=== PATIENT | male | born 1945 | race Caucasian/White ===

== ENCOUNTER → 2021-09-15 13:31 | Outpatient (BNVA) | payer MEDICARE, BC, SELFPAY | PROVIDERS: PCP Internal Medicine; Visit Provider Psychiatry & Neurology Neurology | DX: E34.8 Other specified endocrine disorders (principal); G40.209 Localization-related (focal) (partial) symptomatic epilepsy and epileptic syndromes with complex partial seizures, not intractable, without status epilepticus; R25.1 Tremor, unspecified; G47.33 Obstructive sleep apnea (adult) (pediatric); E78.5 Hyperlipidemia, unspecified; F43.10 Post-traumatic stress disorder, unspecified; Z99.89 Dependence on other enabling machines and devices | CPT/HCPCS: 99212 ==

== ENCOUNTER → 2022-03-16 11:27 | Outpatient (BNVA) | payer MEDICARE, BC, SELFPAY | PROVIDERS: PCP Internal Medicine; Visit Provider Nurse Practitioner Family | DX: E66.9 Obesity, unspecified (principal); R25.1 Tremor, unspecified; G47.33 Obstructive sleep apnea (adult) (pediatric); G40.209 Localization-related (focal) (partial) symptomatic epilepsy and epileptic syndromes with complex partial seizures, not intractable, without status epilepticus; E34.8 Other specified endocrine disorders | CPT/HCPCS: 99212 ==

== ENCOUNTER → 2022-09-14 10:54 | Outpatient (BNVA) | payer MEDICARE, BC, SELFPAY | PROVIDERS: PCP Internal Medicine; Visit Provider Nurse Practitioner Family | DX: G40.209 Localization-related (focal) (partial) symptomatic epilepsy and epileptic syndromes with complex partial seizures, not intractable, without status epilepticus (principal); G25.1 Drug-induced tremor; G47.33 Obstructive sleep apnea (adult) (pediatric); E66.9 Obesity, unspecified; Z68.31 Body mass index [BMI] 31.0-31.9, adult; Z99.89 Dependence on other enabling machines and devices | CPT/HCPCS: 99212 ==

== ENCOUNTER 2023-03-15 10:52 | Outpatient (AMB) | payer MEDICARE, BC, SELFPAY ==
--- NOTE | 2023-03-15 10:54 | MHC.OFFVIS ---
Intake Vital Signs 03/15/23 11:01 Height 5 ft 7 in BP 148/74 H Blood Pressure Location Rt brachial Position Sitting Pulse 58 Pulse Source Pulse Oximeter Pulse Oximetry (%) 97 Oxygen Delivery Method Room Air Intake Visit Reasons: 6 mo f/u for AUGUSITN - Confirmed Intake Note: Patient presents for 6 month follow up AUGUSTIN.Patient states my tremors are getting worst,my wives OT told me about a weighted glove. Allergies No Known Allergies Allergy (Verified 03/15/23 10:59) HPI HPI Comments History of Present Illness Details 77 y/o male patient presents with his for follow up of complex partial seizures, left upper extremity tremor and obstructive sleep apnea on CPAP comes for follow-up.? No breakthrough seizures reported. Pt denies any episodes of confusion or seizure like activities. ? He takes gabapentin 100 mg qAM, 300 mg qHS and lamotrigine 150 mg BID. He is compliant with [facility]. He sleeps about 7 hours a day, but reports daytime sleepiness, he falls asleep sometimes. He takes methylphenidate 10 mg BID. He has not noticed any left hand tremors, but feels fine motor skills declined. He is having difficulty changing his 's hearing aids. Pt's memory is stable, but still forgetful. He sees his psychiatrist once a month for depression. [facility] Medical History (Updated 03/15/23 @ 11:21 by Cora Harrison CNP) Obesity Hyperlipidemia Pineal gland cyst Tremors of nervous system Obstructive sleep apnea Complex partial seizures Depression Arthritis Surgical History No pertinent past surgical history Social History Household Members: Spouse Alcohol intake: current Alcohol intake frequency: does not drink Patient Tobacco Use Status: Never used Tobacco Current occupational status: retired Review of Systems Const All systems reviewed & are unremarkable except as noted in HPI and below ENT Reports Normal hearing present Neuro Reports Normal hearing present Physical Exam Vital Signs: Last Vital Signs Pulse 58 03/15/23 11:01 BP 148/74 H 03/15/23 11:01 Pulse Ox 97 03/15/23 11:01 Oxygen Delivery Method Room Air 03/15/23 11:01 Const General: cooperative, healthy appearing, comfortable and no acute distress Nutritional Appearance: obese Orientation/consciousness: patient oriented x3 Eyes Pupils: Equal, round and reactive pupils present Neuro Other: Mild intermittent left UE rest tremors Mild decreased finger taps and fine finger movements L>R. General: patient oriented x3 Cranial nerves: Yes CN's II-XII intact bilaterally, Yes Equal, round and reactive pupils present, Yes Bilaterally intact EOM present, Yes Normal facial strength present, Yes Midline tongue present and Yes Normal hearing present Motor exam (neuro): 5/5 motor strength present throughout Psych Appearance: grossly normal Mental Status: mental status grossly normal Affect: normal affect Attitude: cooperative Assessment & Plan Assessment & Plan (1) Obesity: Code(s): E66.9 - Obesity, unspecified (2) Tremors of nervous system: Comment: Bilateral hands tremor. Code(s): R25.1 - Tremor, unspecified (3) Obstructive sleep apnea: Code(s): G47.33 - Obstructive sleep apnea (adult) (pediatric) (4) Complex partial seizures: Code(s): G40.209 - Localization-related (focal) (partial) symptomatic epilepsy and epileptic syndromes with complex partial seizures, not intractable, without status epilepticus Plan Advised patient to continue lamotrigine 150 mg b.i.d. Continue gabapentin 100 mg q AM and 300 mg q HS. Continue CPAP compliance stressed. Sleep hygiene education provided. Encouraged patient to have well balanced diet for wt management. Advised patient to increased physical and cognitive activity. Refer patient to OT for hands weakness, tremor, and decreased fine motor skills. Orders: Orders OT Evaluation and Treatment 12 Weeks R25.1 - Tremor, unspecified Coding Level of Care Code Est Pt Level 4 (21400) Diagnoses Obesity E66.9 Tremors of nervous system R25.1 Obstructive sleep apnea G47.33 Complex partial seizures G40.209
[2023-03-15 11:01] VITALS: BP 148/74; PULSE 58; O2SAT 97
== END 2023-03-15 11:26 | disposition home or self-care (01) ==
LOC: HO.HSMC 10:52
PROVIDERS: PCP Internal Medicine; Visit Provider Nurse Practitioner Family
DX: E66.9 Obesity, unspecified (principal); R25.1 Tremor, unspecified; G47.33 Obstructive sleep apnea (adult) (pediatric); G40.209 Localization-related (focal) (partial) symptomatic epilepsy and epileptic syndromes with complex partial seizures, not intractable, without status epilepticus
CPT/HCPCS: 99214

== ENCOUNTER → 2023-03-15 10:52 | Outpatient (BNVA) | payer MEDICARE, BC, SELFPAY | PROVIDERS: PCP Internal Medicine; Visit Provider Nurse Practitioner Family | DX: G40.209 Localization-related (focal) (partial) symptomatic epilepsy and epileptic syndromes with complex partial seizures, not intractable, without status epilepticus (principal); R25.1 Tremor, unspecified; G47.33 Obstructive sleep apnea (adult) (pediatric); E66.9 Obesity, unspecified | CPT/HCPCS: 99212 ==

== ENCOUNTER 2023-07-25 09:43 | Outpatient (AMB) | payer MEDICARE, BC, SELFPAY ==
--- NOTE | 2023-07-25 09:55 | MHC.OFFVIS ---
Intake Vital Signs 07/25/23 09:58 Height 5 ft 7 in Weight 202 lb BMI 31.6 BP 130/74 Blood Pressure Location Rt brachial Position Sitting Pulse 57 Pulse Source Pulse Oximeter Pulse Oximetry (%) 97 Oxygen Delivery Method Room Air Intake Visit Reasons: 4 mnts f/u appt CONF Intake Note: Patient presents for 4 month f/u. Allergies No Known Allergies Allergy (Verified 07/25/23 09:57) HPI HPI Comments History of Present Illness Details 78 y/o male patient presents with his for follow up of complex partial seizures, left upper extremity tremor and obstructive sleep apnea on CPAP comes for follow-up.? No breakthrough seizures reported. Pt denies any episodes of confusion or seizure like activities. ? He takes gabapentin 100 mg qAM, 300 mg qHS and lamotrigine 150 mg BID. He is compliant with [facility]AP and [facility]. He sleeps about 7 hours a day, but reports daytime sleepiness, he falls asleep sometimes. He takes methylphenidate 10 mg BID. He has not noticed left hand tremors decreased, but feels fine motor skills declined. OT finished. He is having difficulty changing his 's hearing aids. Pt reports his memory has declined, very forgetful. The previous brain MRI (10/06/21) showed pineal cyst. He sees his psychiatrist once a month for depression. [facility] Medical History (Updated 07/25/23 @ 10:34 by Cora Harrison CNP) Obesity Hyperlipidemia Pineal gland cyst Tremors of nervous system Obstructive sleep apnea Complex partial seizures Depression Arthritis Surgical History No pertinent past surgical history Social History Household Members: Spouse Alcohol intake: current Alcohol intake frequency: does not drink Patient Tobacco Use Status: Never used Tobacco Current occupational status: retired Review of Systems Const All systems reviewed & are unremarkable except as noted in HPI and below ENT Reports Normal hearing present Neuro Reports Normal hearing present Physical Exam Vital Signs: Last Vital Signs Pulse 57 07/25/23 09:58 BP 130/74 07/25/23 09:58 Pulse Ox 97 07/25/23 09:58 Oxygen Delivery Method Room Air 07/25/23 09:58 BMI result Body Mass Index 31.6 Const General: cooperative, healthy appearing, comfortable and no acute distress Nutritional Appearance: obese Orientation/consciousness: patient oriented x3 Eyes Pupils: Equal, round and reactive pupils present Neuro Other: Mild intermittent left UE rest tremors Mild decreased finger taps and fine finger movements L>R. General: patient oriented x3 Cranial nerves: Yes CN's II-XII intact bilaterally, Yes Equal, round and reactive pupils present, Yes Bilaterally intact EOM present, Yes Normal facial strength present, Yes Midline tongue present and Yes Normal hearing present Motor exam (neuro): 5/5 motor strength present throughout Psych Appearance: grossly normal Mental Status: mental status grossly normal Affect: normal affect Attitude: cooperative Assessment & Plan Assessment & Plan (1) Tremors of nervous system: Comment: Bilateral hands tremor. Code(s): R25.1 - Tremor, unspecified (2) Obstructive sleep apnea: Code(s): G47.33 - Obstructive sleep apnea (adult) (pediatric) (3) Complex partial seizures: Code(s): G40.209 - Localization-related (focal) (partial) symptomatic epilepsy and epileptic syndromes with complex partial seizures, not intractable, without status epilepticus Plan Advised patient to continue lamotrigine 150 mg b.i.d. Continue gabapentin 100 mg q AM and 300 mg q HS. Continue CPAP compliance stressed. Sleep hygiene education provided. Encouraged patient to have well balanced diet for wt management. Advised patient to increased physical and cognitive activity. Continue to do home OT for hands weakness, tremor, and decreased fine motor skills. Will repeat brain MRI to assess pineal cyst and worsening memory. Orders: Orders MR head/brain wo con 07/25/23 E34.8 - Other specified endocrine disorders, R25.1 - Tremor, unspecified, R26.89 - Other abnormalities of gait and mobility, R41.3 - Other amnesia Coding Level of Care Code Est Pt Level 4 (64041) Diagnoses Tremors of nervous system R25.1 Obstructive sleep apnea G47.33 Complex partial seizures G40.209
[2023-07-25 09:58] VITALS: BP 130/74; PULSE 57; O2SAT 97; BMI 31.6
== END 2023-07-25 10:31 | disposition home or self-care (01) ==
PROVIDERS: PCP Internal Medicine; Visit Provider Nurse Practitioner Family
DX: R25.1 Tremor, unspecified (principal); G47.33 Obstructive sleep apnea (adult) (pediatric); G40.209 Localization-related (focal) (partial) symptomatic epilepsy and epileptic syndromes with complex partial seizures, not intractable, without status epilepticus
CPT/HCPCS: 99214

== ENCOUNTER → 2023-07-25 09:43 | Outpatient (BNVA) | payer MEDICARE, BC, SELFPAY | PROVIDERS: PCP Internal Medicine; Visit Provider Nurse Practitioner Family | DX: R25.1 Tremor, unspecified (principal); G47.33 Obstructive sleep apnea (adult) (pediatric); G40.209 Localization-related (focal) (partial) symptomatic epilepsy and epileptic syndromes with complex partial seizures, not intractable, without status epilepticus; Z79.899 Other long term (current) drug therapy | CPT/HCPCS: 99212 ==

== ENCOUNTER 2024-04-04 09:53 | Outpatient (AMB) | payer MEDICARE, BC, SELFPAY ==
[2024-04-04 09:55] VITALS: BP 130/72; BMI 31.8
--- NOTE | 2024-04-04 09:55 | A.OFFVIS_ITS ---
Vital Signs 04/04/24 09:55 Height 5 ft 7 in Weight 203 lb BMI 31.8 BP 130/72 Blood Pressure Location Rt brachial Position Sitting Intake Visit Reasons: 6mo f/u appt Intake Note: Patient presents for 6 month follow up. Allergies No Known Allergies Allergy (Verified 04/04/24 09:58) Medication List - Last Reconciled 04/04/24 by Daya Son MD aspirin 81 mg PO DAILY cholecalciferol (vitamin D3) 50 mcg PO DAILY cyclosporine 0.05% (Restasis) drps ophthalmic (eye) escitalopram oxalate (Lexapro) 20 mg PO DAILY folic acid 1 mg PO DAILY gabapentin 100 mg PO DAILY gabapentin 300 mg PO BEDTIME hydrochlorothiazide 25 mg PO DAILY ibuprofen 600 mg PO TID lamotrigine 150 mg PO BID losartan 100 mg PO DAILY methylphenidate HCl 10 mg PO BID omega [id number] oil 120-180-500 mg (Fish Oil) caps PO simvastatin 20 mg PO BEDTIME HPI Comments Details: 78 y/o male patient presents with his for follow up of complex partial seizures, left upper extremity tremor and obstructive sleep apnea on CPAP comes for follow-up.? No breakthrough seizures reported.He recalls 1 episode of mild confusion 3 mths ago lasting 30seconds He takes gabapentin 100 mg qAM, 300 mg qHS and lamotrigine 150 mg BID. He is compliant with CPAP and [facility]. He sleeps about 7 hours a day, but reports daytime sleepiness. He takes methylphenidate 10 mg BID- AM and 1 pm- psychiatrist He has not noticed left hand tremors decreased, but feels fine motor skills declined. . He is having difficulty changing his 's hearing aids. Pt reports his memory has declined, very forgetful. Repeat brain MRI (09/10) showed pineal cyst- no change He sees his psychiatrist once a month for depression. [facility]. [facility] Medical History (Updated 04/04/24 @ 10:31 by Daya Son MD) Cognitive disorder Obesity Hyperlipidemia Pineal gland cyst Tremors of nervous system Obstructive sleep apnea Complex partial seizures Depression Arthritis Surgical History No pertinent past surgical history Social History Household Members: Spouse Alcohol intake: current Alcohol intake frequency: does not drink Patient Tobacco Use Status: Never used Tobacco Current occupational status: retired Physical Exam Vital Signs: Last Vital Signs BP 130/72 04/04/24 09:55 BMI result Body Mass Index 31.8 Assessment & Plan Assessment & Plan (1) Tremors of nervous system: Comment: Bilateral hands tremor. Code(s): R25.1 - Tremor, unspecified Category: Medical (2) Obstructive sleep apnea: Code(s): G47.33 - Obstructive sleep apnea (adult) (pediatric) Category: Medical (3) Complex partial seizures: Code(s): G40.209 - Localization-related (focal) (partial) symptomatic epilepsy and epileptic syndromes with complex partial seizures, not intractable, without status epilepticus Category: Medical (4) Cognitive disorder: Code(s): F09 - Unspecified mental disorder due to known physiological condition Category: Medical Plan I will trial him on zonisamide 25mg bid Advised patient to continue lamotrigine 150 mg b.i.d. Continue gabapentin 100 mg q AM and 300 mg q HS. Continue CPAP compliance stressed. Sleep hygiene education provided. Encouraged patient to have well balanced diet for wt management. Advised patient to increased physical and cognitive activity. Continue to do home exercise for hands weakness, tremor, and decreased fine motor skills. reviewed brain MRI to assess pineal cyst and worsening memory. Orders: Referrals Neuropsychiatry Referral F09 - Unspecified mental disorder due to known physiological condition Medications: New zonisamide 25 mg PO BID 60 caps 6RF Coding Level of Care Code Est Pt Level 4 (44473) Complex EM visit Add On G2211 Diagnoses Tremors of nervous system R25.1 Obstructive sleep apnea G47.33 Complex partial seizures G40.209 Cognitive disorder F09
== END 2024-04-04 10:41 | disposition home or self-care (01) ==
PROVIDERS: PCP Internal Medicine; Visit Provider Psychiatry & Neurology Neurology
DX: G40.209 Localization-related (focal) (partial) symptomatic epilepsy and epileptic syndromes with complex partial seizures, not intractable, without status epilepticus (principal); R41.89 Other symptoms and signs involving cognitive functions and awareness; R25.1 Tremor, unspecified; G47.33 Obstructive sleep apnea (adult) (pediatric)
CPT/HCPCS: 99214; G2211

== ENCOUNTER → 2024-04-04 09:53 | Outpatient (BNVA) | payer MEDICARE, BC, SELFPAY | PROVIDERS: PCP Internal Medicine; Visit Provider Psychiatry & Neurology Neurology | DX: G40.209 Localization-related (focal) (partial) symptomatic epilepsy and epileptic syndromes with complex partial seizures, not intractable, without status epilepticus (principal); G47.33 Obstructive sleep apnea (adult) (pediatric); R25.1 Tremor, unspecified; F09 Unspecified mental disorder due to known physiological condition | CPT/HCPCS: 99212 ==

== ENCOUNTER 2024-10-02 10:54 | Outpatient (AMB) | payer MEDICARE, BC, SELFPAY ==
--- NOTE | 2024-10-02 11:10 | MHC.OFFVIS ---
Vital Signs 10/02/24 11:12 Height 5 ft 7 in Weight 198 lb 4 oz BMI 31.0 BP 130/78 Blood Pressure Location Lt brachial Position Sitting Pulse 50 Pulse Source Pulse Oximeter Pulse Oximetry (%) 98 Oxygen Delivery Method Room Air Intake Visit Reasons: 6mo f/u appt Intake Note: Patient presents follow up AUGUSTIN. [facility]. Allergies No Known Allergies Allergy (Verified 10/02/24 11:16) HPI Comments Details: 79 y/o male patient presents with his for follow up of complex partial seizures, left upper extremity tremor and obstructive sleep apnea on CPAP comes for follow-up.? No breakthrough seizures reported. He recalls 1 episode of mild confusion and onset of seizure like activity 6 months ago lasting 30 seconds, he can't think talk or hear, puts his hands on the kitchen counter, denies losing his urine, biting his tongue. MRI 08/2023 13mm Pineal Cyst, no change. He thinks his tremors are better with Zonasamide. His memory is poor STM, forgets conversations, word finding difficulty, names, and he has to write everything down, and forgets where they are or were left. He takes gabapentin 100mg in the am, 100mg at noon and 400mg at bedtime, for sleep and Keppra 150 mg BID. He is awaiting Neuropsyche testing in November 2024, at the [facility]. He has AUGUSTIN diagnosed and treated with CPAP. He is compliant with CPAP and followed by [facility] for compliance and therapy response, Dr. Delaney. Avg use is 7 hours a night, [facility] supplies [facility]. He cleans his mask and tubing, and fills reservoir as needed. He takes methylphenidate 10 mg BID- AM and 1 pm- psychiatrist for mood irritability, anxiety. He still feels tired the next day because he stays up late, usually sleeps in his chair then moves to the bed. He has PTSD and bad dreams at least once or twice a week, he doesn't wake up, doesn't scream and or kick. He was kicking someone in his dreams and fell out of bed and he hit the night stand with his head. He has not noticed left hand tremors decreased, but feels fine motor skills declined. He is having difficulty changing his 's hearing aids. He is having balance difficulties, with dizziness, and Vertigo when bending over thinks it may be hypotension. He sees his psychiatrist twice a month for depression. [facility] COUNTS INCLUDE 234 BEDS AT THE [facility] Medical History Cognitive disorder Obesity Hyperlipidemia Pineal gland cyst Tremors of nervous system Obstructive sleep apnea Complex partial seizures Depression Arthritis Surgical History No pertinent past surgical history Social History Household Members: Spouse Alcohol intake: current Alcohol intake frequency: does not drink Patient Tobacco Use Status: Never used Tobacco Current occupational status: retired Physical Exam Vital Signs: Last Vital Signs Pulse 50 10/02/24 11:12 BP 130/78 10/02/24 11:12 Pulse Ox 98 10/02/24 11:12 Oxygen Delivery Method Room Air 10/02/24 11:12 BMI result Body Mass Index 31.0 Const General: cooperative and no acute distress Orientation/consciousness: patient oriented x3 HEENT Face and sinus: Yes other (Left side drooping) Throat: Yes other ([place] score of 4) Eyes Pupils: Equal, round and reactive pupils present Resp Effort & Inspection: normal respiratory effort and able to speak in complete sentences Neuro Other: Blunt facial expressions no head tremors, Voice Hypophonia, l side facial droop. LUE Tremors >RUE and R. hand 5th digit tremor. Gait leaning to the r. with right hand tremor, L. hand no arm swing drooped posture. General: patient oriented x3 Cranial nerves: Yes Facial sensation intact/muscles of mastication intact, Yes Equal, round and reactive pupils present, Yes Ability to bilaterally elevate shoulders present and Yes Other cranial nerve findings present (Hyperemia l. with bilateral lacrimation due to clogged tear ducts.) Gait exam (Neuro): Shuffling gait present Motor exam (neuro): 5/5 motor strength present throughout and Tremors during motor activity present (LUE > RUE and r.hand 5th digit.) Psych Thought process: Normal thought process present Results Reviewed Results Reviewed: MRI 08/2023 Pineal Cyst 13mm. Assessment & Plan Assessment & Plan (1) Tremors of nervous system: Comment: Bilateral hands tremor. 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 Code(s): F09 - Unspecified mental disorder due to known physiological condition Category: Medical (5) Balance problem: Code(s): R26.89 - Other abnormalities of gait and mobility Category: Medical (6) Gait difficulty: Code(s): R26.9 - Unspecified abnormalities of gait and mobility Category: Medical (7) History of concussion: Code(s): Z87.820 - Personal history of traumatic brain injury Category: Medical Plan Tremor Continue on Zonisamide 25mg bid, for convulsions, mood and anxiety. Advised patient to continue Lamotrigine 150 mg BID and Gabapentin for sleep 100 mg qAM and qat 1200 and 400 mg at bedtime. Continue CPAP compliance stressed, sleep hygiene education provided. Encouraged patient to have well balanced diet for weight management. Cognitive Decline emphasized to patient, he should increased physical, social and cognitive activities to include 10min of biking daily, and stationary or pedal biking. PT for Balance, vertigo and dizziness. CT-scan History of Concussions and falls. F/u in 3 months after Neuropsyche testing. Explained size and location of pineal cyst and worsening memory, 13mm. Orders: Orders CT head/brain wo IV con Today Z87.820 - Personal history of traumatic brain injury PT Evaluation and Treatment Today R26.89 - Other abnormalities of gait and mobility, R26.9 - Unspecified abnormalities of gait and mobility Patient Instructions: Sleep Hygiene provided: set a scheduled bedtime and wake time to help regulate the circadian rhythm and balance the release of pituitary hormones. Sleep in a dark room, temperatures below 68 degrees, and no devices n bed. Limit caffeinated products 6 hours prior to bed, and limit fluids 2-4 hours prior to bed. Gentle night yoga, diffusing essential oils, and playing soft music can be relaxing. CT scan for history of concussions due to falls. PT for Balance and Gait issues with vertigo and dizziness. Neuropscye Testing in November with [facility] Coding Level of Care Code Est Pt Level 4 (27334) Diagnoses Tremors of nervous system R25.1 Obstructive sleep apnea G47.33 Complex partial seizures G40.209 Cognitive disorder F09 Balance problem R26.89 Gait difficulty R26.9 History of concussion Z87.820 Time Spent (min) 30
[2024-10-02 11:12] VITALS: BP 130/78; PULSE 50; O2SAT 98; BMI 31.0
--- OUTSIDE RECORDS SUMMARY | 2024-10-02 13:16 | XMS_ITS | Continuity of Care Document ---
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 It does not include entries that were removed or entered in error. Problem Status Onset Date Problem Type Date of Resolution Comments Source Adult attention deficit disorder Active Condition [facility] Chronic post-traumatic stress disorder (SNOMED CT 579818281) Active Condition May 18, 2021 Entered By: SALIMA MARVIN Comment: Reviewed [facility] Disorder of nervous system Active Condition Sep 10, 2024 Entered By: VINNIE BLACKWELL Comment: sees neurology- Dr. Lennon. not seizures but spells almost out of body experience, she prescribed gabapentin 300 mg daily [facility] Essential hypertension Active Condition [facility] Exposure to potentially hazardous substance (SCT 907078692364406) Active Condition Sep 27 Entered By: REGINALDO MANN Comment: Entered automatically through [facility] Problem List documentation program [facility] Hyperlipidemia (SNOMED CT 25559500) Active Condition [facility] Metabolic syndrome X Active Condition [facility] Moderate recurrent major depression Active Condition May 18, 2021 Entered By: SALIMA MARVIN Comment: Reviewed [facility] Obesity Active Condition [facility] Obstructive sleep apnea of adult (SNOMED CT 5248189524234) Active Condition Jun 23, 2012 Entered By: AUBREE RODGERS Comment: [email or web address] Entered By: FABIÁN JONES Comment: using CPAP [facility] Prediabetes Active Condition [facility] Seasonal affective disorder Active Condition May 24, 2017 Entered By: TIFFANIE SANTOS Comment: update [facility] Vitreous Detachment/Degene ration (Pvd) Active Condition [facility] Cataract, Cortical Inactive Condition 07/05/2018 [facility] Dry Eyes * (ICD-9-CM 375.15) Inactive Condition 07/05/2018 [facility] Marital/family problems (ICD-9-CM V61.0) Inactive Condition 07/05/2018 [facility] Pain, neck NEC Inactive Condition 07/05/2018 Jun 27, 2007 Entered By: FABIÁN JONES Comment: prn ibuprofen [facility] Presbyopia * (ICD-9-CM 367.4) Inactive Condition 07/05/2018 [facility] Superficial basal cell carcinoma Inactive Condition 07/05/2018 [facility] Tendonitis, Achilles (ICD-9-CM 726.71) Inactive Condition 06/27/2007 [facility] Diagnosis: ICD-10-CM F43.12 Post-traumatic stress disorder, chronic Active Diagnosis [facility] Diagnosis: ICD-10-CM K03.6 Deposits [accretions] on teeth Active Diagnosis [facility] Diagnosis: ICD-10-CM G98.8 Other disorders of nervous system Active Diagnosis [facility] Diagnosis: ICD-10-CM R73.03 Prediabetes Active Diagnosis [facility] Diagnosis: ICD-10-CM Z13.6 Encounter for screening for cardiovascular disorders Active Diagnosis [facility] Diagnosis: ICD-10-CM F33.1 Major depressive disorder, recurrent, moderate Active Diagnosis [facility] Diagnosis: ICD-10-CM F90.9 Attention-deficit hyperactivity disorder, unspecified type Active Diagnosis [facility] Diagnosis: ICD-10-CM 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, stage 2 (mild) Active Diagnosis [facility] Diagnosis: ICD-10-CM H25.813 Combined forms of age-related cataract, bilateral Active Diagnosis [facility] Diagnosis: ICD-10-CM Z77.29 Contact with and exposure to other hazardous substances Active Diagnosis [facility] Diagnosis: ICD-10-CM K08.9 Disorder of teeth and supporting structures, unspecified Active Diagnosis [facility] Diagnosis: ICD-10-CM I10 Essential (primary) hypertension Active Diagnosis [facility] Diagnosis: ICD-10-CM R73.01 Impaired fasting glucose Active Diagnosis [facility] Diagnosis: ICD-10-CM Z46.0 Encounter for fit/adjst of spectacles and contact lenses Active Diagnosis [facility] Medications Combined list of outpatient medications from Department of Defense and Veterans Affairs facilities.Medications provided include 1) outpatient medications from the last 15 months, and 2) patient-reported medications. Medication Details Route Status Patient Instructions Prescription Expires Prescription Number Last Dispense Date Ordering Provider Order Date Order Qty Source CARBOXYMETH YLCELLULOSE NA 0.5% SOLN,OPH INSTILL 1 DROP INTO EACH EYE FOUR TIMES DAILY NEEDED FOR DRY EYE OPHTHA LMIC 09/05/2024 [id number] MERHAR,NO AH B 2023 45 [facility] CARBOXYMETH YLCELLULOSE NA 1% GEL,OPH APPLY 1 DROP INTO EACH EYE AT BEDTIME FOR DRY EYE OPHTHA LMIC 09/05/2024 [id number] MERHAR,NO AH B 2023 30 [facility] CYCLOSPORIN E 0.05% (PF) EMULSION,OP H,0.4ML INSTILL 1 DROP INTO EACH EYE TWICE DAILY FOR DRY EYE OPHTHA LMIC 09/05/2024 [id number] 5 MERHAR,NO AH B 2023 180 [facility] ESCITALOPRA M OXALATE 20MG TAB TAKE ONE TABLET BY MOUTH ONCE DAILY ORAL HOLD 09/12/2025 [id number] 5 Lindsey KELSEY 2024 60 [facility] ESCITALOPRA M OXALATE 20MG TAB TAKE ONE TABLET BY MOUTH ONCE DAILY FOR MOOD/DEP RESSION ORAL DISCONT INUED BY PROVIDE R 10/10/2024 [id number] 5 Bam BLACKWELL 2024 7 [facility] ESCITALOPRA M OXALATE 20MG TAB TAKE ONE TABLET BY MOUTH ONCE DAILY ORAL DISCONT INUED 06/27/2025 [id number] Lindsey KELSYE 2024 30 [facility] ESCITALOPRA M OXALATE 20MG TAB TAKE ONE AND ONE-HALF TABLETS BY MOUTH AT BEDTIME DEPRESSI ON/ ANXIETY ORAL DISCONT INUED BY PROVIDE R 05/03/2025 [id number] DAILY BENSON MD 2023 45 [facility] ESCITALOPRA M OXALATE 20MG TAB TAKE ONE AND ONE-HALF TABLETS BY MOUTH AT BEDTIME ORAL DISCONT INUED (EDIT) 03/15/2025 [id number] 4 DAILY BENSON MD 2023 45 [facility] ESCITALOPRA M OXALATE 20MG TAB TAKE ONE AND ONE-HALF TABLETS BY MOUTH AT BEDTIME ORAL DISCONT INUED (EDIT) 01/09/2025 [id number] DAILY BENSON MD 2023 45 [facility] ESCITALOPRA M OXALATE 20MG TAB TAKE ONE AND ONE-HALF TABLETS BY MOUTH AT BEDTIME FOR MOOD/DEP RESSION ORAL DISCONT INUED (EDIT) 12/02/2024 [id number] DAILY BENSON MD 2023 45 [facility] ESCITALOPRA M OXALATE 20MG TAB TAKE ONE TABLET BY MOUTH AT BEDTIME ORAL DISCONT INUED (EDIT) 07/28/2024 [id number] 4 DAILY BENSON MD 2023 90 [facility] GABAPENTIN 100MG CAP TAKE ONE CAPSULE BY MOUTH TWICE DAILY NEEDED DURING THE DAYTIME (MORNING AND AFTERNOO N) FOR ANXIETY (OFF LABEL)-C AUTION-- MAY CAUSE SEDATION . ORAL ACTIVE 06/27/2025 [id number] 5 Lindsey KELSEY 2024 60 [facility] GABAPENTIN 100MG CAP TAKE ONE CAPSULE BY MOUTH TWICE DAILY NEEDED DURING THE DAYTIME (MORNING AND AFTERNOO N) IF NEEDED FOR ANXIETY (OFF LABEL)-C AUTION-- MAY CAUSE SEDATION . ORAL DISCONT INUED BY MARISELA Avina 05/03/2025 [id number] DAILY BENSON MD 2023 60 [facility] GABAPENTIN 100MG CAP TAKE ONE CAPSULE BY MOUTH TWICE DAILY NEEDED DURING THE DAYTIME (MORNING AND AFTERNOO N) IF NEEDED FOR ANXIETY (OFF LABEL)-C AUTION-- MAY CAUSE SEDATION . ORAL DISCONT INUED (EDIT) 03/15/2025 [id number] DAILY BENSON MD 2023 60 [facility] GABAPENTIN 100MG CAP TAKE ONE CAPSULE BY MOUTH TWICE DAILY NEEDED DURING THE DAYTIME (MORNING AND AFTERNOO N) IF NEEDED FOR ANXIETY (OFF LABEL)-C AUTION-- MAY CAUSE SEDATION . ORAL DISCONT INUED (EDIT) 12/02/2024 [id number] DAILY BENSON MD 2023 60 [facility] GABAPENTIN 100MG CAP TAKE ONE CAPSULE BY MOUTH TWICE DAILY NEEDED DURING THE DAYTIME (MORNING AND AFTERNOO N) IF NEEDED FOR ANXIETY (OFF LABEL)-C AUTION-- SEDATION . ORAL DISCONT INUED (EDIT) 07/28/2024 [id number] 4 DAILY BENSON MD 2023 60 [facility] GABAPENTIN 100MG CAP TAKE ONE CAPSULE BY MOUTH TWICE DAILY NEEDED DURING THE DAYTIME (MORNING AND AFTERNOO N) IF NEEDED FOR ANXIETY (OFF LABEL)-C AUTION-- SEDATION . ORAL DISCONT INUED (EDIT) 02/18/2024 [id number] DAILY BENSON MD 2022 60 [facility] GABAPENTIN 300MG CAP TAKE 1 CAPSULE BY MOUTH AT BEDTIME ORAL ACTIVE FURCOLO,T BETI 2024 [facility] HYDROCHLORO THIAZIDE 25MG TAB TAKE ONE TABLET BY MOUTH ONCE DAILY TO PREVENT FLUID/CO NTROL BLOOD PRESSURE ORAL ACTIVE 02/22/2025 [id number] 5 FURCOLO,T BETI 2023 90 [facility] HYDROCHLORO THIAZIDE 25MG TAB TAKE ONE TABLET BY MOUTH ONCE DAILY TO PREVENT FLUID/CO NTROL BLOOD PRESSURE ORAL DISCONT INUED 02/18/2024 [id number] KASIA JONES JAWED 2022 90 [facility] IBUPROFEN 600MG TAB TAKE ONE TABLET BY MOUTH THREE TIMES A DAY TAKE WITH FOOD; FOR PAIN/INF LAMMATIO N/SWELLI NG DO NOT TAKE ANY OTHER IBUPROFE N CONTAINI NG MEDICATI ONS WHILE USING THIS MEDICATI ON. ORAL ACTIVE 05/08/2025 [id number] 5 FURCOLO,T BETI 2023 90 [facility] IBUPROFEN 600MG TAB TAKE ONE TABLET BY MOUTH THREE TIMES A DAY TAKE WITH FOOD; FOR PAIN/INF LAMMATIO N/SWELLI NG DO NOT TAKE ANY OTHER IBUPROFE N CONTAINI NG MEDICATI ONS WHILE USING THIS MEDICATI ON. ORAL DISCONT INUED 01/27/2024 [id number] KASIA JONES JAWED 2022 90 [facility] LAMOTRIGINE 150MG TAB TAKE ONE TABLET BY MOUTH TWICE DAILY MOOD ORAL ACTIVE 08/26/2025 [id number] 5 Lindsey KELSEY 2024 180 [facility] LAMOTRIGINE 150MG TAB TAKE ONE TABLET BY MOUTH TWICE DAILY MOOD ORAL DISCONT INUED BY MARISELA R 03/15/2025 [id number] 5 DAILY BENSON MD 2023 180 [facility] LAMOTRIGINE 150MG TAB TAKE ONE TABLET BY MOUTH TWICE DAILY MOOD ORAL DISCONT INUED (EDIT) 12/02/2024 [id number] DAILY BENSON MD 2023 180 [facility] LAMOTRIGINE 150MG TAB TAKE ONE TABLET BY MOUTH TWICE DAILY MOOD ORAL DISCONT INUED (EDIT) 07/28/2024 [id number] DAILY BENSON MD 2023 180 [facility] [place] POTASSIUM 100MG TAB TAKE ONE TABLET BY MOUTH ONCE DAILY FOR BLOOD PRESSURE /HEART ORAL ACTIVE 07/27/2025 [id number] 5 Bam BLACKWELL 2024 90 [facility] [place] POTASSIUM 100MG TAB TAKE ONE TABLET BY MOUTH ONCE DAILY FOR BLOOD PRESSURE /HEART ORAL DISCONT INUED 07/18/2024 [id number] [facility] AMMED JAWED 2023 90 [facility] [place] POTASSIUM 100MG TAB TAKE ONE TABLET BY MOUTH ONCE DAILY FOR BLOOD PRESSURE /HEART ORAL DISCONT INUED 04/26/2024 [id number] [facility] AMMED JAWED 2022 90 [facility] MAGNESIUM OXIDE 420MG TAB TAKE ONE TABLET BY MOUTH ONCE DAILY ORAL 12/13/2023 [id number] [facility] AMMED JAWED 2023 100 [facility] METHYLPHENI DATE HCL 10MG TAB TAKE ONE TABLET BY MOUTH EVERY MORNING AND TAKE ONE TABLET AT NOON NEEDED NEXT FILL 10/22 ORAL ACTIVE 10/11/2024 [id number] Lindsey KELSEY 2024 60 [facility] METHYLPHENI DATE HCL 10MG TAB TAKE ONE TABLET BY MOUTH ONCE DAILY AND TAKE ONE TABLET EVERY EVENING NEEDED NEXT FILL 08/25 ORAL ACTIVE 08/27/2023 [id number] DAILY BENSON MD 2023 60 [facility] METHYLPHENI DATE HCL 10MG TAB TAKE ONE TABLET BY MOUTH EVERY MORNING AND TAKE ONE TABLET AT NOON NEEDED NEXT FILL 09/24 ORAL DISCONT INUED BY PROVIDE R 09/24/2024 [id number] Lindsey KELSEY 2024 60 [facility] METHYLPHENI DATE HCL 10MG TAB TAKE ONE TABLET BY MOUTH EVERY MORNING AND TAKE ONE TABLET AT NOON NEEDED FOR ATTENTIO N/CONCEN TRATION ORAL DISCONT INUED BY PROVIDE R 07/26/2024 [id number] 5 Lindsey KELSEY [address] [facility] METHYLPHENI DATE HCL 10MG TAB TAKE ONE TABLET BY MOUTH ONCE DAILY AND TAKE ONE TABLET EVERY EVENING NEEDED NEXT FILL 07/05/24* * ORAL DISCONT INUED BY PROVIDE R 06/06/2024 [id number] DAILY BENSON MD 2023 60 [facility] METHYLPHENI DATE HCL 10MG TAB TAKE ONE TABLET BY MOUTH ONCE DAILY AND TAKE ONE TABLET EVERY EVENING NEEDED NEXT FILL 06/06 ORAL DISCONT INUED 06/01/2024 [id number] DAILY BENSON MD 2023 60 [facility] METHYLPHENI DATE HCL 10MG TAB TAKE ONE TABLET BY MOUTH ONCE DAILY AND TAKE ONE TABLET EVERY EVENING NEEDED NEXT FILL 05/09 ORAL DISCONT INUED 05/11/2024 [id number] DAILY BENSON MD 2023 60 [facility] METHYLPHENI DATE HCL 10MG TAB TAKE ONE TABLET BY MOUTH ONCE DAILY AND TAKE ONE TABLET EVERY EVENING NEEDED FOR ATTENTIO N/CONCEN TRATION ORAL DISCONT INUED (EDIT) 04/13/2024 [id number] 4 DAILY BENSON MD 2023 60 [facility] METHYLPHENI DATE HCL 10MG TAB TAKE ONE TABLET BY MOUTH ONCE DAILY AND TAKE ONE TABLET EVERY EVENING NEEDED (NEXT FILL 02/07/24) ORAL DISCONT INUED 02/08/2024 [id number] DAILY BENSON MD 2023 60 [facility] METHYLPHENI DATE HCL 10MG TAB TAKE ONE TABLET BY MOUTH ONCE DAILY AND TAKE ONE TABLET EVERY EVENING NEEDED FOR ATTENTIO N/CONCEN TRATION (NEXT FILL 10/26/23) ORAL DISCONT INUED (EDIT) 10/28/2023 [id number] DAILY BENSON MD 2023 56 [facility] METHYLPHENI DATE HCL 10MG TAB TAKE ONE TABLET BY MOUTH ONCE DAILY AND TAKE ONE TABLET EVERY EVENING NEEDED NEXT FILL 09/26 ORAL DISCONT INUED (EDIT) 09/29/2023 [id number] DAILY BENSON MD 2023 56 [facility] METHYLPHENI DATE HCL 10MG TAB TAKE ONE TABLET BY MOUTH EVERY MORNING AND TAKE ONE TABLET AT NOON NEEDED ATTENTIO N/ CONCENTR ATION NEXT FILL 08/24 ORAL 08/23/2024 [id number] 5 Lindsey KELSEY 2024 60 [facility] METHYLPHENI DATE HCL 10MG TAB TAKE ONE TABLET BY MOUTH ONCE DAILY AND TAKE ONE TABLET EVERY EVENING NEEDED NEXT FILL 03/07 ORAL 03/09/2024 [id number] DAILY BENSON MD 2023 60 [facility] METHYLPHENI DATE HCL 10MG TAB TAKE ONE TABLET BY MOUTH ONCE DAILY AND TAKE ONE TABLET EVERY EVENING NEEDED NEXT FILL 01/08 ORAL 01/01/2024 [id number] 4 DAILY BENSON MD 2023 [facility] METHYLPHENI DATE HCL 10MG TAB TAKE ONE TABLET BY MOUTH ONCE DAILY AND TAKE ONE TABLET EVERY EVENING NEEDED NEXT FILL 11/23 ORAL 11/25/2023 [id number] DAILY BENSON MD 2023 56 [facility] SIMVASTATIN 80MG TAB TAKE ONE-HALF TABLET BY MOUTH AT BEDTIME ORAL ACTIVE FURCOLO,T BETI 2024 [facility] SODIUM FLUORIDE 1.1% TOOTHPASTE BRUSH SMALL AMOUNT TO TEETH TWICE DAILY FOR TOOTH DECAY PREVENTI ON DENTAL 05/31/2024 [id number] TEDDY BRAGG 2022 51 [facility] Allergies, Adverse Reactions, Alerts Combined list of allergies from Department of Defense and Veterans Affairs facilities. It does not include entries that were removed or entered in error. Substance Category Reaction Severity Reaction type Status Date Reported Comments Source LISINOPRIL Propensity to adverse reactions to drug (finding) active [facility] Immunizations Combined list of available immunizations from the Department of Defense and Veterans Affairs facilities. Immunization Series Date Given Administered By Site Reaction Lot Number CVX Code Drug Rotating Equipment Specialist Status Comments Source RSV, BIVALENT, PROTEIN SUBUNIT RSVPREF, DILUENT RECONSTITUTED , 0.5 ML, PF 2024 CIARAN SHELTON LEFT DELTO ID [id number] 305 complet ed Completed Series, [facility] INFLUENZA, UNSPECIFIED FORMULATION 2023 88 complet ed Completed Series, HISTORICA L INFORMATI ON - FROM PATIENT'S RECALL, [facility] INFLUENZA, HIGH-DOSE, QUADRIVALENT 2022 BRUNILDA JAVIER LEFT DELTO ID [id number] A 197 complet ed Completed Series, [facility] INFLUENZA, INJECTABLE, QUADRIVALENT, PRESERVATIVE FREE 2021 150 complet ed [facility] PNEUMOCOCCAL POLYSACCHARID E PPV23 2021 33 complet ed [facility] TDAP 2021 115 complet ed [facility] COVID-19 (PFIZER), MRNA, LNP-S, PF, 30 MCG/0.3 ML DOSE 3 2020 208 complet ed [facility] INFLUENZA, UNSPECIFIED FORMULATION 2020 88 complet ed [facility] COVID-19 (PFIZER), MRNA, LNP-S, PF, 30 MCG/0.3 ML DOSE 2 2020 208 complet ed [facility] COVID-19 (PFIZER), MRNA, LNP-S, PF, 30 MCG/0.3 ML DOSE 1 2020 208 complet ed [facility] INFLUENZA, UNSPECIFIED FORMULATION 2019 88 complet ed [facility] INFLUENZA, SEASONAL, INJECTABLE 2018 141 complet ed [facility] INFLUENZA, SEASONAL, INJECTABLE 2017 141 complet ed [facility] ZOSTER RECOMBINANT 2 2017 187 complet ed [facility] ZOSTER RECOMBINANT 2017 187 complet ed [facility] INFLUENZA, SEASONAL, INJECTABLE 2016 141 complet ed [facility] FLU,3 YRS (HISTORICAL) 2015 88 complet ed had at outside pcp [facility] FLU,3 YRS (HISTORICAL) 2014 88 complet ed Site: Right Deltoid [facility] PNEUMOCOCCAL CONJUGATE PCV 13 2014 133 complet ed [facility] FLU,3 YRS (HISTORICAL) 2013 88 complet ed Site: Left Deltoid [facility] FLU,3 YRS (HISTORICAL) 2012 88 complet ed [facility] ZOSTER LIVE 2011 121 complet ed [facility] DTAP, UNSPECIFIED FORMULATION 2011 107 complet ed Site: Right Deltoid [facility] PNEUMOCOCCAL, UNSPECIFIED FORMULATION 2011 109 complet ed Site: Left Deltoid [facility] FLU,3 YRS (HISTORICAL) 2011 88 complet ed [facility] FLU,3 YRS (HISTORICAL) 2010 88 complet ed [facility] FLU,3 YRS (HISTORICAL) 2010 88 complet ed [facility] FLU,3 YRS (HISTORICAL) 2009 88 complet ed [facility] FLU,3 YRS (HISTORICAL) 2009 88 complet ed Site: Left Deltoid [facility] NOVEL INFLUENZA-H1N 1-09, ALL FORMULATIONS 2009 128 complet ed [employer] [facility] FLU,3 YRS (HISTORICAL) 2006 88 complet ed [facility] Results Combined list of recent chemistry, hematology and other laboratory results from Department of Defense and Veterans Affairs, ranging from 15 months to all on record, depending upon the facility. Order Name Results Value Reference Range Date Interpretation Specimen Comments Source DRUGS OF ABUSE AMPHETAMINE S [PRESENCE] IN URINE NONE-D ETECTE D - 1000 09/07 Specimen Type: URINE Comment: Urine with Cr <5 is diluted or substituted . Cr between 5 and 20 is very dilute. Urine with SG of 1.001 or less is diluted or substituted . SG of 1.003 or less is very dilute. Urine with a pH <3 or >11 has been adulterated and is unsuitable for testing by our current method. Urine with pH between 3 and 4 OR 10 and 11 may have been adulterated . FENTANYL CONFIRMATIO N NOT SENT BY LAB. Ordering Provider: SHYAM BENSON MD Report Released Date/Time: May 02, 2024 08:57 AM Reporting Lab: [facility] [address] [place] [address] Performing Lab: [facility] [address] [facility] [place] DRUGS OF ABUSE BENZODIAZEP JENIFFER [PRESENCE] IN URINE BY SCREEN METHOD NONE-D ETECTE D - 200 09/07 Specimen Type: URINE Comment: Urine with Cr <5 is diluted or substituted . Cr between 5 and 20 is very dilute. Urine with SG of 1.001 or less is diluted or substituted . SG of 1.003 or less is very dilute. Urine with a pH <3 or >11 has been adulterated and is unsuitable for testing by our current method. Urine with pH between 3 and 4 OR 10 and 11 may have been adulterated . FENTANYL CONFIRMATIO N NOT SENT BY LAB. Ordering Provider: SHYAM BENSON MD Report Released Date/Time: May 02, 2024 08:57 AM Reporting Lab: [address] [address] Performing Lab: [facility] [address] [facility] DRUGS OF ABUSE COCAINE [PRESENCE] IN URINE BY SCREEN METHOD NONE-D ETECTE D - 300 09/07 Specimen Type: URINE Comment: Urine with Cr <5 is diluted or substituted . Cr between 5 and 20 is very dilute. Urine with SG of 1.001 or less is diluted or substituted . SG of 1.003 or less is very dilute. Urine with a pH <3 or >11 has been adulterated and is unsuitable for testing by our current method. Urine with pH between 3 and 4 OR 10 and 11 may have been adulterated . FENTANYL CONFIRMATIO N NOT SENT BY LAB. Ordering Provider: SHYAM BENSON MD Report Released Date/Time: May 02, 2024 08:57 AM Reporting Lab: [facility] [address] Performing Lab: [address] [address] [facility] [place] DRUGS OF ABUSE OPIATES [PRESENCE] IN URINE BY SCREEN METHOD NONE-D ETECTE D - 300 09/07 Specimen Type: URINE Comment: Urine with Cr <5 is diluted or substituted . Cr between 5 and 20 is very dilute. Urine with SG of 1.001 or less is diluted or substituted . SG of 1.003 or less is very dilute. Urine with a pH <3 or >11 has been adulterated and is unsuitable for testing by our current method. Urine with pH between 3 and 4 OR 10 and 11 may have been adulterated . FENTANYL CONFIRMATIO N NOT SENT BY LAB. Ordering Provider: SHYAM BENSON MD Report Released Date/Time: May 02, 2024 08:57 AM Reporting [facility] [address] [address] Performing Lab: [facility] [address] [facility] DRUGS OF ABUSE CANNABINOID S [PRESENCE] IN URINE BY SCREEN METHOD NONE-D ETECTE D - 50 09/07 Specimen Type: URINE Comment: Urine with Cr <5 is diluted or substituted . Cr between 5 and 20 is very dilute. Urine with SG of 1.001 or less is diluted or substituted . SG of 1.003 or less is very dilute. Urine with a pH <3 or >11 has been adulterated and is unsuitable for testing by our current method. Urine with pH between 3 and 4 OR 10 and 11 may have been adulterated . FENTANYL CONFIRMATIO N NOT SENT BY LAB. Ordering Provider: SHYAM BENSON MD Report Released Date/Time: May 02, 2024 08:57 AM Reporting [facility] [address] [address] Performing Lab: [facility] [address] [facility] DRUGS OF ABUSE BARBITURATE S [PRESENCE] IN URINE BY SCREEN METHOD NONE-D ETECTE D - 200 09/07 Specimen Type: URINE Comment: Urine with Cr <5 is diluted or substituted . Cr between 5 and 20 is very dilute. Urine with SG of 1.001 or less is diluted or substituted . SG of 1.003 or less is very dilute. Urine with a pH <3 or >11 has been adulterated and is unsuitable for testing by our current method. Urine with pH between 3 and 4 OR 10 and 11 may have been adulterated . FENTANYL CONFIRMATIO N NOT SENT BY LAB. Ordering Provider: SHYAM BENSON MD Report Released Date/Time: May 02, 2024 08:57 AM Reporting Lab: [address] [address] Performing Lab: [address] [address] [facility] [place] DRUGS OF ABUSE OXYCODONE [PRESENCE] IN URINE BY SCREEN METHOD NONE-D ETECTE D - 100 09/07 Specimen Type: URINE Comment: Urine with Cr <5 is diluted or substituted . Cr between 5 and 20 is very dilute. Urine with SG of 1.001 or less is diluted or substituted . SG of 1.003 or less is very dilute. Urine with a pH <3 or >11 has been adulterated and is unsuitable for testing by our current method. Urine with pH between 3 and 4 OR 10 and 11 may have been adulterated . FENTANYL CONFIRMATIO N NOT SENT BY LAB. Ordering Provider: SHYAM BENSON MD Report Released Date/Time: May 02, 2024 08:57 AM Reporting Lab: [address] [address] Performing Lab: [address] [address] [facility] [place] [facility] OF ABUSE BUPRENORPHI NE [PRESENCE] IN URINE NONE-D ETECTE D 09/07 Specimen Type: URINE Comment: Urine with Cr <5 is diluted or substituted . Cr between 5 and 20 is very dilute. Urine with SG of 1.001 or less is diluted or substituted . SG of 1.003 or less is very dilute. Urine with a pH <3 or >11 has been adulterated and is unsuitable for testing by our current method. Urine with pH between 3 and 4 OR 10 and 11 may have been adulterated . FENTANYL CONFIRMATIO N NOT SENT BY LAB. Ordering Provider: SHYAM BENSON MD Report Released Date/Time: May 02, 2024 08:57 AM Reporting Lab: [address] [address] Performing Lab: [address] [address] [facility] [place] [facility]SE ETHANOL [MASS/VOLUM E] IN URINE NONE-D ETECTE Dmg/dL - 10 09/07 Specimen Type: URINE Comment: Urine with Cr <5 is diluted or substituted . Cr between 5 and 20 is very dilute. Urine with SG of 1.001 or less is diluted or substituted . SG of 1.003 or less is very dilute. Urine with a pH <3 or >11 has been adulterated and is unsuitable for testing by our current method. Urine with pH between 3 and 4 OR 10 and 11 may have been adulterated . FENTANYL CONFIRMATIO N NOT SENT BY LAB. Ordering Provider: SHYAM BENSON MD Report Released Date/Time: May 02, 2024 08:57 AM Reporting Lab: [address] [address] Performing Lab: [address] [address] [facility] [place] [facility]SE FENTANYL [PRESENCE] IN URINE BY SCREEN METHOD NONE-D ETECTE Dng/mL 09/07 Specimen Type: URINE Comment: Urine with Cr <5 is diluted or substituted . Cr between 5 and 20 is very dilute. Urine with SG of 1.001 or less is diluted or substituted . SG of 1.003 or less is very dilute. Urine with a pH <3 or >11 has been adulterated and is unsuitable for testing by our current method. Urine with pH between 3 and 4 OR 10 and 11 may have been adulterated . FENTANYL CONFIRMATIO N NOT SENT BY LAB. Ordering Provider: SHYAM BENSON MD Report Released Date/Time: May 02, 2024 08:57 AM Reporting Lab: [address] [address] Performing Lab: [address] [address] [facility] [place] [facility]SE PH OF URINE 5.8 [pH] 4 - 10 09/07 Specimen Type: URINE Comment: Urine with Cr <5 is diluted or substituted . Cr between 5 and 20 is very dilute. Urine with SG of 1.001 or less is diluted or substituted . SG of 1.003 or less is very dilute. Urine with a pH <3 or >11 has been adulterated and is unsuitable for testing by our current method. Urine with pH between 3 and 4 OR 10 and 11 may have been adulterated . FENTANYL CONFIRMATIO N NOT SENT BY LAB. Ordering Provider: SHYAM BENSON MD Report Released Date/Time: May 02, 2024 08:57 AM Reporting Lab: [address] [address] Performing Lab: [address] [address] [facility] [place] [facility] CREATININE [MASS/VOLUM E] IN URINE 181.74 mg/dL 09/07 Specimen Type: URINE Comment: Urine with Cr <5 is diluted or substituted . Cr between 5 and 20 is very dilute. Urine with SG of 1.001 or less is diluted or substituted . SG of 1.003 or less is very dilute. Urine with a pH <3 or >11 has been adulterated and is unsuitable for testing by our current method. Urine with pH between 3 and 4 OR 10 and 11 may have been adulterated . FENTANYL CONFIRMATIO N NOT SENT BY LAB. Ordering Provider: SHYAM BENSON MD Report Released Date/Time: May 02, 2024 08:57 AM Reporting Lab: [address] [address] Performing Lab: [address] [address] [facility] [place] [facility]SE SPECIFIC GRAVITY OF URINE 1.022 1.003 - 1.020 09/07 H Specimen Type: URINE Comment: Urine with Cr <5 is diluted or substituted . Cr between 5 and 20 is very dilute. Urine with SG of 1.001 or less is diluted or substituted . SG of 1.003 or less is very dilute. Urine with a pH <3 or >11 has been adulterated and is unsuitable for testing by our current method. Urine with pH between 3 and 4 OR 10 and 11 may have been adulterated . FENTANYL CONFIRMATIO N NOT SENT BY LAB. Ordering Provider: SHYAM BENSON MD Report Released Date/Time: May 02, 2024 08:57 AM Reporting Lab: [facility] [address] Performing Lab: [facility] [address] [address] [facility] LIPID PANEL FASTING CHOLESTEROL [MASS/VOLUM E] IN SERUM OR PLASMA 144 mg/dL 09/07 Specimen Type: SERUM No comment entered. Ordering Provider: KRISHNA BLACKWELL Report Released Date/Time: Mar 12, 2024 11:07 AM Reporting Lab: [facility] [address] Performing Lab: [facility] [address] [facility]ITALUSE [facility] LIPID PANEL FASTING TRIGLYCERID E [MASS/VOLUM E] IN SERUM OR PLASMA 140 mg/dL 0 - 150 09/07 Specimen Type: SERUM No comment entered. Ordering Provider: KRISHNA BLACKWELL Report Released Date/Time: Mar 12, 2024 11:07 AM Reporting Lab: [facility] [address] Performing Lab: [facility] [address] [facility] LIPID PANEL FASTING CHOLESTEROL IN LDL [MASS/VOLUM E] IN SERUM OR PLASMA BY CALCULATION 76 mg/dL 0 - 129 09/07 Specimen Type: SERUM No comment entered. Ordering Provider: KRISHNA BLACKWELL Report Released Date/Time: Mar 12, 2024 11:07 AM Reporting Lab: [facility] [place] [facility] [address] [facility] [address] Performing Lab: [place] [facility] [place] [facility] [address] [facility] [address] [facility]RL W[facility]N [facility] LIPID PANEL FASTING CHOLESTEROL .TOTAL/CHOL ESTEROL IN HDL [MASS RATIO] IN SERUM OR PLASMA 3.6 09/07 Specimen Type: SERUM No comment entered. Ordering Provider: KRISHNA BLACKWELL Report Released Date/Time: Mar 12, 2024 11:07 AM Reporting Lab: [facility] [place] [facility] [address] [facility] [address] Performing Lab: [place] [facility] [facility]ITAL[facility]ETS [facility] [address] [facility] [address] [facility]ITALRL TRN [facility] LIPID PANEL FASTING CHOLESTEROL IN HDL [MASS/VOLUM E] IN SERUM OR PLASMA 40 mg/dL 40 - 60 09/07 Specimen Type: SERUM No comment entered. Ordering Provider: KRISHNA BLACKWELL Report Released Date/Time: Mar 12, 2024 11:07 AM Reporting Lab: [facility]ITALRL [facility]N [facility]ITAL[facility]ETS [facility] [address] [facility] [address] Performing Lab: [place] [facility] [facility]ITAL[facility]ETS [facility] [address] [facility] [address] [facility]ITALRL TRN [facility]ITALUSE [facility] BASIC METABOLIC PANEL (fasting) UREA NITROGEN [MASS/VOLUM E] IN SERUM OR PLASMA 24 mg/dL 7 - 25 09/07 Specimen Type: SERUM No comment entered. Ordering Provider: KRISHNA BLACKWELL Report Released Date/Time: Mar 12, 2024 11:07 AM Reporting Lab: [facility] [place] [facility] [address] [facility] [address] Performing Lab: [place] [facility] [facility]ITAL[facility]ETS [facility] [address] [facility] [address] [facility] BASIC METABOLIC PANEL (fasting) GLUCOSE [MASS/VOLUM E] IN SERUM OR PLASMA 105 mg/dL 65 - 100 09/07 H Specimen Type: SERUM No comment entered. Ordering Provider: FURCOLO,TIN A Report Released Date/Time: Mar 12, 2024 11:07 AM Reporting Lab: [facility] [place] [facility] [address] [facility] [address] Performing Lab: [facility] [place] [facility] [address] [facility] [address] [facility] [place] [facility] BASIC METABOLIC PANEL (fasting) SODIUM [MOLES/VOLU ME] IN SERUM OR PLASMA 138 mmol/L 135 - 145 09/07 Specimen Type: SERUM No comment entered. Ordering Provider: KRISHNA BLACKWELL Report Released Date/Time: Mar 12, 2024 11:07 AM Reporting Lab: [facility] [place] [facility] [address] [facility] [address] Performing Lab: [place] [place] [facility] [address] [facility] [address] [place] [facility] [place] [facility] BASIC METABOLIC PANEL (fasting) POTASSIUM [MOLES/VOLU ME] IN SERUM OR PLASMA 3.9 mmol/L 3.5 - 5.0 09/07 Specimen Type: SERUM No comment entered. Ordering Provider: KRISHNA BLACKWELL Report Released Date/Time: Mar 12, 2024 11:07 AM Reporting Lab: [facility] [place] [facility] [address] [facility] [address] Performing Lab: [facility] [place] [facility] [address] [facility] [address] [place] [facility] [place] [facility] BASIC METABOLIC PANEL (fasting) CHLORIDE [MOLES/VOLU ME] IN SERUM OR PLASMA 103 mmol/L 100 - 110 09/07 Specimen Type: SERUM No comment entered. Ordering Provider: KRISHNA BLACKWELL Report Released Date/Time: Mar 12, 2024 11:07 AM Reporting Lab: [facility] [place] [facility] [address] [facility] [address] Performing Lab: [facility] [place] [facility] [address] [facility] [address] [place] [facility] [place] [facility] BASIC METABOLIC PANEL (fasting) CARBON DIOXIDE, TOTAL [MOLES/VOLU ME] IN SERUM OR PLASMA 29 meq/L 20 - 30 09/07 Specimen Type: SERUM No comment entered. Ordering Provider: KRISHNA BLACKWELL Report Released Date/Time: Mar 12, 2024 11:07 AM Reporting Lab: [facility] [place] [address] [address] Performing Lab: [facility]ITALRL TRN [facility] [address] [facility]ITALRL W[facility]N [facility]ITALUSE [facility] BASIC METABOLIC PANEL (fasting) CALCIUM [MASS/VOLUM E] IN SERUM OR PLASMA 9.3 mg/dL 8.5 - 10.2 09/07 Specimen Type: SERUM No comment entered. Ordering Provider: KRISHNA BLACKWELL Report Released Date/Time: Mar 12, 2024 11:07 AM Reporting Lab: [facility] [address] Performing Lab: [facility]RL TRN [facility] [address] [facility]ITALRL TRN [facility]ITAL[facility] BASIC METABOLIC PANEL (fasting) CREATININE [MASS/VOLUM E] IN SERUM OR PLASMA 1.10 mg/dL 0.50 - 1.40 09/07 Specimen Type: SERUM No comment entered. Ordering Provider: KRISHNA BLACKWELL Report Released Date/Time: Mar 12, 2024 11:07 AM Reporting Lab: [facility]RL [facility] [address] Performing Lab: [place] [facility] [facility] [address] [facility]RL [facility]N [facility]ITALUSE [facility] BASIC METABOLIC PANEL (fasting) GLOMERULAR FILTRATION RATE/1.73 SQ M.PREDICTED [VOLUME RATE/AREA] IN SERUM, PLASMA OR BLOOD BY CREATININE- BASED FORMULA (CKD-EPI 2020) 68 mL/min 60 09/07 Specimen Type: SERUM No comment entered. Ordering Provider: KRISHNA BLACKWELL Report Released Date/Time: Mar 12, 2024 11:07 AM Reporting Lab: [facility]RL [facility]N [facility] [address] Performing Lab: [place] [place] [address] [facility] [place] [facility] MICROALBU MIN CREATININ E RATIO PANEL MICROALBUMI N/CREATININ E [MASS RATIO] IN URINE 25.6 mg/g 0 - 29.9 04/25 Specimen Type: URINE No comment entered. Ordering Provider: JEFF CRYSTAL Report Released Date/Time: Aug 30, 2023 11:45 AM Reporting Lab: [facility] [place] [address] [address] Performing Lab: [facility] [place] [address] [address] [facility] [place] [facility] MICROALBU MIN CREATININ E RATIO PANEL MICROALBUMI N [MASS/VOLUM E] IN URINE 3.8 mg/dL 04/25 Specimen Type: URINE No comment entered. Ordering Provider: JEFF CRYSTAL Report Released Date/Time: Aug 30, 2023 11:45 AM Reporting Lab: [facility] [place] [address] [address] Performing Lab: [facility] [place] [address] [address] [facility] [place] [place] [facility] MICROALBU MIN CREATININ E RATIO PANEL CREATININE [MASS/VOLUM E] IN URINE 148.64 mg/dL 04/25 Specimen Type: URINE No comment entered. Ordering Provider: JEFF CRYSTAL Report Released Date/Time: Aug 30, 2023 11:45 AM Reporting Lab: [facility] [place] [place] [address] [address] Performing Lab: [facility] [place] [address] [address] [facility] [place] [place] [facility] BASIC METABOLIC PANEL (non-fast ing) UREA NITROGEN [MASS/VOLUM E] IN SERUM OR PLASMA 22 mg/dL 7 - 25 04/25 Specimen Type: SERUM No comment entered. Ordering Provider: JEFF CRYSTAL Report Released Date/Time: Aug 30, 2023 11:45 AM Reporting Lab: [facility] [address] [facility] [address] Performing Lab: [facility]PITALRTROY [facility]ERN [facility]ITALUSE[facility] [address] [facility] [address] [facility] BASIC METABOLIC PANEL (non-fast ing) GLUCOSE [MASS/VOLUM E] IN SERUM OR PLASMA 100 mg/dL 65 - 100 04/25 Specimen Type: SERUM No comment entered. Ordering Provider: JEFF CRYSTAL Report Released Date/Time: Aug 30, 2023 11:45 AM Reporting Lab: [facility]PITALRTR[facility]ERN [facility] [address] [facility] [address] Performing Lab: [facility] [address] [address] [facility] [place] BASIC METABOLIC PANEL (non-fast ing) SODIUM [MOLES/VOLU ME] IN SERUM OR PLASMA 138 mmol/L 135 - 145 04/25 Specimen Type: SERUM No comment entered. Ordering Provider: JEFF CRYSTAL Report Released Date/Time: Aug 30, 2023 11:45 AM Reporting Lab: [address] [address] Performing Lab: [facility] [address] [address] [facility] [place] BASIC METABOLIC PANEL (non-fast ing) POTASSIUM [MOLES/VOLU ME] IN SERUM OR PLASMA 4.0 mmol/L 3.5 - 5.0 04/25 Specimen Type: SERUM No comment entered. Ordering Provider: JEFF CRYSTAL Report Released Date/Time: Aug 30, 2023 11:45 AM Reporting Lab: [facility]ITALRTR[facility] [address] [facility] [address] Performing Lab: [facility] [address] [address] [facility] BASIC METABOLIC PANEL (non-fast ing) CHLORIDE [MOLES/VOLU ME] IN SERUM OR PLASMA 102 mmol/L 100 - 110 04/25 Specimen Type: SERUM No comment entered. Ordering Provider: JEFF CRYSTAL Report Released Date/Time: Aug 30, 2023 11:45 AM Reporting Lab: [facility] [facility] [address] Performing Lab: [place] [facility] [facility] [address] [facility]ITALRL [facility]N [facility] BASIC METABOLIC PANEL (non-fast ing) CARBON DIOXIDE, TOTAL [MOLES/VOLU ME] IN SERUM OR PLASMA 25 meq/L 20 - 30 04/25 Specimen Type: SERUM No comment entered. Ordering Provider: JEFF CRYSTAL Report Released Date/Time: Aug 30, 2023 11:45 AM Reporting Lab: [facility]ITALRL [facility]N [facility] [address] Performing Lab: [facility]OSPITALRL TRN [address] [address] [facility]ITALRTR[facility]ERN [facility] BASIC METABOLIC PANEL (non-fast ing) CREATININE [MASS/VOLUM E] IN SERUM OR PLASMA 1.11 mg/dL 0.50 - 1.40 04/25 Specimen Type: SERUM No comment entered. Ordering Provider: JEFF CRYSTAL Report Released Date/Time: Aug 30, 2023 11:45 AM Reporting Lab: [facility]ITALRL [facility]N [facility] [address] Performing Lab: [place] [facility] [facility] [address] [facility]PITALRL TRN [facility]OSPITALUSE [facility] BASIC METABOLIC PANEL (non-fast ing) GLOMERULAR FILTRATION RATE/1.73 SQ M.PREDICTED [VOLUME RATE/AREA] IN SERUM, PLASMA OR BLOOD BY CREATININE- BASED FORMULA (CKD-EPI 2020) 68 mL/min 60 04/25 Specimen Type: SERUM No comment entered. Ordering Provider: JEFF CRYSTAL Report Released Date/Time: Aug 30, 2023 11:45 AM Reporting Lab: [facility]PITALRL W[facility]N [facility]ITALUSE[address] [address] Performing Lab: [place] [facility] [place] [facility] [address] [facility] [address] [facility] [place] [facility] FERRITIN FERRITIN [MASS/VOLUM E] IN SERUM OR PLASMA 190 ng/mL 20 - 300 04/25 Specimen Type: SERUM No comment entered. Ordering Provider: JEFF CRYSTAL Report Released Date/Time: Aug 30, 2023 11:45 AM Reporting Lab: [facility] [place] [facility] [address] [facility] [address] Performing Lab: [facility] [place] [facility] [address] [facility] [address] [facility] [place] [facility] CBC LEUKOCYTES [#/VOLUME] IN BLOOD BY AUTOMATED COUNT 5.25 10*3/u L 4.50 - 11.00 04/25 Specimen Type: BLOOD No comment entered. Ordering Provider: JEFF CRYSTAL Report Released Date/Time: Aug 30, 2023 11:45 AM Reporting Lab: [facility] [place] [facility] [address] [facility] [address] Performing Lab: [facility] [place] [facility] [address] [facility] [address] [facility] [place] [facility] CBC ERYTHROCYTE S [#/VOLUME] IN BLOOD BY AUTOMATED COUNT 4.48 10*6/u L 4.23 - 5.66 04/25 Specimen Type: BLOOD No comment entered. Ordering Provider: JEFF CRYSTAL Report Released Date/Time: Aug 30, 2023 11:45 AM Reporting Lab: [facility] [place] [facility] [address] [facility] [address] Performing Lab: [facility] [place] [facility] [address] [facility] [address] [facility] [place] [facility] CBC HEMOGLOBIN [MASS/VOLUM E] IN BLOOD 14.4 g/dL 12.8 - 17 04/25 Specimen Type: BLOOD No comment entered. Ordering Provider: JEFF CRYSTAL Report Released Date/Time: Aug 30, 2023 11:45 AM Reporting Lab: [facility] [place] [facility] [address] [facility] [address] Performing Lab: [facility] [place] [facility] [address] [facility] [address] [facility] [place] [facility] CBC HEMATOCRIT [VOLUME FRACTION] OF BLOOD BY AUTOMATED COUNT 41.5 39.2 - 50.4 04/25 Specimen Type: BLOOD No comment entered. Ordering Provider: JEFF CRYSTAL Report Released Date/Time: Aug 30, 2023 11:45 AM Reporting Lab: [facility] [place] [facility] [address] [facility] [address] Performing Lab: [facility] [place] [place] [address] [address] [facility] [place] [facility] CBC MCV [ENTITIC VOLUME] BY AUTOMATED COUNT 92.6 fL 82 - 99 04/25 Specimen Type: BLOOD No comment entered. Ordering Provider: JEFF CRYSTAL Report Released Date/Time: Aug 30, 2023 11:45 AM Reporting Lab: [facility] [place] [facility] [address] [facility] [address] Performing Lab: [facility] [place] [place] [address] [address] [facility] [place] [facility] CBC MCHC [MASS/VOLUM E] BY AUTOMATED COUNT 34.7 g/dL 30.8 - 35.1 04/25 Specimen Type: BLOOD No comment entered. Ordering Provider: JEFF CRYSTAL Report Released Date/Time: Aug 30, 2023 11:45 AM Reporting Lab: [facility] [place] [facility] [address] [facility] [address] Performing Lab: [facility] [place] [address] [address] [facility] [place] [facility] CBC PLATELETS [#/VOLUME] IN BLOOD BY AUTOMATED COUNT 184 10*3/u L 140 - 360 04/25 Specimen Type: BLOOD No comment entered. Ordering Provider: JEFF CRYSTAL Report Released Date/Time: Aug 30, 2023 11:45 AM Reporting Lab: [facility] [place] [place] [address] [place] [address] Performing Lab: [facility] [place] [facility] [address] [facility] [address] [facility] [place] [facility] CBC ERYTHROCYTE DISTRIBUTIO N WIDTH [RATIO] BY AUTOMATED COUNT 12.1 12.0 - 16.0 04/25 Specimen Type: BLOOD No comment entered. Ordering Provider: JEFF CRYSTAL Report Released Date/Time: Aug 30, 2023 11:45 AM Reporting Lab: [facility] [place] [facility] [address] [facility] [address] Performing Lab: [facility] [place] [facility] [address] [facility] [address] [facility] [place] [facility] CBC MCH [ENTITIC MASS] BY AUTOMATED COUNT 32.1 pg 26.2 - 32.6 04/25 Specimen Type: BLOOD No comment entered. Ordering Provider: JEFF CRYSTAL Report Released Date/Time: Aug 30, 2023 11:45 AM Reporting Lab: [facility] [place] [facility] [address] [facility] [address] Performing Lab: [facility] [place] [facility] [address] [facility] [address] [facility] [place] [facility] IRON & TIBC PANEL IRON BINDING CAPACITY [MASS/VOLUM E] IN SERUM OR PLASMA 306 ug/dL 204 - 475 04/25 Specimen Type: SERUM No comment entered. Ordering Provider: JEFF CRYSTAL Report Released Date/Time: Aug 30, 2023 11:45 AM Reporting Lab: [facility] [place] [place] [facility] [address] [facility] [address] Performing Lab: [facility] [place] [facility] [address] [facility] [address] [facility] [place] [facility] IRON & TIBC PANEL IRON [MASS/VOLUM E] IN SERUM OR PLASMA 72 ug/dL 40 - 160 04/25 Specimen Type: SERUM No comment entered. Ordering Provider: JEFF CRYSTAL Report Released Date/Time: Aug 30, 2023 11:45 AM Reporting Lab: [facility] [place] [facility] [address] [facility] [address] Performing Lab: [place] [facility] [place] [facility] [address] [facility] [address] [facility] [place] [facility] IRON & TIBC PANEL IRON/IRON BINDING CAPACITY.TO RONALD [MASS RATIO] IN SERUM OR PLASMA 23.5 20.0 - 50.0 04/25 Specimen Type: SERUM No comment entered. Ordering Provider: JEFF CRYSTAL Report Released Date/Time: Aug 30, 2023 11:45 AM Reporting Lab: [facility] [place] [facility] [address] [facility] [address] Performing Lab: [place] [facility] [place] [facility] [address] [facility] [address] [facility] IRON & TIBC PANEL TRANSFERRIN [MASS/VOLUM E] IN SERUM OR PLASMA 232 mg/dL 200 - 360 04/25 Specimen Type: SERUM No comment entered. Ordering Provider: JEFF CRYSTAL Report Released Date/Time: Aug 30, 2023 11:45 AM Reporting Lab: [facility] [place] [address] [address] Performing Lab: [facility] [address] [address] [facility] [place] [facility] [facility] LIP[facility] PANEL, NON FASTING CHOLESTEROL [MASS/VOLUM E] IN SERUM OR PLASMA 139 mg/dL 04/25 Specimen Type: SERUM No comment entered. Ordering Provider: JEFF CRYSTAL Report Released Date/Time: Aug 30, 2023 11:45 AM Reporting Lab: [facility] [place] [facility] [address] [facility] [address] Performing Lab: [facility] [place] [address] [address] [facility] [place] [facility] LIPID PANEL, NON FASTING TRIGLYCERID E [MASS/VOLUM E] IN SERUM OR PLASMA 99 mg/dL 0 - 150 04/25 Specimen Type: SERUM No comment entered. Ordering Provider: JEFF CRYSTAL Report Released Date/Time: Aug 30, 2023 11:45 AM Reporting Lab: [facility] [place] [facility] [address] [facility] [address] Performing Lab: [facility] [place] [facility] [address] [facility] [address] [place] [facility] [place] [facility] LIPID PANEL, NON FASTING CHOLESTEROL IN LDL [MASS/VOLUM E] IN SERUM OR PLASMA BY CALCULATION 78 mg/dL 0 - 129 04/25 Specimen Type: SERUM No comment entered. Ordering Provider: JEFF CRYSTAL Report Released Date/Time: Aug 30, 2023 11:45 AM Reporting Lab: [facility] [place] [facility] [address] [facility] [address] Performing Lab: [facility] [place] [facility] [address] [facility] [address] [facility] [place] [facility] LIPID PANEL, NON FASTING CHOLESTEROL .TOTAL/CHOL ESTEROL IN HDL [MASS RATIO] IN SERUM OR PLASMA 3.4 04/25 Specimen Type: SERUM No comment entered. Ordering Provider: JEFF CRYSTAL Report Released Date/Time: Aug 30, 2023 11:45 AM Reporting Lab: [facility] [place] [facility] [address] [facility] [address] Performing Lab: [facility] [place] [facility] [address] [facility] [address] [facility] [place] [facility] LIPID PANEL, NON FASTING CHOLESTEROL IN HDL [MASS/VOLUM E] IN SERUM OR PLASMA 41 mg/dL 40 - 60 04/25 Specimen Type: SERUM No comment entered. Ordering Provider: JEFF CRYSTAL Report Released Date/Time: Aug 30, 2023 11:45 AM Reporting Lab: [facility] [place] [facility] [address] [facility] [address] Performing Lab: [facility] [place] [facility] [address] [facility] [address] [facility] [place] [facility] DRUGS OF ABUSE AMPHETAMINE S [PRESENCE] IN URINE NONE-D ETECTE D - 1000 04/11 Specimen Type: URINE Comment: Urine with Cr <5 is diluted or substituted . Cr between 5 and 20 is very dilute. Urine with SG of 1.001 or less is diluted or substituted . SG of 1.003 or less is very dilute. Urine with a pH <3 or >11 has been adulterated and is unsuitable for testing by our current method. Urine with pH between 3 and 4 OR 10 and 11 may have been adulterated . Ordering Provider: SHYAM BENSON MD Report Released Date/Time: Apr 11, 2024 09:50 AM Reporting Lab: [facility] [place] [address] [address] Performing Lab: [facility] [address] [facility] [place] DRUGS OF ABUSE BENZODIAZEP JENIFFER [PRESENCE] IN URINE BY SCREEN METHOD NONE-D ETECTE D - 200 04/11 Specimen Type: URINE Comment: Urine with Cr <5 is diluted or substituted . Cr between 5 and 20 is very dilute. Urine with SG of 1.001 or less is diluted or substituted . SG of 1.003 or less is very dilute. Urine with a pH <3 or >11 has been adulterated and is unsuitable for testing by our current method. Urine with pH between 3 and 4 OR 10 and 11 may have been adulterated . Ordering Provider: SHYAM BENSON MD Report Released Date/Time: Apr 11, 2024 09:50 AM Reporting Lab: [facility]ITALUSETS [address] [address] Performing Lab: [facility]ITALUSE[address] [address] [facility] [place] DRUGS OF ABUSE COCAINE [PRESENCE] IN URINE BY SCREEN METHOD NONE-D ETECTE D - 300 04/11 Specimen Type: URINE Comment: Urine with Cr <5 is diluted or substituted . Cr between 5 and 20 is very dilute. Urine with SG of 1.001 or less is diluted or substituted . SG of 1.003 or less is very dilute. Urine with a pH <3 or >11 has been adulterated and is unsuitable for testing by our current method. Urine with pH between 3 and 4 OR 10 and 11 may have been adulterated . Ordering Provider: SHYAM BENSON MD Report Released Date/Time: Apr 11, 2024 09:50 AM Reporting Lab: [facility] [place] [facility] [address] [facility] [address] Performing Lab: [facility] [place] [facility] [address] [facility] [address] [place] [facility] [facility] DRUGS OF ABUSE OPIATES [PRESENCE] IN URINE BY SCREEN METHOD NONE-D ETECTE D - 300 04/11 Specimen Type: URINE Comment: Urine with Cr <5 is diluted or substituted . Cr between 5 and 20 is very dilute. Urine with SG of 1.001 or less is diluted or substituted . SG of 1.003 or less is very dilute. Urine with a pH <3 or >11 has been adulterated and is unsuitable for testing by our current method. Urine with pH between 3 and 4 OR 10 and 11 may have been adulterated . Ordering Provider: SHYAM BENSON MD Report Released Date/Time: Apr 11, 2024 09:50 AM Reporting Lab: [facility] [place] [facility] [address] [facility] [address] Performing Lab: [facility] [place] [facility] [address] [facility] [address] [facility] [place] [facility] DRUGS OF ABUSE CANNABINOID S [PRESENCE] IN URINE BY SCREEN METHOD NONE-D ETECTE D - 50 04/11 Specimen Type: URINE Comment: Urine with Cr <5 is diluted or substituted . Cr between 5 and 20 is very dilute. Urine with SG of 1.001 or less is diluted or substituted . SG of 1.003 or less is very dilute. Urine with a pH <3 or >11 has been adulterated and is unsuitable for testing by our current method. Urine with pH between 3 and 4 OR 10 and 11 may have been adulterated . Ordering Provider: SHYAM BENSON MD Report Released Date/Time: Apr 11, 2024 09:50 AM Reporting Lab: [facility] [place] [facility] [address] [facility] [address] Performing Lab: [place] [facility] [place] [address] [facility] [place] DRUGS OF ABUSE BARBITURATE S [PRESENCE] IN URINE BY SCREEN METHOD NONE-D ETECTE D - 200 04/11 Specimen Type: URINE Comment: Urine with Cr <5 is diluted or substituted . Cr between 5 and 20 is very dilute. Urine with SG of 1.001 or less is diluted or substituted . SG of 1.003 or less is very dilute. Urine with a pH <3 or >11 has been adulterated and is unsuitable for testing by our current method. Urine with pH between 3 and 4 OR 10 and 11 may have been adulterated . Ordering Provider: SHYAM BENSON MD Report Released Date/Time: Apr 11, 2024 09:50 AM Reporting Lab: [address] [address] Performing Lab: [address] [address] [facility] [place] DRUGS OF ABUSE OXYCODONE [PRESENCE] IN URINE BY SCREEN METHOD NONE-D ETECTE D - 100 04/11 Specimen Type: URINE Comment: Urine with Cr <5 is diluted or substituted . Cr between 5 and 20 is very dilute. Urine with SG of 1.001 or less is diluted or substituted . SG of 1.003 or less is very dilute. Urine with a pH <3 or >11 has been adulterated and is unsuitable for testing by our current method. Urine with pH between 3 and 4 OR 10 and 11 may have been adulterated . Ordering Provider: SHYAM BENSON MD Report Released Date/Time: Apr 11, 2024 09:50 AM Reporting Lab: [facility]ITAL[facility] [address] Performing Lab: [address] [address] [facility] [place] DRUGS OF ABUSE BUPRENORPHI NE [PRESENCE] IN URINE NONE-D ETECTE D 04/11 Specimen Type: URINE Comment: Urine with Cr <5 is diluted or substituted . Cr between 5 and 20 is very dilute. Urine with SG of 1.001 or less is diluted or substituted . SG of 1.003 or less is very dilute. Urine with a pH <3 or >11 has been adulterated and is unsuitable for testing by our current method. Urine with pH between 3 and 4 OR 10 and 11 may have been adulterated . Ordering Provider: SHYAM BENSON MD Report Released Date/Time: Apr 11, 2024 09:50 AM Reporting Lab: [address] [address] Performing Lab: [address] [address] [facility] [place] DRUGS OF ABUSE ETHANOL [MASS/VOLUM E] IN URINE NONE-D ETECTE Dmg/dL - 10 04/11 Specimen Type: URINE Comment: Urine with Cr <5 is diluted or substituted . Cr between 5 and 20 is very dilute. Urine with SG of 1.001 or less is diluted or substituted . SG of 1.003 or less is very dilute. Urine with a pH <3 or >11 has been adulterated and is unsuitable for testing by our current method. Urine with pH between 3 and 4 OR 10 and 11 may have been adulterated . Ordering Provider: SHYAM BENSON MD Report Released Date/Time: Apr 11, 2024 09:50 AM Reporting Lab: [address] [address] Performing Lab: [address] [address] [facility] [place] DRUGS OF ABUSE FENTANYL [PRESENCE] IN URINE BY SCREEN METHOD NONE-D ETECTE Dng/mL 04/11 Specimen Type: URINE Comment: Urine with Cr <5 is diluted or substituted . Cr between 5 and 20 is very dilute. Urine with SG of 1.001 or less is diluted or substituted . SG of 1.003 or less is very dilute. Urine with a pH <3 or >11 has been adulterated and is unsuitable for testing by our current method. Urine with pH between 3 and 4 OR 10 and 11 may have been adulterated . Ordering Provider: SHYAM BENSON MD Report Released Date/Time: Apr 11, 2024 09:50 AM Reporting Lab: [facility] [place] [facility] [address] [facility] [address] Performing Lab: [facility]ITALRNORTHE[facility]ENTERTRN [place] [facility] [address] [facility] [address] [facility] TRN [facility] DRUGS OF ABUSE PH OF URINE 5.4 [pH] 4 - 10 04/11 Specimen Type: URINE Comment: Urine with Cr <5 is diluted or substituted . Cr between 5 and 20 is very dilute. Urine with SG of 1.001 or less is diluted or substituted . SG of 1.003 or less is very dilute. Urine with a pH <3 or >11 has been adulterated and is unsuitable for testing by our current method. Urine with pH between 3 and 4 OR 10 and 11 may have been adulterated . Ordering Provider: SHYAM BENSON MD Report Released Date/Time: Apr 11, 2024 09:50 AM Reporting Lab: [facility] [place] [address] [address] Performing Lab: [facility] [place] [address] [address] [facility]USE [facility] DRUGS OF ABUSE CREATININE [MASS/VOLUM E] IN URINE 311.73 mg/dL 04/11 Specimen Type: URINE Comment: Urine with Cr <5 is diluted or substituted . Cr between 5 and 20 is very dilute. Urine with SG of 1.001 or less is diluted or substituted . SG of 1.003 or less is very dilute. Urine with a pH <3 or >11 has been adulterated and is unsuitable for testing by our current method. Urine with pH between 3 and 4 OR 10 and 11 may have been adulterated . Ordering Provider: SHYAM BENSON MD Report Released Date/Time: Apr 11, 2024 09:50 AM Reporting Lab: [facility] [place] [facility] [address] [facility] [address] Performing Lab: [facility]ITALRNORTHE[facility] CENTERTRN [place] [address] [facility]ITALRTR[facility]ERN [facility] DRUGS OF ABUSE SPECIFIC GRAVITY OF URINE 1.023 1.003 - 1.020 04/11 H Specimen Type: URINE Comment: Urine with Cr <5 is diluted or substituted . Cr between 5 and 20 is very dilute. Urine with SG of 1.001 or less is diluted or substituted . SG of 1.003 or less is very dilute. Urine with a pH <3 or >11 has been adulterated and is unsuitable for testing by our current method. Urine with pH between 3 and 4 OR 10 and 11 may have been adulterated . Ordering Provider: SHYAM BENSON MD Report Released Date/Time: Apr 11, 2024 09:50 AM Reporting Lab: [facility] [place] [facility] [address] [facility] [address] Performing Lab: [facility] [facility] [address] [facility] [address] [facility] [place] [facility] Vital Signs Combined list of inpatient and outpatient Vital Signs from Department of Defense and Veterans Affairs, ranging from 12 months to all on record, depending upon the facility. Vital Sign Value Date Comments Source SYSTOLIC BLOOD PRESSURE 136 09/11/19 25 10:35:18 [facility] [place] [facility] DIASTOLIC BLOOD PRESSURE 77 025 10:35:18 [facility] [place] [facility] PULSE OXIMETRY 98 09/10/2024 10:35:18 [facility] [place] [facility] WEIGHT 198 09/10/2024 10:35:18 [facility] [place] [facility] BMI 31 kg/m2 09/10/2024 10:35:18 [facility] [place] [facility] PAIN 2 09/10/2024 10:35:18 [facility] [place] [facility] TEMPERATURE 97.6 09/10/2024 10:35:18 [facility] [place] [facility] PULSE 50 09/10/2024 10:35:18 [facility] [place] [facility] RESPIRATION 16 09/10/2024 10:35:18 [facility] [place] [facility] SYSTOLIC BLOOD PRESSURE 147 05/01/20 24 10:45:33 [facility] [place] [facility] DIASTOLIC BLOOD PRESSURE 77 024 10:45:33 [facility] [place] [facility] PULSE OXIMETRY 99 05/01/2024 10:45:33 [facility] [place] [facility] WEIGHT 199 05/01/2024 10:45:33 [facility] [place] [facility] BMI 31 kg/m2 05/01/2024 10:45:33 [facility] [place] [facility] PAIN 4 05/01/2024 10:45:33 [facility] [place] [facility] TEMPERATURE 97.4 05/01/2024 10:45:33 [facility] [place] [facility] PULSE 59 05/01/2024 10:45:33 [facility] [place] [facility] RESPIRATION 18 05/01/2024 10:45:33 [facility] [place] [facility] SYSTOLIC BLOOD PRESSURE 136 03/12/20 24 10:30:27 [facility] [place] [facility] DIASTOLIC BLOOD PRESSURE 76 024 10:30:27 [facility] [place] [facility] PULSE OXIMETRY 98 03/12/2024 10:30:27 [facility] [place] [facility] WEIGHT 201 03/12/2024 10:30:27 [facility] [place] [facility] BMI 32 kg/m2 03/12/2024 10:30:27 [facility] [place] [facility] PAIN 0 03/12/2024 10:30:27 [facility] [place] [facility] TEMPERATURE 98.5 03/12/2024 10:30:27 [facility] [place] [facility] PULSE 58 03/12/2024 10:30:27 [facility] [place] [facility] RESPIRATION 16 03/12/2024 10:30:27 [facility] [place] [facility] Encounters Combined list of: 1) Encounters from Department of Veterans Affairs facilities going backup to the last 18 months, not all VA inpatient encounters are included; 2) Encounters from the Department of Defense facilities going backup to 280 months. 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, unspeci fied type Petey BENSON MD 04/05 [facility] En[facility] [id number] 04/26 [facility] [place] [place] [facility] OFFICE O/P [place] 60-74 MIN [id number] Diagnos is: ICD-10- CM 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 , stage 2 (mild) Paulie CRYSTAL 04/27 [facility] Outpatient Encounter [id number] 05/06 [facility] [place] REPAIR & ADJUST SPECTACLES [id number] Diagnos is: ICD-10- CM Z46.0 Encount er for fit/adj st of spectac les and contact lenses EVITA CUEVA 05/25 [facility] [place] OFFICE O/P EST LOW 20-29 MIN [id number] 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, unspeci fied type Petey BENSON MD 05/26 [facility] [place] REPAIR & ADJUST SPECTACLES [id number] Diagnos is: ICD-10- CM Z46.0 Encount er for fit/adj st of spectac les and contact lenses RUTHY HENRIQUEZ KYRIE 05/30 [facility] En[facility] [id number] 05/31 [facility] En[facility] [id number] 06/07 [facility] OFF[facility] O/P EST LOW 20 MIN [id number] 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, unspeci fied type Petey BENSON MD 06/30 [facility] En[facility] [id number] 07/18 [facility] En[facility] [id number] 07/22 [facility] En[facility] [id number] 07/27 [facility] OFF[facility] O/P EST SF 10 MIN [id number] 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, unspeci fied type Petey BENSON MD 07/28 [facility] OFF[facility] O/P EST SF 10 MIN [id number] Diagnos is: ICD-10- CM R73.01 Impaire d fasting glucose Adrián GARZA 08/04 [facility] CASE MGMT-ORAL HEALTH LIT [id number] Diagnos is: ICD-10- CM K03.6 Deposit s [accret ions] on teeth Rod BILLY 08/25 [facility] OFFICE O/P EST SF 10 MIN [id number] 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, unspeci fied type Petey BENSON MD 08/29 [facility] OFFICE O/P EST MOD 30 MIN [id number] Diagnos is: ICD-10- CM I10 Essenti al (primar y) hyperte nsion Paulie CRYSTAL 08/29 [facility] Outpatient Encounter [id number] 08/30 [facility] [place] Outpatient Encounter [id number] 09/04 [facility] [place] OFFICE O/P EST MOD 30 MIN [id number] Diagnos is: ICD-10- CM F43.12 Post-tr aumatic stress disorde r, chronic AHGINNY,KASIAA MMED JAWED 09/13 [facility] Outpatient Encounter [id number] 09/14 [facility] OFFICE O/P EST LOW 20 MIN [id number] 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, unspeci fied type Petey BENSON MD 09/27 [facility] En[facility] [id number] 10/24 [facility] OFFICE O/P EST SF 10 MIN [id number] 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, unspeci fied type Petey BENSON MD 10/25 [facility] Outpatient Encounter [id number] 11/15 [facility] BRIEF ASSESSMENT [id number] Diagnos is: ICD-10- CM K08.9 Disorde r of teeth and support ing structu res, unspeci fied TEDDY BRAGG 11/16 [facility] OFFICE O/P EST LOW 20 MIN [id number] 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, unspeci fied type Petey BENSON MD 12/01 [facility] [place] OFF/OP EST MAY X REQ PHY/QHP [id number] Diagnos is: ICD-10- CM R73.03 Prediab LAYA Hernandez 12/05 [facility] En[facility] [id number] 12/12 [facility] OCCLUSAL GUARD SOFT [id number] Diagnos is: ICD-10- CM K08.9 Disorde r of teeth and support ing structu res, unspeci fied TEDDY BRAGG 12/13 [facility] OFF[facility] O/P EST LOW 20 MIN [id number] 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, unspeci fied type Petey BENSON MD 01/08 [facility] En[facility] [id number] 01/25 [facility] OFFICE O/P EST MOD 30 MIN [id number] 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, unspeci fied type Petey BENSON MD 02/07 [facility] En[facility] [id number] 02/18 [facility] En[facility] [id number] 1.02/20 [facility] [id number] 1.02/26 [facility] [id number] 1.02/26 [facility] CASE MGMT-ORAL HEALTH LIT [id number] Diagnos is: ICD-10- CM K03.6 Deposit s [accret ions] on teeth Rod BILLY 02/27 [facility] Outpatient Encounter [id number] 02/27 [facility] OFFICE O/P EST MOD 30 MIN [id number] Diagnos is: ICD-10- CM Z77.29 Contact with and exposur e to other hazardo us substan lina FURCOLO,TI NA 03/12 [facility] OFFICE O/P EST LOW 20 MIN [id number] 1. 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, unspeci fied type Petey BENSON MD 03/14 [facility] COMPRE OPH EXAM EST PT 1/> [id number] Diagnos is: ICD-10- CM H25.813 Combine d forms of age-rel ated catarac t, bilater al MERHAR,HEATHER H B 03/26 [facility] OFF/OP EST MAY X REQ PHY/QHP [id number] Diagnos is: ICD-10- CM R73.03 Prediab etLAYA Galaviz 04/10 [facility] Outpatient Encounter [id number] 04/10 [facility] OFF[facility] O/P EST LOW 20 MIN [id number] 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, unspeci fied type Petey BENSON MD 05/02 [facility] Outpatient Encounter [id number] 1.05/05 [facility] Outpatient Encounter [id number] 1.05/23 [facility] PSYCH DIAGNOSTIC EVALUATION [id number] Diagnos is: ICD-10- CM F43.12 Post-tr aumatic stress disorde r, JUANY Lange 06/05 [facility] OFF[facility] O/P EST MOD 30 MIN [id number] Diagnos is: ICD-10- CM F43.12 Post-tr aumatic stress disorde r, chronic JUANY KELSEY 06/26 [facility] [place] [place] OFF/OP EST MAY X REQ PHY/QHP [id number] Diagnos is: ICD-10- CM 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, recurre nt, moderat e GREGORIA,RAUL LLE L 07/11 [facility] [place] [place] [facility] ELECTROCAR DIOGRAM REPORT [id number] Diagnos is: ICD-10- CM Z13.6 Encount er for screeni ng for cardiov ascular disorde rs RIGOBERTO BRUNSON 07/11 [place] [facility] OFF/OP EST MAY X REQ PHY/QHP [id number] Diagnos is: ICD-10- CM R73.03 Prediab LAYA Hernandez 07/19 [facility] [place] OFF[facility] O/P EST LOW 20 MIN [id number] Diagnos is: ICD-10- CM F43.12 Post-tr aumatic stress disorde r, chronic JUANY KELSEY CQBUCKYYN 07/24 [facility] Out[facility] Encounter [id number] 07/25 [facility] Encounter [id number] 08/25 [facility] Encounter [id number] 08/31 [facility] [place] OFF[facility] O/P EST MOD 30 MIN [id number] Diagnos is: ICD-10- CM 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 FURCOLO,TI NA 09/10 [facility] OFF[facility] O/P EST MOD 30 MIN [id number] Diagnos is: ICD-10- CM F43.12 Post-tr aumatic stress disorde r, chronic LAURE,JA CQUELYN 09/11 [facility] [place] [facility] Outpatient Encounter [id number] 09/14 [facility] [place] [facility] [place] CASE MGMT-ORAL HEALTH LIT [id number] Diagnos is: ICD-10- CM K03.6 Deposit s [accret ions] on teeth BELYSHEV,N ADEZHDA 09/17 [place] [facility] [place] [facility] PSYTX W PT 45 MINUTES [id number] Diagnos is: ICD-10- CM F43.12 Post-tr aumatic stress disorde r, chronic JAIMEE MOYA ON A 09/28 [place] [facility] [place] [facility] Social History Combined list of available smoking, tobacco, and other social history from [facility] of Defense and [facility] facilities. Social History Type Response Date Comment Sourc e Tobacco smoking status NHIS [facility]-TO[facility]ACCO NEVER USED 05/02/2024 [facility] History of tobacco use [facility]-TOBACCO NEVER USED 05/26/2023 [facility] History of tobacco use VA-TOBACCO NEVER USED 2022 [facility] History of tobacco use VA-TOBACCO NEVER USED 05/18/2021 [facility] History of tobacco use [facility]-TOBACCO NEVER USED 06/02/2020 [facility] History of tobacco use [facility]TOB[facility] NEVER USED 05/01/2019 [facility] History of tobacco use [place] 01[facility]02/2018 [facility] History of tobacco use LIFETIME NON-TOBACCO USER [facility]05[facility] History of tobacco use LIFETIME NON-TOBACCO USER 06/24/2016 [facility] History of tobacco use LIFETIME NON-TOBACCO USER 07/10/2015 [facility] History of tobacco use LIFETIME NON-SMOKER 06/03/2005 [facility] RN [facility] History of tobacco use LIFETIME NON-TOBACCO USER 11/14/2001 [facility] Plan of Care List of future care activities from [facility] facilities. Additional future care activities may be listed in the Assessment and Plan section. Date/Time Care Activity Care Activity Detail Facili ty 10/09/2024 AMBULATORY - PSYCHIATRY AMBULATORY - PSYC HIATRY [facility] Advance Directives List of completed, amended, or rescinded Advance Directives on record at [facility] facilities. An actual copy of the Directive is not included. Date Advance Directive Provider Source 05/10/2018 ADVANCE DIRECTIVE LEONARD TORRES [facility] 03/24/2018 ADVANCE DIRECTIVE DAO ESTEBAN [facility]
--- OUTSIDE RECORDS SUMMARY | 2024-10-02 13:16 | XMS_ITS | Encounter Summary ---
Author Name [facility] [facility] [place] Address [address] [place] [address] Care Team Providers Care Community Health Program Coordinator Name Role Phone VINNIE BLACKWELL Primary Care Provider Luiz frederick Insurance Providers: All historical and current Section Date Range: From patient's date of to the date document was created. This section includes the names of all active insurance providers for the patient. Insurance Provider Type of Coverage Plan Name Start of Policy Coverage End of Policy Coverage Group Number Member ID Insurance Provider's Telephone Number Policy Correa's Name Patient's Relationship to Policy Correa PANCHOSANAM [employer] FEDERAL PREFERRED PROVIDER ORGANIZAT ION (PPO) [place]AND [place] SELF + ONE Sep 19, 2015 [id number] [phone] ANUJ RAMIREZ PATIENT ANTHEM BCBS CT FEDERAL PREFERRED PROVIDER ORGANIZAT ION (PPO) STAND [place] FAMIL Y Dec 24, 2009 [id number] [phone] ANUJ RAMIREZ PATIENT BCBS [place] FEP PREFERRED PROVIDER ORGANIZAT ION (PPO) STAND [place] SELF PLUS 1 Sep 19, 2015 [id number] ANUJ RAMIREZ PATIENT [place] PREFERRED PROVIDER ORGANIZAT ION (PPO) [place]AND [place] SELF+ ONE Sep 19, 2015 106 [id number] [phone] ANUJ RAMIREZ PATIENT [place] PREFERRED PROVIDER ORGANIZAT ION (PPO) STAND GE[place] FAMIL Y Dec 24, 2009 [id number] ANUJ RAMIREZ PATIENT [place] DENTAL DENTAL INSURANCE STAND [place] Sep 19, 2015 DENTAL [id number] ANUJ RAMIREZ PATIENT [place] FEP BCBS PRESCRIPT ION [place] FEPRX PLAN Sep 24, 2010 [id number] [phone] ANUJ RAMIREZ PATIENT [place] FEPRX PLAN PRESCRIPT ION BCBS FEP Jun 20, 2001 [id number] [phone] ANUJ RAMIREZ PATIENT [place] FEPRX PLAN PRESCRIPT ION [place] FEPRX Jun 20, 2001 [id number] ANUJ RAMIREZ PATIENT [place]-F EP BCBS PRESCRIPT ION FEP [place]K Jun 20, 2010 [id number] [phone] ANUJ RAMIREZ PATIENT MEDICARE (WNR) MEDICARE () PART A Jul 21, 2011 PART A [id number] ANUJ RAMIREZ PATIENT MEDICARE (WN) MEDICARE () PART B Jul 21, 2011 PART B [id number] ANUJ RAMIREZ PATIENT MEDICARE (WN) MEDICARE () PART A Apr 20, 2011 PART A [id number] ANUJ RAMIREZ JR PATIENT MEDICARE (WN) MEDICARE () PART B Apr 20, 2011 PART B [id number] ANUJ RAMIREZ JR PATIENT MEDICARE (WN) MEDICARE () PART A Apr 20, 2011 PART A [id number] [phone] ANUJ RAMIREZ PATIENT MEDICARE (WN) MEDICARE () PART B Apr 20, 2011 PART B [id number] [phone] ANUJ RAMIREZ PATIENT MEDICARE (WNR) MEDICARE () PART A Apr 20, 2011 PART A [id number] [phone] ANUJ RAMIREZ PATIENT MEDICARE (WNR) MEDICARE (M) PART B Apr 20, 2011 PART B [id number] ANUJ RAMIREZ PATIENT Selected Encounter This section includes the information on record at [place] for the Encounter. Date/Time Encounter Type Encounter Description Reason Provider Source Sep 28, 2024 11:00 AM PSYTX W PT 45 MINUTES [facility] - IND ICD-10-CM F43.12 Post-traumatic stress disorder, chronic ANABELLA MOYA Yared Encounter Template Text not used by [place] Assessments - Encounter Diagnoses This section includes the primary and secondary diagnoses documented for the Encounter. Date/Time Primary/Secondary Diagnosis Diagnosis Name Provider Source Sep 28, 2024 12:42 PM PRIMARY Post-traumatic stress disorder, chronic [facility] Plan of Treatment: Future Appointments (+ 6 months) and Future Tests (+/- 45 days) The Plan of Treatment section includes future care activities for the patient from all [place] treatmentfacilities. This section includes future appointments and future orders which are active, pending or scheduled. Future Appointments This section includes appointments that were scheduled to occur 6 months from the date of the Encounter, up to a maximum of 20 appointments. The data comes from all [place] treatment facilities. Appointment Date/Time Appointment Type Appointme nt Facility Name Oct 09, 2024 11:00 AM AMBULATORY [place]IATRY [place] [facility] [place] [facility] October 25, 2024 01:00 PM AMBULATORY - MEDICINE [facility] [place] [facility] November 13, 2024 10:00 AM AMBULATORY - PS[place]CHIATRY [place] [facility] [place] [facility] Nov 28, 2024 11:00 AM AMBULATORY - MEDICINE [facility] [place] [facility] Dec 10, 2024 08:30 AM AMBULATORY - PS[place]CHIATRY [place] [facility] [place] [place] [facility] Mar 21, 2025 10:45 AM AMBULATORY - NONE [facility] [place] [facility] Active, Pending, and Scheduled Orders This section includes a listing of several types of active, pending, and scheduled orders, including clinic medications orders, diagnostic test orders, procedure orders and consult orders; where the start date of the order is 45 days before the date of the Encounter or 45 days after the date of theEncounter. The data comes from all [place] treatment facilities. Test Date/Time Test Type Test Details Facility Name Sep 11, 2024 10:22 AM Consult Order NEUROPSYCH OL TESTING/[facility] OUTPT Cons Professor Of Apologetics's Choice [facility] Lab Results: +/- 30 days of the encounter This section includes the Chemistry and Hematology Lab Results on record with [place] for the patient. Radiology Reports and Pathology Reports are provided separately, in subsequent sections. Lab Results This section contains the Chemistry/Hematology Results that were resulted 30 days before or 30 daysafter the date of the Encounter. Date/Time Source Result Type Result - Unit Interpretation Reference Range Specimen Type Comment Sep 07, 2024 03:07 PM [facility] DRUGS OF ABUSE URINE Specimen Type: URINE Comment: Urine with Cr <5 is diluted or substituted. Cr between 5 and 20 is very dilute. Urine with SG of 1.001 or less is diluted or substituted. SG of 1.003 or less is very dilute. Urine with a pH <3 or >11 has been adulterated and is unsuitable for testing by our current method. Urine with pH between 3 and 4 OR 10 and 11 may have been adulterated. FENTANYL CONFIRMATION NOT SENT BY LAB. Ordering Provider: DAILY BENSON MD Report Released Date/Time: May 02, 2024 08:57 AM Reporting Lab: [facility] [address] [facility] [address] Performing Lab: [address] [address] AMPHETAMINES SCREEN NONE-DETECTED None-D etected, Cutoff = 1000 ng/mL BENZODIAZEPINES SCREEN NONE-DETECTED Non e-Detected, Cutoff = 200 ng/mL COCAINE SCREEN NONE-DETECTED None-Detect ed,Cutoff = 300 ng/mL OPIATES SCREEN NONE-DETECTED None-Detect ed, Cutoff = 300 ng/mL CANNABINOIDS SCREEN NONE-DETECTED None-D etected,Cutoff = 50 ng/mL BARBITURATES SCREEN NONE-DETECTED None-D etected,Cutoff = 200 ng/mL OXYCODONE SCREEN NONE-DETECTED None-Dete cted, Cutoff = 100 ng/mL BUPRENORPHINE (URINE) NONE-DETECTED None Detected, Cutoff = 10.0 ng/mL ALCOHOL, ETHYL URINE NONE-DETECTED mg/dL NONE-DETECTED, cutoff = 10 mg/dL FENTANYL SCREEN NONE-DETECTED ng/mL Nega tive: Cutoff = 1.00 ng/mL PH, SAGAR 5.8 [pH] 4-10 CREATININE, ASGAR 181.74 mg/dL >20 SP.GRAVITY, SAGAR 1.022 H 1.003-1.020 Sep 07, 2024 03:07 PM [facility] LIPID PANEL FASTING SERUM Specimen Type: SERU M No comment entered. Ordering Provider: VINNIE BLACKWELL Report Released Date/Time: Mar 12, 2024 11:07 AM Reporting Lab: [address] [address] Performing Lab: [address] [address] CHOLESTEROL 144 mg/dL TRIGLYCERIDE 140 mg/dL 0-150 LDL calculated 76 mg/dL 0-129 CHOL/HDL 3.6 HDL CHOLESTEROL 40 mg/dL 40-60 Sep 07, 2024 03:07 PM [facility] BASIC METABOLIC PANEL (fasting) SERUM Specime n Type: SERUM No comment entered. Ordering Provider: VINNIE BLACKWELL Report Released Date/Time: Mar 12, 2024 11:07 AM Reporting Lab: [facility] [address] [facility] [facility] [address] Performing Lab: [address] [address] UREA NITROGEN 24 mg/dL 7-25 GLUCOSE 105 mg/dL H 65-100 SODIUM 138 mmol/L 135-145 POTASSIUM 3.9 mmol/L 3.5-5.0 CHLORIDE 103 mmol/L 100-110 CO2 29 meq/L 20-30 CALCIUM 9.3 mg/dL 8.5-10.2 CREATININE, Serum 1.10 mg/dL 0.50-1.40 eGFR(CKD-EPI 2020) 68 mL/min >60 Social History: Smoking Status (Most current) and Tobacco Use (All prior to encounter date) This section includes the most current, and the historical, smoking and tobacco- related health factors from the [place] facility where the Encounter took place. Current Smoking Status This section includes the most current smoking, or tobacco-related health factor, from the [place] facility where the Encounter took place. Date/Time Current Smoking Status Comment Holland pagan May 02, 2024 08:30 AM VA-TOBACCO NEVER USED [place] [facility] [place] [facility] Tobacco Use History This section includes a history of the smoking, or tobacco-related health factors, that were collected on or before the date of the Encounter. The data comes from the [place] facility where the Encounter took place. Date/Time Smoking Status/Tobacco Use Comment F acility May 26, 2023 08:30 AM [facility]-TOBACCO NEVER USED [facility] [place] [facility] 2022 09:30 AM VA-TOBACCO NEVER USED [facility] [place] [facility] May 18, 2021 10:30 AM VA-TOBACCO NEVER USED [facility] [place] [facility] Jun 02, 2020 11:00 AM VA-TOBACCO NEVER USED [facility] [place] [facility] May 01, 2019 10:56 AM VA-TOBACCO NEVER USED [facility] [place] [facility] Jan 02, 2018 11:55 AM [place]-TOBACCO NEVER USED [place] [facility] [place] [facility] Jul 05, 2017 10:01 AM LIFETIME NON-TOBACCO USER [facility] [place] [facility] Jun 24, 2016 11:53 AM LIFETIME NON-TOBACCO USER [facility] [place] [facility] Jul 10, 2015 10:23 AM LIFETIME NON-TOBACCO USER [place] [facility] [place] [facility] Jun 03, 2005 10:00 AM LIFETIME NON-SMOKER [place] [facility] Advance Directives: All historical and current Section Date Range: From patient's date of to the date document was created. This section includes ALL of a patient's completed or amended [place] Advance and Rescinded Directives. The entries below indicate that a directive exists for the patient, but an actual copy is not included with this document. The data comes from all [place] facilities. Date Advance Directives Provider Source May 10, 2018 ADVANCE DIRECTIVE LEONARD TORRES [facility] [facility] Mar 24, 2018 ADVANCE DIRECTIVE DAO ESTEBAN [place] [facility] Encounter Notes: All associated encounter notes This section contains the clinical notes associated to the Encounter. Date/Time Encounter Note(s) Provider Source Sep 28, 2024 12:01 PM PSYCHOLOGY CONSULT : LOCAL TITLE: CONSULT REPORT/MENTAL HEALTH/PSYCHOLOGY STANDARD TITLE: PSYCHOLOGY CONSULT DATE OF NOTE: SEP 28, 2024@12:01 ENTRY DATE: SEP 28, 2024@12:01:38 AUTHOR: ANABELLA MOYA COSIGNER: URGENCY: STATUS: COMPLETED Date of session: Sep Duration of session: 50 Diagnosis: PTSD Presenting Problem ( report):ory Consult meeting with Mr. Law, who expresses interest in integrating his life history, history. He turns out to be very much a history buff in general, and outlines lopez incidents from his time in [facility] [place] and their influence on his life since. 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 Course of Session: It took him a while to see the impact of the PTSD, but once he did he's sought care to mitigate symptoms. He's made use of individual, couples and group counseling, the last in anger management. He was part of a group (I believe informally) of about 20 Veterans who took an interest in local and history, and notes sadly that over time 6 of them were lost to suicide. Specific mental health/clinical interventions: Reflective listening. Mental Status/Clinical Impression: 1. Appearance (grooming, attire, apparent age) within normal limits: delusions): Pleasant, thoughtful individual 2. Thought content was organized and goal directed: Yes 3. Speech was coherent and unimpaired: Yes 4. Affect was appropriate and unremarkable: Euthymic - says emotional state has an ebb and flow with periods of higher symptoms. 5. Demeanor was calm, with no signs of agitation or restlessness: Yes 6. Problems with sleep or appetite reported: Not assessed 7. Psychosis (hallucinations or Delusions: No Date of next planned contact: 2 weeks /henok/ ANABELLA MOYA, PhD Clinical Psychologist Signed: 09/28/2024 12:42 ANABELLA MOYA [place] [facility]
--- OUTSIDE RECORDS SUMMARY | 2024-10-02 13:16 | XMS_ITS | Encounter Summary ---
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 Name Role Phone VINNIE BLACKWELL Primary Care [...] Correa's Name Patient's Relationship to Policy Correa LADAN BCBS CT FEDERAL PREFERRED PROVIDER ORGANIZAT ION (PPO) [place]AND [place] SELF + ONE Sep 19, 2015 [id number] [phone] DAVID Frederick EDWIN PATIENT ANTHEM BCBS CT FEDERAL PREFERRED PROVIDER ORGANIZAT ION (PPO) STAND [place] FAMIL Y Dec 24, 2009 105 [id number] [phone] DAVID Frederick EDWIN PATIENT BCBS [place] FEP PREFERRED PROVIDER ORGANIZAT ION (PPO) STAND [place] SELF PLUS 1 Sep 19, 2015 [id number] ANUJ RAMIREZ PATIENT [place] PREFERRED PROVIDER ORGANIZAT ION (PPO) STAND [place] SELF+ ONE Sep 19, 2015 106 [id number] DAVID Frederick EDWIN PATIENT [place] F[place] PREFERRED PROVIDER ORGANIZAT ION (PPO) STAND GE[place] FAMIL Y Dec 24, 2009 105 [id number] ANUJ RAMIREZ PATIENT [place] FEP DENTAL DENTAL INSURANCE STAND [place] Sep 19, 2015 DENTAL [id number] ANUJ RAMIREZ PATIENT [place] FEP BCBS PRESCRIPT ION CAREM ARK FEPRX PLAN Sep 24, 2010 [id number] [phone] ANUJ RAMIREZ PATIENT [place] FEPRX PLAN PRESCRIPT ION BCBS FEP Jun 20, 2001 [id number] ANUJ RAMIREZ PATIENT [place] FEPRX PLAN PRESCRIPT ION CAREM ARK FEPRX Jun 20, 2001 [id number] [phone] ANUJ RAMIREZ PATIENT [place]-F EP BCBS PRESCRIPT ION FEP CAREM ARK Jun 20, 2010 [id number] ANUJ RAMIREZ PATIENT MEDICARE (WNR) MEDICARE () PART A Jul 21, 2011 PART A [id number] ANUJ RAMIREZ PATIENT MEDICARE (WN) MEDICARE () PART B Jul 21, 2011 PART B [id number] ANUJ RAMIREZ PATIENT MEDICARE (WNR) MEDICARE () PART A Apr 20, 2011 PART A [id number] ANUJ RAMIREZ PATIENT MEDICARE (WNR) MEDICARE () PART B Apr 20, 2011 PART B [id number] ANUJ RAMIREZ PATIENT MEDICARE (WNR) MEDICARE () PART A Apr 20, 2011 PART A [id number] [phone] ANUJ RAMIREZ JR PATIENT MEDICARE (WNR) MEDICARE () PART B Apr 20, 2011 PART B [id number] [phone] DAVID Frederick JR, EDWIN PATIENT MEDICARE (WNR) MEDICARE () PART A Apr 20, 2011 PART A [id number] [phone] ANUJ RAMIREZ PATIENT MEDICARE (WNR) MEDICARE (M) PART B Apr 20, 2011 PART B [id number] ANUJ RAMIREZ PATIENT Selected Encounter This section includes the information on record at [place] for the Encounter. Date/Time Encounter Type Encounter Description Reason Provider Source Jul 24, 2024 10:00 AM OFFICE O/P EST LOW 20 MIN [facility] - IND ICD-10-CM F43.12 Post-traumatic stress disorder, chronic LAURE,HARRIETT JAMES IHYared Encounter Template Text not used by [place] Assessments - Encounter Diagnoses This section includes the primary and secondary diagnoses documented for the Encounter. Date/Time Primary/Secondary Diagnosis Diagnosis Name Provider Source Jul 24, 2024 10:30 AM PRIMARY Post-traumatic stress disorder, chronic JANNA KELSEY [facility] Jul 24, 2024 10:30 AM SECONDARY Attention-deficit hyperactivity disorder, unspecified type JANNA KELSEY [facility] Jul 24, 2024 10:30 AM SECONDARY Major depressive disorder, recurrent, moderate JANNA KELSEY [facility] Plan of Treatment: Future Appointments (+ 6 months) and Future Tests (+/- 45 days) The Plan of Treatment section includes future care activities for the patient from all [place] treatmentfacilities. This section includes future appointments and future orders which are active, pending or scheduled. Future Appointments This section includes appointments that were scheduled to occur 6 months from the date of the Encounter, up to a maximum of 20 appointments. The data comes from all [place] treatment facilities. Appointment Date/Time Appointment Type Appointme nt Facility Name Sep 10, 2024 10:30 AM [place]IC[place] [facility] [place] Sep 11, 2024 09:30 AM AMBULATORY [place]ATRY [facility] Sep 17, 2024 09:45 AM AMBULATORY - NONE [facility] Sep 28, 2024 11:00 AM AM[place]UL[place]ORY [place] [facility] Oct 09, 2024 11:00 AM AM[place]UL[place] [facility] October 25, 2024 01:00 PM [facility] [place] [facility] [place] November 13, 2024 10:00 AM [facility]UL[facility] Nov 28, 2024 11:00 AM [facility] [place] Dec 10, 2024 08:30 AM [facility]UL[facility] [place] Social History: Smoking Status (Most current) and Tobacco Use (All prior to encounter date) This section includes the most current, and the historical, smoking and tobacco- related health factors from the [place] facility where the Encounter took place. Current Smoking Status This section includes the most current smoking, or tobacco-related health factor, from the [place] facility where the Encounter took place. Date/Time Current Smoking Status Comment [place] ity May 02, 2024 08:30 AM VA-TOBACCO NEVER USED [facility] Tobacco Use History This section includes a history of the smoking, or tobacco-related health factors, that were collected on or before the date of the Encounter. The data comes from the [place] facility where the Encounter took place. Date/Time Smoking Status/Tobacco Use Comment F acility May 26, 2023 08:30 AM VA-TOBACCO NEVER USED [facility] [place] 2022 09:30 AM VA-TOBACCO NEVER USED [facility] [place] May 18, 2021 10:30 AM VA-TOBACCO NEVER USED [facility] Jun 02, 2020 11:00 AM VA-TOBACCO NEVER USED [facility] May 01, 2019 10:56 AM VA-TOBACCO NEVER USED [facility] Jan 02, 2018 11:55 AM VA-TOBACCO NEVER USED [facility] Jul 05, 2017 10:01 AM LIFETIME NON-TOBACCO USER [facility] Jun 24, 2016 11:53 AM LIFETIME NON-TOBACCO USER [facility] Jul 10, 2015 10:23 AM LIFETIME NON-TOBACCO USER [facility] Jun 03, 2005 10:00 AM LIFETIME NON-SMOKER [facility] Advance Directives: All historical and current Section Date Range: From patient's date of to the date document was created. This section includes ALL of a patient's completed or amended [place] Advance and Rescinded Directives. The entries below indicate that a directive exists for the patient, but an actual copy is not included with this document. The data comes from all [place] facilities. Date Advance Directives Provider Source May 10, 2018 ADVANCE DIRECTIVE LEONARD TORRES [facility] Mar 24, 2018 ADVANCE DIRECTIVE ESTEBANDAO Patsy [facility] Encounter Notes: All associated encounter notes This section contains the clinical notes associated to the Encounter. Date/Time Encounter Note(s) Provider Source Jul 24, 2024 10:33 AM ACCOUNTING OF DISCLOSURES NOTE: LOCAL TITLE: STATE PRESCRIPTION DRUG MONITORING PROGRAM STANDARD TITLE: ACCOUNTING OF DISCLOSURES NOTE DATE OF NOTE: JUL 24, 2024@10:33:17 ENTRY DATE: JUL 24, 2024@10:33:17 AUTHOR: YOLANDE KELSEY EXP COSIGNER: URGENCY: STATUS: COMPLETED This PDMP query was submitted by Yolande Kelsey. The clinical justification for this PDMP query is to review controlled substances prescribed outside of the [place], and any additional information that may become available, as an important component of standard clinical care, and in accordance with [facility] policy. Patient information was shared with the PDMP [employer] [place]. No prescription(s) for controlled substances outside the [place] were found in the last 90 days. /henok/ YOLANDE KELSEY MD PSYCHIATRIST Signed: 07/24/2024 10:33 [facility]DE [facility]ELSEY [facility] Jul 24, 2024 10:11 AM PSYCHIATRY NOTE: LOCAL TITLE: PSYCHIATRY NOTE STANDARD TITLE: PSYCHIATRY NOTE DATE OF NOTE: JUL 24, 2024@10:11 ENTRY DATE: JUL 24, 2024@10:11:47 AUTHOR: YOLANDE KELSEY EXP COSIGNER: URGENCY: STATUS: COMPLETED ANUJ AYERS JR, a 79 year old WHITE MALE was seen for scheduled follow-up at [facility]. MENTAL HEALTH NOTE: [place] was seen for 25 min in the [facility] for routine follow up. Two forms of identification was used. 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 SUBJECTIVE: Anuj says this time of year there isn't much to do. He has been filling his days with attending his [employer] sports activities. He has two basketball games to go to later today. Anuj talks about his eyes and having increased irritation in them lately. He thinks the flourescent lights here in the waiting room might have caused the irritation today. Anuj hasn't noticed any difference with the 20 mg of lexapro from the 30 mg that he had been taking before. Anuj says that he and his have lost friends recently. Anuj says that the family of these friends haven't had a service and this has been different for him. He would prefer to have a chance to have closure. SUBSTANCE ABUSE: Caffeine: Tobacco: Cocaine: denies Opioid: denies Alcohol: denies Cannabis: denies SUICIDE RISK SCREEN 1. Are you having thoughts today about killing yourself? No 2. Do you have a plan to kill yourself? No Describe plan: 3. Do you have the means to carry out the plan? No 4. Risk level: Low (no suicide specific actions are needed) Previous medication trials: Ritalin, Lexapro, Gabapentin, Lamictal, Prozac, Celexa, Prozac, Ambien, Seroquel Current meds: Active and Recently Outpatient Medications (excluding Supplies): Active Outpatient Medications Status 1) CARBOXYMETHYLCELLULOSE NA 0.5% OPH SOLN INSTILL 1 DROP INTO ACTIVE EACH EYE FOUR TIMES DAILY NEEDED Indication: FOR DRY EYE 2) CARBOXYMETHYLCELLULOSE NA 1% OPH GEL APPLY 1 DROP INTO EACH ACTIVE EYE AT BEDTIME Indication: FOR DRY EYE 3) CYCLOSPORINE 0.05% (PF) OPH EMUL 0.4ML INSTILL 1 DROP INTO ACTIVE EACH EYE TWICE DAILY Indication: FOR DRY EYE 4) ESCITALOPRAM OXALATE 20MG TAB TAKE ONE TABLET BY MOUTH ONCE ACTIVE DAILY Indication: FOR MAJOR DEPRESSIVE DISORDER 5) GABAPENTIN 100MG CAP TAKE ONE CAPSULE BY MOUTH TWICE DAILY ACTIVE NEEDED DURING THE DAYTIME (MORNING AND AFTERNOON) FOR ANXIETY (OFF LABEL)-CAUTION--MAY CAUSE SEDATION. Indication: OFF LABEL ANXIETY 6) HYDROCHLOROTHIAZIDE 25MG TAB TAKE ONE TABLET BY MOUTH ONCE ACTIVE (S) DAILY TO PREVENT FLUID/CONTROL BLOOD PRESSURE 7) IBUPROFEN 600MG TAB TAKE ONE TABLET BY MOUTH THREE TIMES A ACTIVE DAY TAKE WITH FOOD; FOR PAIN/INFLAMMATION/SWELLING DO NOT TAKE ANY OTHER IBUPROFEN CONTAINING MEDICATIONS WHILE USING THIS MEDICATION. 8) LAMOTRIGINE 150MG TAB TAKE ONE TABLET BY MOUTH TWICE DAILY ACTIVE Indication: MOOD 9) METHYLPHENIDATE HCL 10MG TAB TAKE ONE TABLET BY MOUTH EVERY ACTIVE MORNING AND TAKE ONE TABLET AT NOON NEEDED FOR ATTENTION/CONCENTRATION Indication: ATTENTION/ CONCENTRATION Inactive Outpatient Medications Status 1) LOSARTAN 100MG TAB TAKE ONE TABLET BY MOUTH ONCE DAILY FOR BLOOD PRESSURE/HEART 10 Total Medications MEDICATION ADHERENCE: takes medications most days MEDICATION SIDE EFFECTS: none OBJECTIVE:recent labs:LAB RESULTS LAST 1440 HRS - NONE FOUND Weight: 199 lb [90.26 kg] (05/01/2024 10:45) BMI: 31.2 MENTAL STATUS EXAM: Orientation and Consciousness: Alert and fully oriented. Appearance and Behavior: Older white male with short ruiz hair dressed in blue jeans, blue baseball cap wearing eyeglasses. Eye Contact: Good. Speech: Normal rate and volume. Mood/Affect: alright. Affect: euthymic. Thought Production/Content: Logical, sequential & relevant to discussion. Perceptual Disturbances: None. Attention, concentration and memory based on answers to session questions: Good. Insight/Judgment: Both good. SI/HI: Neither elicited. Ability to Provide informed consent: Yes. ASSESSMENT:79 year old WHITE MALE, presents today for mental health follow up. TREATMENT PLAN/ DISCUSSION/ RATIONALE: 1.::: Medication management: Anuj continues on lexapro 20 mg daily, Gabapentin 100 mg BID prn anxiety, Lamictal 150 mg BID and Methylphenidate 10 mg BID (with the second dose in the early afternoon). Anuj hasn't noticed any major difference with the lower dose of of lexapro and would prefer to remain at the 20 mg dose for now. Anuj denies any side effects from his current medications. No changes to them today. Encouraged Anuj to try and get out to socialize more which he finds good for his mood. 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 Recent EKG looked fine (was bradycardic with a HR of 50, but otherwise the [employer] who read the EKG noted no significant change from the previous EKG). Last utox done last fall. Will plan to repeat this fall. Anuj seems in fair spirits today. Next Visit: in 1.5 months. Patient is aware of how to access [facility] open access clinic in [facility] during weekdays for immediate mental health needs if I am not available. Patient has capacity to make his own medication decisions at present time. I asked the patient to come for sooner appointment if the patient does not like the effect of psychiatric medication or if has side effects with psychiatric medication. The patient's primary care physician follows blood pressure, weights, lipids, glucose The pt understands not to combine psychiatric meds with alcohol or street drugs. Because the pt reports significant benefit from psychiatric medication, it is reasonable to continue to prescribe the psychiatric medication, even if there is risk of relapse to substance abuse -- the benefits of psychiatric medications outweigh the risks, even in the setting of substance abuse (and by helping to calm psychiatric symptoms, the medications may help decrease the risk/severity of substance abuse relapses) ::: MASS PAT was checked -- and there were no duplications, nor evidence of external acquisition of narcotics nor any contraindications with ongoing prescription of narcotics through this [place] facility. ::: Psychotropic meds were reconciled; and no discrepancies were noted. Discussed R/B/SE/A and necessity for lab monitoring; as well as off-label use, drug-drug interactions, potential for suicidal thinking with some psychotropics. Patient provided with updated medication list and reminded of importance of ensuring that changes including OTCs/herbals get added. Patient voiced understanding and agreement with current treatment plan. ::: Reviewed most recent labs, No studies ordered at this visit. ::: Had a supportive discussion with pt and cont to provide psychoeducation and brief supportive therapy including again providing psychoeducation on sleep hygiene, diet, exercise and med compliance. Pt agrees to present to ER or call 911 for psychiatric emergencies, including SI/HI. ::: SAFETY PLAN: Pt was educated about emergency services available at this facility e.g., ER) and in the community (including Crisis Line, 911, [place] National Suicide Prevention Lifeline: 1-072-781-TALK). Patient is instructed to contact me should symptoms worsen or side effects develop. Pt agreed to use these resources if warranted. ::: Pt was educated about risks of interactions between drugs/alcohol and psychotropic medications and voiced understanding. Pt was also warned not to drive or operate heavy machinery until the effects of psychotropic medications is known. CRISIS PLAN: The patient denied suicidal and violent ideation, but the [facility] Crisis Line information and number were given to patient. The patient also understands to call 911 or to go to ER in the event of an emergency. -- Medication Reconciliation: Outpatient: Has the patient been taking medications as documented in the EMLR? YES: The patient has been taking medications as documented in the EMLR. Essential Medication List for Review used to complete this medication reconciliation. INCLUDED IN THIS LIST: Alphabetical list of active outpatient prescriptions dispensed from this [place] (local) and dispensed from another [place] or Do[place] facility (remote) as well as inpatient orders (local, pending and active), local clinic medications, locally documented non-VA medications, and local prescriptions that have or been discontinued in the past 90 days. - All changes in medications, including all non-VA/Herbal/OTC medications were entered into CPRS. - If there were any medications the patient should no longer take, they were discontinued. - The patient/caregiver was instructed to update this list, discard old lists, and take this list to the next appointment, whether with a VA or non-VA provider. /henok/ YOLANDE KELSEY MD PSYCHIATRIST Signed: 07/24/2024 10:32 YOLANDE KELSEY [place] [facility]
--- OUTSIDE RECORDS SUMMARY | 2024-10-02 13:17 | XMS_ITS ---
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 Name Role Phone VINNIE BLACKWELL Primary Care [...] SELF + ONE Sep 19, [phone] [id number] [phone] ANUJ RAMIREZ PATIENT ANTHEM BCBS CT FEDERAL PREFERRED PROVIDER ORGANIZAT ION (PPO) STAND [place] FAMIL Y Dec 24, 2009 105 [id number] [phone] DAVID Frederick EDWIN PATIENT BCBS [place] FEP PREFERRED PROVIDER ORGANIZAT ION (PPO) STAND [place] SELF PLUS 1 Sep 19, 2015 [id number] ANUJ RAMIREZ PATIENT [place] PREFERRED PROVIDER ORGANIZAT ION (PPO) [place]AND [place] SELF+ ONE Sep 19, 2015 106 [id number] DAVID Frederick EDWIN PATIENT [place] F[place] PREFERRED PROVIDER ORGANIZAT ION (PPO) STAND GE[place] FAMIL Y Dec 24, 2009 105 [id number] ANUJ RAMIREZ PATIENT [place] F[place] DENTAL DENTAL INSURANCE STAND GE[place] Sep 19, 2015 DENTAL [id number] [phone] ANUJ RAMIREZ PATIENT [place] FEP BCBS PRESCRIPT ION CAREM ARK FEPRX PLAN Sep 24, 2010 [id number] ANUJ RAMIREZ PATIENT [place] FEPRX PLAN PRESCRIPT ION BCBS FEP Jun 20, 2001 [id number] ANUJ RAMIREZ PATIENT [place] FEPRX PLAN PRESCRIPT ION CAREM ARK FEPRX Jun 20, 2001 [id number] [phone] ANUJ RAMIREZ PATIENT CAREMARK-F EP BCBS PRESCRIPT ION FEP CAREM ARK Jun 20, 2010 [id number] ANUJ RAMIREZ PATIENT MEDICARE (WNR) MEDICARE () PART A Jul 21, 2011 PART A [id number] [phone] ANUJ RAMIREZ PATIENT MEDICARE (WNR) MEDICARE () PART B Jul 21, 2011 PART B [id number] [phone] ANUJ RAMIREZ PATIENT MEDICARE (WNR) MEDICARE () PART A Apr 20, 2011 PART A [id number] ANUJ RAMIREZ JR PATIENT MEDICARE (WNR) MEDICARE () PART B Apr 20, 2011 PART B [id number] [phone] ANUJ RAMIREZ JR PATIENT MEDICARE (WNR) MEDICARE () PART A Apr 20, 2011 PART A [id number] [phone] ANUJ RAMIREZ PATIENT MEDICARE (WNR) MEDICARE () PART B Apr 20, 2011 PART B [id number] [phone] ANUJ RAMIREZ PATIENT MEDICARE (WNR) MEDICARE () PART A Apr 20, 2011 PART A [id number] ANUJ RAMIREZ PATIENT MEDICARE (WNR) MEDICARE (M) PART B Apr 20, 2011 PART B [id number] ANUJ RAMIREZ PATIENT Selected Encounter This section includes the information on record at [place] for the Encounter. Date/Time Encounter Type Encounter Description Reason Provider Source October 26, 2023 11:30 AM OFFICE O/P EST SF [facility] - IND ICD-10-CM F90.9 Attention-deficit hyperactivity disorder, unspecified type TRENA TURNER MD [facility] Encounter Template Text not used by [place] Assessments - Encounter Diagnoses This section includes the primary and secondary diagnoses documented for the Encounter. Date/Time Primary/Secondary Diagnosis Diagnosis Name Provider Source October 26, 2023 11:43 AM PRIMARY Attention-deficit hyperactivity disorder, unspecified type TRENA TURNER MD [place] [facility] [place] [facility] October 26, 2023 11:43 AM SECONDARY Depression, unspecified TRENA TURNER MD [place] [facility] [place] [facility] October 26, 2023 11:43 AM SECONDARY Post-traumatic stress disorder, chronic TRENA TURNER MD [facility] [place] [facility] Plan of Treatment: Future Appointments (+ 6 months) and Future Tests (+/- 45 days) The Plan of Treatment section includes future care activities for the patient from all [place] treatmentfacilities. This section includes future appointments and future orders which are active, pending or scheduled. Future Appointments This section includes appointments that were scheduled to occur 6 months from the date of the Encounter, up to a maximum of 20 appointments. The data comes from all [place] treatment facilities. Appointment Date/Time Appointment Type Appointme nt Facility Name November 17, 2023 01:45 PM AMBULATORY - NONE [place] [facility] [place] [facility] Dec 02, 2023 11:00 AM AMBULATORY - [place]CHIATRY [place] [facility] [place] [facility] Dec 06, 2023 10:00 AM AMBULATORY - MEDICINE [place] [facility] [place] [facility] Dec 14, 2023 11:30 AM AMBULATORY - NONE [place] [facility] [place] [facility] Jan 09, 2024 10:00 AM AMBULATORY [place]RY [place] [facility] [place] [facility] Feb 08, 2024 11:00 AM [facility] Feb 28, 2024 11:00 AM AMBULATORY - NONE [place] [facility] [place] [facility] Mar 12, 2024 10:30 AM [facility] [place] [facility] Mar 14, 2024 11:00 AM [facility] Mar 26, 2024 10:00 AM AMBULATORY - MEDICINE [facility] Apr 10, 2024 10:00 AM [facility] [place] [facility] [place] [facility] Apr 11, 2024 09:30 AM [facility] Lab Results: +/- 30 days of the encounter This section includes the Chemistry and Hematology Lab Results on record with [place] for the patient. Radiology Reports and Pathology Reports are provided separately, in subsequent sections. Lab Results This section contains the Chemistry/Hematology Results that were resulted 30 days before or 30 daysafter the date of the Encounter. Date/Time Source Result Type Result - Unit Interpretation Reference Range Specimen Type Comment October 26, 2023 11:23 AM [facility] DRUGS OF ABUSE URINE Specimen Type: [...] NOT SENT BY LAB. Ordering Provider: DAILY TURNER MD Report Released Date/Time: Sep 28, 2023 11:50 AM Reporting Lab: [address] [address] Performing Lab: [address] [address] AMPHETAMINES SCREEN NONE-DETECTED None-D etected, Cutoff = [...] tive: Cutoff = 1.00 ng/mL PH, SAGAR 6.5 [pH] 4-10 CREATININE, SAGAR 142.21 mg/dL >20 SP.GRAVITY, SAGAR 1.022 H 1.003-1.020 Social History: Smoking Status (Most current) and Tobacco Use (All prior to encounter date) This section includes the most current, and the historical, smoking and tobacco- related health factors from the [place] facility where the Encounter took place. Current Smoking Status This section includes the most current smoking, or tobacco-related health factor, from the [place] facility where the Encounter took place. Date/Time Current Smoking Status Comment Facil ity May 26, 2023 08:30 AM VA-TOBACCO NEVER USED [place] [facility] [place] [facility] Tobacco Use History This section includes a history of the smoking, or tobacco-related health factors, that were collected on or before the date of the Encounter. The data comes from the [place] facility where the Encounter took place. Date/Time Smoking Status/Tobacco Use Comment F acility 2022 09:30 AM VA-TOBACCO NEVER USED [facility] [place] [facility] May 18, 2021 10:30 AM VA-TOBACCO NEVER USED [facility] [place] [facility] Jun 02, 2020 11:00 AM VA-TOBACCO NEVER USED [facility] [place] [facility] May 01, 2019 10:56 AM VA-TOBACCO NEVER USED [facility] [place] [facility] Jan 02, 2018 11:55 AM VA-TOBACCO NEVER USED [facility] [place] [facility] Jul 05, 2017 10:01 AM LIFETIME NON-TOBACCO USER [facility] [place] [facility] Jun 24, 2016 11:53 AM LIFETIME NON-TOBACCO USER [facility] Jul 10, 2015 10:23 AM LIFETIME [facility]ACCO [facility] Jun 03, 2005 10:00 AM [facility]IF[facility]MOK[facility] Advance Directives: All historical and current Section Date Range: From patient's date of to the date document was created. This section includes ALL of a patient's completed or amended [place] Advance and Rescinded Directives. The entries below indicate that a directive exists for the patient, but an actual copy is not included with this document. The data comes from all [place] facilities. Date Advance Directives Provider Source May 10, 2018 ADVANCE DIRECTIVE LEONARD TORRES [facility] Mar 24, 2018 ADVANCE DIRECTIVE [facility] Encounter Notes: All associated encounter notes This section contains the clinical notes associated to the Encounter. Date/Time Encounter Note(s) Provider Source October 26, 2023 01:28 PM LETTERS: LOCAL TITLE: MENTAL HEALTH DIAGNOSTIC RESULTS LETTER STANDARD TITLE: LETTERS DATE OF NOTE: OCTOBER 26, 2023@13:28 ENTRY DATE: OCTOBER 26, 2023@13:28:43 AUTHOR: DAILY TURNER EXP COSIGNER: URGENCY: STATUS: COMPLETED ANUJ AYERS [address] [place] [id number] OCTOBER 26, 2023 Dear Mr. ANUJ AYERS, Here are the Lab Results I have received from the last Urine Drug screen done on 10/26/23 so you can have a copy of them for your records: LAB CHEMISTRY & HEMATOLOGY Collection DT Specimen Test Name Result Units Ref Range 10/26/2023 11:23 URINE !! AMPHET NONE-DETECTED Ref: None-Detected, Cutoff = 1000 ng/mL !! OXYCODONE SCREEN NONE-DETECTED Ref: None-Detected, Cutoff = 100 ng/mL !! ETOH UR NONE-DETECTED mg/dL Ref: NONE-DETECTED, cutoff = 10 mg/dL !! FENTANYL SCREEN NONE-DETECTED ng/mL Ref: Negative: Cutoff = 1.00 ng/mL !! PH, SAGAR 6.5 pH 4 - 10 !! CREATININE, SAGAR 142.21 mg/dL Ref: >=20 !! SP.GRAVITY, SAGAR 1.022 H g/mL 1.003 - 1.020 !! BenzoSc NONE-DETECTED Ref: None-Detected, Cutoff = 200 ng/mL !! COCAINE SCREEN NONE-DETECTED Ref: None-Detected,Cutoff = 300 ng/mL !! OPIATES SCREEN NONE-DETECTED Ref: None-Detected, Cutoff = 300 ng/mL !! CanaSc NONE-DETECTED Ref: None-Detected,Cutoff = 50 ng/mL !! BarbSc NONE-DETECTED Ref: None-Detected,Cutoff = 200 ng/mL !! BupreUr NONE-DETECTED Ref: None Detected, Cutoff = 10.0 ng/mL --- Sincerely, Daily Turner Jr., MD [facility] DAILY TURNER MD [facility] October 26, 2023 11:28 AM ACCOUNTING OF DISCLOSURES NOTE: LOCAL TITLE: STATE PRESCRIPTION DRUG MONITORING PROGRAM STANDARD TITLE: ACCOUNTING OF DISCLOSURES NOTE DATE OF NOTE: OCTOBER 26, 2023@11:28:50 ENTRY DATE: OCTOBER 26, 2023@11:28:50 AUTHOR: DAILY TURNER EXP COSIGNER: URGENCY: STATUS: COMPLETED This PDMP query was submitted by Daily Turner MD, MD. The clinical justification for this PDMP query is to review controlled substances prescribed outside of the [place], and any additional information that may become available, as an important component of standard clinical care, and in accordance with [facility] policy. Patient information was shared with the PDMP [place]. Prescription(s) filled outside the [place] in the last 90 days are noted. However, they do not raise significant safety concerns and do not influence the treatment plan at this time. Gabapentin /es/ DAILY TURNER JR, MD STAFF PSYCHIATRIST Signed: 10/26/2023 11:43 DAILY TURNER MD [facility] October 26, 2023 07:58 AM PSYCHIATRY NOTE: LOCAL TITLE: PSYCHIATRY/FOLLOW-UP NOTE STANDARD TITLE: PSYCHIATRY NOTE DATE OF NOTE: OCTOBER 26, 2023@07:58 ENTRY DATE: OCTOBER 26, 2023@07:58:30 AUTHOR: DAILY TURNER EXP COSIGNER: URGENCY: STATUS: COMPLETED Medications were reconciled with and he was offered a copy of his Medication List and he declines Active Outpatient Medications: 1) CARBOXYMETHYLCELLULOSE NA 0.5% OPH SOLN INSTILL 1 DROP INTO EACH EYE FOUR TIMES DAILY NEEDED FOR DRY EYE 2) CARBOXYMETHYLCELLULOSE NA 1% OPH GEL APPLY 1 DROP INTO EACH EYE AT BEDTIME FOR DRY EYE 3) CLOTRIMAZOLE 1% TOP SOLN APPLY DIRECTED TOPICALLY ONCE DAILY FOR FUNGAL INFECTION 4) CYCLOSPORINE 0.05% (PF) OPH EMUL 0.4ML INSTILL 1 DROP INTO EACH EYE TWICE DAILY FOR DRY EYE 5) ESCITALOPRAM OXALATE 20MG TAB TAKE ONE TABLET BY MOUTH AT BEDTIME FOR MOOD/DEPRESSION- DO NOT DRIVE IF SEDATED- NO ALCOHOL WITH THIS MEDICATION 6) GABAPENTIN 100MG CAP TAKE ONE CAPSULE BY MOUTH TWICE DAILY NEEDED DURING THE DAYTIME (MORNING AND AFTERNOON) IF NEEDED FOR ANXIETY (OFF LABEL)-CAUTION--SEDATION 7) HYDROCHLOROTHIAZIDE 25MG TAB TAKE ONE TABLET BY MOUTH EVERY DAY TO PREVENT FLUID/CONTROL BLOOD PRESSURE 8) IBUPROFEN 600MG TAB TAKE ONE TABLET BY MOUTH THREE TIMES A DAY TAKE WITH FOOD; FOR PAIN/INFLAMMATION/SWELLING DO NOT TAKE ANY OTHER IBUPROFEN CONTAINING MEDICATIONS WHILE USING THIS MEDICATION 9) LAMOTRIGINE 150MG TAB TAKE ONE TABLET BY MOUTH TWICE DAILY 10) [place] POTASSIUM 100MG TAB TAKE ONE TABLET BY MOUTH EVERY DAY FOR BLOOD PRESSURE/HEART 11) MAGNESIUM OXIDE 420MG TAB TAKE ONE TABLET BY MOUTH ONCE DAILY 12) METHYLPHENIDATE HCL 10MG TAB TAKE ONE TABLET BY MOUTH ONCE DAILY AND TAKE ONE TABLET EVERY EVENING NEEDED TO IMPROVE ALERTNESS/MOOD - TAKE IN MORNING 13) SODIUM FLUORIDE 1.1% TOOTHPASTE BRUSH SMALL AMOUNT TO TEETH AT BEDTIME FOR TWO MINUTES, IN PLACE OF YOUR REGULAR TOOTHPASTE. AFTER USE, SPIT OUT. FOR PREVENTION OF DENTAL CARIES 1) Non-VA GABAPENTIN 300MG CAP 300MG BY MOUTH ONCE DAILY 2) Non-VA SIMVASTATIN 80MG TAB 40MG BY MOUTH ONCE DAILY ANUJ AYERS JR is a [place], 78 yo, male who [facility] 16 minutes for medication management. Two identifiers were used. CC: I'm doing good. I doing what you told me and it's doing good . No alcohol or substance use, no . No complaints and no adverse side effects from current medications were reported. is doing good, yes she is. Dagoberto takes gabapentin 300mg from outside neurologist for seizures and 100mg bid from this [facility]. No seizures reported since last visit, no . Mood and PTSD symptoms are stable at this time, ok . Dagoberto got a MRI for the cyst on his frontal lobe, I went to my outside primary and he said it was normal . Sleep is, good and he is using his C-PAP machine. Appetite is, good, I'm trying to eat less and better and I lost 5-6lbs. over the past 3 weeks. Dagoberto is on methylphenidate for attention and concentration and is, good, sometimes I have a little...doing something and thinking about something else but not a whole lot on current dose. Dagoberto sometimes forgets to take the afternoon dose. Mood is, mostly good, sometimes a little irritability. Dagoberto no longer has an outside therapist and is still waiting to get a therapist here. Discussed continuation of present medications as above and dagoberto requests continuation of gabapentin 100mg bid prn for anxiety off label. Patient education given including not taking anyone else's medications or giving his medications to anyone else and to secure and protect his medication from theft and children. Dagboerto is agreeable. MSE: AUNJ AYERS JR is an obese, 78 yo, male who is casually dressed wearing jeans, a shirt, a light jacket, a cap and glasses. He has good personal hygiene. He is alert, oriented, mildly anxious and cooperative with good contact during interview. Speech is goal directed with normal kinetics and soft tone. Mood is mildly anxious and affect is full and appropriate to thought content. Memory appears to be intact. No suicidal or homicidal ideations, no. No hallucinations or delusions were elicited. Good general fund of knowledge. Insight and judgement is good. Assessment: ADD. Depression. PTSD Plan: Continue present medications as above. Encouraged dagoberto to take medications as prescribed. RTC monthly for medication management. [place] has the number for the [employer] Crisis Line including the 988. Random UDS. /henok/ DAILY TURNER JR, MD STAFF PSYCHIATRIST Signed: 10/26/2023 11:43 DAILY TURNER MD [place] [facility]
--- OUTSIDE RECORDS SUMMARY | 2024-10-02 13:17 | XMS_ITS ---
Author Name [facility] [facility] [place] Address [address] [place] [id number] Care Team Providers Care Burner Tender Name Role Phone VINNIE BLACKWELL Primary Care [...] SELF + ONE Sep 19, [phone] [id number] [phone] DAVID Frederick EDWIN PATIENT ANTHEM BCBS CT FEDERAL PREFERRED PROVIDER ORGANIZAT ION (PPO) [place]AND [place] FAMIL Y Dec 24, 2009 105 [id number] [phone] DAVID Frederick EDWIN PATIENT BCBS [place] FEP PREFERRED PROVIDER ORGANIZAT ION (PPO) [place] SELF PLUS 1 Sep 19, 2015 [id number] ANUJ RAMIREZ PATIENT [place] PREFERRED PROVIDER ORGANIZAT ION (PPO) [place] SELF+ ONE Sep 19, 2015 106 [id number] DAVID Frederick EDWIN PATIENT [place] PREFERRED PROVIDER ORGANIZAT ION (PPO) [place]AND [place] FAMIL Y Dec 24, 2009 105 [id number] [phone] ANUJ RAMIREZ PATIENT [place] FEP DENTAL DENTAL INSURANCE [place] Sep 19, 2015 DENTAL [id number] ANUJ RAMIREZ PATIENT [place] FEP BCBS PRESCRIPT ION CAREM ARK FEPRX PLAN Sep 24, 2010 [id number] ANUJ RAMIREZ PATIENT [place] FEPRX PLAN PRESCRIPT ION BCBS FEP Jun 20, 2001 [id number] [phone] ANUJ RAMIREZ PATIENT [place] FEPRX PLAN PRESCRIPT ION CAREM ARK FEPRX Jun 20, 2001 [id number] [phone] ANUJ RAMIREZ PATIENT [place]-F EP BCBS PRESCRIPT ION FEP CAREM ARK Jun 20, 2010 [id number] [phone] ANUJ RAMIREZ PATIENT MEDICARE (WNR) MEDICARE () PART A Jul 21, 2011 PART A [id number] ANUJ RAMIREZ PATIENT MEDICARE (WNR) MEDICARE () PART B Jul 21, 2011 PART B [id number] [phone] ANUJ RAMIREZ PATIENT MEDICARE (WNR) MEDICARE () PART A Apr 20, 2011 PART A [id number] [phone] ANUJ RAMIREZ JR PATIENT MEDICARE (WNR) MEDICARE () PART B Apr 20, 2011 PART B [id number] ANUJ RAMIREZ JR PATIENT MEDICARE (WNR) MEDICARE () PART A Apr 20, 2011 PART A [id number] [phone] ANUJ RAMIREZ PATIENT MEDICARE (WNR) MEDICARE () PART B Apr 20, 2011 PART B [id number] [phone] ANUJ RAMIREZ PATIENT MEDICARE (WNR) MEDICARE () PART A Apr 20, 2011 PART A [id number] ANUJ RAMIREZ PATIENT MEDICARE (WNR) MEDICARE (M) PART B Apr 20, 2011 PART B [id number] ANUJ RAMIREZ PATIENT Selected Encounter This section includes the information on record at [place] for the Encounter. Date/Time Encounter Type Encounter Description Reason Provider Source Jan 09, 2024 10:00 AM OFFICE O/P EST LOW 20 [facility] - IND ICD-10-CM F90.9 Attention-deficit hyperactivity disorder, unspecified type TRENA TURNER MD [facility] Encounter Template Text not used by [place] Assessments - Encounter Diagnoses This section includes the primary and secondary diagnoses documented for the Encounter. Date/Time Primary/Secondary Diagnosis Diagnosis Name Provider Source Jan 09, 2024 10:19 AM PRIMARY Attention-deficit hyperactivity disorder, unspecified type TRENA TURNER MD [place] [facility] [place] [facility] Jan 09, 2024 10:19 AM SECONDARY Depression, unspecified TRENA TURNER MD [place] [facility] [place] [facility] Jan 09, 2024 10:19 AM SECONDARY Post-traumatic stress disorder, chronic TRENA TURNER MD [facility] [place] [facility] Plan of Treatment: Future Appointments (+ 6 months) and Future Tests (+/- 45 days) The Plan of Treatment section includes future care activities for the patient from all [place] treatmentfacilities. This section includes future appointments and future orders which are active, pending or scheduled. Future Appointments This section includes appointments that were scheduled to occur 6 months from the date of the Encounter, up to a maximum of 20 appointments. The data comes from all [place] treatment facilities. Appointment Date/Time Appointment Type Appointme nt Facility Name Feb 08, 2024 11:00 AM AMBULATORY - [place]ATRY [place] [facility] [place] [facility] Feb 28, 2024 11:00 AM AMBULATORY - NONE [place] [facility] [place] [facility] Mar 12, 2024 10:30 AM AMBULATORY [place]ICINE [place] [facility] [place] [facility] Mar 14, 2024 11:00 AM AMBULATORY [place]ATRY [place] [facility] [place] [facility] Mar 26, 2024 10:00 AM AM[place]ULATORY [place]ICINE [place] [facility] [place] [facility] Apr 10, 2024 10:00 AM [facility]UL[facility] Apr 11, 2024 09:30 AM [facility] May 01, 2024 10:30 AM AMBULATORY - MEDICINE [facility] May 02, 2024 08:30 AM [facility] Jun 05, 2024 10:30 AM [facility] Jun 26, 2024 03:30 PM [facility] Jul 11, 2024 11:00 AM [facility] Lab Results: +/- 30 days of the encounter This section includes the Chemistry and Hematology Lab Results on record with [place] for the patient. Radiology Reports and Pathology Reports are provided separately, in subsequent sections. Lab Results This section contains the Chemistry/Hematology Results that were resulted 30 days before or 30 daysafter the date of the Encounter. Date/Time Source Result Type Result - Unit Interpretation Reference Range Specimen Type Comment Jan 11, 2024 12:22 PM [facility] DRUGS OF ABUSE URINE Specimen Type: [...] Provider: DAILY TURNER MD Report Released Date/Time: November 02, 2023 01:33 PM Reporting Lab: [address] [address] Performing Lab: [address] [address] AMPHETAMINES SCREEN NONE-DETECTED None-D etected, Cutoff = [...] tive: Cutoff = 1.00 ng/mL PH, SAGAR 5.4 [pH] 4-10 CREATININE, SAGAR 281.57 mg/dL >20 SP.GRAVITY, SAGAR 1.026 H 1.003-1.020 Social History: Smoking Status (Most current) and Tobacco Use (All prior to encounter date) This section includes the most current, and the historical, smoking and tobacco- related health factors from the [place] facility where the Encounter took place. Current Smoking Status This section includes the most current smoking, or tobacco-related health factor, from the [place] facility where the Encounter took place. Date/Time Current Smoking Status Comment Facil ity May 26, 2023 08:30 AM VA-TOBACCO NEVER USED [place] [facility] [place] [facility] Tobacco Use History This section includes a history of the smoking, or tobacco-related health factors, that were collected on or before the date of the Encounter. The data comes from the [place] facility where the Encounter took place. Date/Time Smoking Status/Tobacco Use Comment F acility 2022 09:30 AM VA-TOBACCO NEVER USED [facility] [place] [facility] May 18, 2021 10:30 AM VA-TOBACCO NEVER USED [facility] [place] [facility] Jun 02, 2020 11:00 AM VA-TOBACCO NEVER USED [facility] [place] [facility] May 01, 2019 10:56 AM VA-TOBACCO NEVER USED [facility] [place] [facility] Jan 02, 2018 11:55 AM VA-TOBACCO NEVER USED [facility] [place] [facility] Jul 05, 2017 10:01 AM LIFETIME NON-TOBACCO USER [facility] [place] [facility] Jun 24, 2016 11:53 AM LIFETIME [facility]BACCO [facility] Jul 10, 2015 10:23 AM LIFETIME NON-TOBACCO [facility]ER [facility] Jun 03, 2005 10:00 AM LIFETIME NON-SMOKER [facility] Advance Directives: All historical and current Section Date Range: From patient's date of to the date document was created. This section includes ALL of a patient's completed or amended [place] Advance and Rescinded Directives. The entries below indicate that a directive exists for the patient, but an actual copy is not included with this document. The data comes from all [place] facilities. Date Advance Directives Provider Source May 10, 2018 ADVANCE DIRECTIVE LEONARD TORRES [facility] Mar 24, 2018 ADVANCE DIRECTIVE DAO ESTEBAN [facility] Encounter Notes: All associated encounter notes This section contains the clinical notes associated to the Encounter. Date/Time Encounter Note(s) Provider Source Jan 11, 2024 02:49 PM LETTERS: LOCAL TITLE: MENTAL HEALTH DIAGNOSTIC RESULTS LETTER STANDARD TITLE: LETTERS DATE OF NOTE: JAN 11, 2024@14:49 ENTRY DATE: JAN 11, 2024@14:49:19 AUTHOR: DAILY TURNER EXP COSIGNER: URGENCY: STATUS: COMPLETED ANUJ AYERS [address] [place] [id number] JAN 11, 2024 Dear Mr. ANUJ AYERS, Here are the Lab Results I have received from the last Urine Drug screen done on 01/09/24 so you can have a copy of them for your records: LAB CHEMISTRY & HEMATOLOGY Collection DT Specimen Test Name Result Units Ref Range 01/11/2024 12:22 URINE !! AMPHET NONE-DETECTED Ref: None-Detected, Cutoff = 1000 ng/mL !! OXYCODONE SCREEN NONE-DETECTED Ref: None-Detected, Cutoff = 100 ng/mL !! ETOH UR NONE-DETECTED mg/dL Ref: NONE-DETECTED, cutoff = 10 mg/dL !! FENTANYL SCREEN NONE-DETECTED ng/mL Ref: Negative: Cutoff = 1.00 ng/mL !! PH, SAGAR 5.4 pH 4 - 10 !! CREATININE, SAGAR 281.57 mg/dL Ref: >=20 !! SP.GRAVITY, SAGAR 1.026 H g/mL 1.003 - 1.020 !! BenzoSc [...] ng/mL --- Sincerely, Daily Turner Jr., MD [facility] DAILY TURNER MD [facility] Jan 09, 2024 10:18 AM ACCOUNTING OF DISCLOSURES NOTE: LOCAL TITLE: STATE PRESCRIPTION DRUG MONITORING PROGRAM STANDARD TITLE: ACCOUNTING OF DISCLOSURES NOTE DATE OF NOTE: JAN 09, 2024@10:18:36 ENTRY DATE: JAN 09, 2024@10:18:36 AUTHOR: DAILY TURNER EXP COSIGNER: URGENCY: STATUS: COMPLETED This PDMP query was submitted by Daily Turner MD, MD. The clinical justification for this PDMP query is to review controlled substances prescribed outside of the [place], and any additional information that may become available, as an important component of standard clinical care, and in accordance with [facility] policy. Patient information was shared with the PDMP [employer] [place]. No prescription(s) for controlled substances outside the [facility] were found in the last 90 days. /henok/ DAILY TURNER JR, MD STAFF PSYCHIATRIST Signed: 01/09/2024 10:19 DAILY TURNER MD [facility] Jan 09, 2024 09:52 AM PSYCHIATRY NOTE: LOCAL TITLE: PSYCHIATRY/FOLLOW-UP NOTE STANDARD TITLE: PSYCHIATRY NOTE DATE OF NOTE: JAN 09, 2024@09:52 ENTRY DATE: JAN 09, 2024@09:52:08 AUTHOR: DAILY TURNER EXP COSIGNER: URGENCY: STATUS: COMPLETED Medications were reconciled with and he was offered a copy of his Medication List and he accepts Active Outpatient Medications: 1) CARBOXYMETHYLCELLULOSE NA 0.5% OPH SOLN INSTILL 1 DROP INTO EACH EYE FOUR TIMES DAILY NEEDED FOR DRY EYE 2) CARBOXYMETHYLCELLULOSE NA 1% OPH GEL APPLY 1 DROP INTO EACH EYE AT BEDTIME FOR DRY EYE 3) CYCLOSPORINE 0.05% (PF) OPH EMUL 0.4ML INSTILL 1 DROP INTO EACH EYE TWICE DAILY FOR DRY EYE 4) ESCITALOPRAM OXALATE 20MG TAB TAKE ONE AND ONE-HALF TABLET BY MOUTH AT BEDTIME FOR MOOD/DEPRESSION- DO NOT DRIVE IF SEDATED- NO ALCOHOL WITH THIS MEDICATION 5) GABAPENTIN 100MG CAP TAKE ONE CAPSULE BY MOUTH TWICE DAILY NEEDED DURING THE DAYTIME (MORNING AND AFTERNOON) IF NEEDED FOR ANXIETY (OFF LABEL)-CAUTION--SEDATION 6) HYDROCHLOROTHIAZIDE 25MG TAB TAKE ONE TABLET BY MOUTH EVERY DAY TO PREVENT FLUID/CONTROL BLOOD PRESSURE 7) IBUPROFEN 600MG TAB TAKE ONE TABLET BY MOUTH THREE TIMES A DAY TAKE WITH FOOD; FOR PAIN/INFLAMMATION/SWELLING DO NOT TAKE ANY OTHER IBUPROFEN CONTAINING MEDICATIONS WHILE USING THIS MEDICATION 8) LAMOTRIGINE 150MG TAB TAKE ONE TABLET BY MOUTH TWICE DAILY 9) [place] POTASSIUM 100MG TAB TAKE ONE TABLET BY MOUTH EVERY DAY FOR BLOOD PRESSURE/HEART 10) METHYLPHENIDATE HCL 10MG TAB TAKE ONE TABLET BY MOUTH ONCE DAILY AND TAKE ONE TABLET EVERY EVENING NEEDED TO IMPROVE ALERTNESS/MOOD - TAKE IN MORNING 11) SODIUM FLUORIDE 1.1% TOOTHPASTE BRUSH SMALL AMOUNT TO TEETH AT BEDTIME FOR TWO MINUTES, IN PLACE OF YOUR REGULAR TOOTHPASTE. AFTER USE, SPIT OUT. FOR PREVENTION OF DENTAL CARIES 1) Non-VA GABAPENTIN 300MG CAP 300MG BY MOUTH ONCE DAILY 2) Non-VA SIMVASTATIN 80MG TAB 40MG BY MOUTH ONCE DAILY ANUJ AYERS JR is a [place], 78 yo, male who [facility] 20 minutes for medication management. Two identifiers were used. CC: I'm doing ok. No alcohol or substance use, no . No other complaints and no adverse side effects from current medications were reported. is, doing well, she is doing well. Sister came up and they all went to [facility] for a week and vet also had other half brothers and sisters and their family were there also. Vet takes gabapentin 300mg from outside neurologist for seizures and [facility]mg bid from this [facility]. No seizures reported since last visit, no . Mood is brighter and PTSD symptoms are stable at this time. Sleep is, good, a few dreams here and there and my appetite has been good, cutting down a bit. and he is using his C-PAP machine. Dagoberto is on methylphenidate for attention and concentration and is, pretty good on current dose. Dagoberto sometimes forgets to take the afternoon dose. Mood is, mostly good, sometimes a little irritability. Dagoberto no longer has an outside therapist and is still waiting to get a therapist here. Discussed continuation of present medications as above with trial of an increase in escitalopram to 30mg and deet requests continuation of gabapentin 100mg bid prn for anxiety off label. Patient education given including not taking anyone else's medications or giving his medications to anyone else and to secure and protect his medication from theft and children. Dagoberto is agreeable. MSE: ANUJ AYERS JR is an obese, 78 yo, male who is casually dressed wearing cargo shorts, a t-shirt, a B cap, and glasses. He has good personal hygiene. He is alert, oriented, mildly anxious and cooperative with good contact during interview. Speech is goal directed with normal kinetics and soft tone. Mood and affect is mildly depressed and anxious. Memory appears to be intact. No suicidal or homicidal ideations, no. No hallucinations or delusions were elicited. Good general fund of knowledge. Insight and judgement is good. Assessment: ADD. Depression. PTSD Plan: Continue present medications as above. Encouraged dagoberto to take medications as prescribed. RTC monthly for medication management. Nevin has the number for the [facility] including the 988. Random UDS. /henok/ DAILY TURNER JR, MD STAFF PSYCHIATRIST Signed: 01/09/2024 10:19 DAILY TURNER MD [place] [facility]
--- OUTSIDE RECORDS SUMMARY | 2024-10-02 13:17 | XMS_ITS | Encounter Summary ---
Author Name [facility] [place] [facility] [place] Address [address] [place] [address] Care Team Providers Care Strategic Partnership Specialist Name Role Phone VINNIE BLACKWELL Primary Care [...] Correa's Name Patient's Relationship to Policy Correa ANTHEM BCBS CT FEDERAL PREFERRED PROVIDER ORGANIZAT ION (PPO) [place] SELF + ONE Sep 19, 2015 [id number] [phone] ANUJ RAMIREZ PATIENT ANTHEM BCBS CT FEDERAL PREFERRED PROVIDER ORGANIZAT ION (PPO) [place]AND [place] FAMIL Y Dec 24, 2009 105 [id number] [phone] ANUJ RAMIREZ PATIENT BCBS [place] FEP PREFERRED PROVIDER ORGANIZAT ION (PPO) [place]AND [place] SELF PLUS 1 Sep 19, 2015 [id number] ANUJ RAMIREZ PATIENT [place] PREFERRED PROVIDER ORGANIZAT ION (PPO) [place]AND [place] SELF+ ONE Sep 19, 2015 106 [id number] [phone] DAVID YaredANUJ PATIENT [place] F[place] PREFERRED PROVIDER ORGANIZAT ION (PPO) [place]AND [place] FAMIL Y Dec 24, 2009 105 [id number] [phone] ANUJ RAMIREZ PATIENT [place] F[place] DENTAL DENTAL INSURANCE [place]AND [place] Sep 19, 2015 [id number] ANUJ RAMIREZ PATIENT [place] FEP BCBS PRESCRIPT ION CAREM ARK FEPRX PLAN Sep 24, 2010 [id number] [phone] ANUJ RAMIREZ PATIENT [place] FEPRX PLAN PRESCRIPT ION BCBS FEP Jun 20, 2001 [id number] [phone] ANUJ RAMIREZ PATIENT [place] FEPRX PLAN PRESCRIPT ION CAREM ARK FEPRX Jun 20, 2001 [id number] ANUJ RAMIREZ PATIENT [place]-F EP BCBS PRESCRIPT ION FEP CAREM ARK Jun 20, 2010 [id number] [phone] ANUJ RAMIREZ PATIENT MEDICARE (WN) MEDICARE () PART A Jul 21, 2011 PART A [id number] ANUJ RAMIREZ PATIENT MEDICARE (WN) MEDICARE () PART B Jul 21, 2011 PART B [id number] ANUJ RAMIREZ PATIENT MEDICARE (WN) MEDICARE () PART A Apr 20, 2011 PART A [id number] [phone] ANUJ RAMIREZ JR PATIENT MEDICARE (WN) MEDICARE () PART B Apr 20, 2011 PART B [id number] [phone] ANUJ RAMIREZ JR PATIENT MEDICARE (WN) MEDICARE () PART A Apr 20, 2011 PART A [id number] [phone] ANUJ RAMIREZ PATIENT MEDICARE (WN) MEDICARE () PART B Apr 20, 2011 PART B [id number] ANUJ RAMIREZ PATIENT MEDICARE (WN) MEDICARE () PART B Apr 20, 2011 PART B [id number] [phone] ANUJ RAMIREZ PATIENT MEDICARE (WNR) MEDICARE (M) PART A Apr 20, 2011 PART A [id number] ANUJ RAMIREZ PATIENT Selected Encounter This section includes the information on record at [place] for the Encounter. Date/Time Encounter Type Encounter Description Reason Pro vider Source May 05, 2024 11:53 AM Outpatient Encounter ADMIN PAT ACTIVTIES (MASNONCT) IHE Encounter Template Text not used by [place] Plan of Treatment: Future Appointments (+ 6 months) and Future Tests (+/- 45 days) The Plan of Treatment section includes future care activities for the patient from [facility] [place] [facility] This section includes future appointments and future orders which are active, pending or scheduled. Future Appointments This section includes appointments that were scheduled to occur 6 months from the date of the Encounter, up to a maximum of 20 appointments. The data comes from all [place] treatment facilities. Appointment Date/Time Appointment Type Appointme nt Facility Name Jun 05, 2024 10:30 AM [place] [facility] Jun 26, 2024 03:30 PM [facility] [place] [facility] Jul 11, 2024 11:00 AM [place] [place] [facility] Jul 19, 2024 11:00 AM [place] [facility] Jul 24, 2024 10:00 AM [facility] [place] [facility] Sep 10, 2024 10:30 AM [place] [facility] Sep 11, 2024 09:30 AM [facility] [place] Sep 17, 2024 09:45 AM AMBULATORY [facility] NONE [facility] [place] Sep 28, 2024 11:00 AM [facility] Oct 09, 2024 11:00 AM [facility] [place] [facility] October 25, 2024 01:00 PM [place] [facility] Lab Results: +/- 30 days of the encounter This section includes the Chemistry and Hematology Lab Results on record with [place] for the patient. Radiology Reports and Pathology Reports are provided separately, in subsequent sections. Lab Results This section contains the Chemistry/Hematology Results that were resulted 30 days before or 30 daysafter the date of the Encounter. Date/Time Source Result Type Result - Unit Interpretation Reference Range Specimen Type Comment Apr 25, 2024 11:35 AM [facility] MICROALBUMIN CREATININE RATIO PANEL URINE Spe cimen Type: URINE No comment entered. Ordering Provider: GUI CRYSTAL Report Released Date/Time: Aug 30, 2023 11:45 AM Reporting Lab: [address] [address] Performing Lab: [address] [address] MICROALBUMIN/CREATININE RATIO 25.6 mg/g 0-29.9 MICROALBUMIN,QUANTITATIVE 3.8 mg/dL RR U NAVAIL CREATININE URINE 148.64 mg/dL Apr 25, 2024 11:35 AM [facility] BASIC METABOLIC PANEL (non-fasting) SERUM Spe cimen Type: SERUM No comment entered. Ordering Provider: MAGGIE CRYSTAL Report Released Date/Time: Aug 30, 2023 11:45 AM Reporting Lab: [address] [address] Performing Lab: [address] [address] UREA NITROGEN 22 mg/dL 7-25 GLUCOSE 100 mg/dL 65-100 SODIUM 138 mmol/L 135-145 POTASSIUM 4.0 mmol/L 3.5-5.0 CHLORIDE 102 mmol/L 100-110 CO2 25 meq/L 20-30 CREATININE, Serum 1.11 mg/dL 0.50-1.40 eGFR(CKD-EPI 2020) 68 mL/min >60 Apr 25, 2024 11:35 AM [facility] CBC BLOOD Specimen Type: BLOOD No comment entered. Ordering Provider: MAGGIE CRYSTAL Report Released Date/Time: Aug 30, 2023 11:45 AM Reporting Lab: [address] [address] Performing Lab: [facility] [address] [address] WBC 5.25 10*3/uL 4.50-11.00 RBC 4.48 10*6/uL 4.23-5.66 HGB 14.4 g/dL 12.8-17 HCT 41.5 39.2-50.4 MCV 92.6 fL 82-99 MCHC 34.7 g/dL 30.8-35.1 PLT 184 10*3/uL 140-360 RDW-CV 12.1 12.0-16.0 MCH 32.1 pg 26.2-32.6 Apr 25, 2024 11:35 AM [facility] FERRITIN SERUM Specimen Type: SERUM No comment entered. Ordering Provider: MAGGIE CRYSTAL Report Released Date/Time: Aug 30, 2023 11:45 AM Reporting Lab: [facility] [address] [address] Performing Lab: [facility] [address] [address] FERRITIN 190 ng/mL 20-300 Apr 25, 2024 11:35 AM [facility] IRON & TIBC PANEL SERUM Specimen Type: SERUM No comment entered. Ordering Provider: MAGGIE CRYSTAL Report Released Date/Time: Aug 30, 2023 11:45 AM Reporting Lab: [facility] [address] [address] Performing Lab: [facility] [address] TIBC 306 ug/dL 204-475 IRON 72 ug/dL 40-160 Transferrin Saturation 23.5 20.0-50.0 Transferrin (TRF) 232 mg/dL 200-360 Apr 25, 2024 11:35 AM [facility] LIPID PANEL, NON FASTING SERUM Specimen Type: SERUM No comment entered. Ordering Provider: MAGGIE CRYSTAL Report Released Date/Time: Aug 30, 2023 11:45 AM Reporting Lab: [facility] [address] Performing Lab: [address] [address] CHOLESTEROL 139 mg/dL TRIGLYCERIDE 99 mg/dL 0-150 LDL calculated 78 mg/dL 0-129 CHOL/HDL 3.4 HDL CHOLESTEROL 41 mg/dL 40-60 Apr 11, 2024 09:59 AM [facility] DRUGS OF ABUSE URINE Specimen Type: [...] 10 and 11 may have been adulterated. Ordering Provider: DAILY BENSON MD Report Released Date/Time: Apr 11, 2024 09:50 AM Reporting Lab: [address] [address] Performing Lab: [address] [address] AMPHETAMINES SCREEN NONE-DETECTED None-D etected, Cutoff = [...] PH, SAGAR 5.4 [pH] 4-10 CREATININE, SAGAR 311.73 mg/dL >20 SP.GRAVITY, SAGAR 1.023 H 1.003-1.020 Social History: Smoking Status (Most current) and Tobacco Use (All prior to encounter date) This section includes the most current, and the historical, smoking and tobacco- related health factors from the [place] facility where the Encounter took place. Current Smoking Status This section includes the most current smoking, or tobacco-related health factor, from the [place] facility where the Encounter took place. Date/Time Current Smoking Status Comment Holland pagan May 02, 2024 08:30 AM VA-TOBACCO NEVER USED [place] [facility] Tobacco Use History This section includes a history of the smoking, or tobacco-related health factors, that were collected on or before the date of the Encounter. The data comes from the [place] facility where the Encounter took place. Date/Time Smoking Status/Tobacco Use Comment Willie acgraham May 26, 2023 08:30 AM VA-TOBACCO NEVER USED [facility] 2022 09:30 AM VA-TOBACCO NEVER USED [facility] May 18, 2021 10:30 AM VA-TOBACCO NEVER USED [facility] Jun 02, 2020 11:00 AM VA-TOBACCO NEVER USED [facility] May 01, 2019 10:56 AM VA-TOBACCO NEVER USED [facility] [place] Jan 02, 2018 11:55 AM VA-TOBACCO NEVER USED [facility] [place] Jul 05, 2017 10:01 AM LIFETIME NON-TOBACCO USER [facility] Jun 24, 2016 11:53 AM LIFETIME NON-TOBACCO USER [facility] Jul 10, 2015 10:23 AM LIFETIME NON-TOBACCO USER [facility] Jun 03, 2005 10:00 AM LIFETIME NON-SMOKER [facility] Advance Directives: All historical and current Section Date Range: From patient's date of to the date document was created. This section includes ALL of a patient's completed or amended [place] Advance and Rescinded Directives. The entries below indicate that a directive exists for the patient, but an actual copy is not included with this document. The data comes from all [place] facilities. Date Advance Directives Provider Source May 10, 2018 ADVANCE DIRECTIVE LEONARD TORRES [facility] Mar 24, 2018 ADVANCE DIRECTIVE DAO ESTEBAN [facility] Encounter Notes: All associated encounter notes This section contains the clinical notes associated to the Encounter. Date/Time Encounter Note(s) Provider Source May 05, 2024 11:53 AM PHARMACY NOTE: LOCAL TITLE: PHARMACY CUSTOMER CARE MEDICATION RENEWAL STANDARD TITLE: PHARMACY NOTE DATE OF NOTE: MAY 05, 2024@11:53 ENTRY DATE: MAY 05, 2024@11:53:15 AUTHOR: MISHEL NGUYEN I EXP COSIGNER: URGENCY: STATUS: COMPLETED Date: Apr Division: [place] Pt referred by Pharmacy Call Center for medication renewal: Non-controlled/maintenanc e medication Medications requested: [id number] IBUPROFEN 600MG TAB Defer to primary care provider To be mailed . Please review and renew if appropriate. *This note was generated by [facility] Customer [facility]. If you have any questions or need assistance, do not contact this author. Please refer all questions to your local, on-site pharmacy departments. /henok/ Mishel Nguyen CPhT [employer], [place]arm[facility] Customer [facility] Signed: 05/05/2024 11:53 Receipt Acknowledged By: 05/07/2024 08:09 /henok/ VINNIE BLACKWELL D.O. PHYSICIAN 05/06/2024 18:05 /henok/ BAILEE MOHR RN REGISTERED NURSE MISHEL NGUYEN I [facility]
--- OUTSIDE RECORDS SUMMARY | 2024-10-02 13:17 | XMS_ITS | Encounter Summary ---
Author Name [facility] [facility] [place] [facility] [place] [facility] [place] Address [address] [place] [address] Care Team Providers Care Psychological Operations Name Role Phone VINNIE BLACKWELL Primary Care [...] SELF + ONE Sep 19, [phone] [id number] [phone] ANUJ RAMIREZ PATIENT ANTHEM BCBS CT FEDERAL PREFERRED PROVIDER ORGANIZAT ION (PPO) STAND [place] FAMIL Y Dec 24, 2009 [id number] [phone] ANUJ RAMIREZ PATIENT BCBS [place] FEP PREFERRED PROVIDER ORGANIZAT ION (PPO) STAND [place] SELF PLUS 1 Sep 19, 2015 [id number] ANUJ RAMIREZ PATIENT [place] PREFERRED PROVIDER ORGANIZAT ION (PPO) STAND [place] SELF+ ONE Sep 19, 2015 106 [id number] ANUJ RAMIREZ PATIENT [place] PREFERRED PROVIDER ORGANIZAT ION (PPO) STAND [place] FAMIL Y Dec 24, 2009 105 [id number] ANUJ RAMIREZ PATIENT [place] FEP DENTAL DENTAL INSURANCE STAND [place] Sep 19, 2015 DENTAL [id number] ANUJ RAMIREZ PATIENT [place] FEP BCBS PRESCRIPT ION CAREM ARK FEPRX PLAN Sep 24, 2010 [id number] ANUJ RAMIREZ PATIENT [place] FEPRX PLAN PRESCRIPT ION BCBS FEP Jun 20, 2001 [id number] ANUJ RAMIREZ PATIENT [place] FEPRX PLAN PRESCRIPT ION CAREM ARK FEPRX Jun 20, 2001 [id number] [phone] ANUJ RAMIREZ PATIENT [place]-F EP BCBS PRESCRIPT ION FEP CAREM ARK Jun 20, 2010 [id number] ANUJ RAMIREZ PATIENT MEDICARE (WNR) MEDICARE () PART A Jul 21, 2011 PART A [id number] [phone] ANUJ RAMIREZ PATIENT MEDICARE (WN) MEDICARE () PART B Jul 21, 2011 PART B [id number] ANUJ RAMIREZ PATIENT MEDICARE (WN) MEDICARE () PART A Apr 20, 2011 PART A [id number] [phone] ANUJ RAMIREZ JR PATIENT MEDICARE (WN) MEDICARE () PART B Apr 20, 2011 PART B [id number] ANUJ RAMIREZ JR PATIENT MEDICARE (WN) MEDICARE () PART A Apr 20, 2011 PART A [id number] [phone] ANUJ RAMIREZ PATIENT MEDICARE (WN) MEDICARE () PART B Apr 20, 2011 PART B [id number] [phone] ANUJ RAMIREZ PATIENT MEDICARE (WN) MEDICARE () PART A Apr 20, 2011 PART A [id number] ANUJ RAMIREZ PATIENT MEDICARE (WNR) MEDICARE (M) PART B Apr 20, 2011 PART B [id number] ANUJ RAMIREZ PATIENT Selected Encounter This section includes the information on record at [place] for the Encounter. Date/Time Encounter Type Encounter Description Reason Provider Source Jun 05, 2024 10:30 AM PSYCH DIAGNOSTIC EVALUATION [facility] - IND ICD-10-CM F43.12 Post-traumati c stress disorder, chronic LAURE,HARRIETT SHRESTHA Encounter Template Text not used by [place] Assessments - Encounter Diagnoses This section includes the primary and secondary diagnoses documented for the Encounter. Date/Time Primary/Secondary Diagnosis Diagnosis Name Provider Source Jun 05, 2024 02:43 PM PRIMARY Post-traumatic stress disorder, chronic JANNA KELSEY [place] [facility] [place] [facility] Jun 05, 2024 02:43 PM SECONDARY Attention-deficit hyperactivity disorder, unspecified type JANNA KELSEY [place] [facility] [place] [facility] Jun 05, 2024 02:43 PM SECONDARY Major depressive disorder, recurrent, moderate JANNA KELSEY [place] [facility] [place] [facility] Plan of Treatment: Future Appointments (+ 6 months) and Future Tests (+/- 45 days) The Plan of Treatment section includes future care activities for the patient from [facility] [place] [facility] This section includes future appointments and future orders which are active, pending or scheduled. Future Appointments This section includes appointments that were scheduled to occur 6 months from the date of the Encounter, up to a maximum of 20 appointments. The data comes from all [place] treatment facilities. Appointment Date/Time Appointment Type Appointme nt Facility Name Jun 26, 2024 03:30 PM AMBULATORY - PSYCHIATRY [place] [facility] [place] [facility] Jul 11, 2024 11:00 AM AMBULATORY - MEDICINE [place] [facility] [place] [facility] Jul 19, 2024 11:00 AM AMBULATORY - MEDICINE [place] [facility] [place] [facility] Jul 24, 2024 10:00 AM AMBULATORY - PSYCHIATRY [place] [facility] [place] [facility] Sep 10, 2024 10:30 AM AMBULATORY - MEDICINE [place] [facility] [place] [facility] Sep 11, 2024 09:30 AM AMBULATORY - PSYCHIATRY [facility] [place] [facility] Sep 17, 2024 09:45 AM AMBULATORY - NONE [facility] [place] [facility] Sep 28, 2024 11:00 AM AMBULATORY - PSYCHIATRY [facility] [place] [facility] Oct 09, 2024 11:00 AM AMBULATORY - PSYCHIATRY [facility] [place] [facility] October 25, 2024 01:00 PM AMBULATORY - MEDICINE [facility] [place] [facility] November 13, 2024 10:00 AM AMBULATORY - PSYCHIATRY [facility] [place] [facility] Nov 28, 2024 11:00 AM AMBULATORY - MEDICINE [place] [facility] [place] [facility] Social History: Smoking Status (Most current) and Tobacco Use (All prior to encounter date) This section includes the most current, and the historical, smoking and tobacco- related health factors from the [place] facility where the Encounter took place. Current Smoking Status This section includes the most current smoking, or tobacco-related health factor, from the [place] facility where the Encounter took place. Date/Time Current Smoking Status Comment [place] it[place] May 02, 2024 08:30 AM VA-TOBACCO NEVER USED [facility] [place] [facility] Tobacco Use History This section includes a history of the smoking, or tobacco-related health factors, that were collected on or before the date of the Encounter. The data comes from the [place] facility where the Encounter took place. Date/Time Smoking Status/Tobacco Use Comment F acility May 26, 2023 08:30 AM VA-TOBACCO NEVER USED [facility] [place] [facility] 2022 09:30 AM VA-TOBACCO NEVER USED [facility] [place] [facility] May 18, 2021 10:30 AM VA-TOBACCO NEVER USED [facility] [place] [facility] Jun 02, 2020 11:00 AM VA-TOBACCO NEVER USED [facility] [place] [facility] May 01, 2019 10:56 AM VA-TOBACCO NEVER USED [facility] [place] [facility] Jan 02, 2018 11:55 AM VA-TOBACCO NEVER USED [facility] [place] [facility] Jul 05, 2017 10:01 AM LIFETIME NON-TOBACCO USER [facility] [place] [facility] Jun 24, 2016 11:53 AM [facility] Jul 10, 2015 10:23 AM LIF[facility] Jun 03, 2005 10:00 AM [facility] Advance Directives: All historical and current Section Date Range: From patient's date of to the date document was created. This section includes ALL of a patient's completed or amended [place] Advance and Rescinded Directives. The entries below indicate that a directive exists for the patient, but an actual copy is not included with this document. The data comes from all [place] facilities. Date Advance Directives Provider Source May 10, 2018 ADVANCE DIRECTIVE LEONARD TORRES [place] [facility] Mar 24, 2018 ADVANCE DIRECTIVE [facility] Encounter Notes: All associated encounter notes This section contains the clinical notes associated to the Encounter. Date/Time Encounter Note(s) Provider Source Jun 05, 2024 02:38 PM MENTAL HEALTH TREATMENT PLAN NOTE: LOCAL TITLE: MH TREATMENT PLAN STANDARD TITLE: MENTAL HEALTH TREATMENT PLAN NOTE DATE OF NOTE: JUN 05, 2024@14:38:43 ENTRY DATE: JUN 05, 2024@14:38:56 AUTHOR: YOLANDE KELSEY EXP COSIGNER: URGENCY: STATUS: COMPLETED MH TREATMENT PLAN - May, @ 02:38PM Visit Date: May, @ 10:30 - GERI/MARISOL/ATTILA/LAURE MHTC not assigned PRESENTING PROBLEM: Depression, Anxiety and Attention Deficit Disorder Stable on current regimen. TREATMENT PLAN: Problem: Depression, Anxiety and ADD Status: ACTIVE Goal: I would like my mood, anxiety and attention to be continue to be stable. Status: ACTIVE Objective: I would like to look at reducing polypharmacy with my mental health medications. Status: ACTIVE Projected Target: 06/05/2025 Intervention: RTC every 1-3 months. Status: ACTIVE Discipline: Mental Health Clinic Time Frame: Four times per year for 1 year Providers: YOLANDE KELSEY: PSYCHIATRIST DISCIPLINE: Mental Health Clinic Entered Treatment: 06/05/2024 @ 02:38PM Review Date: 06/05/2025 Anticipated Discharge: None INTERDISCIPLINARY TEAM: YOLANDE KELSEY: PSYCHIATRIST COMMUNICATION: Relevant treatment options, including evidence-based interventions, were considered and discussed with the . NO A copy of the treatment plan was given to the . NO Risks, benefits, and potential complications were discussed with the [place]. MARISOL /henok/ YOLANDE KELSEY MD PSYCHIATRIST Signed: 06/05/2024 14:38 YOLANDE KELSEY [place] [facility] [place] [facility] Jun 05, 2024 09:29 AM PSYCHIATRY CONSULT: [facility] TITLE: CONSULT REPORT/MENTAL HEALTH/PSYCHIATRY STANDARD TITLE: PSYCHIATRY CONSULT DATE OF NOTE: JUN 05, 2024@09:29 ENTRY DATE: JUN 05, 2024@09:29:20 AUTHOR: YOLANDE KELSEY EXP COSIGNER: URGENCY: STATUS: COMPLETED MENTAL HEALTH NOTE: [place] was seen for 50 min in the [facility] for initial appointment as a transfer of care [facility] Two forms of identification was used. CC: I'm here to continue my mental health medication. HPI: Anuj says that he is doing alright. He finds his anxiety and depression levels are dependent on things going on in his life. But overall they are stable. He says the lexapro was increased a few months ago to 30 mg to help with increased anxiety he was having. He hasn't really felt a whole lot of difference with the higher dose of lexapro. Anuj thinks from time to time about whether he still even needs the mental health medications he is prescribed. He says that he has been on them for so many years he doesn't even know what they treat anymore. Anuj would like to try and reduce some of his mental health medications. He says his life now is good. SUBSTANCE ABUSE: Caffeine: Tobacco: Cocaine: denies Opioid: denies Alcohol: denies Cannabis: denies Past Psych History: - Prior Diagnosis: PTSD - Current Psychiatrist: Here to establish care after recent jail of previous Psychiatrist Dr. Turner. - Current Therapist: Not currently in therapy, but would like referral. - Gambling Counsellor: n/a - Prior Hospitalizations: denies any - Prior Medications: Ritalin, Lexapro, Gabapentin, Lamictal, Prozac, Celexa, Prozac, Ambien, Seroquel - Prior Suicide Attempts: History of suicidal ideation by gun (10-15 years ago). He denies any suicidal ideation since then (he was having an argument with his at that time of his last suicidal ideation). He did not act on this thoughts at that time. -Guns and Weapons at home: Family Psychiatric History: - Psych: - Substance Use: - Suicide: Social History: - Currently Lives: [place] with . - Marriage/Children: . Has children. 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 - Finances: Stable. - Legal: denies - : 3. MEDICAL HISTORY: Prediabetes, Obstructive Sleep Apnea, Essential Hypertension, Hyperlipidemia, Vitreous Detachment ALLERGIES: Lisinopril Active and Recently Outpatient Medications (excluding Supplies): [...] 20MG TAB TAKE ONE AND ONE-HALF TABLETS ACTIVE BY MOUTH AT BEDTIME Indication: DEPRESSION/ ANXIETY 5) GABAPENTIN 100MG CAP TAKE ONE CAPSULE BY MOUTH TWICE DAILY ACTIVE NEEDED DURING THE DAYTIME (MORNING AND AFTERNOON) IF NEEDED FOR ANXIETY (OFF LABEL)-CAUTION--MAY CAUSE SEDATION. Indication: [...] ONE TABLET BY MOUTH TWICE DAILY ACTIVE (S) Indication: MOOD 9) LOSARTAN 100MG TAB TAKE ONE TABLET BY MOUTH ONCE DAILY FOR ACTIVE BLOOD PRESSURE/HEART 10) METHYLPHENIDATE HCL 10MG TAB TAKE ONE TABLET BY MOUTH ONCE ACTIVE DAILY AND TAKE ONE TABLET EVERY EVENING NEEDED NEXT FILL 07/05/24 Indication: ATTENTION/ CONCENTRATION Inactive Outpatient Medications Status 1) SODIUM FLUORIDE 1.1% TOOTHPASTE BRUSH SMALL AMOUNT TO TEETH TWICE DAILY Indication: FOR TOOTH DECAY PREVENTION Active Non-VA Medications Status 1) Non-VA GABAPENTIN 300MG CAP 300MG BY MOUTH ONCE DAILY ACTIVE Indication: FOR NERVE PAIN 2) Non-VA SIMVASTATIN 80MG TAB 40MG BY MOUTH ONCE DAILY ACTIVE Indication: FOR HIGH CHOLESTEROL 13 Total Medications MEDICATION ADHERENCE: takes medications most days MEDICATION SIDE EFFECTS: none OBJECTIVE:recent labs:WBC: 5.25 RBC: 4.48 HGB: 14.4 HCT: 41.5 MCV: 92.6 MCHC: 34.7 RDW: 12.1 PLT: 184 MCH: 32.1 FERRITIN (WR): 190 GLUCOSE: 100 UREA NITROGEN: 22 SODIUM: 138 POTASSIUM: 4.0 CHLORIDE: 102 CO2: 25 CHOLESTEROL: 139 TRIGLYCERIDE: 99 LDL CHOL: 78 CHOL/HDL RATIO: 3.4 TIBC (WROX): 306 IRON (WROX): 72 HDL: 41 CREATININE-EGFR: 1.11 TRANSFERRIN SATURATION: 23.5 Transferrin: 232 eGFR CKD-EPI 2020: 68 MICROALB/CR RATIO: 25.6 MICROALBUMIN URINE: 3.8 CREATININE URINE: 148.64 AMPHETAMINES (CL): NONE-DETECTED UR BENZODIAZEPINE: NONE-DETECTED UR COCAINE: NONE-DETECTED UR OPIATES: NONE-DETECTED UR THC: NONE-DETECTED UR BARBITURATE: NONE-DETECTED OXYCODONE EIA: NONE-DETECTED BUPRENORPHINE STICK: NONE-DETECTED ALCOHOL URINE: NONE-DETECTED FENTANYL SCREEN UR: NONE-DETECTED SAGAR PH: 5.4 CREAT SAGAR VALITITY: 311.73 SG SAGAR VALIDITY: 1.023 H Weight: 199 lb [90.26 kg] (05/01/2024 10:45) BMI: 31.2 MENTAL STATUS EXAM: Orientation and Consciousness: Alert and fully oriented. Appearance and Behavior: Older white male with short hair and thicker eyebrows wearing [place] baseball cap and jeans and hiking boots dressed in black jacket and buffalo checkered shirt. Eye Contact: Good. Speech: Normal rate and volume. Mood/Affect: ok. Affect: euthymic. Thought Production/Content: Logical, sequential & relevant to discussion. Perceptual Disturbances: None. Attention, concentration and memory based on answers to session questions: Good. Insight/Judgment: Both good. SI/HI: Neither elicited. Ability to Provide informed consent: Yes. ASSESSMENT:79 year old WHITE MALE, presents today for initial evaluation as a transfer of care from previous Psychiatrist Dr. Turner who recently retired from the [employer]. TREATMENT PLAN/ DISCUSSION/ RATIONALE: DIAGNOSIS: PTSD, Attention Deficit Disorder by History, Major Depressive Disorder Recurrent, Mild to Moderate, History of self-reported Dissociative Episodes. 1.::: Medication management: Reviewed medications with Anuj today. He continues to take his mental health medications. He isn't sure how necessary his medications are anymore. He has been on these medications for the last twenty years. It looks like the lexapro and lamictal were started in 2003 and he has been on them since. Anuj reports stable mood. I will spend more time reviewing his records of treatment with both Drs. Aleman and Johnny a little more. It seems that Dr. Turner increased Anuj's lexapro from 20 mg to 30 mg in October of this year for increased depressive symptoms Anuj was experiencing. Anuj denies any side effects from his current medications including rashes. I support reducing polypharmacy. No changes made to Anuj's medication today. I will need more time to review his history before making a recommendation about which medication to try to reduce first. Last utox was in March 2024. Anuj was supposedly started on gabapentin by Neurology, but has continued on it from Psychiatry for anxiety management. Will also look to see when he last had his EKG checked as we often will check this periodically when someone takes stimulant medication. Last CBC was done last month. Next Visit: in June. Patient is aware of how to access [facility] open access clinic in [facility] during weekdays for immediate mental health needs if I am not available. Patient has capacity to make his own medication decisions at present time. I asked the patient to come for sooner appointment if the patient does not like the effect of psychiatric medication or if has side effects with psychiatric medication. ::: MASS PAT was checked -- and there were no duplications, nor evidence of external acquisition of narcotics nor any contraindications with ongoing prescription of narcotics through this [facility]. ::: Psychotropic meds were reconciled; and [...] in the community (including Crisis Line, 911, [place] National Suicide Prevention Lifeline: 2-822-391-TALK). Patient is instructed to contact me should [...] denied suicidal and violent ideation, but the [facility] Crisis Line information and number were given to patient. The patient also understands to call 911 or to go to ER in the event of an emergency. Suicide Screen: C-SSRS Screening [place]-Suicide Severity Rating Scale (C-SSRS Screener) 1. Over the past month, have you wished you were or wished you could go to sleep and not wake up? No 2. Over the past month, have you had any actual thoughts of killing yourself? No 3. Over the past month, have you been thinking about how you might do this? Response not required due to responses to other questions. 4. Over the past month, have you had these thoughts and had some intention of acting on them? Response not required due to responses to other questions. 5. Over the past month, have you started to work out or worked out the details of how to kill yourself? Response not required due to responses to other questions. 6. If yes, at any time in the past month did you intend to carry out this plan? Response not required due to responses to other questions. 7. In your lifetime, have you ever done anything, started to do anything, or prepared to do anything to end your life (for example, collected pills, obtained a gun, gave away valuables, went to the roof but didn't jump)? Yes 8. If YES, was this within the past 3 months? No Medication Reconciliation: Outpatient: Has the patient been taking medications as documented in the EMLR? YES: The patient has been taking medications as documented in the EMLR. Essential Medication List for Review used to complete this medication reconciliation. INCLUDED IN THIS LIST: Alphabetical list of active outpatient prescriptions dispensed from this [place] (local) and dispensed from another [place] or [facility] facility (remote) as well as inpatient orders [...] provider. /henok/ YOLANDE KELSEY MD PSYCHIATRIST Signed: 06/05/2024 14:43 YOLANDE KELSEY [place] [facility]
--- OUTSIDE RECORDS SUMMARY | 2024-10-02 13:17 | XMS_ITS | Encounter Summary ---
Author Name [facility] [place] [facility] [place] [facility] [facility] [place] Address [address] [place] [address] Care Team Providers Care Mathematical Physicist Name Role Phone VINNIE BLACKWELL Primary Care [...] SELF + ONE Sep 19, [phone] [id number] [phone] ANUJ RAMIREZ PATIENT ANTHEM BCBS CT FEDERAL PREFERRED PROVIDER ORGANIZAT ION (PPO) [place]AND [place] FAMIL Y Dec 24, 2009 105 [id number] [phone] DAVID Frederick EDWIN PATIENT BCBS [place] FEP PREFERRED PROVIDER ORGANIZAT ION (PPO) [place]AND [place] SELF PLUS 1 Sep 19, 2015 106 [id number] ANUJ RAMIREZ PATIENT [place] PREFERRED PROVIDER ORGANIZAT ION (PPO) [place]AND [place] SELF+ ONE Sep 19, 2015 106 [id number] [phone] DAVID Frederick EDWIN PATIENT [place] F[place] PREFERRED PROVIDER ORGANIZAT ION (PPO) STAND [place] FAMIL Y Dec 24, 2009 105 [id number] ANUJ RAMIREZ PATIENT [place] F[place] DENTAL DENTAL INSURANCE [place]AND [place] Sep 19, 2015 DENTAL [id number] [phone] ANUJ RAMIREZ PATIENT [place] FEP BCBS PRESCRIPT ION CAREM ARK FEPRX PLAN Sep 24, 2010 [id number] ANUJ RAMIREZ PATIENT [place] FEPRX PLAN PRESCRIPT ION BCBS FEP Jun 20, 2001 [id number] [phone] ANUJ RAMIREZ PATIENT [place] FEPRX PLAN PRESCRIPT ION CAREM ARK FEPRX Jun 20, 2001 [id number] [phone] ANUJ RMAIREZ PATIENT [place]-F EP BCBS PRESCRIPT ION FEP CAREM ARK Jun 20, 2010 [id number] [phone] ANUJ RAMIREZ PATIENT MEDICARE (WNR) MEDICARE () PART A Jul 21, 2011 PART A [id number] ANUJ RAMIREZ PATIENT MEDICARE (WNR) MEDICARE () PART B Jul 21, 2011 PART B [id number] ANUJ RAMIREZ PATIENT MEDICARE (WNR) MEDICARE () PART A Apr 20, 2011 PART A [id number] ANUJ RAMIREZ JR PATIENT MEDICARE (WNR) MEDICARE () PART B Apr 20, 2011 PART B [id number] [phone] ANUJ RAMIREZ JR PATIENT MEDICARE (WNR) MEDICARE () PART A Apr 20, 2011 PART A [id number] ANUJ RAMIREZ PATIENT MEDICARE (WNR) MEDICARE () PART B Apr 20, 2011 PART B [id number] [phone] ANUJ RAMIREZ PATIENT MEDICARE (WNR) MEDICARE () PART A Apr 20, 2011 PART A [id number] ANUJ RAMIREZ PATIENT MEDICARE (WNR) MEDICARE (M) PART B Apr 20, 2011 PART B [id number] ANUJ RAMIREZ PATIENT Selected Encounter This section includes the information on record at [place] for the Encounter. Date/Time Encounter Type Encounter Description Reason Provider Source Sep 11, 2024 09:30 AM OFFICE O/P EST MOD 30 MIN [facility] - IND ICD-10-CM F43.12 Post-traumatic stress disorder, chronic HARRIETT KELSEY IHYared Encounter Template Text not used by [place] Assessments - Encounter Diagnoses This section includes the primary and secondary diagnoses documented for the Encounter. Date/Time Primary/Secondary Diagnosis Diagnosis Name Provider Source Sep 11, 2024 10:13 AM PRIMARY Post-traumatic stress disorder, chronic JANNA KELSEY [facility] Sep 11, 2024 10:13 AM SECONDARY Attention-deficit hyperactivity disorder, unspecified type JANNA KELSEY [facility] Sep 11, 2024 10:13 AM SECONDARY Major depressive disorder, recurrent, moderate JANNA KELSEY [facility] Sep 11, 2024 10:13 AM SECONDARY Unspecified mood [affective] disorder JANNA KELSEY [facility] Plan of Treatment: Future Appointments (+ 6 months) and Future Tests (+/- 45 days) The Plan of Treatment section includes future care activities for the patient from all [place] treatmentfacilities. This section includes future appointments and future orders which are active, pending or scheduled. Future Appointments This section includes appointments that were scheduled to occur 6 months from the date of the Encounter, up to a maximum of 20 appointments. The data comes from all [place] treatment facilities. Appointment Date/Time Appointment Type Appointme nt Facility Name Sep 17, 2024 09:45 AM AMBULATORY - NONE [facility] Sep 28, 2024 11:00 AM AMBULATORY - PSYCHIATRY [facility] Oct 09, 2024 11:00 AM AMBULATORY - PS[facility]CHIATRY [facility] October 25, 2024 01:00 PM AMBULATORY - MEDICINE [facility] November 13, 2024 10:00 AM AMBULATORY - PSYCHIATRY [facility] Nov 28, 2024 11:00 AM AMBULATORY - MEDICINE [facility] Dec 10, 2024 08:30 AM AMBULATORY - PSYCHIATRY [facility] Active, Pending, and Scheduled Orders This section includes a listing of several types of active, pending, and scheduled orders, including clinic medications orders, diagnostic test orders, procedure orders and consult orders; where the start date of the order is 45 days before the date of the Encounter or 45 days after the date of theEncounter. The data comes from all [place] treatment facilities. Test Date/Time Test Type Test Details Facility Name Sep 11, 2024 10:22 AM Consult Order NEUROPSYCH OL TESTING/[facility] OUTPT [facility] [employer] [facility] Lab Results: +/- 30 days of the encounter This section includes the Chemistry and Hematology Lab Results on record with [place] for the patient. Radiology Reports and Pathology Reports are provided separately, in subsequent sections. Lab Results This section contains the Chemistry/Hematology Results that were resulted 30 days before or 30 daysafter the date of the Encounter. Date/Time Source Result Type Result - Unit Interpretation Reference Range Specimen Type Comment Sep 07, 2024 03:07 PM [facility] DRUGS OF ABUSE URINE Specimen Type: URINE [...] May 02, 2024 08:57 AM Reporting Lab: [address] [address] Performing Lab: [address] [address] AMPHETAMINES SCREEN NONE-DETECTED None-D etected, Cutoff = [...] ng/mL PH, SAGAR 5.8 [pH] 4-10 CREATININE, SAGAR 181.74 mg/dL >20 SP.GRAVITY, SAGAR 1.022 H 1.003-1.020 Sep 07, 2024 03:07 PM [facility] LIPID PANEL FASTING SERUM Specimen Type: SERU M No comment entered. Ordering Provider: VINNIE BLACKWELL Report Released Date/Time: Mar 12, 2024 11:07 AM Reporting Lab: [address] [address] Performing Lab: [address] [address] CHOLESTEROL 144 mg/dL TRIGLYCERIDE 140 mg/dL 0-150 LDL calculated 76 mg/dL 0-129 CHOL/HDL 3.6 HDL CHOLESTEROL 40 mg/dL 40-60 Sep 07, 2024 03:07 PM [facility] BASIC METABOLIC PANEL (fasting) SERUM Specime n Type: SERUM No comment entered. Ordering Provider: VINNIE BLACKWELL Report Released Date/Time: Mar 12, 2024 11:07 AM Reporting Lab: [facility] [address] [facility] [address] Performing Lab: [address] [address] UREA NITROGEN 24 mg/dL 7-25 GLUCOSE 105 [...] and tobacco- related health factors from the [place] facility where the Encounter took place. Current Smoking Status This section includes the most current smoking, or tobacco-related health factor, from the [place] facility where the Encounter took place. Date/Time Current Smoking Status Comment [place] it[place] May 02, 2024 08:30 AM VA-TOBACCO NEVER USED [facility] Tobacco Use History This section includes a history of the smoking, or tobacco-related health factors, that were collected on or before the date of the Encounter. The data comes from the [place] facility where the Encounter took place. Date/Time Smoking Status/Tobacco Use Comment F acility May 26, 2023 08:30 AM VA-TOBACCO NEVER USED [facility] 2022 09:30 AM VA-TOBACCO NEVER USED [facility] May 18, 2021 10:30 AM VA-TOBACCO NEVER USED [facility] Jun 02, 2020 11:00 AM VA-TOBACCO NEVER USED [facility] May 01, 2019 10:56 AM VA-TOBACCO NEVER USED [facility] Jan 02, 2018 11:55 AM VA-TOBACCO NEVER USED [facility] Jul 05, 2017 10:01 AM LIFETIME NON-TOBACCO USER [facility] Jun 24, 2016 11:53 AM LIFETIME NON-TOBACCO USER [facility] Jul 10, 2015 10:23 AM LIFETIME NON-TOBACCO USER [facility] Jun 03, 2005 10:00 AM LIFETIME NON-SMOKER [facility] Advance Directives: All historical and current Section Date Range: From patient's date of to the date document was created. This section includes ALL of a patient's completed or amended [place] Advance and Rescinded Directives. The entries below indicate that a directive exists for the patient, but an actual copy is not included with this document. The data comes from all [place] facilities. Date Advance Directives Provider Source May 10, 2018 ADVANCE DIRECTIVE LEONARD TORRES [facility] Mar 24, 2018 ADVANCE DIRECTIVE DAO ESTEBAN [facility] Encounter Notes: All associated encounter notes This section contains the clinical notes associated to the Encounter. Date/Time Encounter Note(s) Provider Source Sep 11, 2024 10:24 AM ACCOUNTING OF DISCLOSURES NOTE: LOCAL TITLE: STATE PRESCRIPTION DRUG MONITORING PROGRAM STANDARD TITLE: ACCOUNTING OF DISCLOSURES NOTE DATE OF NOTE: SEP 11, 2024@10:24:48 ENTRY DATE: SEP 11, 2024@10:24:48 AUTHOR: YOLANDE KELSEY EXP COSIGNER: URGENCY: STATUS: COMPLETED This PDMP query was submitted by Yolande Kelsey. The clinical justification for this PDMP query is to review controlled substances prescribed outside of the [place], and any additional information that may become available, as an important component of standard clinical care, and in accordance with [facility] policy. Patient information was shared with the PDMP [place]. No prescription(s) for controlled substances outside the [facility] were found in the last 90 days. /henok/ YOLANDE KELSEY MD PSYCHIATRIST Signed: 09/11/2024 10:24 [facility]ELSEY [facility] Sep 11, 2024 09:50 AM PSYCHIATRY NOTE: LOCAL TITLE: PSYCHIATRY NOTE STANDARD TITLE: PSYCHIATRY NOTE DATE OF NOTE: SEP 11, 2024@09:50 ENTRY DATE: SEP 11, 2024@09:50:11 AUTHOR: YOLANDE KELSEY EXP COSIGNER: URGENCY: STATUS: COMPLETED PSYCHIATRY NOTE Has ADDENDA ANUJ AYERS JR, a 79 year old WHITE MALE was seen for scheduled mental health [place] [facility] MENTAL HEALTH NOTE: Manderson was seen for 30 min in the [facility] for routine mental health follow up. Two forms of identification was used. 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 SUBJECTIVE: Anuj says that he doesn't have as much alone time as he would like. He is always busy with appointments or other activities. He enjoys his alone time. Anuj says that he and his have plans to clean out their garage. He says his garage is just as big as his home. He has been working on going through things in the garage over winter. He came across things that he has good memories with and has a hard time parting with them. He is organizing the items into three piles: keep, sell and throw away/give away. He is hoping to make some progress with this. He will have a family tag sale. Anuj has been looking at getting a light box in order to view the slides he has from his life (family photos and time from [place]). He could put them on the TV which would be nice. Anuj reports his anxiety was heightened recently around an incident that happened to him. He had an issue last week where he was a victim of an online scam. He was on the computer and something came up on the computer directing him to call a 1800 number. He did and was told that he had been hacked. He eventually went down to the bank to get the $[phone] they said he would need to get this fixed. Anuj says that his intervened before he gave them the money. He and his had to close their bank accounts and get new accounts. They are not to use their computer for online banking for awhile because their computer was accessed by the hackers. Anuj keeps getting these scam calls. SUBSTANCE ABUSE: Caffeine: Tobacco: Cocaine: denies Opioid: [...] (excluding Supplies): Active Outpatient Medications Status 1) ESCITALOPRAM OXALATE 20MG TAB TAKE ONE TABLET BY MOUTH ONCE ACTIVE DAILY FOR MOOD/DEPRESSION Indication: FOR MAJOR DEPRESSIVE DISORDER 2) GABAPENTIN 100MG CAP TAKE ONE CAPSULE BY MOUTH TWICE DAILY ACTIVE NEEDED DURING THE DAYTIME (MORNING AND AFTERNOON) FOR ANXIETY (OFF LABEL)-CAUTION--MAY CAUSE SEDATION. Indication: OFF LABEL ANXIETY 3) HYDROCHLOROTHIAZIDE 25MG TAB TAKE ONE TABLET BY MOUTH ONCE ACTIVE DAILY TO PREVENT FLUID/CONTROL BLOOD PRESSURE 4) IBUPROFEN 600MG TAB TAKE ONE TABLET BY MOUTH THREE TIMES A ACTIVE DAY TAKE WITH FOOD; FOR PAIN/INFLAMMATION/SWELLING DO NOT TAKE ANY OTHER IBUPROFEN CONTAINING MEDICATIONS WHILE USING THIS MEDICATION. 5) LAMOTRIGINE 150MG TAB TAKE ONE TABLET BY MOUTH TWICE DAILY ACTIVE Indication: MOOD 6) LOSARTAN 100MG TAB TAKE ONE TABLET BY MOUTH ONCE DAILY FOR ACTIVE BLOOD PRESSURE/HEART 7) METHYLPHENIDATE HCL 10MG TAB TAKE ONE TABLET BY MOUTH EVERY ACTIVE MORNING AND TAKE ONE TABLET AT NOON NEEDED NEXT FILL 09/24 Indication: ATTENTION/ CONCENTRATION Inactive Outpatient Medications Status 1) CARBOXYMETHYLCELLULOSE NA 0.5% OPH SOLN INSTILL 1 DROP INTO EACH EYE FOUR TIMES DAILY NEEDED Indication: FOR DRY EYE 2) CARBOXYMETHYLCELLULOSE NA 1% OPH GEL APPLY 1 DROP INTO EACH EYE AT BEDTIME Indication: FOR DRY EYE 3) CYCLOSPORINE 0.05% (PF) OPH EMUL 0.4ML INSTILL 1 DROP INTO EACH EYE TWICE DAILY Indication: FOR DRY EYE 4) METHYLPHENIDATE HCL 10MG TAB TAKE ONE TABLET BY MOUTH EVERY MORNING AND TAKE ONE TABLET AT NOON NEEDED NEXT FILL 08/24 Indication: ATTENTION/ CONCENTRATION Active Non-VA Medications Status 1) Non-VA GABAPENTIN 300MG CAP 300MG BY MOUTH AT BEDTIME ACTIVE 2) Non-VA SIMVASTATIN 80MG TAB 40MG BY MOUTH AT BEDTIME ACTIVE 13 Total Medications MEDICATION ADHERENCE: takes medications most days MEDICATION SIDE EFFECTS: none OBJECTIVE:recent labs:AMPHETAMINES (CL): NONE-DETECTED UR BENZODIAZEPINE: NONE-DETECTED UR COCAINE: NONE-DETECTED UR OPIATES: NONE-DETECTED UR THC: NONE-DETECTED UR BARBITURATE: NONE-DETECTED OXYCODONE EIA: NONE-DETECTED BUPRENORPHINE STICK: NONE-DETECTED ALCOHOL URINE: NONE-DETECTED FENTANYL SCREEN UR: NONE-DETECTED SAGAR PH: 5.8 CREAT SAGAR VALITITY: 181.74 SG SAGAR VALIDITY: 1.022 H GLUCOSE: 105 H UREA NITROGEN: 24 SODIUM: 138 POTASSIUM: 3.9 CHLORIDE: 103 CO2: 29 CALCIUM: 9.3 CHOLESTEROL: 144 TRIGLYCERIDE: 140 LDL CHOL: 76 CHOL/HDL RATIO: 3.6 HDL: 40 CREATININE-EGFR: 1.10 eGFR CKD-EPI 2020: 68 Weight: 198 lb [89.81 kg] (09/10/2024 10:35) BMI: 31.1 MENTAL STATUS EXAM: Orientation and Consciousness: Alert and fully oriented. Appearance and Behavior: Older white male with short ruiz hair wearing baseball cap and eyeglasses dressed in blue jeans and black athletic shoes and layers of two shirts and black jacket. Eye Contact: Good. Speech: Normal rate and [...] mood. He knows a tracie from his buddhist that he could go out with to socialize with. Recent EKG looked fine (was bradycardic with a HR of 50, but otherwise the Senior Pharmacy Technician who read the EKG noted no significant change from the previous EKG). Last utox done last fall. Will plan to repeat this fall. Anuj seems in fair spirits today. Next Visit: in 2 months. Patient is aware of how to access [facility] open access MH clinic in [facility] during weekdays for immediate mental health [...] with ongoing prescription of narcotics through this [place] facility. ::: Psychotropic meds were reconciled; and [...] in the community (including Crisis Line, 911, [place] National Suicide Prevention Lifeline: 2-329-496-TALK). Patient is instructed to contact me should [...] of active outpatient prescriptions dispensed from this [place] (local) and dispensed from another [facility] or [facility] facility (remote) as well as [...] whether with a VA or non-VA provider. Depression Monitoring (PHQ-9): Patient declined PHQ-9 monitoring /henok/ YOLANDE KELSEY MD PSYCHIATRIST Signed: 09/11/2024 10:16 09/11/2024 ADDENDUM STATUS: COMPLETED Ordered Neuropsych testing for Anuj today as he says his community Neurologist had wanted him to have this testing done to assess his memory. He is aware this is a lengthy exam. /henok/ YOLANDE KELSEY MD PSYCHIATRIST Signed: 09/11/2024 10:22 YOLANDE KELSEY [place] [facility]
--- OUTSIDE RECORDS SUMMARY | 2024-10-02 13:17 | XMS_ITS | Encounter Summary ---
Author Name [facility] [place] [facility] [place] [facility] [place] Address [address] [place] [address] Care Team Providers Care Trimmer Buffing Wheel Name Role Phone VINNIE BLACKWELL Primary Care [...] SELF + ONE Sep 19, 2015 106 [id number] [phone] ANUJ RAMIREZ PATIENT ANTHEM BCBS CT FEDERAL PREFERRED PROVIDER ORGANIZAT ION (PPO) STAND [place] FAMIL Y Dec 24, 2009 105 [id number] [phone] ANUJ RAMIREZ PATIENT BCBS [place] FEP PREFERRED PROVIDER ORGANIZAT ION (PPO) STAND [place] SELF PLUS 1 Sep 19, 2015 106 [id number] ANUJ RAMIREZ PATIENT [place] PREFERRED PROVIDER ORGANIZAT ION (PPO) STAND [place] SELF+ ONE Sep 19, 2015 106 [id number] [phone] DAVID YaredANUJ PATIENT [place] PREFERRED PROVIDER ORGANIZAT ION (PPO) STAND [place] FAMIL Y Dec 24, 2009 105 [id number] [phone] ANUJ RAMIREZ PATIENT [place] F[place] DENTAL DENTAL INSURANCE [place]AND [place] Sep 19, 2015 DENTAL [id number] ANUJ RAMIREZ PATIENT [place] FEP BCBS PRESCRIPT ION CAREM ARK FEPRX PLAN Sep 24, 2010 [id number] ANUJ RAMIREZ PATIENT [place] FEPRX PLAN PRESCRIPT ION BCBS FEP Jun 20, 2001 [id number] [phone] ANUJ RAMIREZ PATIENT [place] FEPRX PLAN PRESCRIPT ION CAREM ARK FEPRX Jun 20, 2001 [id number] [phone] ANUJ RAMIREZ PATIENT CAREMARK-F EP BCBS PRESCRIPT ION FEP CAREM ARK Jun 20, 2010 [id number] ANUJ RAMIREZ PATIENT MEDICARE (WNR) MEDICARE () PART A Jul 21, 2011 PART A [id number] ANUJ RAMIREZ PATIENT MEDICARE (WN) MEDICARE () PART B Jul 21, 2011 PART B [id number] ANUJ RAMIREZ PATIENT MEDICARE (WN) MEDICARE () PART A Apr 20, 2011 PART A [id number] ANUJ RAMIREZ JR PATIENT MEDICARE (WN) MEDICARE () PART B Apr 20, 2011 PART B [id number] ANUJ RAMIREZ JR PATIENT MEDICARE (WN) MEDICARE () PART A Apr 20, 2011 PART A [id number] ANUJ RAMIREZ PATIENT MEDICARE (WN) MEDICARE () PART B Apr 20, 2011 PART B [id number] [phone] ANUJ RAMIREZ PATIENT MEDICARE (WN) MEDICARE () PART A Apr 20, 2011 PART A [id number] ANUJ RAMIREZ PATIENT MEDICARE (WNR) MEDICARE (M) PART B Apr 20, 2011 PART B [id number] ANUJ RAMIREZ PATIENT Selected Encounter This section includes the information on record at [place] for the Encounter. Date/Time Encounter Type Encounter Description Reason Pro vider Source Jul 25, 2024 02:14 PM Outpatient Encounter ADMIN PAT ACTIVTIES (MASNONCT) IHE Encounter Template Text not used by [place] Plan of Treatment: Future Appointments (+ 6 months) and Future Tests (+/- 45 days) The Plan of Treatment section includes future care activities for the [facility] This section includes future appointments and future orders which are active, pending or scheduled. Future Appointments This section includes appointments that were scheduled to occur 6 months from the date of the Encounter, up to a maximum of 20 appointments. The data comes from all [place] treatment facilities. Appointment Date/Time Appointment Type Appointme nt Facility Name Sep 10, 2024 10:30 AM AMBULATORY - MEDICINE [place] [facility] [place] [facility] Sep 11, 2024 09:30 AM AMBULATORY - PSYCHIATRY [place] [facility] [place] [facility] Sep 17, 2024 09:45 AM AMBULATORY - NONE [place] [facility] [place] [facility] Sep 28, 2024 11:00 AM AMBULATORY - PSYCHIATRY [place] [facility] [place] [facility] Oct 09, 2024 11:00 AM AMBULATORY - PSYCHIATRY [place] [facility] [place] [facility] October 25, 2024 01:00 PM AMBULATORY - MEDICINE [place] [facility] [place] [facility] November 13, 2024 10:00 AM AMBULATORY - PSYCHIATRY [place] [facility] [place] [facility] Nov 28, 2024 11:00 AM AMBULATORY - MEDICINE [place] [facility] [place] [facility] Dec 10, 2024 08:30 AM AMBULATORY - PSYCHIATRY [place] [facility] [place] [facility] Social History: Smoking Status (Most current) and Tobacco Use (All prior to encounter date) This section includes the most current, and the historical, smoking and tobacco- related health factors from the [place] facility where the Encounter took place. Current Smoking Status This section includes the most current smoking, or tobacco-related health factor, from the [place] facility where the Encounter took place. Date/Time Current Smoking Status Comment Holland ity May 02, 2024 08:30 AM VA-TOBACCO NEVER USED [place] [facility] [place] [facility] Tobacco Use History This section includes a history of the smoking, or tobacco-related health factors, that were collected on or before the date of the Encounter. The data comes from the [place] facility where the Encounter took place. Date/Time Smoking Status/Tobacco Use Comment F acility May 26, 2023 08:30 AM VA-TOBACCO NEVER USED [facility] [place] [facility] 2022 09:30 AM VA-TOBACCO NEVER USED [facility] [place] [facility] May 18, 2021 10:30 AM VA-TOBACCO NEVER USED [facility] [place] [facility] Jun 02, 2020 11:00 AM VA-TOBACCO NEVER USED [facility] [place] [facility] May 01, 2019 10:56 AM VA-TOBACCO NEVER USED [facility] [place] [facility] Jan 02, 2018 11:55 AM VA-TOBACCO NEVER USED [place] [facility] [place] [facility] Jul 05, 2017 10:01 AM LIFETIME NON-TOBACCO USER [facility] [place] [facility] Jun 24, 2016 11:53 AM LIFETIME NON-TOBACCO USER [facility] [place] [facility] Jul 10, 2015 10:23 AM LIFETIME NON-TOBACCO USER [place] [facility] [place] [facility] Jun 03, 2005 10:00 AM LIFETIME NON-SMOKER [place] [facility] [place] [facility] Advance Directives: All historical and current Section Date Range: From patient's date of to the date document was created. This section includes ALL of a patient's completed or amended [place] Advance and Rescinded Directives. The entries below indicate that a directive exists for the patient, but an actual copy is not included with this document. The data comes from all [place] facilities. Date Advance Directives Provider Source May 10, 2018 ADVANCE DIRECTIVE LEONARD TORRES [place] [facility] [place] [facility] Mar 24, 2018 ADVANCE DIRECTIVE DAO ESTEBAN [place] [facility] [place] [facility] Encounter Notes: All associated encounter notes This section contains the clinical notes associated to the Encounter. Date/Time Encounter Note(s) Provider Source Jul 25, 2024 02:14 PM PHARMACY NOTE: LOCAL TITLE: V1 PHARMACY CUSTOMER CARE MEDICATION RENEWAL STANDARD TITLE: PHARMACY NOTE DATE OF NOTE: JUL 25, 2024@14:14 ENTRY DATE: JUL 25, 2024@14:14:12 AUTHOR: DARREN CUEVA EXP COSIGNER: URGENCY: STATUS: COMPLETED Date: Jul Division: [facility] referred by Pharmacy Call Center for medication renewal: Non-controlled/maintenan ce medication Medications requested: [id number] LOSARTAN 100MG TAB Defer to primary care provider To be mailed . Please review and renew if appropriate. *This note was generated by [facility] Pharmacy Customer Care. If you have any questions or need assistance, do not contact this author. Please refer all questions to your local, on-site pharmacy departments. /henok/ DARREN CUEVA [facility] [place]/Pharmacy Customer Care Signed: 07/25/2024 14:14 Receipt Acknowledged By: 07/26/2024 08:08 /henok/ VINNIE BLACKWELL D.O. PHYSICIAN 07/25/2024 14:21 /henok/ STEPHANIA KINNEY, MSN, RN, CNL PRIMARY CARE TEAM NURSE DARREN CUEVA [facility]
--- OUTSIDE RECORDS SUMMARY | 2024-10-02 13:17 | XMS_ITS ---
Author Name [facility] [place] [facility] [place] [facility] [place] Address [address] [place] [id number] Care Team Providers Care Managing Manager Name Role Phone VINNIE BLACKWELL Primary Care [...] SELF + ONE Sep 19, 2015 106 [id number] [phone] DAVID Frederick EDWIN PATIENT ANTHEM BCBS CT FEDERAL PREFERRED PROVIDER ORGANIZAT ION (PPO) STAND [place] FAMIL Y Dec 24, 2009 105 [id number] [phone] DAVID Frederick EDWIN PATIENT BCBS [place] F[place] PREFERRED PROVIDER ORGANIZAT ION (PPO) [place]AND [place] SELF PLUS 1 Sep 19, 2015 106 [id number] ANUJ RAMIREZ PATIENT [place] PREFERRED PROVIDER ORGANIZAT ION (PPO) STAND [place] SELF+ ONE Sep 19, 2015 106 [id number] DAVID Frederick EDWIN PATIENT [place] PREFERRED PROVIDER ORGANIZAT ION (PPO) STAND GEOV[place] FAMIL Y Dec 24, 2009 105 [id number] [phone] ANUJ RAMIREZ PATIENT [place] DENTAL DENTAL INSURANCE [place] Sep 19, 2015 DENTAL [id number] ANUJ RAMIREZ PATIENT [place] FEP BCBS PRESCRIPT ION CAREM ARK FEPRX PLAN Sep 24, 2010 [id number] ANUJ RAMIREZ PATIENT [place] FEPRX PLAN PRESCRIPT ION BCBS FEP Jun 20, 2001 [id number] [phone] ANUJ RAMIREZ PATIENT [place] FEPRX PLAN PRESCRIPT ION CAREM ARK FEPRX Jun 20, 2001 [id number] ANUJ ARMIREZ PATIENT [place]-F EP BCBS PRESCRIPT ION FEP CAREM ARK Jun 20, 2010 [id number] ANUJ RAMIREZ PATIENT MEDICARE (WNR) MEDICARE () PART A Jul 21, 2011 PART A [id number] ANUJ RAMIREZ PATIENT MEDICARE (WNR) MEDICARE () PART B Jul 21, 2011 PART B [id number] ANUJ RAMIREZ PATIENT MEDICARE (WNR) MEDICARE () PART A Apr 20, 2011 PART A [id number] ANUJ RAMIREZ JR PATIENT MEDICARE (WNR) MEDICARE () PART B Apr 20, 2011 PART B [id number] ANUJ RAMIREZ JR PATIENT MEDICARE (WNR) MEDICARE () PART A Apr 20, 2011 PART A [id number] ANUJ RAMIREZ PATIENT MEDICARE (WNR) MEDICARE () PART B Apr 20, 2011 PART B [id number] ANUJ RAMIREZ PATIENT MEDICARE (WNR) MEDICARE () PART A Apr 20, 2011 PART A [id number] ANUJ RAMIREZ PATIENT MEDICARE (WNR) MEDICARE (M) PART B Apr 20, 2011 PART B [id number] ANUJ RAMIREZ PATIENT Selected Encounter This section includes the information on record at [place] for the Encounter. Date/Time Encounter Type Encounter Description Reason Provider Source May 02, 2024 08:30 AM OFFICE O/P EST LOW 20 [facility] - IND ICD-10-CM F90.9 Attention-deficit hyperactivity disorder, unspecified type TRENA TURNER MD [facility] Encounter Template Text not used by [place] Assessments - Encounter Diagnoses This section includes the primary and secondary diagnoses documented for the Encounter. Date/Time Primary/Secondary Diagnosis Diagnosis Name Provider Source May 21, 2024 07:31 AM PRIMARY Attention-deficit hyperactivity disorder, unspecified type RTENA TURNER MD [place] [facility] [place] [facility] May 21, 2024 07:31 AM SECONDARY Major depressive disorder, recurrent, moderate TRENA TURNER MD [place] [facility] [place] [facility] May 21, 2024 07:31 AM SECONDARY Post-traumatic stress disorder, chronic TRENA TURNER MD [facility] [place] [facility] Plan of Treatment: Future Appointments (+ 6 months) and Future Tests (+/- 45 days) The Plan of Treatment section includes future care activities for the patient from all [place] treatmentfacilities. This section includes future appointments and future orders which are active, pending or scheduled. Future Appointments This section includes appointments that were scheduled to occur 6 months from the date of the Encounter, up to a maximum of 20 appointments. The data comes from all [place] treatment facilities. Appointment Date/Time Appointment Type Appointme nt Facility Name Jun 05, 2024 10:30 AM AMBULATORY - PSYCHIATRY [place] [facility] [place] [facility] Jun 26, 2024 03:30 PM AMBULATORY - PSYCHIATRY [place] [facility] [place] [facility] Jul 11, 2024 11:00 AM AMBULATORY - MEDICINE [place] [facility] [place] [facility] Jul 19, 2024 11:00 AM AMBULATORY - MEDICINE [place] [facility] [place] [facility] Jul 24, 2024 10:00 AM AMBULATORY - PSYCHIATRY [place] [facility] [place] [facility] Sep 10, 2024 10:30 AM AMBULATORY - MEDICINE [facility] [place] [facility] Sep 11, 2024 09:30 AM AMBULATORY - PSYCHIATRY [facility] [place] [facility] Sep 17, 2024 09:45 AM AMBULATORY - NONE [facility] [place] [facility] Sep 28, 2024 11:00 AM AMBULATORY - PSYCHIATRY [facility] [place] [facility] Oct 09, 2024 11:00 AM AMBULATORY - PSYCHIATRY [facility] [place] [facility] October 25, 2024 01:00 PM AMBULATORY - MEDICINE [place] C [facility] [place] [facility] Lab Results: +/- 30 days of the encounter This section includes the Chemistry and Hematology Lab Results on record with VA for the patient. Radiology Reports and Pathology Reports are provided separately, in subsequent sections. Lab Results This section contains the Chemistry/Hematology Results that were resulted 30 days before or 30 daysafter the date of the Encounter. Date/Time Source Result Type Result - Unit Interpretation Reference Range Specimen Type Comment Apr 25, 2024 11:35 AM [place] [facility] [place] [facility] MICROALBUMIN CREATININE RATIO PANEL URINE Spe cimen Type: URINE No comment entered. Ordering Provider: GUI CRYSTAL Report Released Date/Time: Aug 30, 2023 11:45 AM Reporting Lab: [place] [facility] [place] [facility] [address] [facility] [address] Performing Lab: [place] [facility] [place] [facility] [address] [facility] [address] MICROALBUMIN/CREATININE RATIO 25.6 mg/g 0-29.9 MICROALBUMIN,QUANTITATIVE 3.8 mg/dL RR U NAVAIL CREATININE URINE 148.64 mg/dL Apr 25, 2024 11:35 AM [place] [facility] [place] [facility] FERRITIN SERUM Specimen Type: SERUM No comment entered. Ordering Provider: MAGGIE CRYSTAL Report Released Date/Time: Aug 30, 2023 11:45 AM Reporting Lab: [place] [facility] [place] [facility] [address] [facility] [address] Performing Lab: [place] [facility] [place] [facility] [address] [facility] [address] FERRITIN 190 ng/mL 20-300 Apr 25, 2024 11:35 AM [facility] BASIC METABOLIC PANEL (non-fasting) SERUM Spe cimen Type: SERUM No comment entered. Ordering Provider: MAGGIE CRYSTAL Report Released Date/Time: Aug 30, 2023 11:45 AM Reporting Lab: [address] [address] Performing Lab: [address] [address] UREA NITROGEN 22 mg/dL 7-25 GLUCOSE 100 mg/dL 65-100 SODIUM 138 mmol/L 135-145 POTASSIUM 4.0 mmol/L 3.5-5.0 CHLORIDE 102 mmol/L 100-110 CO2 25 meq/L 20-30 CREATININE, Serum 1.11 mg/dL 0.50-1.40 eGFR(CKD-EPI 2020) 68 mL/min >60 Apr 25, 2024 11:35 AM [facility] CBC BLOOD Specimen Type: BLOOD No comment entered. Ordering Provider: MAGGIE CRYSTAL Report Released Date/Time: Aug 30, 2023 11:45 AM Reporting Lab: [address] [address] Performing Lab: [address] [address] WBC 5.25 10*3/uL 4.50-11.00 RBC 4.48 10*6/uL 4.23-5.66 HGB 14.4 g/dL 12.8-17 HCT 41.5 39.2-50.4 MCV 92.6 fL 82-99 MCHC 34.7 g/dL 30.8-35.1 PLT 184 10*3/uL 140-360 RDW-CV 12.1 12.0-16.0 MCH 32.1 pg 26.2-32.6 Apr 25, 2024 11:35 AM [facility] IRON & TIBC PANEL SERUM Specimen Type: SERUM No comment entered. Ordering Provider: MAGGIE CRYSTAL Report Released Date/Time: Aug 30, 2023 11:45 AM Reporting Lab: [address] [place] [address] Performing Lab: [address] [address] TIBC 306 ug/dL 204-475 IRON 72 ug/dL 40-160 Transferrin Saturation 23.5 20.0-50.0 Transferrin (TRF) 232 mg/dL 200-360 Apr 25, 2024 11:35 AM [facility] LIPID PANEL, NON FASTING SERUM Specimen Type: SERUM No comment entered. Ordering Provider: MAGGIE CRYSTAL Report Released Date/Time: Aug 30, 2023 11:45 AM Reporting Lab: [address] [address] Performing Lab: [address] [address] CHOLESTEROL 139 mg/dL TRIGLYCERIDE 99 mg/dL 0-150 LDL calculated 78 mg/dL 0-129 CHOL/HDL 3.4 HDL CHOLESTEROL 41 mg/dL 40-60 Apr 11, 2024 09:59 AM [facility] DRUGS OF ABUSE URINE Specimen Type: [...] may have been adulterated. Ordering Provider: DAILY TURNER MD Report Released Date/Time: Apr 11, 2024 09:50 AM Reporting Lab: [address] [address] Performing Lab: [address] [address] AMPHETAMINES SCREEN NONE-DETECTED None-D etected, Cutoff = [...] and tobacco- related health factors from the [place] facility where the Encounter took place. Current Smoking Status This section includes the most current smoking, or tobacco-related health factor, from the [place] facility where the Encounter took place. Date/Time Current Smoking Status Comment Holland pagan May 02, 2024 08:30 AM VA-TOBACCO NEVER USED [place] [facility] [place] [facility] Tobacco Use History This section includes a history of the smoking, or tobacco-related health factors, that were collected on or before the date of the Encounter. The data comes from the [place] facility where the Encounter took place. Date/Time Smoking Status/Tobacco Use Comment F acgraham May 26, 2023 08:30 AM VA-TOBACCO NEVER USED VA [facility] [place] [facility] 2022 09:30 AM VA-TOBACCO NEVER USED [place] [facility] [place] [facility] May 18, 2021 10:30 AM VA-TOBACCO NEVER USED [place] [facility] [place] [facility] Jun 02, 2020 11:00 AM VA-TOBACCO NEVER USED [place] [facility] [place] [facility] May 01, 2019 10:56 AM VA-TOBACCO NEVER USED [place] [facility] [place] [facility] Jan 02, 2018 11:55 AM VA-TOBACCO NEVER USED [place] [facility] [place] [facility] Jul 05, 2017 10:01 AM LIFETIME NON-TOBACCO USER [place] [facility] [place] [facility] Jun 24, 2016 11:53 AM LIFETIME NON-TOBACCO USER [place] [facility] Jul 10, 2015 10:23 AM LIFETIME NON-TOBACCO USER [facility] Jun 03, 2005 10:00 AM LIFETIME NON-SMOKER [facility] Advance Directives: All historical and current Section Date Range: From patient's date of to the date document was created. This section includes ALL of a patient's completed or amended [place] Advance and Rescinded Directives. The entries below indicate that a directive exists for the patient, but an actual copy is not included with this document. The data comes from all [place] facilities. Date Advance Directives Provider Source May 10, 2018 ADVANCE DIRECTIVE LEONARD TORRES [place] [facility] Mar 24, 2018 ADVANCE DIRECTIVE DAO ESTEBAN [facility] Encounter Notes: All associated encounter notes This section contains the clinical notes associated to the Encounter. Date/Time Encounter Note(s) Provider Source May 02, 2024 08:57 AM ACCOUNTING OF DISCLOSURES NOTE: LOCAL TITLE: STATE PRESCRIPTION DRUG MONITORING PROGRAM STANDARD TITLE: ACCOUNTING OF DISCLOSURES NOTE DATE OF NOTE: MAY 02, 2024@08:57:59 ENTRY DATE: MAY 02, 2024@08:57:59 AUTHOR: DAILY TURNER EXP COSIGNER: URGENCY: STATUS: COMPLETED This PDMP query was submitted by Daily Turner MD, MD. The clinical justification for this PDMP query is to review controlled substances prescribed outside of the [facility], and any additional information that may become available, as an important component of standard clinical care, and in accordance with [facility] policy. Patient information was shared with the PDMP [employer]. No prescription(s) for controlled substances outside the [facility] were found in the last 90 days. /henok/ DAILY TURNER JR, MD STAFF PSYCHIATRIST Signed: 05/02/2024 08:58 DAILY TURNER MD [facility] May 02, 2024 08:02 AM PSYCHIATRY NOTE: LOCAL TITLE: PSYCHIATRY/FOLLOW-UP NOTE STANDARD TITLE: PSYCHIATRY NOTE DATE OF NOTE: MAY 02, 2024@08:02 ENTRY DATE: MAY 02, 2024@08:02:11 AUTHOR: DAILY TURNER EXP COSIGNER: URGENCY: STATUS: [...] DAY TO PREVENT FLUID/CONTROL BLOOD PRESSURE 7) LAMOTRIGINE 150MG TAB TAKE ONE TABLET BY MOUTH TWICE DAILY 8) LOSARTAN POTASSIUM 100MG TAB TAKE ONE TABLET BY MOUTH EVERY DAY FOR BLOOD PRESSURE/HEART 9) METHYLPHENIDATE HCL 10MG TAB TAKE ONE TABLET BY MOUTH ONCE DAILY AND TAKE ONE TABLET EVERY EVENING NEEDED TO IMPROVE ALERTNESS/MOOD - TAKE IN MORNING 10) SODIUM FLUORIDE 1.1% TOOTHPASTE BRUSH SMALL AMOUNT [...] [facility] 21 minutes for medication management. Two identifiers were used. CC: I'm doing ok, it (medications) doesn't stop me from getting angry at times . Hector saw Dr. Lorenzo with Sleep Medicine @ [facility] and her office is in [place] and he was started on Zonisamide to stop the shaking in his hands and he thinks it's working. Hector sees a neurologist at this [place]. No alcohol or substance use, no . No complaints and no adverse side effects from current medications were reported, no. is, she's doing ok but her feet have been hurting and was recommended to get new shoes and gets an infusion every two weeks. Hector takes gabapentin 300mg from outside neurologist for seizures and 100mg bid from this [facility] and would like to continue with this. No seizures reported since last visit, no . Mood is, pretty good, I'm kind of anxious this week I have my upholstery sewer line backed up and is getting sidings and gutters cleaned . PTSD symptoms are, ok, I guess. Sleep and appetite has been, good. Hector is on methylphenidate for attention and concentration and is, about the same, kind of so-so on current dose. Kacit no longer forgets to take the afternoon dose. Kcait no longer has an outside therapist and is still waiting to get a therapist here. Discussed continuation of present medications as above. Patient education given including not taking anyone else's medications or giving his medications to anyone else and to secure and protect his medication from theft and children. Kacit is agreeable. MSE: ANUJ AYERS JR is an obese, 78 yo, male who is casually dressed wearing jeans, a t-shirt, a shirt, a cap, glasses and a jacket. He has good personal hygiene. He is [...] Plan: Continue present medications as above. Encouraged vet to take medications as prescribed. RTC monthly for medication management. Nevin has the number for the [employer] Crisis Line including the 988. Random UDS. Vet informed that I will be retiring at the end of April. Tobacco Use Screening: The patient has never used tobacco. Alcohol Use Screen (AUDIT-C): Alcohol Screen: SCREEN FOR ALCOHOL (AUDIT-C) An alcohol screening test (AUDIT-C) was negative (score=1). 1. How often did you have a drink containing alcohol in the past year? Consider a drink to be a 12 ounce can or bottle of regular beer, 8 ounces of malt liquor, a 5 ounce glass of table wine, or a 1.5 ounce shot of liquor (like scotch, gin, or vodka). Monthly or less 2. How many drinks containing alcohol did you have on a typical day when you were drinking in the past year? One or two drinks 3. How often did you have six or more drinks on one occasion in the past year? Never Sexual Orientation: The patient thinks of their sexual orientation as: Straight or Heterosexual /es/ DAILY TURNER JR, MD STAFF PSYCHIATRIST Signed: 05/02/2024 08:59 DAILY TURNER MD [place] [facility]
--- OUTSIDE RECORDS SUMMARY | 2024-10-02 13:17 | XMS_ITS | Encounter Summary ---
Author Name [facility] [place] [facility] [place] [address] [place] [id number] Care Team Providers Care Alterations Expert Name Role Phone VINNIE BLACKWELL Primary Care [...] SELF + ONE Sep 19, [phone] [id number] [phone] DAVID Frederick EDWIN PATIENT ANTHEM BCBS CT FEDERAL PREFERRED PROVIDER ORGANIZAT ION (PPO) STAND [place] FAMIL Y Dec 24, 2009 105 [id number] [phone] DAVID Frederick EDWIN PATIENT BCBS [place] FEP PREFERRED PROVIDER ORGANIZAT ION (PPO) [place]AND [place] SELF PLUS 1 Sep 19, 2015 [id number] ANUJ RAMIREZ PATIENT [place] PREFERRED PROVIDER ORGANIZAT ION (PPO) [place]AND [place] SELF+ ONE Sep 19, 2015 106 [id number] [phone] DAVID Frederick EDWIN PATIENT [place] PREFERRED PROVIDER ORGANIZAT ION (PPO) STAND [place] FAMIL Y Dec 24, 2009 105 [id number] ANUJ RAMIREZ PATIENT [place] DENTAL DENTAL INSURANCE STAND [place] Sep 19, 2015 DENTAL [id number] ANUJ RAMIREZ PATIENT [place] FEP BCBS PRESCRIPT ION CAREM ARK FEPRX PLAN Sep 24, 2010 [id number] ANUJ RAMIREZ PATIENT [place] FEPRX PLAN PRESCRIPT ION BCBS FEP Jun 20, 2001 [id number] [phone] ANUJ RAMIREZ PATIENT [place] FEPRX PLAN PRESCRIPT ION CAREM ARK FEPRX Jun 20, 2001 [id number] [phone] ANUJ RAMIREZ PATIENT [place]-F EP BCBS PRESCRIPT ION FEP CAREM ARK Jun 20, 2010 [id number] [phone] ANUJ RAMIREZ PATIENT MEDICARE (WNR) MEDICARE () PART A Jul 21, 2011 PART A [id number] [phone] ANUJ RAMIREZ PATIENT MEDICARE (WNR) MEDICARE () PART B Jul 21, 2011 PART B [id number] ANUJ RAMIREZ PATIENT MEDICARE (WNR) MEDICARE () PART A Apr 20, 2011 PART A [id number] [phone] ANUJ RAMIREZ JR PATIENT MEDICARE (WNR) MEDICARE () PART B Apr 20, 2011 PART B [id number] [phone] ANUJ RAMIREZ JR PATIENT MEDICARE (WNR) MEDICARE () PART A Apr 20, 2011 PART A [id number] [phone] ANUJ RAMIREZ PATIENT MEDICARE (WNR) MEDICARE () PART B Apr 20, 2011 PART B [id number] ANUJ RAMIREZ PATIENT MEDICARE (WNR) MEDICARE () PART A Apr 20, 2011 PART A [id number] ANUJ RAMIREZ PATIENT MEDICARE (WNR) MEDICARE (M) PART B Apr 20, 2011 PART B [id number] ANUJ RAMIREZ PATIENT Selected Encounter This section includes the information on record at [place] for the Encounter. Date/Time Encounter Type Encounter Description Reason Provider Source Apr 11, 2024 09:30 AM OFFICE O/P EST LOW 20 [facility] - IND ICD-10-CM F90.9 Attention-deficit hyperactivity disorder, unspecified type TRENA TURNER MD [facility] Encounter Template Text not used by [place] Assessments - Encounter Diagnoses This section includes the primary and secondary diagnoses documented for the Encounter. Date/Time Primary/Secondary Diagnosis Diagnosis Name Provider Source Apr 26, 2024 11:49 AM PRIMARY Attention-deficit hyperactivity disorder, unspecified type TRENA TURNER MD [place] [facility] [place] [facility] Apr 26, 2024 11:49 AM SECONDARY Major depressive disorder, recurrent, moderate TRENA TURNER MD [place] [facility] [place] [facility] Apr 26, 2024 11:49 AM SECONDARY Post-traumatic stress disorder, chronic TRENA TURNER MD [facility] [place] [facility] Plan of Treatment: Future Appointments (+ 6 months) and Future Tests (+/- 45 days) The Plan of Treatment section includes future care activities for the patient from all [place] treatmentfacilities. This section includes future appointments and future orders which are active, pending or scheduled. Future Appointments This section includes appointments that were scheduled to occur 6 months from the date of the Encounter, up to a maximum of 20 appointments. The data comes from all [place] treatment facilities. Appointment Date/Time Appointment Type Appointme nt Facility Name May 01, 2024 10:30 AM [place] [facility] [place] [facility] May 02, 2024 08:30 AM AM[place] [facility] [place] [facility] Jun 05, 2024 10:30 AM [place] [facility] [place] [facility] Jun 26, 2024 03:30 PM [place] [facility] [place] [facility] Jul 11, 2024 11:00 AM [place] [facility] [place] [facility] Jul 19, 2024 11:00 AM [facility] [place] [facility] [place] [facility] Jul 24, 2024 10:00 AM [facility] [place] Sep 10, 2024 10:30 AM [facility] Sep 11, 2024 09:30 AM [facility]RY [facility] Sep 17, 2024 09:45 AM AMBULATORY - NONE [facility] [place] [facility] Sep 28, 2024 11:00 AM AMBUL[facility]ORY - PS[facility]IATRY [facility] [place] [facility] Oct 09, 2024 11:00 AM AMBUL[facility]ORY - [facility]ATRY [facility] [place] [facility] Lab Results: +/- 30 days [...] Type Comment Apr 25, 2024 11:35 AM [facility] MICROALBUMIN CREATININE RATIO PANEL URINE Spe cimen Type: URINE No comment entered. Ordering Provider: GUI CRYSTAL Report Released Date/Time: Aug 30, 2023 11:45 AM Reporting Lab: [place] [facility] [place] [facility] [address] [facility] [address] Performing Lab: [place] [facility] [place] [facility] [address] [facility] [address] MICROALBUMIN/CREATININE RATIO 25.6 mg/g 0-29.9 MICROALBUMIN,QUANTITATIVE 3.8 mg/dL RR U NAVAIL CREATININE URINE 148.64 mg/dL Apr 25, 2024 11:35 AM [place] [facility] [place] [facility] BASIC METABOLIC PANEL (non-fasting) SERUM Spe cimen Type: SERUM No comment entered. Ordering Provider: MAGGIE CRYSTAL Report Released Date/Time: Aug 30, 2023 11:45 AM Reporting Lab: [place] [facility] [place] [facility] [address] [facility] [address] Performing Lab: [facility] [address] [facility] [address] UREA NITROGEN 22 mg/dL 7-25 GLUCOSE 100 mg/dL 65-100 SODIUM 138 mmol/L 135-145 POTASSIUM 4.0 mmol/L 3.5-5.0 CHLORIDE 102 mmol/L 100-110 CO2 25 meq/L 20-30 CREATININE, Serum 1.11 mg/dL 0.50-1.40 eGFR(CKD-EPI 2020) 68 mL/min >60 Apr 25, 2024 11:35 AM [facility] CBC BLOOD Specimen Type: BLOOD No comment entered. Ordering Provider: MAGGIE CRYSTAL Report Released Date/Time: Aug 30, 2023 11:45 AM Reporting Lab: [address] [address] Performing Lab: [address] [address] WBC 5.25 10*3/uL 4.50-11.00 RBC 4.48 10*6/uL 4.23-5.66 HGB 14.4 g/dL 12.8-17 HCT 41.5 39.2-50.4 MCV 92.6 fL 82-99 MCHC 34.7 g/dL 30.8-35.1 PLT 184 10*3/uL 140-360 RDW-CV 12.1 12.0-16.0 MCH 32.1 pg 26.2-32.6 Apr 25, 2024 11:35 AM [facility] FERRITIN SERUM Specimen Type: SERUM No comment entered. Ordering Provider: MAGGIE CRYSTAL Report Released Date/Time: Aug 30, 2023 11:45 AM Reporting Lab: [address] [address] Performing Lab: [address] [address] FERRITIN 190 ng/mL 20-300 Apr 25, 2024 11:35 AM [facility] IRON & TIBC PANEL SERUM Specimen Type: SERUM No comment entered. Ordering Provider: MAGGIE CRYSTAL Report Released Date/Time: Aug 30, 2023 11:45 AM Reporting Lab: [address] [address] Performing Lab: [address] [address] TIBC 306 ug/dL 204-475 IRON 72 ug/dL 40-160 Transferrin Saturation 23.5 20.0-50.0 Transferrin (TRF) 232 mg/dL 200-360 Apr 25, 2024 11:35 AM [facility] LIPID PANEL, NON FASTING SERUM Specimen Type: SERUM No comment entered. Ordering Provider: MAGGIE CRYSTAL Report Released Date/Time: Aug 30, 2023 11:45 AM Reporting Lab: [address] [address] Performing Lab: [address] [address] CHOLESTEROL 139 mg/dL TRIGLYCERIDE 99 mg/dL 0-150 LDL calculated 78 mg/dL 0-129 CHOL/HDL 3.4 HDL CHOLESTEROL 41 mg/dL 40-60 Apr 11, 2024 09:59 AM [facility] DRUGS OF ABUSE URINE Specimen Type: URINE [...] Apr 11, 2024 09:50 AM Reporting Lab: [address] [address] Performing Lab: [address] [address] AMPHETAMINES SCREEN NONE-DETECTED None-D etected, Cutoff = [...] mg/dL >20 SP.GRAVITY, SAGAR 1.023 H 1.003-1.020 Mar 14, 2024 11:32 AM [facility] DRUGS OF ABUSE URINE Specimen Type: URINE [...] Provider: DAILY TURNER MD Report Released Date/Time: Mar 14, 2024 11:20 AM Reporting Lab: [address] [address] Performing Lab: [address] [address] AMPHETAMINES SCREEN NONE-DETECTED None-D etected, Cutoff = [...] tive: Cutoff = 1.00 ng/mL PH, SAGAR 5.5 [pH] 4-10 CREATININE, SAGAR 276.55 mg/dL >20 SP.GRAVITY, SAGAR 1.026 H 1.003-1.020 Social History: Smoking Status (Most current) and Tobacco Use (All prior to encounter date) This section includes the most current, and the historical, smoking and tobacco- related health factors from the [place] facility where the Encounter took place. Current Smoking Status This section includes the most current smoking, or tobacco-related health factor, from the [place] facility where the Encounter took place. Date/Time Current Smoking Status Comment Facil ity May 26, 2023 08:30 AM VA-TOBACCO NEVER USED [place] [facility] [place] [facility] Tobacco Use History This section includes a history of the smoking, or tobacco-related health factors, that were collected on or before the date of the Encounter. The data comes from the [place] facility where the Encounter took place. Date/Time Smoking Status/Tobacco Use Comment F acility 2022 09:30 AM VA-TOBACCO NEVER USED [facility] [place] [facility] May 18, 2021 10:30 AM VA-TOBACCO NEVER USED [facility] [place] [facility] Jun 02, 2020 11:00 AM VA-TOBACCO NEVER USED [facility] [place] [facility] May 01, 2019 10:56 AM VA-TOBACCO NEVER USED [facility] [place] [facility] Jan 02, 2018 11:55 AM VA-TOBACCO NEVER USED [facility] [place] [facility] Jul 05, 2017 10:01 AM LIFETIME NON-TOBACCO USER [facility] [place] [facility] Jun 24, 2016 11:53 AM LIFETIME NON-TOBACCO USER [facility] [place] [facility] Jul 10, 2015 10:23 AM LIFETIME NON-TOBACCO USER [facility] [place] [facility] Jun 03, 2005 10:00 AM LIFETIME NON-SMOKER [facility] [place] [facility] Advance Directives: All historical and current Section Date Range: From patient's date of to the date document was created. This section includes ALL of a patient's completed or amended [place] Advance and Rescinded Directives. The entries below indicate that a directive exists for the patient, but an actual copy is not included with this document. The data comes from all [place] facilities. Date Advance Directives Provider Source May 10, 2018 ADVANCE DIRECTIVE LEONARD TORRES [facility] Mar 24, 2018 ADVANCE DIRECTIVE DAO ESTEBAN [facility] Encounter Notes: All associated encounter notes This section contains the clinical notes associated to the Encounter. Date/Time Encounter Note(s) Provider Source Apr 11, 2024 01:02 PM LETTERS: LOCAL TITLE: MENTAL HEALTH DIAGNOSTIC RESULTS LETTER STANDARD TITLE: LETTERS DATE OF NOTE: APR 11, 2024@13:02 ENTRY DATE: APR 11, 2024@13:03:16 AUTHOR: DAILY TURNER EXP COSIGNER: URGENCY: STATUS: COMPLETED ANUJ AYERS [address] [place] [id number] APR 11, 2024 Dear Sherri AYERS, Here are the Lab Results I have received from the last Urine Drug screen done on 04/11/24 so you can have a copy of them for your records: LAB CHEMISTRY & HEMATOLOGY Collection DT Specimen Test Name Result Units Ref Range 04/11/2024 09:59 URINE !! AMPHET NONE-DETECTED Ref: None- Detected, Cutoff = 1000 ng/mL !! OXYCODONE SCREEN NONE-DETECTED Ref: None- Detected, Cutoff = 100 ng/mL !! ETOH UR NONE-DETECTED mg/dL Ref: NONE- DETECTED, cutoff = 10 mg/dL !! FENTANYL SCREEN NONE-DETECTED ng/mL Ref: Negative: Cutoff = 1.00 ng/mL !! PH, SAGAR 5.4 pH 4 - 10 !! CREATININE, SAGAR 311.73 mg/dL Ref: >=20 !! SP.GRAVITY, SAGAR 1.023 H g/mL 1.003 - 1.020 !! BenzoSc NONE-DETECTED Ref: None- Detected, Cutoff = 200 ng/mL !! COCAINE SCREEN NONE-DETECTED Ref: None- Detected,Cutoff = 300 ng/mL !! OPIATES SCREEN NONE-DETECTED Ref: None- Detected, Cutoff = 300 ng/mL !! CanaSc NONE-DETECTED Ref: None- Detected,Cutoff = 50 ng/mL !! BarbSc NONE-DETECTED Ref: None- Detected,Cutoff = 200 ng/mL !! BupreUr NONE-DETECTED Ref: None Detected, Cutoff = 10.0 ng/mL --- Sincerely, Daily Turner Jr., MD [facility] DAILY TURNER MD [facility] Apr 11, 2024 09:51 AM ACCOUNTING OF DISCLOSURES NOTE: LOCAL TITLE: STATE PRESCRIPTION DRUG MONITORING PROGRAM STANDARD TITLE: ACCOUNTING OF DISCLOSURES NOTE DATE OF NOTE: APR 11, 2024@09:51:30 ENTRY DATE: APR 11, 2024@09:51:30 AUTHOR: DAILY TURNER EXP COSIGNER: URGENCY: STATUS: COMPLETED This PDMP query was submitted by Daily Turner MD, MD. The clinical justification for this PDMP query is to review controlled substances prescribed outside of the [place], and any additional information that may become available, as an important component of standard clinical care, and in accordance with [facility] policy. Patient information was shared with the PDMP [place]. Prescription(s) filled outside the [place] in the last 90 days are noted. However, they do not raise significant safety concerns and do not influence the treatment plan at this time. Gabapentin 300 Mg Capsule /es/ DAILY TURNER JR, MD STAFF PSYCHIATRIST Signed: 04/11/2024 09:54 DAILY TURNER MD [facility] Apr 10, 2024 11:51 AM PSYCHIATRY NOTE: LOCAL TITLE: PSYCHIATRY/FOLLOW-UP NOTE STANDARD TITLE: PSYCHIATRY NOTE DATE OF NOTE: APR 10, 2024@11:51 ENTRY DATE: APR 10, 2024@11:51:08 AUTHOR: DAILY TURNER EXP COSIGNER: URGENCY: STATUS: [...] Two identifiers were used. CC: I'm doing good a lot of things going on and Dr. Merritt with Sleep Medicine @ [facility] started on Zonisamide to stop the shaking in my hands and I think it's working. Hector sees a neurologist at this [place]. No alcohol or substance use, no . No complaints and no adverse side effects from current medications were reported, no. is, she's doing good, in a lot of pain still she's going to be on an infusion. Hector takes gabapentin 300mg from outside neurologist for seizures and [facility]mg [facility] and would like to continue with this. No seizures reported since last visit, no . Mood is, it's been good, better than it was last time and PTSD symptoms are, better. Sleep is, been good and appetite's been good. Hector is on methylphenidate for attention and concentration is, ok on current dose. Hector no longer forgets to take the afternoon dose. Hector no longer has an outside therapist and is still waiting to get a therapist here. Discussed continuation of present medications as above. Patient education given including not taking anyone else's medications or giving his medications to anyone else and to secure and protect his medication from theft and children. Hector is agreeable. MSE: ANUJ AYERS JR is an obese, 78 yo, male who is casually dressed wearing jeans, a t-shirt, a cap, and glasses. He has good personal [...] Plan: Continue present medications as above. Encouraged deet to take medications as prescribed. RTC monthly for medication management. Merritt has the number for the [facility] including the 988. [employer] UDS. Vet informed that I will be retiring. /henok/ DAILY TURNER JR, MD STAFF PSYCHIATRIST Signed: 04/11/2024 09:54 DAILY TURNER MD [place] [facility]
--- OUTSIDE RECORDS SUMMARY | 2024-10-02 13:18 | XMS_ITS ---
Author Name [facility] [place] [facility] [place] Address [address] [place] [address] Care Team Providers Care It Lead Name Role Phone VINNIE BLACKWELL Primary Care [...] SELF + ONE Sep 19, 2015 106 [id number] [phone] DAVID FrederickANUJ PATIENT ANTHEM BCBS CT FEDERAL PREFERRED PROVIDER ORGANIZAT ION (PPO) [place] FAMIL Y Dec 24, 2009 105 [id number] [phone] DAVID FrederickANUJ PATIENT BCBS [place] FEP PREFERRED PROVIDER ORGANIZAT ION (PPO) [place] SELF PLUS 1 Sep 19, 2015 106 [id number] EDLIIAFRANCE FrederickANUJ PATIENT [place] PREFERRED PROVIDER ORGANIZAT ION (PPO) [place] SELF+ ONE Sep 19, 2015 106 [id number] [phone] DAVID YaredANUJ PATIENT [place] PREFERRED PROVIDER ORGANIZAT ION (PPO) [place] FAMIL Y Dec 24, 2009 105 [id number] [phone] ANUJ RAMIREZ PATIENT [place] DENTAL DENTAL INSURANCE [place] Sep 19, 2015 DENTAL [id number] ANUJ RAMIREZ PATIENT CAR[place] FEP BCBS PRESCRIPT ION CAREM ARK FEPRX PLAN Sep 24, 2010 [id number] ANUJ RAMIREZ PATIENT [place] FEPRX PLAN PRESCRIPT ION BCBS FEP Jun 20, 2001 [id number] ANUJ RAMIREZ PATIENT [place] FEPRX PLAN PRESCRIPT ION CAREM ARK FEPRX Jun 20, 2001 [id number] ANUJ RAMIREZ PATIENT CAREMARK-F EP BCBS PRESCRIPT ION FEP CAREM ARK Jun 20, 2010 [id number] [phone] ANUJ RAMIREZ PATIENT MEDICARE (WNR) MEDICARE () PART A Jul 21, 2011 PART A [id number] ANUJ RAMIREZ PATIENT MEDICARE (WN) MEDICARE () PART B Jul 21, 2011 PART B [id number] ANUJ RAMIREZ PATIENT MEDICARE (WN) MEDICARE () PART A Apr 20, 2011 PART A [id number] ANUJ RAMIREZ JR PATIENT MEDICARE (WN) MEDICARE () PART B Apr 20, 2011 PART B [id number] ANUJ RAMIREZ JR PATIENT MEDICARE (WN) MEDICARE () PART A Apr 20, 2011 PART A [id number] [phone] ANUJ RAMIREZ PATIENT MEDICARE (WN) MEDICARE () PART B Apr 20, 2011 PART B [id number] ANUJ RAMIREZ PATIENT MEDICARE (WN) MEDICARE () PART A Apr 20, 2011 PART A [id number] ANUJ RAMIREZ PATIENT MEDICARE (WNR) MEDICARE (M) PART B Apr 20, 2011 PART B [id number] ANUJ RAMIREZ PATIENT Selected Encounter This section includes the information on record at [place] for the Encounter. Date/Time Encounter Type Encounter Description Reason Provider Source Mar 26, 2024 10:00 AM COMPRE OPH EXAM EST PT 1/> OPTOMETRY ICD-10-CM H25.813 Combined forms of age-related cataract, bilateral MERHAR,KAYLIN B IHE Encounter Template Text not used by [place] Assessments - Encounter Diagnoses This section includes the primary and secondary diagnoses documented for the Encounter. Date/Time Primary/Secondary Diagnosis Diagnosis Name Provider Source Apr 07, 2024 06:09 AM PRIMARY Combined forms of age-related cataract, bilateral MERHAR,KAYLIN B [place] [facility] [place] [facility] Apr 07, 2024 06:09 AM SECONDARY Dry eye syndrome of bilateral lacrimal glands MERHAR,KAYLIN B [place] [facility] [place] [facility] Apr 07, 2024 06:09 AM SECONDARY Hypermetropia, bilateral MERHAR,KAYLIN B [place] [facility] [place] [facility] Plan of Treatment: Future Appointments (+ [...] Date/Time Appointment Type Appointme nt Facility Name Apr 10, 2024 10:00 AM AMBULATORY - MEDICINE [place] [facility] [place] [facility] Apr 11, 2024 09:30 AM AMBULATORY - PS[place]CHIATRY [place] [facility] [place] [facility] May 01, 2024 10:30 AM AMBULATORY [place]ICINE [place] [facility] [place] [facility] May 02, 2024 08:30 AM AMBULATORY - PS[place]IATRY [place] [facility] [place] [facility] Jun 05, 2024 10:30 AM AMBULATORY - PS[place]IATRY [place] [facility] [place] [facility] Jun 26, 2024 03:30 PM AMBUL[facility]ORY [facility] [place] [facility] Jul 11, 2024 11:00 AM AM[facility] [place] [facility] Jul 19, 2024 11:00 AM [facility] [place] [facility] Jul 24, 2024 10:00 AM AMBULATORY - [facility]IATRY [facility] [place] [facility] Sep 10, 2024 10:30 AM AM[facility]UL[facility]ICINE [facility] [place] [facility] Sep 11, 2024 09:30 AM AMBUL[facility]ORY - [facility]ATRY [facility] [place] [facility] Sep 17, 2024 09:45 AM AMBULATORY - NONE [facility] [place] [facility] Lab Results: +/- 30 days of the [...] Type Comment Apr 25, 2024 11:35 AM [facility] [place] [facility] MICROALBUMIN CREATININE RATIO PANEL URINE Spe cimen Type: URINE No comment entered. Ordering Provider: GUI CRYSTAL Report Released Date/Time: Aug 30, 2023 11:45 AM Reporting Lab: [place] [facility] [place] [facility] [address] [facility] [address] Performing Lab: [place] [facility] [place] [facility] [address] [facility] [address] MICROALBUMIN/CREATININE RATIO 25.6 mg/g 0-29.9 MICROALBUMIN,QUANTITATIVE 3.8 mg/dL RR U NAVAIL CREATININE URINE 148.64 mg/dL Apr 25, 2024 11:35 AM [facility] [place] [facility] FERRITIN SERUM Specimen Type: SERUM No comment entered. Ordering Provider: MAGGIE CRYSTAL Report Released Date/Time: Aug 30, 2023 11:45 AM Reporting Lab: [place] [facility] [place] [facility] [address] [facility] [address] Performing Lab: [place] [facility] [place] [facility] [address] [facility] [address] FERRITIN 190 ng/mL 20-300 Apr 25, 2024 11:35 AM [facility] BASIC METABOLIC PANEL (non-fasting) SERUM Spe cimen Type: SERUM No comment entered. Ordering Provider: MAGGIE CRYSTAL Report Released Date/Time: Aug 30, 2023 11:45 AM Reporting Lab: [address] [address] Performing Lab: [address] [address] UREA NITROGEN 22 mg/dL 7-25 GLUCOSE 100 mg/dL 65-100 SODIUM 138 mmol/L 135-145 POTASSIUM 4.0 mmol/L 3.5-5.0 CHLORIDE 102 mmol/L 100-110 CO2 25 meq/L 20-30 CREATININE, Serum 1.11 mg/dL 0.50-1.40 eGFR(CKD-EPI 2020) 68 mL/min >60 Apr 25, 2024 11:35 AM [facility] CBC BLOOD Specimen Type: BLOOD No comment entered. Ordering Provider: MAGGIE CRYSTAL Report Released Date/Time: Aug 30, 2023 11:45 AM Reporting Lab: [address] [address] Performing Lab: [place] [phone] WBC 5.25 10*3/uL 4.50-11.00 RBC 4.48 10*6/uL 4.23-5.66 HGB 14.4 g/dL 12.8-17 HCT 41.5 39.2-50.4 MCV 92.6 fL 82-99 MCHC 34.7 g/dL 30.8-35.1 PLT 184 10*3/uL 140-360 RDW-CV 12.1 12.0-16.0 MCH 32.1 pg 26.2-32.6 Apr 25, 2024 11:35 AM [facility] IRON & TIBC PANEL SERUM Specimen Type: SERUM No comment entered. Ordering Provider: MAGGIE CRYSTAL Report Released Date/Time: Aug 30, 2023 11:45 AM Reporting Lab: [facility] [address] [facility] [address] Performing Lab: [address] [address] TIBC 306 ug/dL 204-475 IRON 72 ug/dL 40-160 Transferrin Saturation 23.5 20.0-50.0 Transferrin (TRF) 232 mg/dL 200-360 Apr 25, 2024 11:35 AM [facility] LIPID PANEL, NON FASTING SERUM Specimen Type: SERUM No comment entered. Ordering Provider: MAGGIE CRYSTAL Report Released Date/Time: Aug 30, 2023 11:45 AM Reporting Lab: [address] [address] Performing Lab: [address] [address] CHOLESTEROL 139 mg/dL TRIGLYCERIDE 99 mg/dL 0-150 LDL calculated 78 mg/dL 0-129 CHOL/HDL 3.4 HDL CHOLESTEROL 41 mg/dL 40-60 Apr 11, 2024 09:59 AM [facility] DRUGS OF ABUSE URINE Specimen Type: [...] 11, 2024 09:50 AM Reporting Lab: [address] [address] Performing Lab: [address] [address] AMPHETAMINES SCREEN NONE-DETECTED None-D etected, Cutoff = [...] H 1.003-1.020 Mar 14, 2024 11:32 AM [facility] DRUGS OF ABUSE URINE Specimen Type: [...] Provider: DAILY BENSON MD Report Released Date/Time: Mar 14, 2024 11:20 AM Reporting Lab: [address] [address] Performing Lab: [address] [address] AMPHETAMINES SCREEN NONE-DETECTED None-D etected, Cutoff = [...] mg/dL >20 SP.GRAVITY, SAGAR 1.026 H 1.003-1.020 Mar 12, 2024 11:34 AM [facility] HEPATITIS A ANTIBODY (IgM) SERUM Specimen Typ e: SERUM Comment: A Reactive result ( Positive prior to 04/02/13) indicates recent infection with Hepatitis A virus. Hepatitis A IgM antibodies may persist for 3-6 months after acute Hepatitis A infection. Ordering Provider: VINNIE BLACKWELL Report Released Date/Time: Feb 21, 2024 02:52 PM Reporting Lab: [address] [address] Performing Lab: [address] [address] HEPATITIS A ANTIBODY (IgM) Non Reactive Non Reactive Mar 12, 2024 11:34 AM [facility] LIPID PANEL, NON FASTING SERUM Specimen Type: SERUM No comment entered. Ordering Provider: VINNIE BLACKWELL Report Released Date/Time: Feb 21, 2024 02:50 PM Reporting Lab: [address] [address] Performing Lab: [address] [address] CHOLESTEROL 161 mg/dL TRIGLYCERIDE 161 mg/dL H 0-150 LDL calculated 87 mg/dL 0-129 CHOL/HDL 3.8 HDL CHOLESTEROL 42 mg/dL 40-60 Mar 12, 2024 11:34 AM [facility] BASIC METABOLIC PANEL (non-fasting) SERUM Spe cimen Type: SERUM No comment entered. Ordering Provider: VINNIE BLACKWELL Report Released Date/Time: Feb 21, 2024 02:50 PM Reporting Lab: [address] [address] Performing Lab: [facility] [place] [facility] [address] [facility] [address] UREA NITROGEN 19 mg/dL 7-25 GLUCOSE 98 mg/dL 65-100 SODIUM 138 mmol/L 135-145 POTASSIUM 4.0 mmol/L 3.5-5.0 CHLORIDE 101 mmol/L 100-110 CO2 29 meq/L 20-30 CREATININE, Serum 1.01 mg/dL 0.50-1.40 eGFR(CKD-EPI 2020) 76 mL/min >60 Social History: Smoking Status (Most [...] 26, 2023 08:30 AM VA-TOBACCO NEVER USED [place] [facility] [place] [facility] Tobacco Use History This section includes a history of the smoking, or tobacco-related health factors, that were collected on or before the date of the Encounter. The data comes from the [place] facility where the Encounter took place. Date/Time Smoking Status/Tobacco Use Comment F acility 2022 09:30 AM VA-TOBACCO NEVER USED [facility] [place] [facility] May 18, 2021 10:30 AM VA-TOBACCO NEVER USED [facility] [place] [facility] Jun 02, 2020 11:00 AM VA-TOBACCO NEVER USED [facility] [place] [facility] May 01, 2019 10:56 AM VA-TOBACCO NEVER USED [facility] [place] [facility] Jan 02, 2018 11:55 AM VA-TOBACCO NEVER USED [facility] [place] [facility] Jul 05, 2017 10:01 AM LIFETIME NON-TOBACCO USER [facility] [place] [facility] Jun 24, 2016 11:53 AM LIFETIME NON-TOBACCO USER [facility] [place] [facility] Jul 10, 2015 10:23 AM LIFETIME NON-TOBACCO USER [facility] [place] [facility] Jun 03, 2005 10:00 AM LIFETIME NON-SMOKER [facility] [place] [facility] Advance Directives: All historical and current Section [...] May 10, 2018 ADVANCE DIRECTIVE LEONARD TORRES [facility] Mar 24, 2018 ADVANCE DIRECTIVE DAO ESTEBAN [facility] Encounter Notes: All associated encounter notes This section contains the clinical notes associated to the Encounter. Date/Time Encounter Note(s) Provider Source Mar 26, 2024 10:13 AM OPTOMETRY NOTE: LOCAL TITLE: OPTOMETRY NOTE STANDARD TITLE: OPTOMETRY NOTE DATE OF NOTE: MAR 26, 2024@10:13 ENTRY DATE: MAR 26, 2024@10:13:24 AUTHOR: KAYLIN HOYOS EXP COSIGNER: URGENCY: STATUS: COMPLETED 78 WHITE MALE NOT OR Last eye exam: Reason for Visit/CC: patient here for a comprehensive eye exam. No complaints, uses Restasis, artificial tears and gel drops for dry eyes which is working well OHx: cataracts OU dry eye OU, h/o trichiasis OU refractive error (-) Pain: (-) GREGG: (-) Diplopia: (-) Flashes: (-) Floaters: (-) Amaurosis Fugax/Tia's: (-) Eye Injury: (-) Eye Surgery: (-) TBI (-) FOHx: MHx: Code Description Z77.29 Exposure to potentially hazardous substance ([facility] [id number]) F90.9 Adult attention deficit disorder ([facility] [id number]) F32.A Recurrent depression ([facility] [id number]) R73.01 Prediabetes ([facility] [id number]) I10. Essential hypertension ([facility] [id number]) E66.8 Obesity ([facility] [id number]) F39. 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 ([facility] [id number]) F43.12 Chronic post-traumatic stress disorder ([facility] [id number]) Other: SYSTEMIC MEDICATIONS/OCULAR MEDICATIONS: Active and Recently Outpatient Medications (excluding Supplies): Active Outpatient Medications Status 1) CARBOXYMETHYLCELLULOSE NA 0.5% OPH SOLN INSTILL 1 ACTIVE DROP INTO EACH EYE FOUR TIMES DAILY NEEDED FOR DRY EYE 2) CARBOXYMETHYLCELLULOSE NA 1% OPH GEL APPLY 1 DROP ACTIVE INTO EACH EYE AT BEDTIME FOR DRY EYE 3) CYCLOSPORINE 0.05% (PF) OPH EMUL 0.4ML INSTILL 1 DROP ACTIVE INTO EACH EYE TWICE DAILY FOR DRY EYE 4) ESCITALOPRAM OXALATE 20MG TAB TAKE ONE AND ONE-HALF ACTIVE TABLETS BY MOUTH AT BEDTIME 5) GABAPENTIN 100MG CAP TAKE ONE CAPSULE BY MOUTH TWICE ACTIVE DAILY NEEDED DURING THE DAYTIME (MORNING AND AFTERNOON) IF NEEDED FOR ANXIETY (OFF LABEL)-CAUTION--MAY CAUSE SEDATION. 6) HYDROCHLOROTHIAZIDE 25MG TAB TAKE ONE TABLET BY MOUTH ACTIVE ONCE DAILY TO PREVENT FLUID/CONTROL BLOOD PRESSURE 7) LAMOTRIGINE 150MG TAB TAKE ONE TABLET BY MOUTH TWICE ACTIVE (S) DAILY MOOD 8) LOSARTAN 100MG TAB TAKE ONE TABLET BY MOUTH ONCE ACTIVE DAILY FOR BLOOD PRESSURE/HEART 9) METHYLPHENIDATE HCL 10MG TAB TAKE ONE TABLET BY MOUTH ACTIVE ONCE DAILY AND TAKE ONE TABLET EVERY EVENING NEEDED FOR ATTENTION/CONCENTRATION 10) SODIUM FLUORIDE 1.1% TOOTHPASTE BRUSH SMALL AMOUNT TO ACTIVE TEETH TWICE DAILY FOR TOOTH DECAY PREVENTION Inactive Outpatient Medications Status 1) METHYLPHENIDATE HCL 10MG TAB TAKE ONE TABLET BY MOUTH ONCE DAILY AND TAKE ONE TABLET EVERY EVENING NEEDED NEXT FILL 03/07 Active Non-VA Medications Status 1) Non-VA GABAPENTIN 300MG CAP 300MG BY MOUTH ONCE DAILY ACTIVE 2) Non-VA SIMVASTATIN 80MG TAB 40MG BY MOUTH ONCE DAILY ACTIVE 13 Total Medications ALLERGIES: LISINOPRIL LAST BP: 136/76 (03/12/2024 10:30) PERTINENT LABS: HEMOGLOBIN A1C; BLOOD Darcie. Date: 03/01/23 14:06 09/02/22 10:26 Test Name Result Units Range HEMOGLOBIN A1C 5.6 5.6 % 4.0 - 5.6 +++++++++++++++++++++++++++++++ +++++++++++++++++++++++++++++++ +++++++++++++++++ Patient history, visual acuity, entrance testing, refraction and tonometry all performed now by proof technician and reviewed by attending provider. Dilation drops instilled by proof technician after angle assessment and dilation warning given with verbal consent obtained. +++++++++++++++++++++++++++++++ +++++++++++++++++++++++++++++++ +++++++++++++++++ Final Rx: no change OD: +2.75 -1.50 x110 OS: +2.25 -1.25 x080 Add: +2.75 SLE: Lids/Lashes: dermatochalasis OU, mild MGD OU Conjunctiva: conjunctivochalasis OU Corneas: clear OU Iris: flat and clear OU Anterior Chamber: deep and quiet OU Angles: open OU Lens: 1-2+ NS OU, 2+ ACC OU moderate vacuoles DFE: Vitreous: Syneresis OU C/D (Size and Rim Description) OD 0.30 pink & healthy OS 0.30 pink & healthy Macula OD flat and clear OS flat and clear A/V: normal caliber OU Posterior Pole: clear OU Periphery: Flat and intact (-)holes, tears, detachments 360 OU Assessment/Plan: 1. Combined cataracts OU, not visually significant. Monitor 2. dry eye OU - continue Restasis BID OU, artificial tears prn and gel drops prn 3. hyperopia OU, regular astigmatism OU, presbyopia OU - happy with current glasses RTC 1 year or earlier PRN patient offered and declined printed medication list Medication Reconciliation: Outpatient: Has the patient been taking medications as documented in the EMLR? YES: The patient has been taking medications as documented in the EMLR. Essential Medication List for Review used to complete this medication reconciliation. INCLUDED IN THIS LIST: Alphabetical list of active outpatient prescriptions dispensed from this [facility] (local) and dispensed from another [place] or [facility] facility (remote) as well as [...] whether with a VA or non-VA provider. JLV Link Data on this list may not be complete. Please check JLV. Allergies/ADRs (Tool #5) FACILITY ALLERGY/ADR -------- No Remote Allergy/ADR Data available for this patient [facility] Med Recon [facility] (Tool #1) INCLUDED IN THIS LIST: Alphabetical list of active outpatient prescriptions dispensed from this [facility] (local) and dispensed from another [place] or [facility] facility (remote) as well as inpatient orders (local pending and active), local clinic medications, locally documented non-VA medications, and local prescriptions that have or been discontinued in the past 90 days. Non-VA Meds Last Documented On: Apr 05, 2023 NOTE The display of VA prescriptions dispensed from another [place] or [facility] facility (remote) is limited to active outpatient prescription entries matched to National Drug File at the originating site and may not include some items such as investigational drugs, compounds, etc. NOT INCLUDED IN THIS LIST: Medications self-entered by the patient into personal health records (i.e. [employer]) are NOT included in this list. Non-VA medications documented outside this [place], remote inpatient orders (regardless of status) and remote clinic medications are NOT included in this list. The patient and provider must always discuss medications the patient is taking, regardless of where the medication was dispensed or obtained. OUTPT CARBOXYMETHYLCELLULOSE NA 0.5% OPH SOLN (Status = Active) INSTILL 1 DROP INTO EACH EYE FOUR TIMES DAILY NEEDED FOR DRY EYE Rx# [id number] Last Released: 03/03/24 Qty/Days Supply: Rx Expiration Date: 09/05/24 Refills Remainin Indication: FOR DRY EYE OUTPT CARBOXYMETHYLCELLULOSE NA 1% OPH GEL (Status = Active) APPLY 1 DROP INTO EACH EYE AT BEDTIME FOR DRY EYE Rx# [id number] Last Released: 03/03/24 Qty/Days Supply: Rx Expiration Date: 09/05/24 Refills Remainin Indication: FOR DRY EYE OUTPT CYCLOSPORINE 0.05% (PF) OPH EMUL 0.4ML (Status = Active) INSTILL 1 DROP INTO EACH EYE TWICE DAILY FOR DRY EYE Rx# [id number] Last Released: 03/03/24 Qty/Days Supply: Rx Expiration Date: 09/05/24 Refills Remainin Indication: FOR DRY EYE OUTPT ESCITALOPRAM OXALATE 20MG TAB (Status = Discontinued) TAKE ONE AND ONE-HALF TABLETS BY MOUTH AT BEDTIME FOR MOOD/DEPRESSION Rx# [id number] Last Released: 12/12/23 Qty/Days Supply: 45 Rx Expiration Date: 12/02/24 Refills Remainin Indication: DEPRESSION/ ANXIETY OUTPT ESCITALOPRAM OXALATE 20MG TAB (Status = Discontinued) TAKE ONE AND ONE-HALF TABLETS BY MOUTH AT BEDTIME Rx# [id number] Last Released: 02/09/24 Qty/Days Supply: 45 Rx Expiration Date: 01/09/25 Refills Remainin Indication: DEPRESSION/ ANXIETY OUTPT ESCITALOPRAM OXALATE 20MG TAB (Status = Active) TAKE ONE AND ONE-HALF TABLETS BY MOUTH AT BEDTIME Rx# [id number] Last Released: 03/15/24 Qty/Days Supply: 45 Rx Expiration Date: 03/15/25 Refills Remainin Indication: DEPRESSION/ ANXIETY OUTPT GABAPENTIN 100MG CAP (Status = Discontinued) TAKE ONE CAPSULE BY MOUTH TWICE DAILY NEEDED DURING THE DAYTIME (MORNING AND AFTERNOON) IF NEEDED FOR ANXIETY (OFF LABEL)-CAUTION--MAY CAUSE SEDATION. Rx# [id number] Last Released: 02/09/24 Qty/Days Supply: 6030 Rx Expiration Date: 12/02/24 Refills Remainin Indication: OFF LABEL ANXIETY OUTPT GABAPENTIN 100MG CAP (Status = Active) TAKE ONE CAPSULE BY MOUTH TWICE DAILY NEEDED DURING THE DAYTIME (MORNING AND AFTERNOON) IF NEEDED FOR ANXIETY (OFF LABEL)-CAUTION--MAY CAUSE SEDATION. Rx# [id number] Last Released: 03/15/24 Qty/Days Supply: 6030 Rx Expiration Date: 03/15/25 Refills Remainin Indication: OFF LABEL ANXIETY Non-VA GABAPENTIN 300MG CAP TAKE 1 CAPSULE BY MOUTH ONCE DAILY Indication: FOR NERVE PAIN OUTPT HYDROCHLOROTHIAZIDE 25MG TAB (Status = Discontinued) TAKE ONE TABLET BY MOUTH ONCE DAILY TO PREVENT FLUID/CONTROL BLOOD PRESSURE Rx# [id number] Last Released: 11/10/23 Qty/Days Supply: 90/90 Rx Expiration Date: 02/18/24 Refills Remainin OUTPT HYDROCHLOROTHIAZIDE 25MG TAB (Status = Active) TAKE ONE TABLET BY MOUTH ONCE DAILY TO PREVENT FLUID/CONTROL BLOOD PRESSURE Rx# [id number] Last Released: 02/24/24 Qty/Days Supply: Rx Expiration Date: 02/22/25 Refills Remainin OUTPT IBUPROFEN 600MG TAB (Status = ) TAKE ONE TABLET BY MOUTH THREE TIMES A DAY TAKE WITH FOOD; FOR PAIN/INFLAMMATION/SWELLING DO NOT TAKE ANY OTHER IBUPROFEN CONTAINING MEDICATIONS WHILE USING THIS MEDICATION. Rx# [id number] Last Released: 12/15/23 Qty/Days Supply: Rx Expiration Date: 01/27/24 Refills Remainin OUTPT LAMOTRIGINE 150MG TAB (Status = Discontinued) TAKE ONE TABLET BY MOUTH TWICE DAILY MOOD Rx# [id number] Last Released: 02/14/24 Qty/Days Supply: Rx Expiration Date: 12/02/24 Refills Remainin Indication: MOOD OUTPT LAMOTRIGINE 150MG TAB (Status = Active/Suspended) TAKE ONE TABLET BY MOUTH TWICE DAILY MOOD Rx# [id number] Last Released: Qty/Days Supply: Rx Expiration Date: 03/15/25 Refills Remainin Indication: MOOD OUTPT LOSARTAN 100MG TAB (Status = Active) TAKE ONE TABLET BY MOUTH ONCE DAILY FOR BLOOD PRESSURE/HEART Rx# [id number] Last Released: 01/25/24 Qty/Days Supply: Rx Expiration Date: 07/18/24 Refills Remainin OUTPT METHYLPHENIDATE HCL 10MG TAB (Status = ) TAKE ONE TABLET BY MOUTH ONCE DAILY AND TAKE ONE TABLET EVERY EVENING NEEDED NEXT FILL 01/08 Rx# [id number] Last Released: 12/05/23 Qty/Days Supply: 60 Rx Expiration Date: 01/01/24 Refills Remainin Indication: ATTENTION/ CONCENTRATION OUTPT METHYLPHENIDATE HCL 10MG TAB (Status = Discontinued) TAKE ONE TABLET BY MOUTH ONCE DAILY AND TAKE ONE TABLET EVERY EVENING NEEDED (NEXT FILL 02/07/24) Rx# [id number] Last Released: 01/10/24 Qty/Days Supply: 6030 Rx Expiration Date: 02/08/24 Refills Remainin Indication: ATTENTION/ CONCENTRATION OUTPT METHYLPHENIDATE HCL 10MG TAB (Status = ) TAKE ONE TABLET BY MOUTH ONCE DAILY AND TAKE ONE TABLET EVERY EVENING NEEDED NEXT FILL 03/07 Rx# [id number] Last Released: 02/08/24 Qty/Days Supply: Rx Expiration Date: 03/09/24 Refills Remainin Indication: ATTENTION/ CONCENTRATION OUTPT METHYLPHENIDATE HCL 10MG TAB (Status = Active) TAKE ONE TABLET BY MOUTH ONCE DAILY AND TAKE ONE TABLET EVERY EVENING NEEDED FOR ATTENTION/CONCENTRATION Rx# [id number] Last Released: 03/14/24 Qty/Days Supply: 60 Rx Expiration Date: 04/13/24 Refills Remainin Indication: ATTENTION/ CONCENTRATION Non-VA SIMVASTATIN 80MG TAB TAKE ONE-HALF TABLET BY MOUTH ONCE DAILY Indication: FOR HIGH CHOLESTEROL OUTPT SODIUM FLUORIDE 1.1% TOOTHPASTE (Status = Active) BRUSH SMALL AMOUNT TO TEETH TWICE DAILY FOR TOOTH DECAY PREVENTION Rx# [id number] Last Released: 10/27/23 Qty/Days Supply: Rx Expiration Date: 05/31/24 Refills Remainin Indication: FOR TOOTH DECAY PREVENTION SUPPLIES /henok/ KAYLIN HOYOS [employer] Signed: 03/27/2024 14:42 KAYLIN HOYOS [facility] [place] [facility] Mar 26, 2024 09:29 AM OPTOMETRY NOTE: LOCAL TITLE: OPTOMETRY NOTE STANDARD TITLE: OPTOMETRY NOTE DATE OF NOTE: MAR 26, 2024@09:29 ENTRY DATE: MAR 26, 2024@09:29:03 AUTHOR: DANIKA CUEVA [facility] EXP COSIGNER: URGENCY: STATUS: COMPLETED Active problems - Computerized Problem List is the source for the followin. Exposure to potentially hazardous substance ([facility] [id number]) 2. Adult attention deficit disorder 3. Recurrent depression 4. Prediabetes 5. Essential hypertension 6. Obesity 7. Seasonal affective disorder 8. Metabolic syndrome X 9. Obstructive sleep apnea of adult (SNOMED CT 9168234808657) 10. Vitreous Detachment/Degeneration (Pvd) 11. Hyperlipidemia (SNOMED CT 51035711) 12. Moderate recurrent major depression 13. Chronic post-traumatic stress disorder (SNOMED CT 269605495) Active Outpatient Medications (including Supplies): Active Outpatient Medications Status 1) CARBOXYMETHYLCELLULOSE NA 0.5% OPH SOLN INSTILL 1 ACTIVE DROP INTO EACH EYE FOUR TIMES DAILY NEEDED FOR DRY EYE 2) CARBOXYMETHYLCELLULOSE NA 1% OPH GEL APPLY 1 DROP ACTIVE INTO EACH EYE AT BEDTIME FOR DRY EYE 3) CYCLOSPORINE 0.05% (PF) OPH EMUL 0.4ML INSTILL 1 DROP ACTIVE INTO EACH EYE TWICE DAILY FOR DRY EYE 4) ESCITALOPRAM OXALATE 20MG TAB TAKE ONE AND ONE-HALF ACTIVE TABLETS BY MOUTH AT BEDTIME 5) GABAPENTIN 100MG CAP TAKE ONE CAPSULE BY MOUTH TWICE ACTIVE DAILY NEEDED DURING THE DAYTIME (MORNING AND AFTERNOON) IF NEEDED FOR ANXIETY (OFF LABEL)-CAUTION--MAY CAUSE SEDATION. 6) HYDROCHLOROTHIAZIDE 25MG TAB TAKE ONE TABLET BY MOUTH ACTIVE ONCE DAILY TO PREVENT FLUID/CONTROL BLOOD PRESSURE 7) LAMOTRIGINE 150MG TAB TAKE ONE TABLET BY MOUTH TWICE ACTIVE (S) DAILY MOOD 8) LOSARTAN 100MG TAB TAKE ONE TABLET BY MOUTH ONCE ACTIVE DAILY FOR BLOOD PRESSURE/HEART 9) METHYLPHENIDATE HCL 10MG TAB TAKE ONE TABLET BY MOUTH ACTIVE ONCE DAILY AND TAKE ONE TABLET EVERY EVENING NEEDED FOR ATTENTION/CONCENTRATION 10) SODIUM FLUORIDE 1.1% TOOTHPASTE BRUSH SMALL AMOUNT TO ACTIVE TEETH TWICE DAILY FOR TOOTH DECAY PREVENTION Active Non-VA Medications Status 1) Non-VA GABAPENTIN 300MG CAP 300MG BY MOUTH ONCE DAILY ACTIVE 2) Non-VA SIMVASTATIN 80MG TAB 40MG BY MOUTH ONCE DAILY ACTIVE 12 Total Medications Allergies: LISINOPRIL All medications including those prescribed by outside VA's, community providers, and all OTC meds were reviewed and reconciled with patient to the best of their abilities. 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 No other ocular complaints today. Using Restasis, ATs, and lubricating gel for dry eyes which says works well. No refills needed today. HISTORY AND REVIEW OF SYSTEMS: OHx: 1. 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 Dry eye syndrome OU 4. Mixed catracts OU (-) Pain: (-) GREGG: (-) Diplopia: (-) Flashes: (-) Floaters: (-) Amaurosis Fugax/Tia's: (-) Eye Injury: (-) Eye Surgery: (-) TBI FOHx: (-) Glaucoma/ARMD/Blindness Social Hx: (-) Smoker/Length of Time/PPD: DIABEIC: No NEW ALLERGIES TO REPORT: No EYE MEDICATION(S): ATs BID, Restasis BID, Lubricating gel QHS CURRENT RX WITH BCVA: OD: +2.75 -1.50 x110 20/20 OS: +2.25 -1.25 x080 20/20 Add: +2.75 DVA: ( )SC ( )CC (x)Phoropter ( )CL OD: 20/20 OS: 20/20-2 NVA OU: 20/20 MANIFEST REFRACTION(MRx): OD: No change OS: No change ADD: +2.75 20/20 OU CVF: Appear FTFC OU EOMS: Appear Full OU PUPILS: Appear ERRL(-)APD INTRAOCULAR PRESSURE (IOP) METHOD: Goldmann Time: 10:07AM OD: 15 OS: 15 ANTERIOR CHAMBER (AC): Penlight or slit lamp (if available) exam appears unremarkable. Pupils are dilated. Dilation and driving precautions reviewed with patient and patient expresses understanding. Medication: 1% Tropicamide, 2.5% Phenylephrine OU Time: 10:10AM Visual Imaging Performed Today: Additional Comments: /henok/ Danika Cueva Optometry Health Nurse Administrator Signed: 03/26/2024 10:11 DANIKA CUEVA [facility]
--- OUTSIDE RECORDS SUMMARY | 2024-10-02 13:18 | XMS_ITS | Encounter Summary ---
Author Name [facility] Address [address] [place] [address] Care Team Providers Care Children Teacher Name Role Phone VINNIE BLACKWELL Primary Care [...] SELF + ONE Sep 19, [phone] [id number] [phone] ANUJ RAMIREZ PATIENT ANTHEM BCBS CT FEDERAL PREFERRED PROVIDER ORGANIZAT ION (PPO) STAND [place] FAMIL Y Dec 24, 2009 [id number] [phone] ANUJ RAMIREZ PATIENT BCBS [place] FEP PREFERRED PROVIDER ORGANIZAT ION (PPO) STAND [place] SELF PLUS 1 Sep 19, 2015 106 [id number] ANUJ RAMIREZ PATIENT [place] PREFERRED PROVIDER ORGANIZAT ION (PPO) STAND [place] SELF+ ONE Sep 19, 2015 106 [id number] [phone] DAVID YaredANUJ PATIENT [place] F[place] PREFERRED PROVIDER ORGANIZAT ION (PPO) STAND [place] FAMIL Y Dec 24, 2009 105 [id number] ANUJ RAMIREZ PATIENT [place] F[place] DENTAL DENTAL INSURANCE STAND [place] Sep 19, 2015 DENTAL [id number] [phone] ANUJ RAMIREZ PATIENT [place] FEP BCBS PRESCRIPT ION CAREM ARK FEPRX PLAN Sep 24, 2010 [id number] ANUJ RAMIREZ PATIENT [place] FEPRX PLAN PRESCRIPT ION BCBS FEP Jun 20, 2001 [id number] ANUJ RAMIREZ PATIENT [place] FEPRX PLAN PRESCRIPT ION CAR[place] ARK FEPRX Jun 20, 2001 [id number] ANUJ RAMIREZ PATIENT [place]-F EP BCBS PRESCRIPT ION FEP CAREM ARK Jun 20, 2010 [id number] [phone] ANUJ RAMIREZ PATIENT MEDICARE (WNR) MEDICARE () PART A Jul 21, 2011 PART A [id number] ANUJ RAMIREZ PATIENT MEDICARE (WN) MEDICARE () PART B Jul 21, 2011 PART B [id number] [phone] ANUJ RAMIREZ PATIENT MEDICARE (WN) MEDICARE () PART A Apr 20, 2011 PART A [id number] ANUJ RAMIREZ PATIENT MEDICARE (WN) MEDICARE () PART B Apr 20, 2011 PART B [id number] ANUJ RAMIREZ PATIENT MEDICARE (WN) MEDICARE () PART A Apr 20, 2011 PART A [id number] ANUJ RAMIREZ JR PATIENT MEDICARE (WN) MEDICARE () PART B Apr 20, 2011 PART B [id number] ANUJ RAMIREZ JR PATIENT MEDICARE (WN) MEDICARE () PART A Apr 20, 2011 PART A [id number] ANUJ RAMIREZ PATIENT MEDICARE (WNR) MEDICARE (M) PART B Apr 20, 2011 PART B [id number] ANUJ RAMIREZ PATIENT Selected Encounter This section includes the information on record at PA for the Encounter. Date/Time Encounter Type Encounter Description Reason Pro vider Source Feb 21, 2024 10:08 PM Outpatient Encounter ADMIN PAT ACTIVTIES (MASNONCT) IHE Encounter Template Text not used by PA Plan of Treatment: Future Appointments (+ 6 months) and Future Tests (+/- 45 days) The Plan of Treatment section includes future care activities for the patient from all [place] treatmentfacilities. This section includes future appointments and future orders which are active, pending or scheduled. Future Appointments This section includes appointments that were scheduled to occur 6 months from the date of the Encounter, up to a maximum of 20 appointments. The data comes from all [place] treatment facilities. Appointment Date/Time Appointment Type Appointme nt Facility Name Feb 28, 2024 11:00 AM AMBULATORY - NONE [facility] [place] [facility] Mar 12, 2024 10:30 AM AMBULATORY - MEDICINE [facility] [place] [facility] Mar 14, 2024 11:00 AM AMBULATORY - PSYCHIATRY [facility] [place] [facility] Mar 26, 2024 10:00 AM AMBULATORY - MEDICINE [facility] [place] [facility] Apr 10, 2024 10:00 AM AMBULATORY - MEDICINE [facility] [place] [facility] Apr 11, 2024 09:30 AM AMBULATORY - PSYCHIATRY [facility] [place] [facility] May 01, 2024 10:30 AM AMBULATORY - MEDICINE [facility] [place] [facility] May 02, 2024 08:30 AM AMBULATORY - PSYCHIATRY [facility] [place] [facility] Jun 05, 2024 10:30 AM AMBULATORY - PSYCHIATRY [facility] [place] [facility] Jun 26, 2024 03:30 PM AMBULATORY - PSYCHIATRY [facility] [place] [facility] Jul 11, 2024 11:00 AM AMBULATORY - MEDICINE [facility] [place] [facility] Jul 19, 2024 11:00 AM AMBULATORY - MEDICINE [facility] [place] [facility] Jul 24, 2024 10:00 AM AMBULATORY - PSYCHIATRY [facility] Lab Results: +/- 30 days of the encounter This section includes the Chemistry and Hematology Lab Results on record with PA for the patient. Radiology Reports and Pathology Reports are provided separately, in subsequent sections. Lab Results This section contains the Chemistry/Hematology Results that were resulted 30 days before or 30 daysafter the date of the Encounter. Date/Time Source Result Type Result - Unit Interpretation Reference Range Specimen Type Comment Mar 14, 2024 11:32 AM [facility] DRUGS OF ABUSE URINE Specimen Type: URINE [...] Mar 14, 2024 11:20 AM Reporting Lab: [address] [address] Performing Lab: [address] [address] AMPHETAMINES SCREEN NONE-DETECTED None-D etected, Cutoff = [...] H 1.003-1.020 Mar 12, 2024 11:34 AM [facility] HEPATITIS A ANTIBODY (IgM) SERUM Specimen Typ e: SERUM Comment: A Reactive result ( Positive prior to 04/02/13) indicates recent infection with Hepatitis A virus. Hepatitis A IgM antibodies may persist for 3-6 months after acute Hepatitis A infection. Ordering Provider: VINNIE BLACKWELL Report Released Date/Time: Feb 21, 2024 02:52 PM Reporting Lab: [address] [address] Performing Lab: [address] [address] HEPATITIS A ANTIBODY (IgM) Non Reactive Non Reactive Mar 12, 2024 11:34 AM [facility] LIPID PANEL, NON FASTING SERUM Specimen Type: SERUM No comment entered. Ordering Provider: VINNIE BLACKWELL Report Released Date/Time: Feb 21, 2024 02:50 PM Reporting Lab: [address] [address] Performing Lab: [address] [address] CHOLESTEROL 161 mg/dL TRIGLYCERIDE 161 mg/dL H 0-150 LDL calculated 87 mg/dL 0-129 CHOL/HDL 3.8 HDL CHOLESTEROL 42 mg/dL 40-60 Mar 12, 2024 11:34 AM [facility] BASIC METABOLIC PANEL (non-fasting) SERUM Spe cimen Type: SERUM No comment entered. Ordering Provider: VINNIE BLACKWELL Report Released Date/Time: Feb 21, 2024 02:50 PM Reporting Lab: [address] [address] Performing Lab: [address] [address] UREA NITROGEN 19 mg/dL 7-25 GLUCOSE 98 [...] 26, 2023 08:30 AM VA-TOBACCO NEVER USED [facility] [place] [facility] Tobacco Use History This section includes a history of the smoking, or tobacco-related health factors, that were collected on or before the date of the Encounter. The data comes from the [place] facility where the Encounter took place. Date/Time Smoking Status/Tobacco Use Comment F acility 2022 09:30 AM VA-TOBACCO NEVER USED [facility] [place] [facility] May 18, 2021 10:30 AM VA-TOBACCO NEVER USED [facility] [place] [facility] Jun 02, 2020 11:00 AM VA-TOBACCO NEVER USED [facility] [place] [facility] May 01, 2019 10:56 AM VA-TOBACCO NEVER USED [facility] [place] [facility] Jan 02, 2018 11:55 AM VA-TOBACCO NEVER USED [facility] [place] [facility] Jul 05, 2017 10:01 AM LIFETIME NON-TOBACCO USER [facility] [place] [facility] Jun 24, 2016 11:53 AM LIFETIME NON-TOBACCO USER [facility] [place] [facility] Jul 10, 2015 10:23 AM LIFETIME NON-TOBACCO USER [facility] [place] [facility] Jun 03, 2005 10:00 AM LIFETIME NON-SMOKER [facility] [place] [facility] Advance Directives: All historical and current Section [...] Provider Source May 10, 2018 ADVANCE DIRECTIVE MELISSALEONARD [facility] Mar 24, 2018 ADVANCE DIRECTIVE DAO ESTEBAN [facility] Encounter Notes: All associated encounter notes This section contains the clinical notes associated to the Encounter. Date/Time Encounter Note(s) Provider Source Feb 21, 2024 10:08 PM PHARMACY NOTE: LOCAL TITLE: PHARMACY CUSTOMER CARE MEDICATION RENEWAL STANDARD TITLE: PHARMACY NOTE DATE OF NOTE: FEB 21, 2024@22:08 ENTRY DATE: FEB 21, 2024@22:08:58 AUTHOR: BRODIE ALBA EXP COSIGNER: URGENCY: STATUS: COMPLETED Date: Feb Division: [facility] referred by Pharmacy Call Center for medication renewal: Non-controlled/maintenance medication Medications requested: [id number] HYDROCHLOROTHIAZIDE 25MG TAB Defer to specialty clinic To be mailed . Please review and renew if appropriate. *This note was generated by [facility] Pharmacy Customer Care. If you have any questions or need assistance, do not contact this author. Please refer all questions to your local, on-site pharmacy departments. /henok/ BRODIE ALBA CPhT Energy Trading Analyst, [place]/Pharmacy Customer Care Signed: 02/21/2024 22:09 Receipt Acknowledged By: 02/22/2024 08:08 /henok/ VINNIE BLACKWELL D.O. PHYSICIAN 02/22/2024 08:01 /henok/ BAILEE MOHR, [employer] REGISTERED NURSE BRODIE ALBA [facility]
--- OUTSIDE RECORDS SUMMARY | 2024-10-02 13:18 | XMS_ITS ---
Author Name [facility] [facility] [place] [facility] [place] Address [address] [place] [id number] Care Team Providers Care Repair Service Dispatcher Name Role Phone VINNIE SANTOS Primary Care Provider Luiz frederick Insurance Providers: [...] SELF + ONE Sep 19, [phone] [id number] [phone] ANUJ RAMIREZ PATIENT ANTHEM BCBS CT FEDERAL PREFERRED PROVIDER ORGANIZAT ION (PPO) [place] FAMIL Y Dec 24, 2009 [id number] [phone] DAVID Frederick EDWIN PATIENT BCBS [place] F[place] PREFERRED PROVIDER ORGANIZAT ION (PPO) [place] SELF PLUS 1 Sep 19, 2015 [id number] ANUJ RAMIREZ PATIENT [place] PREFERRED PROVIDER ORGANIZAT ION (PPO) [place] SELF+ ONE Sep 19, 2015 106 [id number] DAVID Frederick EDWIN PATIENT [place] PREFERRED PROVIDER ORGANIZAT ION (PPO) [place] FAMIL Y Dec 24, 2009 105 [id number] [phone] ANUJ RAMIREZ PATIENT [place] F[place] DENTAL DENTAL INSURANCE [place] Sep 19, 2015 DENTAL [id number] ANUJ RAMIREZ PATIENT [place] FEP BCBS PRESCRIPT ION CAREM [place]K FEPRX PLAN Sep 24, 2010 [id number] [phone] ANUJ RAMIREZ PATIENT [place] FEPRX PLAN PRESCRIPT ION BCBS FEP Jun 20, 2001 [id number] [phone] ANUJ RAMIREZ PATIENT [place] FEPRX PLAN PRESCRIPT ION CAR[place] FEPRX Jun 20, 2001 [id number] [phone] ANUJ RAMIREZ PATIENT [place]-F EP BCBS PRESCRIPT ION FEP CAREM ARK Jun 20, 2010 [id number] [phone] ANUJ RAMIREZ PATIENT MEDICARE (WNR) MEDICARE () PART A Jul 21, 2011 PART A [id number] [phone] ANUJ RAMIREZ PATIENT MEDICARE (WNR) MEDICARE () PART B Jul 21, 2011 PART B [id number] ANUJ RAMIREZ PATIENT MEDICARE (WNR) MEDICARE () PART A Apr 20, 2011 PART A [id number] ANUJ RAMIREZ JR PATIENT MEDICARE (WNR) MEDICARE () PART B Apr 20, 2011 PART B [id number] ANUJ RAMIREZ JR PATIENT MEDICARE (WNR) MEDICARE () PART A Apr 20, 2011 PART A [id number] [phone] ANUJ RAMIREZ PATIENT MEDICARE (WNR) MEDICARE () PART B Apr 20, 2011 PART B [id number] ANUJ RAMIREZ PATIENT MEDICARE (WNR) MEDICARE () PART A Apr 20, 2011 PART A [id number] ANUJ RAMIREZ PATIENT MEDICARE (WNR) MEDICARE (M) PART B Apr 20, 2011 PART B [id number] ANUJ RAMIREZ PATIENT Selected Encounter This section includes the information on record at [place] for the Encounter. Date/Time Encounter Type Encounter Description Reason Provider Source Sep 10, 2024 10:30 AM OFFICE O/P EST MOD 30 MIN PRIMARY CARE/MEDICINE ICD-10-CM G98.8 Other disorders of nervous system FURCOLO,VINNIE IHE Encounter Template Text not used by [place] Assessments - Encounter Diagnoses This section includes the primary and secondary diagnoses documented for the Encounter. Date/Time Primary/Secondary Diagnosis Diagnosis Name Provider Source Sep 27, 2024 08:25 AM PRIMARY Other disorders of nervous system FURCOLO,VINNIE [facility] [place] [facility] Sep 27, 2024 08:25 AM SECONDARY Attention-deficit hyperactivity disorder, unspecified type FURCOLO,VINNIE [facility] [place] [facility] Sep 27, 2024 08:25 AM SECONDARY Contact with and exposure to other hazardous substances FURCOLO,VINNIE [facility] [place] [facility] Sep 27, 2024 08:25 AM SECONDARY Encounter for immunization NIKITA,CIARAN [facility] [place] [facility] Sep 27, 2024 08:25 AM SECONDARY Essential (primary) hypertension FURCOLO,VINNIE [facility] [place] [facility] Sep 27, 2024 08:25 AM SECONDARY Impaired fasting glucose FURCOLO,VINNIE [facility] [place] [facility] Sep 27, 2024 08:25 AM SECONDARY Major depressive disorder, recurrent, moderate FURCOLO,VINNIE [facility] [place] [facility] Sep 27, 2024 08:25 AM SECONDARY Mixed hyperlipidemia FURCOLO,VINNIE [facility] [place] [facility] Sep 27, 2024 08:25 AM SECONDARY Other sleep apnea FURCOLO,VINNIE [facility] [place] [facility] Sep 27, 2024 08:25 AM SECONDARY Post-traumatic stress disorder, chronic FURCOLO,VINNIE [facility] [place] [facility] Sep 27, 2024 08:25 AM SECONDARY Unspecified mood [affective] disorder FURCOLO[facility]INNIE [facility] Plan of Treatment: Future Appointments (+ 6 months) and Future Tests (+/- 45 days) The Plan of Treatment section includes future care activities for the patient from all [place] [facility]. This section includes future appointments and future orders which are active, pending or scheduled. Future Appointments This section includes appointments that were scheduled to occur 6 months from the date of the Encounter, up to a maximum of 20 appointments. The data comes from all [facility]. Appointment Date/Time Appointment Type Appointme nt Facility Name Sep 11, 2024 09:30 AM [facility] Sep 17, 2024 09:45 AM [facility] - NONE [facility] Sep 28, 2024 11:00 AM [facility] Oct 09, 2024 11:00 AM [facility] October 25, 2024 01:00 PM AMBULATORY - MEDICINE [facility] November 13, 2024 10:00 AM [facility] Nov 28, 2024 11:00 AM AMBULAT[facility] Dec 10, 2024 08:30 AM [facility] Active, Pending, and Scheduled Orders This section includes a listing of several types of active, pending, and scheduled orders, including clinic medications orders, diagnostic test orders, procedure orders and consult orders; where the start date of the order is 45 days before the date of the Encounter or 45 days after the date of theEncounter. The data comes from all [facility]. Test Date/Time Test Type Test Details Facility Name Sep 11, 2024 10:22 AM Consult Order NEUROPSYCH OL TESTING/[facility] OUTPT Cons Regional Guide's Choice [facility] Lab Results: +/- 30 days of the encounter This section includes the Chemistry and Hematology Lab Results on record with [place] for the patient. Radiology Reports and Pathology Reports are provided separately, in subsequent sections. Lab Results This section contains the Chemistry/Hematology Results that were resulted 30 days before or 30 daysafter the date of the Encounter. Date/Time Source Result Type Result - Unit Interpretation Reference Range Specimen Type Comment Sep 07, 2024 03:07 PM [facility] DRUGS OF ABUSE URINE Specimen Type: [...] May 02, 2024 08:57 AM Reporting Lab: [address] [address] Performing Lab: [address] [address] AMPHETAMINES SCREEN NONE-DETECTED None-D etected, Cutoff = [...] H 1.003-1.020 Sep 07, 2024 03:07 PM [facility] LIPID PANEL FASTING SERUM Specimen Type: SERU M No comment entered. Ordering Provider: VINNIE SANTOS Report Released Date/Time: Mar 12, 2024 11:07 AM Reporting Lab: [facility] [address] [facility] [address] Performing Lab: [facility] [address] [facility] [address] CHOLESTEROL 144 mg/dL TRIGLYCERIDE 140 mg/dL 0-150 LDL calculated 76 mg/dL 0-129 CHOL/HDL 3.6 HDL CHOLESTEROL 40 mg/dL 40-60 Sep 07, 2024 03:07 PM [facility] BASIC METABOLIC PANEL (fasting) SERUM Specime n Type: SERUM No comment entered. Ordering Provider: VINNIE SANTOS Report Released Date/Time: Mar 12, 2024 11:07 AM Reporting Lab: [facility] [address] [facility] [address] Performing Lab: [address] [address] UREA NITROGEN 24 mg/dL 7-25 GLUCOSE 105 mg/dL H 65-100 SODIUM 138 mmol/L 135-145 POTASSIUM 3.9 mmol/L 3.5-5.0 CHLORIDE 103 mmol/L 100-110 CO2 29 meq/L 20-30 CALCIUM 9.3 mg/dL 8.5-10.2 CREATININE, Serum 1.10 mg/dL 0.50-1.40 eGFR(CKD-EPI 2020) 68 mL/min >60 Vital Signs: All taken on the encounter date This section contains inpatient and outpatient Vital Signs collected on the date of the Encounter. Date/Time Temperature Pulse Blood Pressure Respiratory Rate SP02 Pain Height Weight Body Mass Index Source Sep 10, 2024 10:35 AM 97.6 50 136/77 16 98 2 198 31 [facility] Immunizations: All administered on the encounter date This section contains immunizations associated to the Encounter. Immunization Series Date Issued Administered By Site Reaction Lot Number CVX Code Drug Wrapping Machine Tender Comment(s) Source RSV, BIVALENT, PROTEIN SUBUNIT RSVPREF, DILUENT RECONSTITUTED , 0.5 ML, PF Sep 10, 2024 CIARAN ISRAEL LEFT DELTO ID [id number] [employer] Completed Series, ADMINISTERE D AT [place], [facility] Social History: Smoking Status (Most current) and Tobacco Use (All prior to encounter date) This section includes the most current, and the historical, smoking and tobacco- related health factors from the [place] facility where the Encounter took place. Current Smoking Status This section includes the most current smoking, or tobacco-related health factor, from the [place] facility where the Encounter took place. Date/Time Current Smoking Status Comment Holland ity May 02, 2024 08:30 AM VA-TOBACCO NEVER USED [place] [facility] Tobacco Use History This section includes a history of the smoking, or tobacco-related health factors, that were collected on or before the date of the Encounter. The data comes from the [place] facility where the Encounter took place. Date/Time Smoking Status/Tobacco Use Comment Willie acility May 26, 2023 08:30 AM VA-TOBACCO NEVER USED [facility] [place] [facility] 2022 09:30 AM VA-TOBACCO NEVER USED [facility] [place] [facility] May 18, 2021 10:30 AM VA-TOBACCO NEVER USED [facility] [place] [facility] Jun 02, 2020 11:00 AM VA-TOBACCO NEVER USED [facility] [place] [facility] May 01, 2019 10:56 AM VA-TOBACCO NEVER USED [facility] [place] [facility] Jan 02, 2018 11:55 AM VA-TOBACCO NEVER USED [facility] [place] [facility] Jul 05, 2017 10:01 AM LIFETIME NON-TOBACCO USER [facility] [place] [facility] Jun 24, 2016 11:53 AM LIFETIME NON-TOBACCO USER [facility] [place] [facility] Jul 10, 2015 10:23 AM LIFETIME NON-TOBACCO USER [facility] [place] [facility] Jun 03, 2005 10:00 AM LIFETIME NON-SMOKER [facility] [place] [facility] Advance Directives: All historical and current Section Date Range: From patient's date of to the date document was created. This section includes ALL of a patient's completed or amended [place] Advance and Rescinded Directives. The entries below indicate that a directive exists for the patient, but an actual copy is not included with this document. The data comes from all [place] facilities. Date Advance Directives Provider Source May 10, 2018 ADVANCE DIRECTIVE MELISSALEONARD [place] [facility] Mar 24, 2018 ADVANCE DIRECTIVE DAO ESTEBAN [place] [facility] Encounter Notes: All associated encounter notes This section contains the clinical notes associated to the Encounter. Date/Time Encounter Note(s) Provider Source Sep 10, 2024 10:44 AM PHYSICIAN NOTE: LOCAL TITLE: MD NOTE STANDARD TITLE: PHYSICIAN NOTE DATE OF NOTE: SEP 10, 2024@10:44 ENTRY DATE: SEP 10, 2024@10:44:24 AUTHOR: VINNIE SANTOS COSIGNER: URGENCY: STATUS: COMPLETED ANDRIAANUJ JR is a 79 year old WHITE MALE who is being seen today in primary care for routine follow up. CARE TEAM Community Primary Care Provider: [facility] Specialists: psych- Dr. Chin nephrology- [facility] Specialists: neurology - Dr. 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 Exposure to potentially hazardous substance ([facility] [id number]) Entered automatically through [employer] Problem List documentation program 2. Adult attention deficit disorder 3. Prediabetes 4. Essential hypertension 5. Obesity 6. Seasonal affective disorder update 7. Metabolic syndrome X 8. Obstructive sleep apnea of adult (SNOMED CT 7370209831368) Reviewed using CPAP 9. Vitreous Detachment/Degeneration (Pvd) 10. Hyperlipidemia (SNOMED CT 06922084) 11. Moderate recurrent major depression Reviewed 12. 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 Alcohol Use: monthly beer- occasional Tobacco Use: never Exercise: sedentary, prev played co-ed softball ALLERGIES LISINOPRIL MEDICATIONS Active and Recently Outpatient Medications (excluding Supplies): Active Outpatient Medications Status 1) ESCITALOPRAM OXALATE 20MG TAB TAKE ONE TABLET BY MOUTH ONCE ACTIVE DAILY Indication: FOR MAJOR DEPRESSIVE DISORDER 2) GABAPENTIN [...] ONE TABLET AT NOON NEEDED NEXT FILL / Indication: ATTENTION/ CONCENTRATION Pending Outpatient Medications Status 1) ESCITALOPRAM OXALATE 20MG TAB TAKE ONE TABLET BY MOUTH ONCE PENDING DAILY FOR MOOD/DEPRESSION Indication: FOR MAJOR DEPRESSIVE DISORDER Inactive Outpatient Medications Status 1) CARBOXYMETHYLCELLULOSE NA [...] TAB 40MG BY MOUTH AT BEDTIME ACTIVE 14 Total Medications REVIEW OF SYMPTOMS POSITIVE FOR: NEGATIVE FOR: CONSTITUTION: no weight loss/gain, fatigue, fevers, night sweats HEENT: no vision problems, hearing loss,swallowing difficulties, sinus pain CV: no chest pain, palpitations, dyspnea on exertion, orthopnea RESP: no cough, shortness of breath, wheezing GI: no abdominal pain, N/V/D, constipation, blood in stool, normal appetite : no urinary frequency, nocturia, hematuria MUSC: no joint pain, joint swelling, muscle aches NEURO: no headaches, dizziness, memory loss, tremor, weakness PSYCH: no depression, anxiety, suicidal or homicidal thoughts SKIN: no rash, new skin lesions PHYSICAL EXAM Vitals: - - - - - - - B/P: 136/77 (09/10/2024 10:35) pulse: 50 (09/10/2024 10:35) resp: 16 (09/10/2024 10:35) temp: 97.6 F [36.4 C] (09/10/2024 10:35) Ht: 67 in [170.2 cm] (09/14/2023 10:33) Wgt: 198 lb [89.81 kg] (09/10/2024 10:35) BMI: BMI: 31.1 Exam: - - - - - - - General: A&O x 3, no acute distress, normal affect and mood CV: RRR S1S2, no murmur Resp: LCTA bilat, no wheezing, rales or rhonchi Neuro: grossly intact, no visible tremor, normal memory and speech Extremities: no edema RECENT LABS 09/07/2024 15:07 SERUM CALCIUM 9.3 mg/dL 8.5 - 10.2 CREATININE, Serum 1.10 mg/dL 0.50 - 1.40 eGFR(CKD-EPI 2020 68 mL/min Ref: >=60 SODIUM 138 mmol/L 135 - 145 POTASSIUM 3.9 mmol/L 3.5 - 5.0 CHLORIDE 103 mmol/L 100 - 110 CO2 29 mEq/L 20 - 30 UREA NITROGEN 24 mg/dL 7 - 25 GLUCOSE 105 H mg/dL 65 - 100 CHOLESTEROL 144 mg/dL <7 - 199 TRIGLYCERIDE 140 mg/dL 0 - 150 LDL calculated 76 mg/dL 0 - 129 CHOL/HDL 3.6 HDL CHOLESTEROL 40 mg/dL 40 - 60 ASSESSMENT AND PLAN Active problems - Computerized Problem List is the source for the followin. Disorder of nervous system sees neurology- Dr. Lennon. not seizures but spells almost out of body experience, she prescribed gabapentin 300 mg daily 2. Exposure to potentially hazardous substance ([facility] [id number]) Entered automatically through [employer] Problem List documentation program 3. Adult attention deficit disorder 4. Prediabetes 5. Essential hypertension- good BP control 6. Obesity 7. Seasonal affective disorder update 8. Metabolic syndrome X 9. Obstructive sleep apnea of adult (SNOMED CT [id number]) Reviewed using CPAP 10. Vitreous Detachment/Degeneration (Pvd) 11. Hyperlipidemia (SNOMED CT 25196063) 12. Moderate recurrent major depression - sees 13. Chronic post-traumatic stress disorder (SNOMED CT [id number])- sees Dr. Chin- on lexapro, lamictal and gabapentin HEALTH MAINTENANCE Colonoscopy -last colonoscopy was done September 2022 [facility] recommended to repeat in 5 years will be due in 2027 Abdominal Aortic Aneurysm Screening - n/a nonsmoker Prostate screening - Tetanus: due every 10 years Pneumonia Vacccine: Flu Vaccine: due yearly Covid Vaccine: due yearly FOLLOW UP f/u in 12 mo VISIT TYPE: a MODERATE complexity visit where 30 minutes was spent in direct patient care, review of records and documentation. /henok/ VINNIE SANTOS D.O. PHYSICIAN Signed: 09/10/2024 11:04 VINNIE SANTOS [facility] Sep 10, 2024 10:33 AM PREVENTIVE MEDICINE NURSING NOTE: LOCAL TITLE: CLINICAL REMINDERS/NURSING STANDARD TITLE: PREVENTIVE MEDICINE NURSING NOTE DATE OF NOTE: SEP 10, 2024@10:33 ENTRY DATE: SEP 10, 2024@10:33:26 AUTHOR: CIARAN ISRAEL EXP COSIGNER: URGENCY: STATUS: COMPLETED Falls & Incontinence Screen: Falls Screen: 4. No falls within the past year. Incontinence Screen No incontinence. Advance Directive Screen MH AD: Patient has an Advance Directive on file at this [facility]. No updates are needed at this time. The patient received education about Advance Directives and written notification of his/her rights. RSV Immunization: Respiratory Syncytial Virus (RSV) Vaccine: RSV vaccine administered today. Administered: RSV, BIVALENT, PROTEIN SUBUNIT RSVPREF, DILUENT RECONSTITUTED, 0.5 ML, PF Date Administered: Sep 10, 2024 10:30 Series: Complete Wrapping Machine Tender: [employer] Lot: [id number] Exp Date: May 19, 2025 NDC: [id number] Admin Route/Site: INTRAMUSCULAR/LEFT DELTOID Dosage: 0.5mL Vaccine Information Statement(s): RSV (RESPIRATORY SYNCYTIAL VIRUS) VACCINE VIS Jul 20, 2024 ([place]PALESE) Order By: Vinnie Santos Administered By: Ciaran Israel Vaccine Information Sheet (VIS) was given to the patient/caregiver, education regarding adverse reactions was discussed, as well as barriers to learning, if any, were acknowledged. /henok/ CIARAN ISRAEL LPN License Practical Nurse Signed: 09/10/2024 10:42 CIARAN ISRAEL [place] [facility]
--- OUTSIDE RECORDS SUMMARY | 2024-10-02 13:18 | XMS_ITS ---
Author Name [facility] [facility] [place] [facility] [place] [facility] [place] Address [address] [place] [id number] Care Team Providers Care Flue Gas Analyst Name Role Phone VINNIE BLACKWELL Primary Care [...] SELF + ONE Sep 19, [phone] [id number] [phone] DAVID Frederick EDWIN PATIENT ANTHEM BCBS CT FEDERAL PREFERRED PROVIDER ORGANIZAT ION (PPO) [place]AND [place] FAMIL Y Dec 24, 2009 105 [id number] [phone] DAVID Frederick EDWIN PATIENT BCBS [place] FEP PREFERRED PROVIDER ORGANIZAT ION (PPO) [place]AND [place] SELF PLUS 1 Sep 19, 2015 [id number] ANUJ RAMIREZ PATIENT [place] PREFERRED PROVIDER ORGANIZAT ION (PPO) [place]AND [place] SELF+ ONE Sep 19, 2015 106 [id number] [phone] DAVID Frederick EDWIN PATIENT [place] F[place] PREFERRED PROVIDER ORGANIZAT ION (PPO) STAND [place] FAMIL Y Dec 24, 2009 [id number] ANUJ RAMIREZ PATIENT [place] DENTAL DENTAL INSURANCE [place]AND [place] Sep 19, 2015 DENTAL [id number] ANUJ RAMIREZ PATIENT [place] FEP BCBS PRESCRIPT ION CAREM ARK FEPRX PLAN Sep 24, 2010 [id number] ANUJ RAMIREZ PATIENT [place] FEPRX PLAN PRESCRIPT ION BCBS FEP Jun 20, 2001 [id number] ANUJ RAMIREZ PATIENT [place] FEPRX PLAN PRESCRIPT ION CAR[place] FEPRX Jun 20, 2001 [id number] [phone] ANUJ RAMIREZ PATIENT [place]-F EP BCBS PRESCRIPT ION FEP CAREM ARK Jun 20, 2010 [id number] ANUJ RAMIREZ PATIENT MEDICARE (WNR) MEDICARE () PART A Jul 21, 2011 PART A [id number] ANUJ RAMIREZ PATIENT MEDICARE (WNR) MEDICARE () PART B Jul 21, 2011 PART B [id number] ANUJ RAMIREZ PATIENT MEDICARE (WNR) MEDICARE () PART A Apr 20, 2011 PART A [id number] ANUJ RAMIREZ JR PATIENT MEDICARE (WNR) MEDICARE () PART B Apr 20, 2011 PART B [id number] ANUJ RAMIREZ JR PATIENT MEDICARE (WNR) MEDICARE () PART A Apr 20, 2011 PART A [id number] [phone] ANUJ RAMIREZ PATIENT MEDICARE (WNR) MEDICARE () PART B Apr 20, 2011 PART B [id number] ANUJ RAMIREZ PATIENT MEDICARE (WNR) MEDICARE () PART A Apr 20, 2011 PART A [id number] ANUJ RAMIREZ PATIENT MEDICARE (WNR) MEDICARE (M) PART B Apr 20, 2011 PART B [id number] ANUJ RAMIREZ PATIENT Selected Encounter This section includes the information on record at [place] for the Encounter. Date/Time Encounter Type Encounter Description Reason Provider Source Mar 14, 2024 11:00 AM OFFICE O/P EST LOW 20 [facility] - IND ICD-10-CM F90.9 Attention-deficit hyperactivity disorder, unspecified type TRENA TURNER MD [facility] Encounter Template Text not used by [place] Assessments - Encounter Diagnoses This section includes the primary and secondary diagnoses documented for the Encounter. Date/Time Primary/Secondary Diagnosis Diagnosis Name Provider Source Mar 27, 2024 02:57 PM PRIMARY Attention-deficit hyperactivity disorder, unspecified type TRENA TURNER MD [facility] [place] [facility] Mar 27, 2024 02:57 PM SECONDARY Depression, unspecified [facility] [place] [facility] Mar 27, 2024 02:57 PM SECONDARY Post-traumatic stress disorder, chronic [facility] Plan of Treatment: Future Appointments (+ 6 months) and Future Tests (+/- 45 days) The Plan of Treatment section includes future care activities for the patient from all [place] treatmentfacilities. This section includes future appointments and future orders which are active, pending or scheduled. Future Appointments This section includes appointments that were scheduled to occur 6 months from the date of the Encounter, up to a maximum of 20 appointments. The data comes from all [place] treatment facilities. Appointment Date/Time Appointment Type Appointme nt Facility Name Mar 26, 2024 10:00 AM AMBULATORY - MEDICINE [facility] [place] [facility] Apr 10, 2024 10:00 AM AMBULATORY - MEDICINE [facility] [place] [facility] Apr 11, 2024 09:30 AM AMBULATORY - [place]IATRY [place] [facility] [place] [facility] May 01, 2024 10:30 AM AMBULATORY - MEDICINE [facility] [place] [facility] May 02, 2024 08:30 AM AMBULATORY - [place]IATRY [place] [facility] [place] [facility] Jun 05, 2024 10:30 AM [facility] Jun 26, 2024 03:30 PM [facility] Jul 11, 2024 11:00 AM [facility] Jul 19, 2024 11:00 AM AMBULATORY - [facility] Jul 24, 2024 10:00 AM [facility] Sep 10, 2024 10:30 AM AMBULATORY - MEDIC[facility] Sep 11, 2024 09:30 AM [facility] Lab Results: +/- 30 days of the encounter This section includes the Chemistry and Hematology Lab Results on record with [place] for the patient. Radiology Reports and Pathology Reports are provided separately, in subsequent sections. Lab Results This section contains the Chemistry/Hematology Results that were resulted 30 days before or 30 daysafter the date of the Encounter. Date/Time Source Result Type Result - Unit Interpretation Reference Range Specimen Type Comment Apr 11, 2024 09:59 AM [facility] DRUGS OF ABUSE URINE Specimen Type: [...] Apr 11, 2024 09:50 AM Reporting Lab: [address] [address] Performing Lab: [address] [address] AMPHETAMINES SCREEN NONE-DETECTED None-D etected, Cutoff = [...] H 1.003-1.020 Mar 14, 2024 11:32 AM [facility] DRUGS OF ABUSE URINE Specimen Type: [...] Mar 14, 2024 11:20 AM Reporting Lab: [address] [address] Performing Lab: [address] [address] AMPHETAMINES SCREEN NONE-DETECTED None-D etected, Cutoff = [...] H 1.003-1.020 Mar 12, 2024 11:34 AM [facility] HEPATITIS A ANTIBODY (IgM) SERUM Specimen Typ e: SERUM Comment: A Reactive result ( Positive prior to 04/02/13) indicates recent infection with Hepatitis A virus. Hepatitis A IgM antibodies may persist for 3-6 months after acute Hepatitis A infection. Ordering Provider: VINNIE BLACKWELL Report Released Date/Time: Feb 21, 2024 02:52 PM Reporting Lab: [address] [address] Performing Lab: [address] [address] HEPATITIS A ANTIBODY (IgM) Non Reactive Non Reactive Mar 12, 2024 11:34 AM [facility] BASIC METABOLIC PANEL (non-fasting) SERUM Spe cimen Type: SERUM No comment entered. Ordering Provider: VINNIE BLACKWELL Report Released Date/Time: Feb 21, 2024 02:50 PM Reporting Lab: [address] [address] Performing Lab: [address] [address] UREA NITROGEN 19 mg/dL 7-25 GLUCOSE 98 mg/dL 65-100 SODIUM 138 mmol/L 135-145 POTASSIUM 4.0 mmol/L 3.5-5.0 CHLORIDE 101 mmol/L 100-110 CO2 29 meq/L 20-30 CREATININE, Serum 1.01 mg/dL 0.50-1.40 eGFR(CKD-EPI 2020) 76 mL/min >60 Mar 12, 2024 11:34 AM [facility] LIPID PANEL, NON FASTING SERUM Specimen Type: SERUM No comment entered. Ordering Provider: VINNIE BLACKWELL Report Released Date/Time: Feb 21, 2024 02:50 PM Reporting Lab: [facility] [place] [facility] [address] [facility] [address] Performing Lab: [facility] [place] [facility] [address] [facility] [address] CHOLESTEROL 161 mg/dL TRIGLYCERIDE 161 mg/dL H 0-150 LDL calculated 87 mg/dL 0-129 CHOL/HDL 3.8 HDL CHOLESTEROL 42 mg/dL 40-60 Social History: Smoking Status (Most current) and Tobacco Use (All prior to encounter date) This section includes the most current, and the historical, smoking and tobacco- related health factors from the [place] facility where the Encounter took place. Current Smoking Status This section includes the most current smoking, or tobacco-related health factor, from the [place] facility where the Encounter took place. Date/Time Current Smoking Status Comment Facil ity May 26, 2023 08:30 AM VA-TOBACCO NEVER USED [facility] [place] [facility] Tobacco Use History This section includes a history of the smoking, or tobacco-related health factors, that were collected on or before the date of the Encounter. The data comes from the [place] facility where the Encounter took place. Date/Time Smoking Status/Tobacco Use Comment F acility 2022 09:30 AM VA-TOBACCO NEVER USED [facility] [place] [facility] May 18, 2021 10:30 AM VA-TOBACCO NEVER USED [facility] [place] [facility] Jun 02, 2020 11:00 AM VA-TOBACCO NEVER USED [facility] [place] [facility] May 01, 2019 10:56 AM VA-TOBACCO NEVER USED [facility] [place] [facility] Jan 02, 2018 11:55 AM VA-TOBACCO NEVER USED [facility] [place] [facility] Jul 05, 2017 10:01 AM LIFETIME NON-TOBACCO USER [facility] [place] [facility] Jun 24, 2016 11:53 AM LIFETIME NON-TOBACCO USER [facility] [facility] Jul 10, 2015 10:23 AM LIFETIME NON-TOBACCO USER [facility] [place] [facility] Jun 03, 2005 10:00 AM LIFETIME NON-SMOKER [facility] [place] [facility] Advance Directives: All historical and current Section Date Range: From patient's date of to the date document was created. This section includes ALL of a patient's completed or amended [place] Advance and Rescinded Directives. The entries below indicate that a directive exists for the patient, but an actual copy is not included with this document. The data comes from all [place] facilities. Date Advance Directives Provider Source May 10, 2018 ADVANCE DIRECTIVE LEONARD TORRES [facility] Mar 24, 2018 ADVANCE DIRECTIVE DAO ESTEBAN [facility] Encounter Notes: All associated encounter notes This section contains the clinical notes associated to the Encounter. Date/Time Encounter Note(s) Provider Source Mar 14, 2024 03:51 PM LETTERS: LOCAL TITLE: MENTAL HEALTH DIAGNOSTIC RESULTS LETTER STANDARD TITLE: LETTERS DATE OF NOTE: MAR 14, 2024@15:51 ENTRY DATE: MAR 14, 2024@15:51:17 AUTHOR: DAILY TURNER EXP COSIGNER: URGENCY: STATUS: COMPLETED ANUJ AYERS [address] [place] [id number] MAR 14, 2024 Dear Sherri AYERS, Here are the Lab Results I have received from the last Urine Drug screen done on 03/14/24 so you can have a copy of them for your records: LAB CHEMISTRY & HEMATOLOGY Collection DT Specimen Test Name Result Units Ref Range 03/14/2024 11:32 URINE !! AMPHET NONE-DETECTED Ref: None-Detected, Cutoff = 1000 ng/mL !! OXYCODONE SCREEN NONE-DETECTED Ref: None-Detected, Cutoff = 100 ng/mL !! ETOH UR NONE-DETECTED mg/dL Ref: NONE-DETECTED, cutoff = 10 mg/dL !! FENTANYL SCREEN NONE-DETECTED ng/mL Ref: Negative: Cutoff = 1.00 ng/mL !! PH, SAGAR 5.5 pH 4 - 10 !! CREATININE, SAGAR 276.55 mg/dL Ref: >=20 !! SP.GRAVITY, SAGAR 1.026 [...] ng/mL --- Sincerely, Daily Turner Jr., MD [facility] DAILY TURNER MD [facility] Mar 14, 2024 11:22 AM ACCOUNTING OF DISCLOSURES NOTE: LOCAL TITLE: STATE PRESCRIPTION DRUG MONITORING PROGRAM STANDARD TITLE: ACCOUNTING OF DISCLOSURES NOTE DATE OF NOTE: MAR 14, 2024@11:22:31 ENTRY DATE: MAR 14, 2024@11:22:31 AUTHOR: DAILY TURNER EXP COSIGNER: URGENCY: STATUS: COMPLETED This PDMP query was submitted by Daily Turner MD, MD. The clinical justification for this PDMP query is to review controlled substances prescribed outside of the [place], and any additional information that may become available, as an important component of standard clinical care, and in accordance with [facility] policy. Patient information was shared with the PDMP [place]. Prescription(s) filled outside the [facility] in the last 90 days are noted. However, they do not raise significant safety concerns and do not influence the treatment plan at this time. Gabapentin 300 Mg Capsule /es/ DAILY TURNER JR, MD STAFF PSYCHIATRIST Signed: 03/14/2024 11:23 DAILY TURNER MD [facility] Mar 14, 2024 08:13 AM PSYCHIATRY NOTE: LOCAL TITLE: PSYCHIATRY/FOLLOW-UP NOTE STANDARD TITLE: PSYCHIATRY NOTE DATE OF NOTE: MAR 14, 2024@08:13 ENTRY DATE: MAR 14, 2024@08:13:15 AUTHOR: DAILY TURNER EXP COSIGNER: URGENCY: STATUS: [...] [facility] 20 minutes for medication management. Two identifiers were used. CC: I'm doing ok. No alcohol or substance use, no . No complaints and no adverse side effects from current medications were reported, no. is, she's doing pretty good except for a flare every once in a while. Hector [facility] a visit brothers and sister. Hector takes gabapentin 300mg from outside neurologist for seizures and 100mg [facility] from this [facility]. No seizures reported since last visit, no . Mood is ok, not great, not bad. and PTSD symptoms are stable at this time, ok, sometimes flash of memories scenes pop up in my head . Sleep is, pretty good, not nightmares but weird dreams, animals, lions and bears and he is using his C-PAP machine. Appetite is, good. Hector is on methylphenidate for attention and concentration is pretty good, sometimes forgetful on current dose. Kacit sometimes forgets to take the afternoon dose. Hector [...] yo, male who is casually dressed wearing camouflage cargo pants, a t-shirt, a shirt, a cap, and glasses. He has good [...] Plan: Continue present medications as above. Encouraged kacit to take medications as prescribed. RTC monthly for medication management. [place] has the number for the [facility] including the 988. Random UDS. /henok/ DAILY TURNER JR, MD STAFF PSYCHIATRIST Signed: 03/14/2024 11:24 DAILY TURNER MD [place] [facility]
--- OUTSIDE RECORDS SUMMARY | 2024-10-02 13:18 | XMS_ITS ---
Author Name [facility] [place] [facility] [place] Address [address] [place] [id number] Care Team Providers Care Catcher Plug Name Role Phone VINNIE BLACKWELL Primary Care [...] SELF + ONE Sep 19, 2015 [id number] [phone] ANUJ RAMIREZ PATIENT ANTHEM BCBS CT FEDERAL PREFERRED PROVIDER ORGANIZAT ION (PPO) STAND [place] FAMIL Y Dec 24, 2009 105 [id number] [phone] DAVID Frederick EDWIN PATIENT BCBS [place] FEP PREFERRED PROVIDER ORGANIZAT ION (PPO) [place]AND [place] SELF PLUS 1 Sep 19, 2015 106 [id number] ANUJ RAMIREZ PATIENT [place] PREFERRED PROVIDER ORGANIZAT ION (PPO) [place] SELF+ ONE Sep 19, 2015 106 [id number] DAVID Frederick EDWIN PATIENT [place] F[place] PREFERRED PROVIDER ORGANIZAT ION (PPO) STAND [place] FAMIL Y Dec 24, 2009 105 [id number] [phone] ANUJ RAMIREZ PATIENT [place] F[place] DENTAL DENTAL INSURANCE [place]AND [place] Sep 19, 2015 DENTAL [id number] ANUJ RAMIREZ PATIENT [place] FEP BCBS PRESCRIPT ION CAREM ARK FEPRX PLAN Sep 24, 2010 [id number] ANUJ RAMIREZ PATIENT [place] FEPRX PLAN PRESCRIPT ION BCBS FEP Jun 20, 2001 [id number] ANUJ RAMIREZ PATIENT [employer] FEPRX PLAN PRESCRIPT ION CAREM ARK FEPRX Jun 20, 2001 [id number] [phone] ANUJ RAMIREZ PATIENT [place]-F EP BCBS PRESCRIPT ION FEP CAREM ARK Jun 20, 2010 [id number] ANUJ RAMIREZ PATIENT MEDICARE (WNR) MEDICARE () PART A Jul 21, 2011 PART A [id number] [phone] ANUJ RAMIREZ PATIENT MEDICARE (WNR) MEDICARE () PART B Jul 21, 2011 PART B [id number] ANUJ RAMIREZ PATIENT MEDICARE (WNR) MEDICARE () PART A Apr 20, 2011 PART A [id number] ANUJ RAMIREZ JR PATIENT MEDICARE (WNR) MEDICARE () PART B Apr 20, 2011 PART B [id number] [phone] ANUJ RAMIREZ JR PATIENT MEDICARE (WNR) MEDICARE () PART A Apr 20, 2011 PART A [id number] ANUJ RAMIREZ PATIENT MEDICARE (WNR) MEDICARE () PART B Apr 20, 2011 PART B [id number] ANUJ RAMIREZ PATIENT MEDICARE (WNR) MEDICARE () PART A Apr 20, 2011 PART A [id number] [phone] ANUJ RAMIREZ PATIENT MEDICARE (WNR) MEDICARE (M) PART B Apr 20, 2011 PART B [id number] ANUJ RAMIREZ PATIENT Selected Encounter This section includes the information on record at [place] for the Encounter. Date/Time Encounter Type Encounter Description Reason Provider Source Jun 26, 2024 03:30 PM OFFICE O/P EST MOD 30 MIN [facility] - IND ICD-10-CM F43.12 Post-traumatic stress disorder, chronic HARRIETT KELSEY TERRANCEYared Encounter Template Text not used by [place] Assessments - Encounter Diagnoses This section includes the primary and secondary diagnoses documented for the Encounter. Date/Time Primary/Secondary Diagnosis Diagnosis Name Provider Source Jun 26, 2024 04:16 PM PRIMARY Post-traumatic stress disorder, chronic JANNA KELSEY [place] [facility] [place] [facility] Jun 26, 2024 04:16 PM SECONDARY Attention-deficit hyperactivity disorder, unspecified type JANNA KELSEY [place] [facility] [place] [facility] Jun 26, 2024 04:16 PM SECONDARY Major depressive disorder, recurrent, moderate JANNA KELSEY [place] [facility] [place] [facility] Jun 26, 2024 04:16 PM SECONDARY Unspecified mood [affective] disorder JANNA KELSEY [place] [facility] [place] [facility] Plan of Treatment: Future Appointments (+ [...] Date/Time Appointment Type Appointme nt Facility Name Jul 11, 2024 11:00 AM AMBULATORY - MEDICINE [place] [facility] [place] [facility] Jul 19, 2024 11:00 AM AMBULATORY - MEDICINE [place] [facility] [place] [facility] Jul 24, 2024 10:00 AM AMBULATORY - PSYCHIATRY [place] [facility] [place] [facility] Sep 10, 2024 10:30 AM AMBULATORY - MEDICINE [place] [facility] [place] [facility] Sep 11, 2024 09:30 AM AMBULATORY - PSYCHIATRY [place] [facility] [place] [facility] Sep 17, 2024 09:45 AM AMBULATORY - NONE [place] [facility] [place] [facility] Sep 28, 2024 11:00 AM AMBULATORY - PSYCHIATRY [place] [facility] [place] [facility] Oct 09, 2024 11:00 AM AMBULATORY - PSYCHIATRY [place] [facility] [place] [facility] October 25, 2024 01:00 PM AMBULATORY - MEDICINE [place] [facility] [place] [facility] November 13, 2024 10:00 AM AMBULATORY - PSYCHIATRY [place] [facility] [place] [facility] Nov 28, 2024 11:00 AM AMBULATORY - MEDICINE [place] [facility] [place] [facility] Dec 10, 2024 08:30 AM AMBULATORY - PSYCHIATRY [place] [facility] [place] [facility] Social History: Smoking Status (Most current) [...] Current Smoking Status Comment Facil ity May 02, 2024 08:30 AM VA-TOBACCO NEVER USED [place] [facility] [place] [facility] Tobacco Use History This section includes a history of the smoking, or tobacco-related health factors, that were collected on or before the date of the Encounter. The data comes from the [place] facility where the Encounter took place. Date/Time Smoking Status/Tobacco Use Comment F acility May 26, 2023 08:30 AM VA-TOBACCO NEVER USED [place] [facility] [place] [facility] 2022 09:30 AM VA-TOBACCO NEVER USED [place] [facility] [place] [facility] May 18, 2021 10:30 AM VA-TOBACCO NEVER USED [place] [facility] [place] [facility] Jun 02, 2020 11:00 AM VA-TOBACCO NEVER USED [place] [facility] [place] [facility] May 01, 2019 10:56 AM VA-TOBACCO NEVER USED [place] [facility] [place] [facility] Jan 02, 2018 11:55 AM VA-TOBACCO NEVER USED [place] [facility] [place] [facility] Jul 05, 2017 10:01 AM LIFETIME NON-TOBACCO USER [place] [facility] [place] [facility] Jun 24, 2016 11:53 AM LIFETIME NON-TOBACCO USER [place] [facility] [place] [facility] Jul 10, 2015 10:23 AM LIFETIME NON-TOBACCO USER [place] [facility] [place] [facility] Jun 03, 2005 10:00 AM LIFETIME [facility]-SMOKER [facility] Advance Directives: All historical and current [...] May 10, 2018 ADVANCE DIRECTIVE LEONARD TORRES [place] [facility] Mar 24, 2018 ADVANCE DIRECTIVE DAO ESTEBAN [facility] Encounter Notes: All associated encounter notes This section contains the clinical notes associated to the Encounter. Date/Time Encounter Note(s) Provider Source Jun 26, 2024 04:19 PM ACCOUNTING OF DISCLOSURES NOTE: LOCAL TITLE: STATE PRESCRIPTION DRUG MONITORING PROGRAM STANDARD TITLE: ACCOUNTING OF DISCLOSURES NOTE DATE OF NOTE: JUN 26, 2024@16:19:34 ENTRY DATE: JUN 26, 2024@16:19:34 AUTHOR: YOLANDE KELSEY EXP COSIGNER: URGENCY: STATUS: COMPLETED This PDMP query was submitted by Yolande Kelsey. The clinical justification for this PDMP query is to review controlled substances prescribed outside of the VA, and any additional information that may become available, as an important component of standard clinical care, and in accordance with [facility] policy. Patient information was shared with the PDMP Appriss [place]. No prescription(s) for controlled substances outside the VA were found in the last 90 days. /henok/ YOLANDE KELSEY MD PSYCHIATRIST Signed: 06/26/2024 16:19 YOLANDE KELSYE [facility] Jun 26, 2024 12:48 PM PSYCHIATRY NOTE: LOCAL TITLE: PSYCHIATRY NOTE STANDARD TITLE: PSYCHIATRY NOTE DATE OF NOTE: JUN 26, 2024@12:48 ENTRY DATE: JUN 26, 2024@12:48:05 AUTHOR: YOLANDE KELSEY EXP COSIGNER: URGENCY: STATUS: COMPLETED PSYCHIATRY NOTE Has ADDENDA ANDRIAANUJ JR, a 79 year old WHITE MALE was seen for scheduled mental health follow-up at [facility]. MENTAL HEALTH NOTE: was seen for 30 min in the [facility] for routine mental health follow up. Two forms of identification was used. 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 SUBJECTIVE: Anuj says that his 's classmate's just recently. He also had some bad news this morning that a baptism friend . He feels sad about these losses for his . He and his are also busy attending basketball games of their grandkids. Anuj says that he and his have some plans for vacations in November or December to [facility] to visit Anuj's half siblings who live there. Anuj says that usually he and his go on vacation with their children, but they don't think they will do that this year. He thinks they might get to the [facility] this year which they like to do. Anuj reports he hasn't been feeling as anxious as he had been. His mood has been better also. He isn't sure the reasons for the improvement. He thinks maybe getting out to see his grandkids play might have something to do with it. He uses these opportunities to socialize. Anuj would like to try and reduce the lexapro to see if he really still needs the 30 mg or if 20 mg would be fine enough. He is going to work on getting more exercise which he knows is good for your health and helping to reduce the risk of developing dementia. SUBSTANCE ABUSE: Caffeine: Tobacco: Cocaine: denies Opioid: [...] MOUTH ONCE DAILY FOR ACTIVE BLOOD PRESSURE/HEART Inactive Outpatient Medications Status 1) METHYLPHENIDATE HCL 10MG TAB TAKE ONE TABLET BY MOUTH ONCE DAILY AND TAKE ONE TABLET EVERY EVENING NEEDED NEXT FILL 07/05/24 Indication: ATTENTION/ CONCENTRATION 2) SODIUM FLUORIDE 1.1% TOOTHPASTE BRUSH SMALL AMOUNT [...] Alert and fully oriented. Appearance and Behavior: Average height older white male with short ruiz hair wearing a [place] hat and eyeglasses dressed in black jeans and jacket with a plaid scarf and hiking shoes on. Eye Contact: Good. Speech: Normal rate and [...] TREATMENT PLAN/ DISCUSSION/ RATIONALE: 1.::: Medication management: Reviewed notes from Dr. Aleman and Dr. Turner from his treatment with both of those Psychiatrists. We reviewed his medication history and his treatment that I could see with Dr. Aleman and Dr. Turner. We discussed trying to reduce polypharmacy if this was an interest to him. I think there have been clear indications for his medications in the past. I am not all to sure about the reasons for the initiation of methylphenidate to his regimen in 2015 other than to help with concentration. But he never had any formal testing for ADHD and no known history of symptoms. He was reporting issues with his concentration at the time. Methylphenidate is also used as an augmentation strategy in some cases for depression. At any rate, Anuj feels it does help him and he denies any side effects from it. We will continue to work together and see what changes we might be able to make to reduce polypharmacy. Anuj will continue on Gabapentin 100 mg BID prn anxiety, Lamictal 150 mg BID and Methylphenidate 10 mg BID (with the second dose in the early afternoon). Encouraged Anuj to try and get out to socialize more which he finds good for his mood. He knows a tracie from his baptism that he could go out with to socialize with. The last EKG on file with the VA locally was from October 2017 and his QTc then was 411 ms. Will repeat the EKG to make sure he is tolerating the methylphenidate without issue. Last utox done last fall. Will plan to repeat this fall. Anuj seems in fair spirits today. Next Visit: in 1 month. Patient is aware of how to access [facility] open access clinic in [facility] during weekdays for immediate mental health needs [...] with ongoing prescription of narcotics through this [place] facility. ::: Psychotropic meds were reconciled; and [...] in the community (including Crisis Line, 911, [place] National Suicide Prevention Lifeline: 1-490-246-TALK). Patient is instructed to contact me should [...] denied suicidal and violent ideation, but the [employer] Crisis Line information and number were given [...] this VA (local) and dispensed from another [place] or [place] facility (remote) as well as [...] whether with a VA or non-VA provider. Medication Reconciliation: Outpatient: Has the patient been taking medications as documented in the EMLR? YES: The patient has been taking medications as documented in the EMLR. Essential Medication List for Review used to complete this medication reconciliation. INCLUDED IN THIS LIST: Alphabetical list of active outpatient prescriptions dispensed from this VA (local) and dispensed from another [place] or [place] facility (remote) as well as [...] whether with a VA or non-VA provider. /mega KELSEY MD PSYCHIATRIST Signed: 06/26/2024 16:19 07/12/2024 ADDENDUM STATUS: COMPLETED EKG done yesterday was read by [place] Netsuite Developer Fili Mcclain from the [facility]. Heart rate was noted to be bradycardic at 50 beats per minute. QTc was 413 ms. His EKG was compared to the previous one from 2018 and was seen as no significant change from the EKG in 2018. /mega KELSEY MD PSYCHIATRIST Signed: 07/12/2024 14:35 YOLANDE KELSEY [facility] Jun 26, 2024 12:47 PM ADMINISTRATIVE NOTE: LOCAL TITLE: ADMINISTRATIVE NOTE STANDARD TITLE: ADMINISTRATIVE NOTE DATE OF NOTE: JUN 26, 2024@12:47 ENTRY DATE: JUN 26, 2024@12:47:25 AUTHOR: YOLANDE KELSEY EXP COSIGNER: URGENCY: STATUS: COMPLETED See June 05 consult report for full details. /mega KELSEY MD PSYCHIATRIST Signed: 06/26/2024 12:47 Y[facility]DE KELSEY [facility]
--- OUTSIDE RECORDS SUMMARY | 2024-10-02 13:18 | XMS_ITS ---
Author Name [facility] [place] [facility] [place] Address [address] [place] [address] Care Team Providers Care Jacquard Loom Heddles Tier Name Role Phone VINNIE BLACKWELL Primary Care [...] SELF + ONE Sep 19, 2015 [id number] [phone] DAVID Frederick EDWIN PATIENT ANTHEM BCBS CT FEDERAL PREFERRED PROVIDER ORGANIZAT ION (PPO) STAND [place] FAMIL Y Dec 24, 2009 105 [id number] [phone] DAVID Frederick EDWIN PATIENT BCBS [place] FEP PREFERRED PROVIDER ORGANIZAT ION (PPO) [place] SELF PLUS 1 Sep 19, 2015 [id number] ANUJ RAMIREZ PATIENT [place] PREFERRED PROVIDER ORGANIZAT ION (PPO) [place] SELF+ ONE Sep 19, 2015 106 [id number] DAVID Frederick EDWIN PATIENT [place] PREFERRED PROVIDER ORGANIZAT ION (PPO) STAND [place] FAMIL Y Dec 24, 2009 105 [id number] ANUJ RAMIREZ PATIENT [place] DENTAL DENTAL INSURANCE [place] Sep 19, 2015 DENTAL [id number] ANUJ RAMIREZ PATIENT [place] FEP BCBS PRESCRIPT ION CAREM ARK FEPRX PLAN Sep 24, 2010 [id number] ANUJ RAMIREZ PATIENT [place] FEPRX PLAN PRESCRIPT ION BCBS FEP Jun 20, 2001 [id number] ANUJ RAMIREZ PATIENT [employer] FEPRX PLAN PRESCRIPT ION CAREM ARK FEPRX Jun 20, 2001 [id number] [phone] ANUJ RAMIREZ PATIENT [place]-F EP BCBS PRESCRIPT ION FEP CAREM ARK Jun 20, 2010 [id number] ANUJ RAMIREZ PATIENT MEDICARE (WNR) MEDICARE () PART A Jul 21, 2011 PART A [id number] ANUJ RAMIREZ PATIENT MEDICARE (WNR) MEDICARE () PART B Jul 21, 2011 PART B [id number] [phone] ANUJ RAMIREZ PATIENT MEDICARE (WNR) MEDICARE () PART A Apr 20, 2011 PART A [id number] ANUJ RAMIREZ JR PATIENT MEDICARE (WNR) MEDICARE () PART B Apr 20, 2011 PART B [id number] ANUJ RAMIREZ JR PATIENT MEDICARE (WNR) MEDICARE () PART A Apr 20, 2011 PART A [id number] [phone] ANUJ RAMIREZ PATIENT MEDICARE (WNR) MEDICARE () PART B Apr 20, 2011 PART B [id number] [phone] ANUJ RAMIREZ PATIENT MEDICARE (WNR) MEDICARE () PART A Apr 20, 2011 PART A [id number] ANUJ RAMIREZ PATIENT MEDICARE (WNR) MEDICARE (M) PART B Apr 20, 2011 PART B [id number] ANUJ RAMIREZ PATIENT Selected Encounter This section includes the information on record at [place] for the Encounter. Date/Time Encounter Type Encounter Description Reason Provider Source Dec 02, 2023 11:00 AM OFFICE O/P EST LOW 20 MIN MENTAL HEALTH CLINIC - IND ICD-10-CM F90.9 Attention-deficit hyperactivity disorder, unspecified type TRENA TURNER MD [facility] Encounter Template Text not used by [place] Assessments - Encounter Diagnoses This section includes the primary and secondary diagnoses documented for the Encounter. Date/Time Primary/Secondary Diagnosis Diagnosis Name Provider Source Dec 02, 2023 11:23 AM PRIMARY Attention-deficit hyperactivity disorder, unspecified type TRENA TURNER MD [place] [facility] [facility] Dec 02, 2023 11:23 AM SECONDARY Depression, unspecified TRENA TURNER MD [place] [facility] [place] [facility] Dec 02, 2023 11:23 AM SECONDARY Post-traumatic stress disorder, chronic TRENA TURNER MD [facility] [place] [facility] Plan of Treatment: Future Appointments (+ 6 months) and Future Tests (+/- 45 days) The Plan of Treatment section includes future care activities for the patient from all [place] treatmentfacilities. This section includes future appointments and future orders which are active, pending or scheduled. Future Appointments This section includes appointments that were scheduled to occur 6 months from the date of the Encounter, up to a maximum of 20 appointments. The data comes from all [place] treatment facilities. Appointment Date/Time Appointment Type Appointme nt Facility Name Dec 06, 2023 10:00 AM AMBULATORY - MEDICINE [place] [facility] [place] [facility] Dec 14, 2023 11:30 AM AMBULATORY - NONE [place] [facility] [place] [facility] Jan 09, 2024 10:00 AM AMBULATORY - PSYCHIATRY [place] [facility] [place] [facility] Feb 08, 2024 11:00 AM AMBULATORY - PSYCHIATRY [place] [facility] [place] [facility] Feb 28, 2024 11:00 AM AMBULATORY - NONE [place] [facility] [place] [facility] Mar 12, 2024 10:30 AM AMBULATORY - MEDICINE [place] C [facility] [place] [facility] Mar 14, 2024 11:00 AM AMBULATORY - PSYCHIATRY [place] [facility] [place] [facility] Mar 26, 2024 10:00 AM AMBULATORY - MEDICINE [place] [facility] [place] [facility] Apr 10, 2024 10:00 AM AMBULATORY - MEDICINE [place] [facility] [place] [facility] Apr 11, 2024 09:30 AM AMBULATORY - PSYCHIATRY [place] [facility] [place] [facility] May 01, 2024 10:30 AM AMBULATORY - MEDICINE [place] [facility] [place] [facility] May 02, 2024 08:30 AM AMBULATORY - PSYCHIATRY [place] [facility] [place] [facility] Social History: Smoking Status (Most current) and Tobacco Use (All prior to encounter date) This section includes the most current, and the historical, smoking and tobacco- related health factors from the [place] facility where the Encounter took place. Current Smoking Status This section includes the most current smoking, or tobacco-related health factor, from the [place] facility where the Encounter took place. Date/Time Current Smoking Status Comment Facil ity May 26, 2023 08:30 AM VA-TOBACCO NEVER USED [place] [facility] [place] [facility] Tobacco Use History This section includes a history of the smoking, or tobacco-related health factors, that were collected on or before the date of the Encounter. The data comes from the [place] facility where the Encounter took place. Date/Time Smoking Status/Tobacco Use Comment F acility 2022 09:30 AM VA-TOBACCO NEVER USED [facility] [place] [facility] May 18, 2021 10:30 AM VA-TOBACCO NEVER USED [place] [facility] [place] [facility] Jun 02, 2020 11:00 AM VA-TOBACCO NEVER USED [place] [facility] [place] [facility] May 01, 2019 10:56 AM VA-TOBACCO NEVER USED [place] [facility] [place] [facility] Jan 02, 2018 11:55 AM VA-TOBACCO NEVER USED [place] [facility] [place] [facility] Jul 05, 2017 10:01 AM LIFETIME NON-TOBACCO USER [facility] [place] [facility] Jun 24, 2016 11:53 AM LIFETIME NON-TOBACCO USER [facility] [place] [facility] Jul 10, 2015 10:23 AM LIFET[facility]ACCO [facility] Jun 03, 2005 10:00 AM LIFETIME NON-SMOKER [facility] Advance Directives: All historical and current Section Date Range: From patient's date of to the date document was created. This section includes ALL of a patient's completed or amended [place] Advance and Rescinded Directives. The entries below indicate that a directive exists for the patient, but an actual copy is not included with this document. The data comes from all [place] facilities. Date Advance Directives Provider Source May 10, 2018 ADVANCE DIRECTIVE [facility]ARD [facility]RES [facility] Mar 24, 2018 ADVANCE DIRECTIVE DAO ESTEBAN [facility] Encounter Notes: All associated encounter notes This section contains the clinical notes associated to the Encounter. Date/Time Encounter Note(s) Provider Source Dec 02, 2023 11:22 AM ACCOUNTING OF DISCLOSURES NOTE: LOCAL TITLE: STATE PRESCRIPTION DRUG MONITORING PROGRAM STANDARD TITLE: ACCOUNTING OF DISCLOSURES NOTE DATE OF NOTE: DEC 02, 2023@11:22:11 ENTRY DATE: DEC 02, 2023@11:22:11 AUTHOR: DAILY TURNER EXP COSIGNER: URGENCY: STATUS: COMPLETED This PDMP query was submitted by Daily Turner MD, MD. The clinical justification for this PDMP query is to review controlled substances prescribed outside of the VA, and any additional information that may become available, as an important component of standard clinical care, and in accordance with [facility] policy. Patient information was shared with the PDMP Appriss [place]. Prescription(s) filled outside the VA in the last 90 days are noted. However, they do not raise significant safety concerns and do not influence the treatment plan at this time. Gabapentin /es/ DAILY TURNER JR, MD STAFF PSYCHIATRIST Signed: 12/02/2023 11:22 DAILY TURNER MD [facility] Dec 02, 2023 08:05 AM PSYCHIATRY NOTE: LOCAL TITLE: PSYCHIATRY/FOLLOW-UP NOTE STANDARD TITLE: PSYCHIATRY NOTE DATE OF NOTE: DEC 02, 2023@08:05 ENTRY DATE: DEC 02, 2023@08:05:04 AUTHOR: DAILY TURNER EXP COSIGNER: URGENCY: STATUS: COMPLETED SUBJECT: Medication Change Medications were reconciled with and he was [...] 5) ESCITALOPRAM OXALATE 20MG TAB TAKE ONE AND [...] medication management. Two identifiers were used. CC: Ok, my thing I'm a little depress and I sort of feel like it, I don't really know. I don't know what it is. I guess I didn't recognize it myself, kind of adrienne??. No alcohol or substance use, no . No other complaints and no adverse side effects from current medications were reported. is, doing good, doing well. Dagoberto takes gabapentin 300mg from outside neurologist for seizures and 100mg bid from this VA. No seizures reported since last visit, no . Mood is depressed and PTSD symptoms are stable at this time. Sleep is, ok and he is using his C-PAP machine. Appetite is, it's good. Dagoberto is on methylphenidate for attention and concentration and is, ok on current dose. Dagoberto sometimes forgets to [...] is casually dressed wearing cargo shorts, a shirt, a cap, and glasses. He [...] ADD. Depression. PTSD Plan: Continue present medications with changes as above. Encouraged dagoberto to take medications as prescribed. RTC monthly for medication management. Nevin has the number for the Veterans Crisis Line including the 988. Random UDS. /henok/ DAILY TURNER JR, MD STAFF PSYCHIATRIST Signed: 12/02/2023 11:23 DAILY TURNER MD [place] [facility] [facility]
--- OUTSIDE RECORDS SUMMARY | 2024-10-02 13:18 | XMS_ITS | Encounter Summary ---
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 Name Role Phone VINNIE BLACKWELL Primary Care [...] SELF + ONE Sep 19, [phone] [id number] [phone] ANUJ RAMIREZ PATIENT ANTHEM BCBS CT FEDERAL PREFERRED PROVIDER ORGANIZAT ION (PPO) STAND [place] FAMIL Y Dec 24, 2009 105 [id number] [phone] DAVID Frederick EDWIN PATIENT BCBS [place] FEP PREFERRED PROVIDER ORGANIZAT ION (PPO) [place]AND [place] SELF PLUS 1 Sep 19, 2015 106 [id number] ANUJ RAMIREZ PATIENT [place] PREFERRED PROVIDER ORGANIZAT ION (PPO) [place]AND [place] SELF+ ONE Sep 19, 2015 106 [id number] DAVID Frederick EDWIN PATIENT [place] PREFERRED PROVIDER ORGANIZAT ION (PPO) STAND [place] FAMIL Y Dec 24, 2009 105 [id number] ANUJ RAMIREZ PATIENT [place] FEP DENTAL DENTAL INSURANCE [place]AND [place] Sep 19, 2015 DENTAL [id number] ANUJ RAMIREZ PATIENT [place] FEP BCBS PRESCRIPT ION CAREM ARK FEPRX PLAN Sep 24, 2010 [id number] ANUJ RAMIREZ PATIENT [place] FEPRX PLAN PRESCRIPT ION BCBS FEP Jun 20, 2001 [id number] [phone] ANUJ RAMIREZ PATIENT [place] FEPRX PLAN PRESCRIPT ION CAREM ARK FEPRX Jun 20, 2001 [id number] [phone] ANUJ RAMIREZ PATIENT [place]-F EP BCBS PRESCRIPT ION FEP CAREM ARK Jun 20, 2010 [id number] ANUJ RAMIREZ PATIENT MEDICARE (WNR) MEDICARE () PART A Jul 21, 2011 PART A [id number] ANUJ RAMIREZ PATIENT MEDICARE (WNR) MEDICARE () PART B Jul 21, 2011 PART B [id number] [phone] ANUJ RAMIREZ PATIENT MEDICARE (WNR) MEDICARE () PART A Apr 20, 2011 PART A [id number] ANUJ RAMIREZ JR PATIENT MEDICARE (WNR) MEDICARE () PART B Apr 20, 2011 PART B [id number] [phone] ANUJ RAMIREZ JR PATIENT MEDICARE (WNR) MEDICARE () PART A Apr 20, 2011 PART A [id number] ANUJ RAMIREZ PATIENT MEDICARE (WNR) MEDICARE () PART B Apr 20, 2011 PART B [id number] [phone] ANUJ RAMIREZ PATIENT MEDICARE (WNR) MEDICARE () PART A Apr 20, 2011 PART A [id number] ANUJ RAMIREZ PATIENT MEDICARE (WNR) MEDICARE (M) PART B Apr 20, 2011 PART B [id number] ANUJ RAMIREZ PATIENT Selected Encounter This section includes the information on record at [place] for the Encounter. Date/Time Encounter Type Encounter Description Reason Provider Source Mar 12, 2024 10:30 AM OFFICE O/P EST MOD 30 MIN PRIMARY CARE/MEDICINE ICD-10-CM Z77.29 Contact with and exposure to other hazardous substances FURCOLOVINNIE IHE Encounter Template Text not used by [place] Assessments - Encounter Diagnoses This section includes the primary and secondary diagnoses documented for the Encounter. Date/Time Primary/Secondary Diagnosis Diagnosis Name Provider Source Mar 12, 2024 11:08 AM PRIMARY Contact with and exposure to other hazardous substances FURCOLO,VINNIE [facility] Mar 12, 2024 11:08 AM SECONDARY Depression, unspecified FURCOLO,VINNIE [facility] Mar 12, 2024 11:08 AM SECONDARY Essential (primary) hypertension FURCOLO,VINNIE [facility] Mar 12, 2024 11:08 AM SECONDARY Major depressive disorder, recurrent, moderate FURCOLO,VINNIE [facility] Mar 12, 2024 11:08 AM SECONDARY Mixed hyperlipidemia FURCOLO,VINNIE [facility] Mar 12, 2024 11:08 AM SECONDARY Other obesity FURCOLO,VINNIE [facility] Mar 12, 2024 11:08 AM SECONDARY Other sleep apnea FURCOLO,VINNIE [facility] Mar 12, 2024 11:08 AM SECONDARY Post-traumatic stress disorder, chronic FURCOLO,VINNIE [facility] Plan of Treatment: Future Appointments (+ 6 months) and Future Tests (+/- 45 days) The Plan of Treatment section includes future care activities for the patient from all [place] treatmentfacilities. This section includes future appointments and future orders which are active, pending or scheduled. Future Appointments This section includes appointments that were scheduled to occur 6 months from the date of the Encounter, up to a maximum of 20 appointments. The data comes from all [place] treatment facilities. Appointment Date/Time Appointment Type Appointme nt Facility Name Mar 14, 2024 11:00 AM AMBULATORY - PSYCHIATRY [facility] [place] [facility] Mar 26, 2024 10:00 AM AMBULATORY - MEDICINE [facility] [facility] Apr 10, 2024 10:00 AM AMBULATORY - MEDICINE [facility] Apr 11, 2024 09:30 AM AMBULATORY - PSYCHIATRY [facility] [place] May 01, 2024 10:30 AM AMBULATORY - MEDICINE [facility] [place] [facility] May 02, 2024 08:30 AM AMBULATORY - PSYCHIATRY [facility] [place] [facility] Jun 05, 2024 10:30 AM AMBULATORY - PS[facility]CHIATRY [facility] [place] [facility] Jun 26, 2024 03:30 PM AMBULATORY - PSYCHIATRY [facility] [place] [facility] Jul 11, 2024 11:00 AM AMBULATORY - MEDICINE [facility] [place] [facility] Jul 19, 2024 11:00 AM AMBULATORY - MEDICINE [facility] [place] [facility] Jul 24, 2024 10:00 AM AMBULATORY - PS[facility]CHIATRY [facility] [place] [facility] Lab Results: +/- 30 days of the encounter This section includes the Chemistry and Hematology Lab Results on record with [place] for the patient. Radiology Reports and Pathology Reports are provided separately, in subsequent sections. Lab Results This section contains the Chemistry/Hematology Results that were resulted 30 days before or 30 daysafter the date of the Encounter. Date/Time Source Result Type Result - Unit Interpretation Reference Range Specimen Type Comment Apr 11, 2024 09:59 AM [facility] [place] [facility] DRUGS OF ABUSE URINE Specimen Type: [...] Apr 11, 2024 09:50 AM Reporting Lab: [address] [address] Performing Lab: [address] [address] AMPHETAMINES SCREEN NONE-DETECTED None-D etected, Cutoff = [...] H 1.003-1.020 Mar 14, 2024 11:32 AM [facility] DRUGS OF ABUSE URINE Specimen Type: [...] Mar 14, 2024 11:20 AM Reporting Lab: [address] [address] Performing Lab: [address] [address] AMPHETAMINES SCREEN NONE-DETECTED None-D etected, Cutoff = [...] H 1.003-1.020 Mar 12, 2024 11:34 AM [facility] HEPATITIS A ANTIBODY (IgM) SERUM Specimen Typ e: SERUM Comment: A Reactive result ( Positive prior to 04/02/13) indicates recent infection with Hepatitis A virus. Hepatitis A IgM antibodies may persist for 3-6 months after acute Hepatitis A infection. Ordering Provider: VINNIE BLACKWELL Report Released Date/Time: Feb 21, 2024 02:52 PM Reporting Lab: [address] [address] Performing Lab: [address] [address] HEPATITIS A ANTIBODY (IgM) Non Reactive Non Reactive Mar 12, 2024 11:34 AM [facility] LIPID PANEL, NON FASTING SERUM Specimen Type: SERUM No comment entered. Ordering Provider: VINNIE BLACKWELL Report Released Date/Time: Feb 21, 2024 02:50 PM Reporting Lab: [address] [address] Performing Lab: [address] [address] CHOLESTEROL 161 mg/dL TRIGLYCERIDE 161 mg/dL H 0-150 LDL calculated 87 mg/dL 0-129 CHOL/HDL 3.8 HDL CHOLESTEROL 42 mg/dL 40-60 Mar 12, 2024 11:34 AM [facility] BASIC METABOLIC PANEL (non-fasting) SERUM Spe cimen Type: SERUM No comment entered. Ordering Provider: VINNIE BLACKWELL Report Released Date/Time: Feb 21, 2024 02:50 PM Reporting Lab: [facility] [address] [address] Performing Lab: [facility] [address] [address] UREA NITROGEN 19 mg/dL 7-25 GLUCOSE 98 mg/dL 65-100 SODIUM 138 mmol/L 135-145 POTASSIUM 4.0 mmol/L 3.5-5.0 CHLORIDE 101 mmol/L 100-110 CO2 29 meq/L 20-30 CREATININE, Serum 1.01 mg/dL 0.50-1.40 eGFR(CKD-EPI 2020) 76 mL/min >60 Vital Signs: All taken on the encounter date This section contains inpatient and outpatient Vital Signs collected on the date of the Encounter. Date/Time Temperature Pulse Blood Pressure Respiratory Rate SP02 Pain Height Weight Body Mass Index Source Mar 12, 2024 10:30 AM 98.5 58 136/76 16 98 0 201 32 [facility] Social History: Smoking Status (Most current) and Tobacco Use (All prior to encounter date) This section includes the most current, and the historical, smoking and tobacco- related health factors from the [place] facility where the Encounter took place. Current Smoking Status This section includes the most current smoking, or tobacco-related health factor, from the [place] facility where the Encounter took place. Date/Time Current Smoking Status Comment [place] ity May 26, 2023 08:30 AM NC-TOBACCO NEVER USED [facility] Tobacco Use History This section includes a history of the smoking, or tobacco-related health factors, that were collected on or before the date of the Encounter. The data comes from the [place] facility where the Encounter took place. Date/Time Smoking Status/Tobacco Use Comment F acgraham 2022 09:30 AM NC-TOBACCO NEVER USED [facility] May 18, 2021 10:30 AM VA-TOBACCO NEVER USED [facility] Jun 02, 2020 11:00 AM VA-TOBACCO NEVER USED [facility] [place] [facility] May 01, 2019 10:56 AM VA-TOBACCO NEVER USED [facility] [place] [facility] Jan 02, 2018 11:55 AM VA-TOBACCO NEVER USED [facility] [place] [facility] Jul 05, 2017 10:01 AM LIFETIME NON-TOBACCO USER [facility] [place] [facility] Jun 24, 2016 11:53 AM LIFETIME NON-TOBACCO USER [facility] [place] [facility] Jul 10, 2015 10:23 AM LIFETIME NON-TOBACCO USER [facility] [place] [facility] Jun 03, 2005 10:00 AM LIFETIME NON-SMOKER [facility] [place] [facility] Advance Directives: All historical and current Section Date Range: From patient's date of to the date document was created. This section includes ALL of a patient's completed or amended [place] Advance and Rescinded Directives. The entries below indicate that a directive exists for the patient, but an actual copy is not included with this document. The data comes from all [place] facilities. Date Advance Directives Provider Source May 10, 2018 ADVANCE DIRECTIVE LEONARD TORRES [facility] Mar 24, 2018 ADVANCE DIRECTIVE DAO ESTEBAN [facility] [place] [facility] Encounter Notes: All associated encounter notes This section contains the clinical notes associated to the Encounter. Date/Time Encounter Note(s) Provider Source Mar 14, 2024 12:43 PM LETTERS: LOCAL TITLE: PATIENT LETTER (T) STANDARD TITLE: LETTERS DATE OF NOTE: MAR 14, 2024@12:43 ENTRY DATE: MAR 14, 2024@12:43:50 AUTHOR: VINNIE BLACKWELL EXP COSIGNER: URGENCY: STATUS: COMPLETED [facility] Toll Free Number Primary Care Telephone Assistance can be reached at extension [phone] [facility] scheduling can be reached at extension [phone] [facility] scheduling can be reached at ext [phone] ANUJ AYERS JR [address], [place], [address] [place], Your recent test results are as follows: stable normal labs LAB CHEMISTRY & HEMATOLOGY Collection DT Specimen Test Name Result Units Ref Range Detected, Cutoff = 10.0 ng/mL 03/12/2024 11:34 SERUM !! HepAIgM SR-REF Non Reactive Ref: Non Reactive 03/12/2024 11:34 SERUM CREATININE, Serum 1.01 mg/dL 0.50 - 1.40 eGFR(CKD-EPI 2020 76 mL/min Ref: >=60 SODIUM 138 mmol/L 135 - 145 POTASSIUM 4.0 mmol/L 3.5 - 5.0 CHLORIDE 101 mmol/L 100 - 110 CO2 29 mEq/L 20 - 30 UREA NITROGEN 19 mg/dL 7 - 25 GLUCOSE 98 mg/dL 65 - 100 CHOLESTEROL 161 mg/dL <7 - 199 TRIGLYCERIDE 161 H mg/dL 0 - 150 LDL calculated 87 mg/dL 0 - 129 CHOL/HDL 3.8 HDL CHOLESTEROL 42 mg/dL 40 - 60 Please call if you have any questions or concerns. Upcoming Appointments: 03/26/2024 10:00 CWM/NO/OPTOMETRY/MERHAR 04/10/2024 10:00 CWM/NO/PODIATRY/NAIL 04/11/2024 09:30 CWM/NO/MHC/KELLEY 05/01/2024 10:30 CWM/NO/NEPHROLOGY/PROV 08/28/2024 10:45 [facility] DENTAL RDH 2 AM NEW 09/10/2024 10:30 CWM/NO/PACT EIGHT Sincerely, Your Primary Care Team [facility] [address] [place] [address] [place] [address] [phone] [facility] [address] [place] [address] [place] [address] [phone] [facility] [address] [place] [address] [place] [address] [phone] VINNIE BLACKWELL [facility] Mar 12, 2024 10:46 AM PHYSICIAN NOTE: LOCAL TITLE: MD NOTE STANDARD TITLE: PHYSICIAN NOTE DATE OF NOTE: MAR 12, 2024@10:46 ENTRY DATE: MAR 12, 2024@10:46:21 AUTHOR: VINNIE BLACKWELL COSIGNER: URGENCY: STATUS: COMPLETED ANUJ AYERS JR is a 78 year old WHITE MALE who is being seen today in primary care for routine follow up. CARE TEAM Community [facility]- [facility]. 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 Exposure to potentially hazardous substance (SCT 738255336842063) Entered automatically through [facility] Problem List documentation program 2. Adult attention deficit disorder 3. Recurrent depression 4. Prediabetes 5. Essential hypertension 6. Obesity 7. Seasonal affective disorder update 8. Metabolic syndrome X 9. Obstructive sleep apnea of adult (SNOMED CT [id number]) Reviewed using CPAP 10. Shared care - loss prevention consultant and GP Dr Keene--[facility] 11. Vitreous Detachment/Degeneration (Pvd) 12. History of colonoscopy Done 2005, this was repeat. Follow-up in 5yrs per vet. colonoscopy August 20, 2016 13. Hyperlipidemia (SNOMED CT 27910059) 14. Moderate recurrent major depression Reviewed 15. 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 Active and Recently Outpatient Medications (excluding Supplies): Active Outpatient Medications Status ========= 1) CARBOXYMETHYLCELLULOSE NA 0.5% OPH SOLN INSTILL [...] TAKE ONE TABLET BY MOUTH TWICE ACTIVE DAILY MOOD 8) LOSARTAN 100MG TAB TAKE ONE TABLET BY MOUTH ONCE ACTIVE DAILY FOR BLOOD PRESSURE/HEART 9) SODIUM FLUORIDE 1.1% TOOTHPASTE BRUSH SMALL AMOUNT TO ACTIVE TEETH TWICE DAILY FOR TOOTH DECAY PREVENTION Inactive Outpatient Medications Status ========= 1) METHYLPHENIDATE HCL 10MG TAB TAKE ONE TABLET BY MOUTH ONCE DAILY AND TAKE ONE TABLET EVERY EVENING NEEDED NEXT FILL 03/07 Active Non-VA Medications Status ========= 1) Non-VA GABAPENTIN 300MG CAP 300MG BY MOUTH ONCE DAILY ACTIVE 2) Non-VA SIMVASTATIN 80MG TAB 40MG BY MOUTH ONCE DAILY ACTIVE 12 Total Medications REVIEW OF SYMPTOMS POSITIVE FOR: [...] - - - - - - B/P: 136/76 (03/12/2024 10:30) pulse: 58 (03/12/2024 10:30) resp: 16 (03/12/2024 10:30) temp: 98.5 F [36.9 C] (03/12/2024 10:30) Ht: 67 in [170.2 cm] (09/14/2023 10:33) Wgt: 201 lb [91.17 kg] (03/12/2024 10:30) BMI: BMI: 31.5 Exam: - - - - - - - General: A&O x 3, no acute distress, normal affect and mood Neck: normal thyroid, normal carotids- no bruits CV: RRR S1S2, no murmur Resp: LCTA bilat, no wheezing, rales or rhonchi Neuro: grossly intact, no visible tremor, normal memory and speech Extremities: normal movement of extremities, normal gait, normal strength no LE edema RECENT LABS BMP (FASTING) Collection DT Specimen Test Name Result Units Ref Range 08/04/2023 10:12 SERUM UREA NITROGEN 14 mg/dL 7 - 25 08/04/2023 10:12 SERUM GLUCOSE 110 H mg/dL 65 - 100 08/04/2023 10:12 SERUM SODIUM 138 mmol/L 135 - 145 08/04/2023 10:12 SERUM POTASSIUM 4.2 mmol/L 3.5 - 5.0 08/04/2023 10:12 SERUM CHLORIDE 101 mmol/L 100 - 110 08/04/2023 10:12 SERUM CO2 30 mEq/L 20 - 30 08/04/2023 10:12 SERUM CREATININE, Serum 1.00 mg/dL 0.50 - 1.40 08/26/2021 09:07 SERUM eGFR (IDMS) >60 Ref: >=60 LIVER PANEL TREND Collection DT Spec AST ALT T BILI ALK TRICIA T. PROT ALBUMIN 04/21/2023 10:18 SERUM 62 4.1 03/01/2023 14:06 SERUM 33 39 0.5 56 7.3 4.2 09/02/2022 10:26 SERUM 33 36 0.4 59 7.1 4.1 03/10/2022 09:12 SERUM 28 28 0.5 57 7.2 4.0 08/26/2021 09:07 SERUM 29 37 0.3 62 6.9 4.0 LIPID PANEL TREND Collection DT Spec CHOL HDL CHO/HDL LDL-c TRIG 04/21/2023 10:18 SERUM 159 45 3.5 87 133 03/01/2023 14:06 SERUM 132 38 L 3.5 64 148 09/02/2022 10:26 SERUM 153 46 3.3 86 103 03/10/2022 09:12 SERUM 127 41 3.1 73 67 08/26/2021 09:07 SERUM 146 39 L 3.7 73 171 H CBC TREND Collection DT Spec WBC RBC HGB HCT MCV MCH PLT 08/04/2023 10:12 BLOOD 5.15 4.64 14.8 43.4 93.5 31.9 162 04/21/2023 10:18 BLOOD 4.69 4.86 15.5 44.9 92.4 31.9 185 03/01/2023 14:06 BLOOD 7.16 4.53 14.4 42.0 92.7 31.8 185 09/02/2022 10:26 BLOOD 5.49 4.65 14.6 43.4 93.3 31.4 179 03/10/2022 09:12 BLOOD 7.41 4.33 13.7 40.2 92.8 31.6 151 PSA TREND Collection DT Spec PSA SR- 09/07/2011 09:48 SERUM 1.33 09/25/2010 09:38 SERUM 1.58 07/03/2008 11:40 SERUM 1.42 HEMOGLOBIN A1C TREND Collection DT Spec HGBA1c 03/01/2023 14:06 BLOOD 5.6 09/02/2022 10:26 BLOOD 5.6 03/10/2022 09:12 BLOOD 5.4 03/02/2021 08:56 BLOOD 5.6 12/27/2019 09:49 BLOOD 5.9 H ASSESSMENT AND PLAN Active problems - Computerized Problem List is the source for the followin. Exposure to potentially hazardous substance ([facility] [id number]) Entered automatically through [facility] Problem List documentation program 2. Adult attention deficit disorder- sees Dr. Turner 3. Recurrent depression 4. Prediabetes 5. Essential hypertension- at goal. due for labs- will do today 6. Obesity- sedentary- offered Gerofit- declines 7. Seasonal affective disorder update 8. Metabolic syndrome X 9. Obstructive sleep apnea of adult (SNOMED CT [id number]) Reviewed using CPAP 10. Vitreous Detachment/Degeneration (Pvd) 11. Hyperlipidemia (SNOMED CT 07616546) 12. Moderate recurrent major depression Reviewed 13. Chronic post-traumatic stress disorder (SNOMED CT 567704007) HEALTH MAINTENANCE Colonoscopy -last colonoscopy was done September 2022 [facility] recommended to repeat in 5 years will be due in 2027 Abdominal Aortic Aneurysm Screening - n/a nonsmoker Prostate screening - Tetanus: due every 10 years Pneumonia Vacccine: Flu Vaccine: due yearly Covid Vaccine: due yearly FOLLOW UP f/u in 6 mo VISIT TYPE: a MODERATE complexity visit where 30 minutes was spent in direct patient care, review of records and documentation. Upcoming Appointments: 03/14/2024 11:00 CWM/NO/MHC/KELLEY 03/26/2024 10:00 CWM/NO/OPTOMETRY/MERHAR 04/10/2024 10:00 CWM/NO/PODIATRY/NAIL 05/01/2024 10:30 CWM/NO/NEPHROLOGY/PROV 08/28/2024 10:45 [facility] DENTAL RDH 2 AM RENETTA /henok/ VINNIE BLACKWELL D.O. PHYSICIAN Signed: 03/12/2024 11:08 VINNIE BLACKWE[facility]
--- OUTSIDE RECORDS SUMMARY | 2024-10-02 13:18 | XMS_ITS | Encounter Summary ---
Author Name [facility] [place] [facility] [facility] [place] Address [address] [place] [id number] Care Team Providers Care Loan Closer Name Role Phone VINNIE BLACKWELL Primary Care [...] SELF + ONE Sep 19, [phone] [id number] [phone] ANUJ RAMIREZ PATIENT ANTHEM BCBS CT FEDERAL PREFERRED PROVIDER ORGANIZAT ION (PPO) STAND [place] FAMIL Y Dec 24, 2009 105 [id number] [phone] DAVID Frederick EDWIN PATIENT BCBS [place] FEP PREFERRED PROVIDER ORGANIZAT ION (PPO) [place]AND [place] SELF PLUS 1 Sep 19, 2015 106 [id number] ANUJ RAMIREZ PATIENT [place] PREFERRED PROVIDER ORGANIZAT ION (PPO) [place]AND [place] SELF+ ONE Sep 19, 2015 106 [id number] DAVID Frederick EDWIN PATIENT [place] F[place] PREFERRED PROVIDER ORGANIZAT ION (PPO) STAND [place] FAMIL Y Dec 24, 2009 105 [id number] ANUJ RAMIREZ PATIENT [place] FEP DENTAL DENTAL INSURANCE STAND [place] Sep 19, 2015 [id number] ANUJ RAMIREZ PATIENT [place] FEP BCBS PRESCRIPT ION CAREM ARK FEPRX PLAN Sep 24, 2010 [id number] ANUJ RAMIREZ PATIENT [place] FEPRX PLAN PRESCRIPT ION BCBS FEP Jun 20, 2001 [id number] ANUJ RAMIREZ PATIENT [employer] FEPRX PLAN PRESCRIPT ION CAREM ARK FEPRX Jun 20, 2001 [id number] [phone] ANUJ RAMIREZ PATIENT [place]-F EP BCBS PRESCRIPT ION FEP CAREM ARK Jun 20, 2010 [id number] [phone] ANUJ RAMIREZ PATIENT MEDICARE (WNR) MEDICARE () PART A Jul 21, 2011 PART A [id number] ANUJ RAMIREZ PATIENT MEDICARE (WN) MEDICARE () PART B Jul 21, 2011 PART B [id number] ANUJ RAMIREZ PATIENT MEDICARE (WNR) MEDICARE () PART A Apr 20, 2011 PART A [id number] [phone] ANUJ RAMIREZ PATIENT MEDICARE (WNR) MEDICARE () PART B Apr 20, 2011 PART B [id number] ANUJ RAMIREZ PATIENT MEDICARE (WNR) MEDICARE () PART A Apr 20, 2011 PART A [id number] ANUJ RAMIREZ JR PATIENT MEDICARE (WNR) MEDICARE () PART B Apr 20, 2011 PART B [id number] DAVID Frederick JR, EDWIN PATIENT MEDICARE (WNR) MEDICARE () PART A Apr 20, 2011 PART A [id number] ANUJ RAMIREZ PATIENT MEDICARE (WNR) MEDICARE (M) PART B Apr 20, 2011 PART B [id number] ANUJ RAMIREZ PATIENT Selected Encounter This section includes the information on record at [place] for the Encounter. Date/Time Encounter Type Encounter Description Reason Provider Source Feb 08, 2024 11:00 AM OFFICE O/P EST MOD 30 [facility] - IND ICD-10-CM F90.9 Attention-deficit hyperactivity disorder, unspecified type TRENA TURNER MD [facility] Encounter Template Text not used by [place] Assessments - Encounter Diagnoses This section includes the primary and secondary diagnoses documented for the Encounter. Date/Time Primary/Secondary Diagnosis Diagnosis Name Provider Source Feb 23, 2024 10:32 AM PRIMARY Attention-deficit hyperactivity disorder, unspecified type TRENA TURNER MD [place] [facility] Feb 23, 2024 10:32 AM SECONDARY Depression, unspecified [facility] Feb 23, 2024 10:32 AM SECONDARY Post-traumatic stress disorder, chronic [facility] Plan of Treatment: Future Appointments (+ 6 months) and Future Tests (+/- 45 days) The Plan of Treatment section includes future care activities for the patient from all [place] treatmentfacilities. This section includes future appointments and [...] 28, 2024 11:00 AM AMBULATORY - NONE [place] [facility] Mar 12, 2024 10:30 AM AMBULATORY - MEDICINE [place] [facility] Mar 14, 2024 11:00 AM AMBULATORY - PS[place]CHIATRY [place] [facility] Mar 26, 2024 10:00 AM AMBULATORY [place]ICINE [place] [facility] Apr 10, 2024 10:00 AM AMBULATORY [place]IC[place] [facility] Apr 11, 2024 09:30 AM AMBULATORY - PS[place]CHIATRY [place] [facility] May 01, 2024 10:30 AM [place] [place] [facility] May 02, 2024 08:30 AM AMBUL[place]ORY [place]IATRY [place] [facility] Jun 05, 2024 10:30 AM [facility] Jun 26, 2024 03:30 PM [facility] Jul 11, 2024 11:00 AM AM[place]UL[place]ORY [place]ICINE [place] [facility] Jul 19, 2024 11:00 AM AMBULATORY - MEDICINE [facility] Jul 24, 2024 10:00 AM [facility] Lab Results: +/- 30 days of [...] Type Comment Jan 11, 2024 12:22 PM [facility] DRUGS OF ABUSE URINE Specimen Type: [...] November 02, 2023 01:33 PM Reporting Lab: [address] [id number] Performing Lab: [address] [id number] AMPHETAMINES SCREEN NONE-DETECTED None-D etected, Cutoff = [...] VA-TOBACCO NEVER USED [facility] Tobacco Use History This section includes a history of the smoking, or tobacco-related health factors, that were collected on or before the date of the Encounter. The data comes from the [place] facility where the Encounter took place. Date/Time Smoking Status/Tobacco Use Comment F acility 2022 09:30 AM VA-TOBACCO NEVER USED [facility] May 18, 2021 10:30 AM VA-TOBACCO NEVER USED [facility] Jun 02, 2020 11:00 AM VA-TOBACCO NEVER USED [facility] May 01, 2019 10:56 AM VA-TOBACCO NEVER USED [facility] Jan 02, 2018 11:55 AM VA-TOBACCO NEVER USED [facility] Jul 05, 2017 10:01 AM LIFETIME NON-TOBACCO USER [facility] Jun 24, 2016 11:53 AM LIFETIME NON-TOBACCO USER [place] [facility] Jul 10, 2015 10:23 AM LIFETIME NON-TOBACCO USER [facility] Jun 03, 2005 10:00 AM LIFETIME NON-SMOKER [facility] Advance Directives: All historical and current [...] May 10, 2018 ADVANCE DIRECTIVE LEONARD TORRES [place] [facility] Mar 24, 2018 ADVANCE DIRECTIVE DAO ESTEBAN [facility] Encounter Notes: All associated encounter notes This section contains the clinical notes associated to the Encounter. Date/Time Encounter Note(s) Provider Source Feb 08, 2024 11:16 AM ACCOUNTING OF DISCLOSURES NOTE: LOCAL TITLE: STATE PRESCRIPTION DRUG MONITORING PROGRAM STANDARD TITLE: ACCOUNTING OF DISCLOSURES NOTE DATE OF NOTE: FEB 08, 2024@11:16 ENTRY DATE: FEB 08, 2024@11:16 AUTHOR: DAILY TURNER EXP COSIGNER: URGENCY: STATUS: COMPLETED This PDMP query was submitted by Daily Turner MD, MD. The clinical justification for this PDMP query is to review controlled substances prescribed outside of the [facility], and any additional information that may become available, as an important component of standard clinical care, and in accordance with [facility] policy. Patient information was shared with the PDMP [place]. Prescription(s) filled outside the [facility] in the last 90 days are noted. However, they do not raise significant safety concerns and do not influence the treatment plan at this time. Gabapentin 300 Mg capsule /es/ DAILY TURNER JR, MD STAFF PSYCHIATRIST Signed: 02/08/2024 11:27 DAILY TURNER MD [facility] Feb 08, 2024 08:32 AM PSYCHIATRY NOTE: LOCAL TITLE: PSYCHIATRY/FOLLOW-UP NOTE STANDARD TITLE: PSYCHIATRY NOTE DATE OF NOTE: FEB 08, 2024@08:32 ENTRY DATE: FEB 08, 2024@08:32:50 AUTHOR: DAILY TURNER EXP COSIGNER: URGENCY: STATUS: [...] [place], 78 yo, male who was [facility] for 20 minutes for medication management. Two identifiers were used. CC: I'm doing ok. No alcohol or substance use, no . No complaints and no adverse side effects from current medications were reported. is, she's doing pretty good. Dagoberto is going to the [facility] next week to visit brothers and sister. Dagoberto takes gabapentin 300mg from outside neurologist for seizures and 100mg bid from this [facility]. No seizures reported since last visit, no . Mood is pretty good, a little more stress than usual and PTSD symptoms are stable at this time, about the same . Sleep is, it's been good, not enough, but good, habit of staying up too late and nightmares, now and then and he is using his C-PAP machine. Appetite is, good. Dagoebrto is on methylphenidate for attention and concentration and is fair on current dose. Dagoberto sometimes forgets to take the afternoon dose. Dagoberto no longer has an outside therapist [...] male who is casually dressed wearing cargo pants, a shirt, and glasses. He has good personal hygiene. [...] as prescribed. RTC monthly for medication management. has the number for the [facility] Line including the 988. Random UDS. Homelessness/Food Insecurity Screen: In the past 2 months, have you been living in stable housing that you own, rent, or stay in as part of a household? Yes - Living in stable housing. Are you worried or concerned that in the next 2 months you may NOT have stable housing that you own, rent, or stay in as part of a household? No - Not worried about housing near future [facility] reports the following: Within the past 12 months, you worried whether your food would run out before you got money to buy more. Never true Within the past 12 months, the food you bought just didn't last and you didn't have money to get more. Never true /henok/ DAILY TURNER JR, MD STAFF PSYCHIATRIST Signed: 02/08/2024 11:27 DAILY TURNER MD [place] [facility]
--- OUTSIDE RECORDS SUMMARY | 2024-10-02 13:18 | XMS_ITS | Encounter Summary ---
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 Name Role Phone VINNIE BLACKWELL Primary Care [...] SELF + ONE Sep 19, [phone] [id number] [phone] ANUJ RAMIREZ PATIENT ANTHEM BCBS CT FEDERAL PREFERRED PROVIDER ORGANIZAT ION (PPO) STAND [place] FAMIL Y Dec 24, 2009 105 [id number] [phone] DAVID Frederick EDWIN PATIENT BCBS [place] FEP PREFERRED PROVIDER ORGANIZAT ION (PPO) STAND [place] SELF PLUS 1 Sep 19, 2015 106 [id number] ANUJ RAMIREZ PATIENT [place] PREFERRED PROVIDER ORGANIZAT ION (PPO) STAND [place] SELF+ ONE Sep 19, 2015 106 [id number] DAVID Frederick EDWIN PATIENT [place] F[place] PREFERRED PROVIDER ORGANIZAT ION (PPO) STAND GEOV[place] FAMIL Y Dec 24, 2009 105 [id number] ANUJ RAMIREZ PATIENT [place] FEP DENTAL DENTAL INSURANCE STAND GE[place] Sep 19, 2015 DENTAL [id number] [phone] ANUJ RAMIREZ PATIENT [place] FEP BCBS PRESCRIPT ION CAREM ARK FEPRX PLAN Sep 24, 2010 [id number] ANUJ RAMIREZ PATIENT [place] FEPRX PLAN PRESCRIPT ION BCBS FEP Jun 20, 2001 [id number] [phone] ANUJ RAMIREZ PATIENT [place] FEPRX PLAN PRESCRIPT ION CAREM ARK FEPRX Jun 20, 2001 [id number] [phone] ANUJ RAMIREZ PATIENT CAREMARK-F EP BCBS PRESCRIPT ION FEP CAREM ARK Jun 20, 2010 [id number] ANUJ RAMIREZ PATIENT MEDICARE (WNR) MEDICARE () PART A Jul 21, 2011 PART A [id number] [phone] ANUJ RAMIREZ PATIENT MEDICARE (WNR) MEDICARE () PART B Jul 21, 2011 PART B [id number] [phone] ANUJ RAMIREZ PATIENT MEDICARE (WNR) MEDICARE () PART A Apr 20, 2011 PART A [id number] [phone] ANUJ RAMIREZ JR PATIENT MEDICARE (WNR) MEDICARE () PART B Apr 20, 2011 PART B [id number] [phone] ANUJ RAMIREZ JR PATIENT MEDICARE (WNR) MEDICARE () PART A Apr 20, 2011 PART A [id number] [phone] ANUJ RAMIREZ PATIENT MEDICARE (WNR) MEDICARE () PART B Apr 20, 2011 PART B [id number] ANUJ RAMIREZ PATIENT MEDICARE (WNR) MEDICARE () PART A Apr 20, 2011 PART A [id number] AUNJ RAMIREZ PATIENT MEDICARE (WNR) MEDICARE (M) PART B Apr 20, 2011 PART B [id number] ANUJ RAMIREZ PATIENT Selected Encounter This section includes the information on record at [place] for the Encounter. Date/Time Encounter Type Encounter Description Reason Provider Source May 01, 2024 10:30 AM OFFICE O/P EST MOD 30 MIN RENAL/NEPHROL(EXCE PT DIALYSIS) ICD-10-CM 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, stage 2 (mild) PABLO CRYSTAL [facility] Encounter Template Text not used by [place] Assessments - Encounter Diagnoses This section includes the primary and secondary diagnoses documented for the Encounter. Date/Time Primary/Secondary Diagnosis Diagnosis Name Provider Source May 02, 2024 10:58 AM PRIMARY Chronic kidney disease, stage 2 (mild) DAVID CRYSTAL [facility] [place] May 02, 2024 10:58 AM SECONDARY Essential (primary) hypertension DAVID CRYSTAL [facility] [place] May 02, 2024 10:58 AM SECONDARY Mixed hyperlipidemia DAVID CRYSTAL [facility] [place] Plan of Treatment: Future Appointments (+ 6 months) and Future Tests (+/- 45 days) The Plan of Treatment section includes future care activities for the patient from all [place] treatmentfacilities. This section includes future appointments and future orders which are active, pending or scheduled. Future Appointments This section includes appointments that were scheduled to occur 6 months from the date of the Encounter, up to a maximum of 20 appointments. The data comes from all [place] treatment facilities. Appointment Date/Time Appointment Type Appointme nt Facility Name May 02, 2024 08:30 AM AMBULATORY - PSYCHIATRY [facility] [place] [facility] Jun 05, 2024 10:30 AM [facility] [place] Jun 26, 2024 03:30 PM AMBULATORY - PS[facility]CHIATRY [facility] Jul 11, 2024 11:00 AM AMBULATORY - MEDICINE [facility] Jul 19, 2024 11:00 AM AMBULATORY - MEDICINE [facility] [place] Jul 24, 2024 10:00 AM AMBULATORY - PS[facility]CHIATRY [facility] Sep 10, 2024 10:30 AM [facility] Sep 11, 2024 09:30 AM AMBUL[facility]ORY [facility]ATRY [facility] Sep 17, 2024 09:45 AM AMBULATORY - NONE [facility] Sep 28, 2024 11:00 AM AMBULATORY - PS[facility]CHIATRY [facility] Oct 09, 2024 11:00 AM AMBULATORY - PS[facility]CHIATRY [facility] October 25, 2024 01:00 PM AMBULATORY - MEDICINE [facility] Lab Results: +/- 30 days of [...] Type Comment Apr 25, 2024 11:35 AM [facility] MICROALBUMIN CREATININE RATIO PANEL URINE Spe cimen Type: URINE No comment entered. Ordering Provider: GUI CRYSTAL Report Released Date/Time: Aug 30, 2023 11:45 AM Reporting Lab: [facility] [address] [facility] [address] Performing Lab: [facility] [address] [facility] [address] MICROALBUMIN/CREATININE RATIO 25.6 mg/g 0-29.9 MICROALBUMIN,QUANTITATIVE 3.8 mg/dL RR U NAVAIL CREATININE URINE 148.64 mg/dL Apr 25, 2024 11:35 AM [facility] BASIC METABOLIC PANEL (non-fasting) SERUM Spe cimen Type: SERUM No comment entered. Ordering Provider: MAGGIE CRYSTAL Report Released Date/Time: Aug 30, 2023 11:45 AM Reporting Lab: [facility] [place] [address] [address] Performing Lab: [facility] [address] [address] UREA NITROGEN 22 mg/dL 7-25 GLUCOSE 100 mg/dL 65-100 SODIUM 138 mmol/L 135-145 POTASSIUM 4.0 mmol/L 3.5-5.0 CHLORIDE 102 mmol/L 100-110 CO2 25 meq/L 20-30 CREATININE, Serum 1.11 mg/dL 0.50-1.40 eGFR(CKD-EPI 2020) 68 mL/min >60 Apr 25, 2024 11:35 AM [facility] CBC BLOOD Specimen Type: BLOOD No comment entered. Ordering Provider: MAGGIE CRYSTAL Report Released Date/Time: Aug 30, 2023 11:45 AM Reporting Lab: [address] [address] Performing Lab: [address] [address] WBC 5.25 10*3/uL 4.50-11.00 RBC 4.48 10*6/uL 4.23-5.66 HGB 14.4 g/dL 12.8-17 HCT 41.5 39.2-50.4 MCV 92.6 fL 82-99 MCHC 34.7 g/dL 30.8-35.1 PLT 184 10*3/uL 140-360 RDW-CV 12.1 12.0-16.0 MCH 32.1 pg 26.2-32.6 Apr 25, 2024 11:35 AM [facility] FERRITIN SERUM Specimen Type: SERUM No comment entered. Ordering Provider: MAGGIE CRYSTAL Report Released Date/Time: Aug 30, 2023 11:45 AM Reporting Lab: [address] [address] Performing Lab: [address] [address] FERRITIN 190 ng/mL 20-300 Apr 25, 2024 11:35 AM [facility] IRON & TIBC PANEL SERUM Specimen Type: SERUM No comment entered. Ordering Provider: MAGGIE CRYSTAL Report Released Date/Time: Aug 30, 2023 11:45 AM Reporting Lab: [facility] [address] [address] Performing Lab: [address] [address] TIBC 306 ug/dL 204-475 IRON 72 ug/dL 40-160 Transferrin Saturation 23.5 20.0-50.0 Transferrin (TRF) 232 mg/dL 200-360 Apr 25, 2024 11:35 AM [facility] LIPID PANEL, NON FASTING SERUM Specimen Type: SERUM No comment entered. Ordering Provider: MAGGIE CRYSTAL Report Released Date/Time: Aug 30, 2023 11:45 AM Reporting Lab: [address] [address] Performing Lab: [address] [address] CHOLESTEROL 139 mg/dL TRIGLYCERIDE 99 mg/dL 0-150 LDL calculated 78 mg/dL 0-129 CHOL/HDL 3.4 HDL CHOLESTEROL 41 mg/dL 40-60 Apr 11, 2024 09:59 AM [facility] DRUGS OF ABUSE URINE Specimen [...] Apr 11, 2024 09:50 AM Reporting Lab: [address] [phone] Performing Lab: [address] [address] AMPHETAMINES SCREEN NONE-DETECTED None-D etected, Cutoff = [...] mg/dL >20 SP.GRAVITY, SAGAR 1.023 H 1.003-1.020 Vital Signs: All taken on the encounter date This section contains inpatient and outpatient Vital Signs collected on the date of the Encounter. Date/Time Temperature Pulse Blood Pressure Respiratory Rate SP02 Pain Height Weight Body Mass Index Source May 01, 2024 10:45 AM 97.4 59 147/77 18 99 4 199 31 [place] [facility] Social History: Smoking Status (Most current) and Tobacco Use (All prior to encounter date) This section includes the most current, and the historical, smoking and tobacco- related health factors from the [place] facility where the Encounter took place. Current Smoking Status This section includes the most current smoking, or tobacco-related health factor, from the [place] facility where the Encounter took place. Date/Time Current Smoking Status Comment Facil ity May 26, 2023 08:30 AM VA-TOBACCO NEVER USED [place] [facility] Tobacco Use History This section includes a history of the smoking, or tobacco-related health factors, that were collected on or before the date of the Encounter. The data comes from the [place] facility where the Encounter took place. Date/Time Smoking Status/Tobacco Use Comment F acility 2022 09:30 AM VA-TOBACCO NEVER USED [facility] [place] [facility] May 18, 2021 10:30 AM VA-TOBACCO NEVER USED [facility] [place] [facility] Jun 02, 2020 11:00 AM VA-TOBACCO NEVER USED [facility] [place] [facility] May 01, 2019 10:56 AM VA-TOBACCO NEVER USED [facility] [place] Jan 02, 2018 11:55 AM VA-TOBACCO NEVER USED [facility] [place] [facility] Jul 05, 2017 10:01 AM LIFETIME NON-TOBACCO USER [facility] [place] [facility] Jun 24, 2016 11:53 AM LIFETIME NON-TOBACCO USER [facility] [place] [facility] Jul 10, 2015 10:23 AM LIFETIME NON-TOBACCO USER [facility] Jun 03, 2005 10:00 AM LIFETIME NON-SMOKER [facility] Advance Directives: All historical and current Section Date Range: From patient's date of to the date document was created. This section includes ALL of a patient's completed or amended [place] Advance and Rescinded Directives. The entries below indicate that a directive exists for the patient, but an actual copy is not included with this document. The data comes from all [place] facilities. Date Advance Directives Provider Source May 10, 2018 ADVANCE DIRECTIVE LEONARD TORRES [facility] [place] [facility] Mar 24, 2018 ADVANCE DIRECTIVE DAO ESTEBAN [facility] Encounter Notes: All associated encounter notes This section contains the clinical notes associated to the Encounter. Date/Time Encounter Note(s) Provider Source May 01, 2024 09:20 AM NEPHROLOGY E & M NOTE: LOCAL TITLE: NEPHROLOGY NOTE STANDARD TITLE: NEPHROLOGY E & M NOTE DATE OF NOTE: MAY 01, 2024@09:20 ENTRY DATE: MAY 01, 2024@09:20:08 AUTHOR: MAGGIE CRYSTAL COSIGNER: URGENCY: STATUS: COMPLETED Nephrology Note Follow-Up 05/01/24 10:30 Blood Pressure: 147/77 (05/01/2024 10:45) Pain: 4 (05/01/2024 10:45) Patient Height: 67 in [170.2 cm] (09/14/2023 10:33) Patient Weight: 199 lb [90.26 kg] (05/01/2024 10:45) Pulse: 59 (05/01/2024 10:45) Respiration: 18 (05/01/2024 10:45) Temperature: 97.4 F [36.3 C] (05/01/2024 10:45) Consultation Problem:Renal Insufficienty History:78 year old male with a history of obesity, hypertension, hyperlipidemka presenting for evaluation and management of his renal disease. the patient denies any new problems. He states other than tremors involvingg his hands he has no other compliants. He denies chest pain, SOB, edema, rash or cough. He has no problem with his present medical regimen. Active and Recently Outpatient Medications (including Supplies): Active Outpatient Medications [...] TABLET EVERY EVENING NEEDED NEXT FILL 05/09 10) SODIUM FLUORIDE 1.1% TOOTHPASTE BRUSH SMALL AMOUNT TO ACTIVE TEETH TWICE DAILY FOR TOOTH DECAY PREVENTION Active Non-VA Medications Status 1) Non-VA GABAPENTIN 300MG CAP 300MG BY MOUTH ONCE DAILY ACTIVE 2) Non-VA SIMVASTATIN 80MG TAB 40MG BY MOUTH ONCE DAILY ACTIVE 12 Total Medications Allergies/Adverse Reactions: LISINOPRIL Review of Systems: Constitutional: no chills no fever no night sweats Head/Neck: no Headache Ear/Nose/Mouth/Throat nostril inflam/lesions throat soreness/lesions/exudates RESP No Cough No SOB No wheezing CARD No Chest Pain No Palpitaions No Periperal edema GI No Abdominal pain No Diarrhea No vomiting ENDO No excessive thirst No Excessive hunger No Weight loss or weight gain : No hematuria No dysuria No proteinuria Physical Exam: Vitals:above General:Slightly obese male alert, cooperative in NAD HEENT: Neck/Throat: no LVD; no CB; trachea in the midline Lungs:clear Heart:RRR; no murmur/gallop/rub Abdomen:slightly increased abdominal girth; soft; +BS; no masses or organomegaly Ext:no edema; Assessment and Plans: Below Areas to address in the evaluation and management of the patient's renal disease/hypertension and to reduce renal disease progression is as follows: #1. CKD stage 3: the patient is without uremic sx. Review of labs from Apr 25, 2024 showed an urine microalb/cr ratio of 26, potassium of 4.0, bicar of 25 , creatinine of 1.0 and GFR of 68. The patient's overral renal function is stable without evidence of marked dysfunction. No meds adjustments. US kidney (10/08/21): normal #2. Hypertension: the patient's blood pressure today was 147/77 p=59. His systolic is slightly higher than desired. Will recheck on return. The plan is to limit salt in his diet and to exercise. #3. Hypercholesterolemia:the patient is on Simvastatin to control his cholesterol which was 139 in 05/13 ,LDL was 78(goal <55) and HDl of 41. He is encouraged to take his lipid lowering meds as prescribed and to use a heart healthy low fat diet. #4. Anemia: the patient's H/H 15/43 mcv 94.His TIBC was 282, Iron was 104, Ferrtin was 192 and his TSAT was 37. There is no evidence to supporta diagnosis of iron deficiencyy. 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 #6. Nutritional state/obesity: the patient's recent albumin was 4.1. His weight was 199. The patient is encouraged patient to exercise and limit his intake. He encouraged to consider a heart healthy diet. Patient evaluated for 30 minutes. all of his labs result and physical findings were reviewed with the patient. Medication Reconciliation: Outpatient: Has the patient been taking medications as documented in the EMLR? YES: The patient has been taking medications as documented in the EMLR. Essential Medication List for Review used to complete this medication reconciliation. INCLUDED IN THIS LIST: Alphabetical list of active outpatient prescriptions dispensed from this [place] (local) and dispensed from another [place] or [facility] facility (remote) as well as inpatient orders [...] with a VA or non-VA provider. /henok/ MAGGIE CRYSTAL M.D. PROOF MACHINE OPERATOR SUPERVISOR MARKETING ADMIN Signed: 05/01/2024 11:00 MAGGIE CRYSTAL [facility]
== END 2024-10-02 12:15 | disposition home or self-care (01) ==
LOC: HO.HSMS 10:54
PROVIDERS: PCP Internal Medicine; Visit Provider Physician Assistant Medical
DX: G47.33 Obstructive sleep apnea (adult) (pediatric) (principal); G40.209 Localization-related (focal) (partial) symptomatic epilepsy and epileptic syndromes with complex partial seizures, not intractable, without status epilepticus; F09 Unspecified mental disorder due to known physiological condition; R26.89 Other abnormalities of gait and mobility; Z87.820 Personal history of traumatic brain injury
CPT/HCPCS: 99214

== ENCOUNTER → 2024-10-02 10:54 | Outpatient (BNVA) | payer MEDICARE, BC, SELFPAY | PROVIDERS: PCP Internal Medicine; Visit Provider Physician Assistant Medical | DX: G47.33 Obstructive sleep apnea (adult) (pediatric) (principal); G40.209 Localization-related (focal) (partial) symptomatic epilepsy and epileptic syndromes with complex partial seizures, not intractable, without status epilepticus; F09 Unspecified mental disorder due to known physiological condition; R25.1 Tremor, unspecified; R26.89 Other abnormalities of gait and mobility; R26.9 Unspecified abnormalities of gait and mobility; Z87.820 Personal history of traumatic brain injury | CPT/HCPCS: 99212 ==

== ENCOUNTER 2025-01-02 11:01 | Outpatient (AMB) | payer MEDICARE, BC, SELFPAY ==
[2025-01-02 11:04] VITALS: BP 128/70; PULSE 50; O2SAT 99; BMI 31.1
--- NOTE | 2025-01-02 11:04 | MHC.OFFVIS ---
Vital Signs 01/02/25 11:04 Height 5 ft 7 in Weight 198 lb 6 oz BMI 31.1 BP 128/70 Blood Pressure Location Rt brachial Position Sitting Pulse 50 Pulse Source Pulse Oximeter Pulse Oximetry (%) 99 Oxygen Delivery Method Room Air Intake Visit Reasons: 3mon follow-up Intake Note: Patient presents follow up Tremor. PT/CT in chart. Accompanied by: Spouse Allergies No Known Allergies Allergy (Verified 01/02/25 11:07) HPI Comments Details: 79 y/o male presents for a follow up of complex partial seizures, LUE tremors, and AUGUSTIN on CPAP. Alexandrea his helps with history today. 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 AUGUSTIN dx and treated with cpap, compliance [facility], Dr. Delaney. Neuropsych eval reviewed with patient today h/o PTSD and ADHD, recommend cognitive behavior techniques with processing. CATscan 09/2024 No evidence of infarction, hemmorhage or 13mm pineal cyst structure w/ peripheral calcification no change. Denies falls, tremors and seizure like activity, says he has disassociation like episodes where he is absent, for some 30sec to minutes, not present in conversations. He feels better with Zonosamide. [facility] Neuropsych recommendations to exercise and get restful sleep, ensure eating a healthy diet, and has psycho-social support with mentally stimulating activities and avoidance of alcohol and substance abuse, along with cognitive processing therapy. says he feels off balanced when his blood pressure drops, usually when he stands from a sleeping position. He falls asleep in his recliner in the afternoon and then stays there watching tv, and difficulty sleeping through the night. His memory is poor STM, forgets conversations, word finding difficulty, names, and he has to write everything down, and forgets where the notes are or were left. He takes gabapentin 100mg at noon and 300mg at bedtime for sleep, as he did fall out of bed onto the floor due to nightmares. He also takes Keppra 150 mg po BID. He takes methylphenidate 10mg po BID which helps with focus and attention along. For irritable mood he takes lexapro 20mg po. Avg use is 7 hours a night, [facility]. He cleans his mask and tubing, and fills reservoir as needed. PFSH Medical History Cognitive disorder Obesity Hyperlipidemia Pineal gland cyst Tremors of nervous system Obstructive sleep apnea Complex partial seizures Depression Arthritis Surgical History No pertinent past surgical history Social History Household Members: Spouse Alcohol intake: current Alcohol intake frequency: does not drink Patient Tobacco Use Status: Never used Tobacco Current occupational status: retired Physical Exam Vital Signs: Last Vital Signs Pulse 50 01/02/25 11:04 BP 128/70 01/02/25 11:04 Pulse Ox 99 01/02/25 11:04 Oxygen Delivery Method Room Air 01/02/25 11:04 BMI result Body Mass Index 31.1 Const General: cooperative and no acute distress Orientation/consciousness: patient oriented x3 HEENT Face and sinus: Yes other (Left side drooping) Throat: Yes other ([place] score of 4) Eyes Pupils: Equal, round and reactive pupils present Resp Effort & Inspection: normal respiratory effort and able to speak in complete sentences Neuro Other: Blunt facial expressions no head tremors, Voice Hypophonia, l side facial droop. LUE Tremors >RUE and R. hand 5th digit tremor. Gait leaning to the r. with right hand tremor, L. hand no arm swing drooped posture. General: patient oriented x3 Cranial nerves: Yes Facial sensation intact/muscles of mastication intact, Yes Equal, round and reactive pupils present, Yes Ability to bilaterally elevate shoulders present and Yes Other cranial nerve findings present (Hyperemia l. with bilateral lacrimation due to clogged tear ducts.) Gait exam (Neuro): Shuffling gait present Motor exam (neuro): Tremors during motor activity present (LUE > RUE and r.hand 5th digit.) Psych Thought process: Normal thought process present Thought content: Normal thought content present Results Reviewed Results Reviewed: MRI 2023 pineal cyst CTscan October 2024 stable pineal cyst Neuro pscyh note reviewed ADHD / PTSD PT note improved balance and strength Assessment & Plan Assessment & Plan (1) Obstructive sleep apnea: Comment: [facility] Code(s): G47.33 - Obstructive sleep apnea (adult) (pediatric) Category: Medical (2) Neck pain, bilateral: Comment: PT cervical spine Code(s): M54.2 - Cervicalgia Category: Medical (3) Tremors of nervous system: Comment: Bilateral hands tremor. Essential? 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 Code(s): G40.209 - Localization-related (focal) (partial) symptomatic epilepsy and epileptic syndromes with complex partial seizures, not intractable, without status epilepticus Category: Medical Plan: EEG? 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 Code(s): F09 - Unspecified mental disorder due to known physiological condition Category: Medical (6) Balance problem: Comment: PT completed and helpful. Code(s): R26.89 - Other abnormalities of gait and mobility Category: Medical (7) Gait difficulty: Code(s): R26.9 - Unspecified abnormalities of gait and mobility Category: Medical (8) History of concussion: Code(s): Z87.820 - Personal history of traumatic brain injury Category: Medical Plan Tremor Continue on Zonisamide 25mg bid, for convulsions, mood and anxiety. Seizure like disorder, disassociation disorder, continue Lamotrigine 150 mg BID and Gabapentin only at bedtime to initiate sleep. AUGUSTIN Continue CPAP compliance stressed, sleep hygiene provided, no devices at bedtime, set a scheduled sleep and wake time. Memory emphasized to patient, increased physical, social and cognitive activities, 10min of biking daily, and stationary or pedal biking he will attend the [facility] for therapy. PT for Cervical pain on lateral rotation and extension. CT-scan reviewed with patient, stable pineal cyst. F/u in 3 months. Orders: Orders PT Evaluation and Treatment Today M54.2 - Cervicalgia Patient Instructions: Sleep Hygiene provided: set a scheduled bedtime and wake time to help regulate the circadian rhythm and balance the release of pituitary hormones. Sleep in a dark room, temperatures below 68 degrees, and no devices n bed. Limit caffeinated products 6 hours prior to bed, and limit fluids 2-4 hours prior to bed. Gentle night yoga, diffusing essential oils, and playing soft music can be relaxing. Seizure / disassociation disorder will monitor and f/u with EEG, discuss tapering of methylphenidate 10mg po BID to 10mg po with pscyhiatrist. Anxiety talk to psychiatrist about increasing Lexapro if anxiety is not well managed per and neurospcyhe eval. ADHD / PTSD Coding Level of Care Code Est Pt Level 4 (19393) Diagnoses Obstructive sleep apnea G47.33 Neck pain, bilateral M54.2 Tremors of nervous system R25.1 Complex partial seizures G40.209 Cognitive disorder F09 Balance problem R26.89 Gait difficulty R26.9 History of concussion Z87.820 Time Spent (min) 30 Comment anxious
== END 2025-01-02 12:40 | disposition home or self-care (01) ==
LOC: HO.HSMS 11:02
PROVIDERS: PCP Internal Medicine; Visit Provider Physician Assistant Medical
DX: G47.33 Obstructive sleep apnea (adult) (pediatric) (principal); M54.2 Cervicalgia; R25.1 Tremor, unspecified; G40.209 Localization-related (focal) (partial) symptomatic epilepsy and epileptic syndromes with complex partial seizures, not intractable, without status epilepticus; R41.89 Other symptoms and signs involving cognitive functions and awareness; R26.89 Other abnormalities of gait and mobility; Z87.820 Personal history of traumatic brain injury
CPT/HCPCS: 99214

== ENCOUNTER → 2025-01-02 11:01 | Outpatient (BNVA) | payer MEDICARE, BC, SELFPAY | PROVIDERS: PCP Internal Medicine; Visit Provider Physician Assistant Medical | DX: G47.33 Obstructive sleep apnea (adult) (pediatric) (principal); M54.2 Cervicalgia; R25.1 Tremor, unspecified; G40.209 Localization-related (focal) (partial) symptomatic epilepsy and epileptic syndromes with complex partial seizures, not intractable, without status epilepticus; F09 Unspecified mental disorder due to known physiological condition; R26.89 Other abnormalities of gait and mobility; R26.9 Unspecified abnormalities of gait and mobility; Z87.820 Personal history of traumatic brain injury | CPT/HCPCS: 99212 ==

== ENCOUNTER 2025-02-05 15:20 | Outpatient (AMB) | payer MEDICARE, BC, SELFPAY ==
--- OUTSIDE RECORDS SUMMARY | 2025-01-30 07:00 | XMS_ITS ---
Author Name [facility] [place] [facility] [place] [facility] [facility] [place] Address [address] [place] [id number] Care Team Providers Care It Infrastructure Consultant Name Role Phone VINNIE BLACKWELL Primary Care [...] SELF + ONE Sep 19, [phone] [id number] [phone] ANUJ RAMIREZ PATIENT ANTHEM BCBS CT FEDERAL PREFERRED PROVIDER ORGANIZAT ION (PPO) [place]AND [place] FAMIL Y Dec 24, 2009 105 [id number] [phone] ANUJ RAMIREZ PATIENT BCBS [place] FEP PREFERRED PROVIDER ORGANIZAT ION (PPO) [place] SELF PLUS 1 Sep 19, 2015 [id number] ANUJ RAMIREZ PATIENT [place] PREFERRED PROVIDER ORGANIZAT ION (PPO) [place] SELF+ ONE Sep 19, 2015 106 [id number] [phone] ANUJ RAMIREZ PATIENT [place] FEP PREFERRED PROVIDER ORGANIZAT ION (PPO) [place]AND [place] FAMIL Y Dec 24, 2009 105 [id number] ANUJ RAMIREZ PATIENT [place] FEP DENTAL DENTAL INSURANCE [place]AND [place] Sep 19, 2015 [phone] [id number] ANUJ RAMIREZ PATIENT [place] FEP BCBS PRESCRIPT ION CAREM ARK FEPRX PLAN Sep 24, 2010 [id number] ANUJ RAMIREZ PATIENT [place] FEPRX PLAN PRESCRIPT ION BCBS FEP Jun 20, 2001 [id number] ANUJ RAMIREZ PATIENT [place] FEPRX PLAN PRESCRIPT ION CAREM ARK FEPRX Jun 20, 2001 [id number] [phone] ANUJ RAMIREZ PATIENT [place]-F EP BCBS PRESCRIPT ION FEP CAREM ARK Jun 20, 2010 [id number] [phone] ANUJ RAMIREZ PATIENT MEDICARE (WNR) MEDICARE () PART A Jul 21, 2011 PART A [id number] NAUJ RAMIREZ PATIENT MEDICARE (WN) MEDICARE () PART B Jul 21, 2011 PART B [id number] ANUJ RAMIREZ PATIENT MEDICARE (WN) MEDICARE () PART A Apr 20, 2011 PART A [id number] ANUJ RAMIREZ JR PATIENT MEDICARE (WN) MEDICARE () PART B Apr 20, 2011 PART B [id number] ANUJ RAMIREZ JR PATIENT MEDICARE (WNR) MEDICARE () PART A Apr 20, 2011 PART A [id number] ANUJ RAMIREZ PATIENT MEDICARE (WN) MEDICARE () PART B Apr 20, 2011 PART B [id number] ANUJ RAMIREZ PATIENT MEDICARE (WNR) MEDICARE () PART A Apr 20, 2011 PART A [id number] [id number] ANUJ RAMIREZ PATIENT MEDICARE (WNR) MEDICARE (M) PART B Apr 20, 2011 PART B [id number] ANUJ RAMIREZ PATIENT Selected Encounter This section includes the information on record at [place] for the Encounter. Date/Time Encounter Type Encounter Description Reason Pro vider Source Jan 30, 2025 11:00 AM Outpatient Encounter [facility] IHE Encounter Template Text not used by [place] Plan of Treatment: Future Appointments (+ 6 months) and Future Tests (+/- 45 days) The Plan of Treatment section includes future care activities for the patient from all [place] [facility] This section includes future appointments and future orders which are active, pending or scheduled. Future Appointments This section includes appointments that were scheduled to occur 6 months from the date of the Encounter, up to a maximum of 20 appointments. The data comes from all [facility]. Appointment Date/Time Appointment Type Appointme nt Facility Name Feb 13, 2025 09:00 AM [facility] Feb 13, 2025 11:00 AM [facility] Feb 27, 2025 11[facility]00 AM [facility] Mar 19, 2025 10:00 AM [facility] Mar 21, 2025 11:00 AM [facility] [place] [facility] Apr 03, 2025 10:00 AM AMBULATORY MEDICINE [facility] Active, Pending, and Scheduled Orders This section includes a listing of several types of active, pending, and scheduled orders, including clinic medications orders, diagnostic test orders, procedure orders and consult orders; where the start date of the order is 45 days before the date of the Encounter or 45 days after the date of theEncounter. The data comes from all [facility]. Test Date/Time Test Type Test Details Facility Name Dec 26, 2024 12:00 AM Laboratory - Chemi stry Order ALBUMIN BLOOD (SST-SERUM) [facility] Social History: Smoking Status (Most current) and Tobacco Use (All prior to encounter date) This section includes the most current, and the historical, smoking and tobacco- related health factors from the [place] facility where the Encounter took place. Current Smoking Status This section includes the most current smoking, or tobacco-related health factor, from the [place] facility where the Encounter took place. Date/Time Current Smoking Status Comment Holland crawfordy May 02, 2024 08:30 AM VA-TOBACCO NEVER USED [place] [facility] [place] [facility] Tobacco Use History This section includes a history of the smoking, or tobacco-related health factors, that were collected on or before the date of the Encounter. The data comes from the [place] facility where the Encounter took place. Date/Time Smoking Status/Tobacco Use Comment Willie acility May 26, 2023 08:30 AM VA-TOBACCO NEVER USED [facility] [place] [facility] 2022 09:30 AM VA-TOBACCO NEVER USED [facility] [place] [facility] May 18, 2021 10:30 AM VA-TOBACCO NEVER USED [facility] [place] [facility] Jun 02, 2020 11:00 AM VA-TOBACCO NEVER USED [facility] [place] [facility] May 01, 2019 10:56 AM VA-TOBACCO NEVER USED [facility] [place] [facility] Jan 02, 2018 11:55 AM VA-TOBACCO NEVER USED [facility] [place] [facility] Jul 05, 2017 10:01 AM LIFETIME NON-TOBACCO USER [facility] [place] [facility] Jun 24, 2016 11:53 AM LIFETIME NON-TOBACCO USER [facility] [place] [facility] Jul 10, 2015 10:23 AM LIFETIME NON-TOBACCO USER [facility] [place] [facility] Jun 03, 2005 10:00 AM LIFETIME NON-SMOKER [facility] [place] [facility] Advance Directives: All historical and current Section Date Range: From patient's date of to the date document was created. This section includes ALL of a patient's completed or amended [place] Advance and Rescinded Directives. The entries below indicate that a directive exists for the patient, but an actual copy is not included with this document. The data comes from all [place] facilities. Date Advance Directives Provider Source May 10, 2018 ADVANCE DIRECTIVE [facility]ARD TORRES [facility] [place] [facility] Mar 24, 2018 ADVANCE DIRECTIVE [facility]
--- NOTE | 2025-02-05 15:19 | MHC.OFFVIS ---
Intake Visit Reasons: Discuss increase medication Intake Note: Patient presents to discuss medication increase for his anxiety Allergies No Known Allergies Allergy (Verified 02/05/25 15:20) HPI Comments Details: 79 y/o male with h/o complex and partial seizures and cognitive disorder presents for a tele-health visit due to questions regarding med. dose adjustments. Alexandrea his is also present and helps with history. Denies interval med hx, denies falls. His anxiety has progressed and can be assertive in the last few weeks. He is not pleasant to be around when he is anxious per his . We discussed increasing the dose of his Ecitalopram from 20mg to 40mg if he is amenable per discussion with his psychiatrist. We also discussed the option of increasing the gabapentin which can improve sleep and anxiety, however can also make him very sedated and drowsy. Alexandrea and Fady both decide, they will check in with their psychiatrist prior to adjusting the dose of Lexapro 20mg to 40mg po and will start taking it in the morning instead of Fady's current regiment of taking it at bedtime. We discussed it can be stimulating if taken at night time so most patients find it to be more effective when taken during the day with breakfast. His also indicates his sleeping patterns now have been improving, he moves into the bedroom when he is falling asleep and he no longer sleeps in the living room. He is drinking lots of water and intake has improved. He walks as tolerable and uses his cpap daily per Dr. Delaney at the [place] Medical History Cognitive disorder Obesity Hyperlipidemia Pineal gland cyst Tremors of nervous system Obstructive sleep apnea Complex partial seizures Depression Arthritis Surgical History No pertinent past surgical history Social History Household Members: Spouse Alcohol intake: current Alcohol intake frequency: does not drink Patient Tobacco Use Status: Never used Tobacco Current occupational status: retired Telehealth Telehealth Telehealth Platform: Telephone Location of provider rendering services: practice address Location of patient: address on file Patient Identification confirmed using: Name, : Yes Telehealth method: voice only Patient verbally consented to treatment: Yes Patient verbally consented to billing insurance company: Yes Patient informed of any privacy concerns related to visit: Yes Minutes spent on Phone/Video with Pt.: 19 Assessment & Plan Assessment & Plan (1) Obstructive sleep apnea: Comment: followed by the [facility] Code(s): G47.33 - Obstructive sleep apnea (adult) (pediatric) Category: Medical (2) Neck pain, bilateral: Comment: PT cervical spine Code(s): M54.2 - Cervicalgia Category: Medical (3) Tremors of nervous system: Comment: Bilateral hands tremor. Essential? 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 Code(s): G40.209 - Localization-related (focal) (partial) symptomatic epilepsy and epileptic syndromes with complex partial seizures, not intractable, without status epilepticus Category: Medical Plan: EEG? 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 Code(s): F09 - Unspecified mental disorder due to known physiological condition Category: Medical (6) Balance problem: Comment: PT completed and helpful. Code(s): R26.89 - Other abnormalities of gait and mobility Category: Medical (7) Gait difficulty: Code(s): R26.9 - Unspecified abnormalities of gait and mobility Category: Medical (8) History of concussion: Code(s): Z87.820 - Personal history of traumatic brain injury Category: Medical (9) Anxiety: Code(s): F41.9 - Anxiety disorder, unspecified Category: Medical Plan Tremor Continue on Zonisamide 25mg bid, for convulsions, mood and anxiety. Anxiety may increase the dose of his SSRI Escitalopram from 20mg to 40 mg if his Psychiatrist will approve and write the RX. F/U with the psychiatrist at the [place] who manages this medication for dose adjustment. Seizure like disorder, disassociation disorder, continue Lamotrigine 150 mg BID and Gabapentin only at bedtime to initiate sleep. AUGUSTIN Continue CPAP compliance stressed, sleep hygiene provided, no devices at bedtime, set a scheduled sleep and wake time. Memory emphasized to patient, increased physical, social and cognitive activities, 10min of biking daily, and stationary or pedal biking he will attend the [facility] for therapy. F/u in 3 months. Patient Instructions: Sleep Hygiene provided: set a scheduled bedtime and wake time to help regulate the circadian rhythm and balance the release of pituitary hormones. Sleep in a dark room, temperatures below 68 degrees, and no devices n bed. Limit caffeinated products 6 hours prior to bed, and limit fluids 2-4 hours prior to bed. Gentle night yoga, diffusing essential oils, and playing soft music can be relaxing. Coding Level of Care Code Tele Est Pt Level 4 (38295) Diagnoses Obstructive sleep apnea G47.33 Neck pain, bilateral M54.2 Tremors of nervous system R25.1 Complex partial seizures G40.209 Cognitive disorder F09 Balance problem R26.89 Gait difficulty R26.9 History of concussion Z87.820 Anxiety F41.9
--- OUTSIDE RECORDS SUMMARY | 2025-02-05 16:38 | XMS_ITS | Clinical Summary ---
Author Organization [facility] Address [address] [place] [address] Phone Care Team Providers Care Assistant Sales Director Name Role Phone Osmany Connors MD Primary Care Provider [phone] Daya Son MD Unavailable [phone] Osmany Connors MD Unavailable [phone] Allergies No known active allergies Medications tadalafiL (CIALIS) 5 MG tablet 1 tablet as needed 6 Active omega 5-dtn-sir-fish oil 1,000 mg (120 mg-180 mg) Cap 1 capsule Activ e folic acid (FOLVITE) 1 MG tablet 1 tablet Active escitalopram oxalate (LEXAPRO) 20 MG tablet Take 20 mg by mouth daily. Active ibuprofen (ADVIL,MOTRIN) 600 MG tablet Take 600 mg by mouth 2 (two) times a day as needed. Active methylphenidate HCl (RITALIN) 5 MG tablet Take 5 mg by mouth daily. May repeat X1 in pm Active polyvinyl alcohol-povidone, PF, (REFRESH CLASSIC) 1.4-0.6 % Dpet Active peg 400-propylene glycol 0.4-0.3 % DrpG Active cyanocobalamin, vitamin B-12, 250 MCG tablet Active cycloSPORINE (RESTASIS) 0.05 % suspension 1 into affected eye Ophthalmic Twice a day Active gabapentin (NEURONTIN) 300 MG capsule 1 capsule Orally qhs Daily at night Active aspirin 81 mg chewable tablet 1 tablet Orally Once a day Active carboxymethylcell ulose (REFRESH LIQUIGEL) 1 % ophthalmic solution Place 1 drop into each eye nightly. Active gabapentin (NEURONTIN) 100 MG capsule Take 100 mg by mouth 2 (two) times a day as needed. Am and at pm Active losartan (COZAAR) 100 MG tabletIndications :Chronic hypertension Take 1 tablet (100 mg total) by mouth daily. 90 tablet 10 0 Active hydroCHLOROthiazi de (HYDRODIURIL) 25 MG tablet 3 Active cholecalciferol (VITAMIN D3) 25 MCG (1,000 unit) tablet Take 1,000 Units by mouth daily. Active lamoTRIgine (LAMICTAL) 150 MG IMMEDIATE release tablet Take 1 tablet by mouth 2 (two) times a day. 2 Active clotrimazole (LOTRIMIN) 1 % external solution APPLY DIRECTED TOPICALLY ONCE DAILY FOR FUNGAL INFECTION 3 Active simvastatin (ZOCOR) 20 MG tabletIndications :Hyperlipidemia take 1 tablet by mouth everyday at bedtime 90 tablet 3 4 Active zonisamide (ZONEGRAN) 25 MG capsule Take 1 capsule by mouth 2 (two) times a day. 4 Active methylphenidate HCl (RITALIN) 10 MG tablet Take 10 mg by mouth 2 (two) times a day. 5 Active Active Problems Problem Noted Date Diagnosed Date Sinus bradycardia by electrocardiogram 5 Assessment & Plan (07/31/2024 5:05 PM EST): EKG shows sinus bradycardia. He is tolerating it well. No indication for treatment or further evaluation unless he develops exertional intolerance. Lumbar spondylosis 07/31/2024 Assessment & Plan (11/27/2024 5:13 PM EDT): Encouraged to work on losing some weight and do some core stretching and strengthening exercises. If this is not helpful I can refer him to physical therapy. Assessment & Plan (07/31/2024 5:07 PM EST): Encouraged to work on losing weight. Exercise handout to improve core strength and flexibility was given. If this is not helpful I can refer him to physical therapy. Essential tremor 04/22/2023 Assessment & Plan (10/25/2023 11:31 AM EDT): Pressure relief with current medication, but magnesium has not been helpful. I asked him to discontinue it. Assessment & Plan (04/22/2023 2:39 PM EDT): Number is only very slight. Unlikely medication would make a significant difference. If he does not see significant improvement with magnesium in another month or so I would discontinue. We will continue to follow clinically and he will follow-up as planned with neurology. Impaired fasting glucose 12/11/2020 Assessment & Plan (06/29/2021 2:23 PM EST): Diet and exercise counseling were given. Assessment & Plan (12/11/2020 2:21 PM EDT): Diet and exercise counseling given. Essential hypertension 06/28/2017 Assessment & Plan (11/27/2024 5:11 PM EDT): Blood pressure is well-controlled, continue current medication Assessment & Plan (05/23/2024 1:38 PM EST): Well-controlled with current medication, continue the same Assessment & Plan (10/25/2023 11:30 AM EDT): Blood pressure little bit higher, but the readings have looked fine. Continue current medication. Assessment & Plan (04/22/2023 2:38 PM EDT): Well-controlled, continue current medication. Assessment & Plan (12/30/2021 1:47 PM EDT): Well-controlled, continue current medication. Encouraged to continue working on diet and increasing aerobic exercise Assessment & Plan (06/29/2021 2:22 PM EST): Well-controlled, continue current medication Assessment & Plan (12/11/2020 2:22 PM EDT): Blood pressures well controlled, continue current medication. [facility] asked him to send me a copy of the labs when done later this year. Hypercholesterolemia 06/28/2017 Assessment & Plan (11/27/2024 5:12 PM EDT): Clinically he is doing well and it sounds like from his description of the [facility] were within normal limits. He will continue with his current medication. I asked him to get me a copy of his [facility]. Assessment & Plan (05/23/2024 1:38 PM EST): Well-controlled, continue current medication. Assessment & Plan (10/25/2023 11:32 AM EDT): Clinically is doing well. I asked him to get me a copy of [facility]. LDL goal is less than 100. Assessment & Plan (04/22/2023 2:38 PM EDT): Well-controlled, continue current medication. Assessment & Plan (12/30/2021 1:48 PM EDT): Well-controlled, continue current medication Assessment & Plan (06/29/2021 2:22 PM EST): Well-controlled with current medication, continue the same. I asked the patient to have a copy of his labs [facility] sent to me when they are done later this year. Class 1 obesity due to exces s calories without serious comorbidity with body mass index (BMI) of 31.0 to 31.9 in adult 06/28/2017 Assessment & Plan (05/23/2024 1:37 PM EST): Encouraged to continue cutting back on portions and increase physical activity Assessment & Plan (06/29/2021 2:23 PM EST): Diet and exercise counseling were given Assessment & Plan (12/11/2020 2:22 PM EDT): We discussed ways to modify his diet, caloric intake, and exercise. Recommend he keep a diary with his weights checked once weekly. He should try to walk at least 15 minutes once if not twice daily and gradually increase his activity as tolerated. Goal is to maintain a BMI less than 29. Obstructive sleep apnea on CPAP 06/28/2017 Overview (04/22/2023): On CPAP, manage by neuro, Dr Son Assessment & Plan (05/23/2024 1:37 PM EST): Doing well with CPAP, continue the same Assessment & Plan (04/22/2023 2:37 PM EDT): Doing well, follow-up as planned with neurology Assessment & Plan (12/30/2021 1:47 PM EDT): He is doing well, continue CPAP. Assessment & Plan (06/29/2021 2:22 PM EST): Doing well, continue CPAP Assessment & Plan (12/11/2020 2:22 PM EDT): Doing well with CPAP, continue the same. 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 He is asymptomatic. Continue to follow clinically and with MRI per neurology. PTSD (post-traumatic stress disorder) 06/28/2017 Overview (06/29/2021): Managed by the [facility] privately Assessment & Plan (05/23/2024 1:38 PM EST): Still having some mild to moderate symptoms, no significant change since increasing dose of Lexapro. He is going to discuss this at his upcoming appointment with psychiatry. Assessment & Plan (12/30/2021 1:48 PM EDT): He is doing well with his current medication. Follow-up as planned with [facility] Assessment & Plan (06/29/2021 2:24 PM EST): Symptoms are somewhat worse. I encouraged him to contact his therapist to restart treatment. Continue current medication and follow-up as scheduled with [facility]. Assessment & Plan (12/11/2020 2:23 PM EDT): He is doing generally well. Does have some ups and downs with his mood but generally is happy with his current treatment. [facility] Resolved Problems Problem Noted Date Diagnosed Date Resolved Date Muscle strain of upper back 12/25/2020 06/29/2021 Assessment & Plan (12/25/2020 3:23 PM EDT): I recommend he avoid heavy exertion and do some gentle stretching and walking. He can use acetaminophen as needed for pain. Symptoms should gradually improve over the course of the next week or so. 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 06/28/2017 12/11/2020 Encounters Date Type Department Care Team Description 12/24/2024 9:45 AM EDT Office Visit [address] [address] Fernando Trimble PA Markey, Stephen, PT Gait abnormality (Primary Dx) 12/19/2024 9:45 AM EDT Office Visit [address] [address] Fernando Trimble PA Markey, Stephen, PT Gait abnormality (Primary Dx) 12/12/2024 12:15 PM EDT Office Visit [address] [address] Fernando Trimble PA Gawron, Carol A, ENVIRONMENTAL CONTROL ADMINISTRATOR Gait abnormality (Primary Dx) 12/03/2024 9:30 AM EDT Office Visit [address] [address] Fernando Trimble PA Gawron, Carol A, ENVIRONMENTAL CONTROL ADMINISTRATOR Gait abnormality (Primary Dx) 11/27/2024 3:45 PM EDT Office Visit [facility] [place] [address] [place] [address] Osmany Connors MD Essential hypertension (Primary Dx); Hypercholesterolemi a; Lumbar spondylosis 11/26/2024 9:45 AM EDT Office Visit [address] [address] Fernando Trimble PA Markey, Stephen, PT Gait abnormality (Primary Dx) 11/26/2024 Plan of Care Documentation [address] [address] from Last 3 Months Immunizations Immunization Administration Dates Next Due COVID-19 (Pre-04/11) Pfizer Vaccine, mRNA, PF 05/01/2021,09/20/2020,08/30/2020 DTaP, unspecified formulation 05/19/2012 [id number] FORMULATION 07/03/2009 INFLUENZA, SPLIT VIRUS, TRIVALENT PF 04/06/2022, 03/21/2015 INFLUENZA, SPLIT VIRUS, TRIV ALENT W/ PRESERVATIVE IM 03/20/2019,03/20/2018,03/21/2017,03/05,05/03/2014,03/02/2011,05/21/2008 ,04/22/2006,05/05/2005 Influenza High-Dose Quadriva lent Preservative Free IM 03/15/2023,02/23/2021,03/17/2020 Influenza High-Dose Trivalen t Preservative Free IM 05/08/2019,04/25/2018,02/28/2017,02/15,03/06/2013,03/31/2012 Influenza Trivalent Adjuvant ed Preservative free IM 03/16/2024 Influenza, Unspecified Formulation 05/20,02/19/2016,05/02/2014,03/28,03/20/2012,04/20/2011,03/20/2011 ,04/20/2010,07/03/2009,04/20/2007 Pneumococcal conjugate PCV13 07/31/2015,03/21/20 15 Pneumococcal polysaccharide PPSV23 03/17/2022 Pneumococcal, Unspecified Formulation 05/19/2012 RSV Vaccine (bivalent) 09/10/2024 Td (adult),2 Lf Tetanus Toxo id, PF, Adsorbed 06/29/2018 Tdap 03/17/2022,02/26/2008 Zoster live 05/30/2012 Zoster recombinant 01/02/2018,10/18/2017 Family History Relation Status Comments Daughter 1 Alive Daughter 2 Alive Father Granddaughter Alive Grandson 1 Alive Grandson 2 Alive Mother Social History Tobacco Use Types Packs/Day Years Used Date Smoking Tobacco: Never Smokeless Tobacco: Never Tobacco Cessation:Counseling Given: Not Answered Alcohol Use Standard Drinks/Week Comments Not Currently 0 (1 standard drink = 0.6 oz pur e alcohol) Education Answer Date Recorded Are you interested in more education? Not on roger e 10/14/2022 Are you concerned about learning? Not on file 10/14/2022 No 10/14/2022 No 10/14/2022 Digital Access Answer Date Recorded No 11/15/2022 No 11/15/2022 Reliable internet access at home? Not on file 11/15/2022 Device with a working camera? Not on file Intimate Partner Violence Answer Date R ecorded Denied Basic Needs Not on file 05/23/2024 In the past 12 months have y ou been in a relationship with a person who hurts, threatens, or tries to control you? No 05/23/2024 Worried food would run out Not on file 05/23 In the past 12 months have y ou been in a relationship with a person who hurts, threatens, or tries to control you? No 05/23/2024 Sex and Gender Information Value Date Recorded Sex Assigned at Male 08/25/2020 9:42 AM EST Legal Sex Male 8:49 AM EST Gender Identity Male 08/25/2020 9:42 AM EST Sexual Orientation Straight 08/25/2020 9: 42 AM EST Occupation Industry Job Start Date Job End Date [employer] Not on file Not on file Not on file Last Filed Vital Signs Vital Sign Reading Time Taken Comments Blood Pressure 136/72 11/27/2024 4:04 PM EDT Pulse 51 11/27/2024 4:04 PM EDT Temperature 36.7 C (98 F) 11/27/2024 4:04 PM EDT Respiratory Rate 15 09/23/2022 8:08 AM EDT Oxygen Saturation 98% 11/27/2024 4:04 PM EDT Inhaled Oxygen Concentration - - Weight 88 kg (194 lb) 11/27/2024 4:04 PM EDT Height 170.2 cm (5' 7.01 ) 11/27/2024 4:04 PM ED T Body Mass Index 30.38 11/27/2024 4:04 PM EDT Plan of Treatment Upcoming Encounters Date Type Department Care Team (Late st Contact Info) Description 05/29/2025 10:30 AM EST Office Visit [address] [place] [address] Osmany Connors MD [address] [facility], [address] [place] [address] Health Maintenance Due Date Last Done Comments COLOGUARD 1991 FIT TEST 1991 FOBT 1991 SIGMOIDOSCOPY 1991 VIRTUAL COLONOSCOPY 1991 COVID-19 VACCINE ( season) 2024 06/01/2022, 10/05/2021, 05/01/2021, Additional history exists CREATININE LEVEL 04/12/2024 04/12/2023, , 12/27/2019, Additional history exists POTASSIUM LEVEL 04/12/2024 04/12/2023, 09/08/2020 DEPRESSION SCREENING 05/23/2025 05/23/2024 BLOOD PRESSURE 05/29/2025 11/27/2024 COLONOSCOPY 09/24/2027 09/23/2022, 08/20/2016 COLORECTAL CANCER SCREENING 09/24/2027 LIPID PANEL 04/12/2028 04/12/2023, 03/21, 09/08/2020, Additional history exists Adult Td,Tdap Booster 03/17/2032 03/17/2022 , 06/29/2018, 02/26/2008 ZOSTER VACCINES Completed 01/02/2018, 05/0 06/2017, 05/30/2012 PNEUMOCOCCAL VACCINES (50+ years) Completed 03/17/2022, 07/31/2015, 03/21/2015 RSV VACCINE Completed 09/10/2024 SMOKING STATUS SCREENING (Once After 26 Yrs) Completed 11/27/2024 HEPATITIS A VACCINES Aged Out No long er eligible based on patient's age to complete this topic HIB VACCINES Aged Out No longer eligi ble based on patient's age to complete this topic MENINGOCOCCAL VACCINES (ACWY) Aged Out No longer eligible based on patient's age to complete this topic MENINGOCOCCAL VACCINES (B) Aged Out N o longer eligible based on patient's age to complete this topic Medical Devices Not on file Procedures Procedure Name Priority Date/Time Associated Diagnosis Comments AMB REFERRAL TO [facility] PHYSICAL THERAPY Routine 11/26/2024 6:11 PM EDT LIPID PANEL Routine 04/12/2023 9:55 AM EDT Hypercholesterolemia BASIC METABOLIC PANEL Routine 04/12/2023 9:55 AM EDT Essential hypertension ENDOSCOPY, COLON 09/23/2022 7:26 AM EDT from Last 3 Months or Most Recently Relevant to Health Maintenance Results * Ambulatory referral to [facility] Physical Therapy (11/26/2024 6:11 PM EDT) Other Fernando BELL AMB [facility] REFERRALS Final Result * (ABNORMAL) Lipid panel (04/12/2023 9:55 AM EDT) HDL 43 mg/dL [facility] Comment: Interpretation <40 mg/dL: Low HDL cholesterol (major risk factor for CHD) Greater than or equal to 60 mg/dL: High HDL cholesterol ( negative risk factor for CHD) HDL - cholesterol is affected by a number of factors, e.g. smoking, excerise, hormones, sex and age. CHOLESTEROL 149 0 - 240 mg/dL [facility] TRIGLYCERIDES 162(H) 30 - 160 mg/dL [facility] LDL 74 50 - 129 mg/dL [facility] Comment: LDL levels in terms of risk for coronary heart disease: <100 mg/dL: Optimal 100-129 mg/dL: Near or above optimal 130-159 mg/dL: Borderline high 160-189 mg/dL: High >190 mg/dL: Very High CARDIAC RISK RATIO 3.5 3.4 - 5.0 C [facility] Blood 04/12/2023 9:55 AM EDT 04/12/2023 10:04 AM EDT us Osmany Connors MD LAB BLOOD ORDERABLES Final Result Performing Organization Address City/[facility]/ZIP Co de Phone Number [address] [address] * (ABNORMAL) Basic metabolic panel (04/12/2023 9:55 AM EDT) SODIUM 141 133 - 146 mmol/L [facility] CHLORIDE 101 96 - 108 mmol/L [facility] POTASSIUM 4.1 3.3 - 5.1 mmol/L [facility] CO2 31 21 - 35 mmol/L [facility] BUN 14 6 - 19 mg/dL [facility] CREATININE 1.10 0.5 - 1.5 mg/dL [facility] GLUCOSE 107(H) 70 - 99 mg/dL [facility] CALCIUM 9.3 8.4 - 10.3 mg/dL [facility] EGFR 70 >59 mL/min/1.7 3m2 [facility] Comment:Estimated glomerular filtration rate calculated using the CKD-EPI refit equation. ANION GAP 13 10 - 20 mmol/L [facility] Blood 04/12/2023 9:55 AM EDT 04/12/2023 10:04 AM EDT us Osmany Connors MD LAB BLOOD ORDERABLES Final Result Performing Organization Address City/[facility]/ZIP Co de Phone Number [address] [address] * ENDOSCOPY, COLON (09/23/2022 7:26 AM EDT) Narrative Transcriptions Sonia Osman MD - 09/23/2022 7:26 AM EDT [facility] Patient Name: Fady Thanh Attending MD:: SONIA OSMAN MD, Procedure Date: 09/23/2022 7:26 AM Date of : 1945 Age: 77 Admit Type: Outpatient Gender: Male Room: [place] [address] Referring MD: Osmany Connors MD Exam Type: Colonoscopy Indications: High risk colon cancer surveillance: Personalhistory of colonic polyps, Last colonoscopy: August 2016 Medications: Propofol per Anesthesia Procedure: Informed consent was obtained from the patientafter discussion of the indications, limitations, alternatives, benefits, and risks of the procedure. Risks specifically discussed include but are not limited to medication reactions, missed lesions, bleeding, perforation, or the need for emergent surgery. Throughout the procedure, the patient's blood pressure, pulse, end-tidal CO2, and oxygensaturations were monitored continuously. The Olympus adult variable colonoscope [id number] #4 was introduced through the anus and advanced to the terminal ileum, with identification of theappendiceal orifice and IC valve. The terminal ileum, ileocecal valve, appendiceal orifice, and rectum were photographed. The colonoscopy was somewhatdifficult due to a redundant colon. Successful completion ofthe procedure was aided by applying abdominal pressure. The patient tolerated the procedure well. Thequality of the bowel preparation was good. The bowel preparation used was PEG/Miralax in Gatoraideand/or Pedialyte via split dose instruction. Complications: No immediate complications. Estimated blood loss:None. Findings: The perianal and digital rectal examinations were normal. Pertinent negatives include normal prostate (size, shape, and consistency). The retroflexed view of the distal rectum and anal verge was normal and showed no anal or rectal abnormalities. The colon (entire examined portion) was mildly redundant. Many small-mouthed diverticula were found in the sigmoid colon. The exam was otherwise without abnormality. The terminal ileum appeared normal. Retroflexion in the right colon was performed. Impression: - The distal rectum and anal verge are normal on retroflexion view. - Redundant colon. - Mild diverticulosis in the sigmoid colon. - The examination was otherwise normal. - The examined portion of the ileum was normal. - No specimens collected. Recommendation: - High fiber diet. - Repeat colonoscopy in 5 years for surveillance. SONIA OSMAN MD 09/23/2022 7:58:13 AM This report has been signed electronically. Number of Addenda: 0 Note Initiated On: 09/23/2022 7:26 AM Procedure Code(s): --- Professional --- 82205, Colonoscopy, flexible; diagnostic, including collection of specimen(s) by brushing or washing, when performed (separateprocedure) --- Technical --- 82037, Colonoscopy, flexible; diagnostic, including collection of specimen(s) by brushing or washing, when performed (separateprocedure) Diagnosis Code(s): --- Professional --- Z86.010, Personal history of colonic polyps K57.30, Diverticulosis of large intestine without perforation or abscess without bleeding Q43.8, Other specified congenital malformations of intestine --- Technical --- Z86.010, Personal history of colonic polyps K57.30, Diverticulosis of large intestine without perforation or abscess without bleeding Q43.8, Other specified congenital malformations of intestine CPT copyright 2021 [employer]. All rights reserved. The codes documented in this report are preliminary and upon pre coder reviewmay be revised to meet current compliance requirements. Procedure Date: 09/23/2022 7:26:[address] [place] [address] Osmany Connors MD GI PROCEDURE ORDERABLES Fi nal Result from Last 3 Months or Most Recently Relevant to Health Maintenance Insurance MEDICARE PART A & B [facility] MEDIC[facility] PART [facility] & B [facility] MEDICARE PART A & B [employer] [facility] MEDICARE PART A & B [employer] [facility] MEDICARE PART A & B [employer] MEDICARE PART A & B [employer] [facility] MEDICARE PART A & B [employer] MEDICARE PART A & B [employer] MEDIC[employer] PART A & B [employer] [facility] Care Teams Assistant Sales Director Relationship Specialty Start Date End Date Osmany Connors MD [address] [place] [address], [address] [place] [address] PCP - General Internal Medicine 10/24/20 Daya Son MD [address] [place] [address], [address] [place] [address] Neurology 10/25/23 Osmany Connors MD [address] [place] [address], [address] [place] [address] [email or web address] Insurance Assigned Provider 09/23/24 Additional Source Comments The information contained in this document represents components of the legal health record. It is not the complete legal health record.[facility]
== END 2025-02-05 16:19 | disposition home or self-care (01) ==
LOC: HO.HSMS 15:20
PROVIDERS: PCP Internal Medicine; Visit Provider Physician Assistant Medical
DX: G47.33 Obstructive sleep apnea (adult) (pediatric) (principal); M54.2 Cervicalgia; R25.1 Tremor, unspecified; G40.209 Localization-related (focal) (partial) symptomatic epilepsy and epileptic syndromes with complex partial seizures, not intractable, without status epilepticus; R41.89 Other symptoms and signs involving cognitive functions and awareness; R26.89 Other abnormalities of gait and mobility; R26.9 Unspecified abnormalities of gait and mobility; Z87.820 Personal history of traumatic brain injury; F41.9 Anxiety disorder, unspecified
CPT/HCPCS: 99214